=== PATIENT | female | born 1950 | race Caucasian/White ===

== ENCOUNTER 2017-04-26 10:06 | Day surgery (SDC) | payer MEDICARE, BC, SELFPAY ==
[2017-04-26] VITALS (7 sets, daily range): BP systolic 128–149; BP diastolic 64–85; PULSE 82–86; RESP 16; TEMP 35.9–36.9; O2SAT 91–96; BMI 37.0
--- NOTE | 2017-04-26 | LES_PTH ---
PATIENT: MCKENNA ALVARADO LOC: [facility] U#:[id number] AGE/SX: 66/F ROOM: RE04/26/[address]: Dr. Kaylee Roland MD : 1950 BED: DIS: 04/26/2017 SPEC #: [id number] RECD: 04/26/17 12:32 STATUS: SYLVIE MEGAN #: [id number] LEONARDO: 04/26/17 00:[address]: Kaylee Roland DEPT: SURGICAL PATHOLOGY RECD BY: Maribel Mckenzie ENTERED: 04/26/17 13:17 SP TYPE: Lesion OTHR DR: Dr. David Hager, DO Tissues: Skin of eyelid, NOS Procedures: Frozen Section (charge) Surgery Specimen Level IV Frozen (no charge) HEADER OPERATION: Wedge resection basal cell carcinoma, frozen sections upper eyelid PRE-OP DIAGNOSIS: Basal cell carcinoma upper lid with features of the infundibulocystic variant TISSUE SUBMITTED: Basal cell carcinoma left upper lid FROZEN SECTION DIAGNOSIS Skin lesion, left upper eyelid, biopsy: No evidence of carcinoma. AM:victorino 04/26/17 MICROSCOPIC DIAGNOSIS Skin lesion, left upper eyelid, biopsy: Mild fibrosis and minimal chronic inflammation. No evidence of malignancy. NOA:victorino 04/27/17 MICROSCOPIC DESCRIPTION Slides are reviewed. GROSS DESCRIPTION Received fresh for frozen section consultation labeled with the patient's name is a specimen designated lesion, left upper eyelid. The specimen consists of an irregular fragment of pink-liam soft tissue measuring 0.8 x 0.5 x 0.4 cm. The specimen is oriented and is differentially inked as follows: superior ? black, inferior ? blue, medial ? yellow, lateral ? red. The specimen is then trisected and submitted in its entirety for frozen section consultation. / AM:victorino 04/26/17 TC:5 CPT: 72930, 99815
[2017-04-26] MEDS: Erythromycin Base 1 OPTH.TUBE 1 APPLIC OPHTHALMIC (07:00)
[2017-04-26 10:51] LABS: Bedside Glucose 185 mg/dL (70-110)
[2017-04-26] MEDS: Tetracaine 0.5% Ophthalmic Bottle 1 DRP (11:59)
[2017-04-26] MEDS: Sodium/Calcium/Mag/Potassium 15 ML Bottle (12:45)
--- NOTE | 2017-04-26 13:29 | DCINST_ITS ---
[facility] Eyelid Surgery Discharge Instructions: CARE: 1. Apply Ice or Bag of Frozen Veggies to the surgery location 30 minutes of every hour for the first 48 hours while awake. 2. When you are sleeping, please apply the shield with paper tape for the first 3 nights. 3. It is best to attempt to sleep on your side that is opposite the side of surgery. 4. Do not RUB your eyelid. 5. Do not shower for 24 hours after surgery. It is OK to sponge bath but avoid water in or around the face. 6. Clean the incision daily with warm water and clean cloth. Do NOT RUB aggressively. 7. Do not lift anything heavier than 25 pounds for the first 2 weeks after surgery. 8. Resume regular diet and medications MEDICATIONS: 1. Apply prescribed eye ointment to the incision site and eye four times daily for the first two days. 2. If your eye is comfortable after 2 days, you may apply the ointment only to the incision site until your appointment with Dr. Roland in 1 week. Please CALL IF YOU DEVELOP ANY OF THE FOLLOWING PROBLEMS: 1. Extreme pain that is not relieved with Tylenol or Ibuprofen 2. Vision loss 3. Nausea and vomiting During regular office hours, please call the office at After hours, please call the office which will route to an answering service OR call Dr. Roland directly at If you have not heard from Dr. Roland in 30 minutes, please call . You will reach Dr. Amado Roland. Please notify him you are an EYE patient and need to speak with Dr. Kaylee Roland.
--- NOTE | 2017-04-26 13:29 | PCM.OP.BLANK ---
Operative Report Date of Procedure: 04/26/17 Procedure: Wedge resection left upper eyelid with frozen sections Preoperative Diagnosis: Basal Cell Carcinoma left upper eyelid Post operative Diagnosis: Same Anesthesia: mac/local EBL: <5 cc Indications for procedure: This is a 66 year old female with history of lesion of the left upper eyelid that was biopsied and sent to pathology. It returned as a basal cell carcinoma of the infundibulocystic variant, therefore the patient was brought to the operating room to complete wedge resection of the left upper eyelid with 2 mm margins and intraoperative frozen sections. Risks, benefits, and alternatives of the procedure were discussed and she agreed to proceed. Description of Procedure: The patient was brought to the operating room where a time out was preformed prior to the start of the procedure. The site of excision was marked with a marking pen, ensuring 2 mm margin adjacent to the abnormal tissue medial, lateral and superior. Anesthesia team induced light sedation. The left upper eyelid was injected with 2% lidocaine with epinephrine. Tetracaine drops were placed in the left eye. The upper half of the face was prepped and draped in the usual sterile fashion for eyelid surgery. A corneal protector was placed in the left eye. A 15 degree blade was used to incise along the previous marked excision site. Diane scissors were used to remove the excised pentagonal tissue. This was placed on a tongue depressor and marked medial, lateral, superior margins and sent for review with the pathologist. During this period hemostasis was achieved using cautery. The pathologist called to report all margins were free of residual tumor, and therefore closure of the defect began. 3 tarsal sutures were placed with 6-0 vicryl. 2 6-0 silk sutures were used to close the lid margin. Lastly 3 6-0 fast absorbing gut sutures were used to close the skin, making sure to tie the silk sutures down through the skin sutures. The corneal protector was removed. It was ensured no sutures were eroded through the posterior aspect of the eyelid. Erythromycin ointment was applied to the eye and incision site after the site was cleaned and the eye was irrigated with BSS. The patient was taken to the recovery room in stable condition.
== END 2017-04-26 14:20 | disposition home or self-care (01) ==
LOC: SDC 10:07 → AC 10:09
PROVIDERS: Family Provider Family Medicine; PCP Family Medicine; Visit Provider Ophthalmology
PROC: (CPT 67840; principal; 2017-04-26 11:35)
DX: C44.119 Basal cell carcinoma of skin of left eyelid, including canthus (principal); I10 Essential (primary) hypertension; E11.9 Type 2 diabetes mellitus without complications; K21.9 Gastro-esophageal reflux disease without esophagitis; E78.00 Pure hypercholesterolemia, unspecified; M19.90 Unspecified osteoarthritis, unspecified site; G47.30 Sleep apnea, unspecified; Z87.891 Personal history of nicotine dependence; Z79.82 Long term (current) use of aspirin; Z79.84 Long term (current) use of oral hypoglycemic drugs; Z79.899 Other long term (current) drug therapy
CPT/HCPCS: 00300; 67840; 82962; 88305; 88331; J7120; C1876; J2405

== ENCOUNTER → 2017-06-14 13:46 | Outpatient (CLI) | payer MEDICARE, BC, SELFPAY ==
--- NOTE | 2017-06-14 13:48 | RAD_ITS ---
STUDY: X-RAY - PELVIS AND LEFT HIP REASON FOR EXAM: Female, 67 years old. Pain. TECHNIQUE: Radiological exam, hip, unilateral, with pelvis when performed; 2 or 3 views. COMPARISON: CT abdomen and pelvis July 28, 2014. FINDINGS: There is a non-specific bowel gas pattern. Normal visualized soft tissue structures. Normal bilateral iliac wings, sacroiliac joints and visualized sacrum. Normal bilateral superior and inferior pubic rami. Normal pubic symphysis. Normal bilateral ischial tuberosities. Normal visualized femoral head. Normal acetabulum. Normal hip joint. Degenerative changes of the lower lumbar spine with disc space narrowing and marginal osteophytes. RAD/Hip 2-3 Views with Pelvis IMPRESSION: Normal x-ray examination of the pelvis and hip. Degenerative changes lower lumbar spine. Electronically Signed: Devyn Armas MD at 0:08 EDT , Service support ,
== END ==
PROVIDERS: Family Provider Family Medicine; PCP Family Medicine; Visit Provider Chiropractor
DX: S33.5XXA Sprain of ligaments of lumbar spine, initial encounter (principal)
CPT/HCPCS: 73502

== ENCOUNTER → 2017-06-18 10:15 | Outpatient (CLI) | payer MEDICARE, BC, SELFPAY ==
[2017-06-18 12:21] LABS: Microalbumin,Random Urine 17.3 mg/L (NO RANGE EST.); Microalbumin:Creatinine Ratio 11.2 mg/g CRE (<30 mg/g CRE)
[2017-06-18 12:27] LABS: Absolute Lymphocyte Count 2.18 X10^3/ul (0.83-4.51); Absolute Neutrophil Count 7.9 X10^3/uL (2.0-7.7); Basophil# 0.02 X10^3/uL; Basophil% 0.2 % (0-1); Eosinophil# 0.22 X10^3/uL; Hematocrit 41.5 % (37-47); Hemoglobin 13.4 g/dl (12.0-15.0); Lymphocyte # 2.18 X10^3/ul (4.0); Lymphocyte % 19.6 % (19-41); Mean Corp Hgb Conc 32.3 g/gl (32-36); Mean Corpuscular Hgb 31.9 pg (27.0-32.0); Mean Corpuscular Volume 98.8 fL (81-99); Mean Platelet Vol. 11.1 fl (6.2-12.0); Monocyte# 0.75 X10^3/uL; Monocyte% 6.7 % (0-10); Neutrophil % 70.9 % (47-70); Platelet Count 352 K/mm3 (150-450); RBC Distribution Width CV 13.4 % (11.6-14.6); RBC Distribution Width SD 47.7 fl (35.1-43.9); White Blood Count 11.1 K/mm3 (4.4-11.0)
[2017-06-18 12:32] LABS: POSITIVE COUNT NO; POSITIVE DIFFERENTIAL NO; POSITIVE MORPHOLOGY NO
[2017-06-18 12:41] LABS: Hemoglobin A1c 7.7 % (4.2-6.3)
[2017-06-18 12:48] LABS: ALB/GLOB Ratio 0.8 RATIO (0.9-2.4); AST(SGOT) 50 U/L (15-37); Alanine Aminotransfer ALT/SGPT 43 U/L (13-56); Albumin, Serum 3.7 g/dL (3.2-5.0); Alkaline Phosphatase 153 U/L (45-117); Anion Gap 7 (5-15); BUN 21 mg/dL (7-18); BUN/Creat Ratio 27.8 RATIO (10-20); Calcium,Total 9.4 mg/dL (8.5-10.1); Chloride 98 mmol/L (98-107); Cholesterol 180 mg/dL (200); Creatinine, Serum 0.76 mg/dL (0.55-1.02); EST Glomerular Filtration Rate 81 mL/min (>60); Est Glom Filt Rate - Afr Amer 98 mL/min (>60); Globulin 4.9 g/dL (2.2-4.2); Glucose 177 mg/dL (74-106); High Density Lipoprotein 52 mg/dL; Potassium 4.1 mmol/L (3.5-5.1); Protein, Total 8.6 g/dL (6.4-8.2); Sodium Level 137 mmol/L (136-145); Thyroid Stim Hormone (TSH) 1.21 uIU/mL (0.358-3.74); Triglycerides 222 mg/dL; Very Low Density Lipoprotein 44 mg/dL (5-40)
== END ==
PROVIDERS: Family Provider Family Medicine; PCP Family Medicine; Visit Provider Family Medicine
DX: I10 Essential (primary) hypertension (principal); E11.9 Type 2 diabetes mellitus without complications; E78.5 Hyperlipidemia, unspecified; D12.6 Benign neoplasm of colon, unspecified
CPT/HCPCS: 36415; 80053; 80061; 82043; 82570; 83036; 84443; 85025

== ENCOUNTER → 2017-06-26 11:20 | Outpatient (CLI) | payer MEDICARE, BC, SELFPAY ==
--- NOTE | 2017-06-26 11:24 | RAD_ITS ---
STUDY: X-RAY CHEST REASON FOR EXAM: Female, 67 years old. Shortness of breath TECHNIQUE: PA and lateral views of the chest. COMPARISON: None. FINDINGS: There is hyperinflation of the lungs consistent with chronic obstructive lung disease (COPD). Lungs are clear. There is no demonstrated pleural abnormality. There is mild cardiac enlargement. Normal mediastinum and aryan. Normal visualized pulmonary arteries. Normal visualized aortic arch and descending thoracic aorta. Calcified left suprahilar lymph nodes. Normal visualized thoracic spine. Normal visualized ribs, clavicles, and shoulders. There is no demonstrated abnormality of the visualized soft tissue structures of the upper abdomen. RAD/Chest PA and Lateral IMPRESSION: Degenerative changes, as described above. No demonstrated acute cardiopulmonary process. Electronically Signed: Logan Zapata DO at 8:35 EDT Tel , Service support ,
== END ==
PROVIDERS: Family Provider Family Medicine; PCP Family Medicine; Visit Provider Family Medicine
DX: R06.2 Wheezing (principal); R06.02 Shortness of breath
CPT/HCPCS: 71046

== ENCOUNTER → 2017-07-23 16:47 | Outpatient (CLI) | payer MEDICARE, BC, SELFPAY ==
[2017-07-23 18:51] LABS: ALB/GLOB Ratio 0.7 RATIO (0.9-2.4); AST(SGOT) 41 U/L (15-37); Alanine Aminotransfer ALT/SGPT 42 U/L (13-56); Albumin, Serum 3.4 g/dL (3.2-5.0); Alkaline Phosphatase 216 U/L (45-117); Anion Gap 11 (5-15); BUN 19 mg/dL (7-18); BUN/Creat Ratio 21.2 RATIO (10-20); Calcium,Total 9.5 mg/dL (8.5-10.1); Chloride 98 mmol/L (98-107); EST Glomerular Filtration Rate 66 mL/min (>60); Est Glom Filt Rate - Afr Amer 80 mL/min (>60); Globulin 4.8 g/dL (2.2-4.2); Glucose 229 mg/dL (74-106); Magnesium 1.8 mg/dL (1.6-2.6); Potassium 3.7 mmol/L (3.5-5.1); Protein, Total 8.2 g/dL (6.4-8.2); Sodium Level 134 mmol/L (136-145); Thyroid Stim Hormone (TSH) 1.48 uIU/mL (0.358-3.74)
== END ==
PROVIDERS: Family Provider Family Medicine; PCP Family Medicine; Visit Provider Family Medicine
DX: I10 Essential (primary) hypertension (principal); I49.8 Other specified cardiac arrhythmias
CPT/HCPCS: 36415; 80053; 83735; 84443

== ENCOUNTER → 2017-08-09 09:04 | Outpatient (CLI) | payer MEDICARE, BC, SELFPAY | PROVIDERS: Family Provider Family Medicine; PCP Family Medicine; Visit Provider Internal Medicine Cardiovascular Disease | DX: I47.1 Supraventricular tachycardia (principal) | CPT/HCPCS: 93225; 93226 ==

== ENCOUNTER → 2017-08-10 10:03 | Outpatient (CLI) | payer MEDICARE, BC, SELFPAY ==
--- NOTE | 2017-08-10 10:04 | ECHOD_ITS ---
Reason For Study: Arrhythmia Procedure This was a 2D Doppler, Color Flow transthoracic echocardiogram. Technically difficult study, patient was unable to lay on left side and remain still due to severe back and hip pain. Exam performed in department. Left Ventricle Normal LV size. Moderate concentric left ventricular hypertrophy. Left ventricular systolic function is normal. The estimated ejection fraction is 60 %. Transmitral diastolic flow velocities suggest mild (stage 1) diastolic dysfunction (reversed pattern). No regional wall motion abnormalities noted. Right Ventricle Normal RV size. Normal systolic function. Atria Normal left atrium. Normal right atrium. Mitral Valve Normal mitral valve. Tricuspid Valve Normal tricuspid valve. Aortic Valve Normal aortic valve. Pulmonic Valve The pulmonic valve is not well visualized. Great Vessels Normal aortic root. The pulmonary artery is normal size. Normal inferior vena cava. Pericardium/Pleural No pericardial effusion. MMode/2D Measurements & Calculations LVIDd: 4.7 cm IVSd: 1.5 cm Ao root diam: 3.1 cm LVIDs: 2.5 cm LVPWd: 1.3 cm RVDd: 4.2 cm FS: 46.4 % LAV(MOD-sp2): 47.4 ml Time Measurements MV dec time: 0.24 sec Doppler Measurements & Calculations MV E max miguelito: 49.4 cm/sec Lat Peak E' Miguelito: 8.8 cm/sec Med Peak E' Miguelito: 9.3 cm/sec MV A max miguelito: 65.1 cm/sec E/E' lat: 5.6 E/E' med: 5.3 MV E/A: 0.76 MV V2 max: 84.1 cm/sec MV P1/2t max miguelito: 74.4 cm/sec Ao V2 max: 164.4 cm/sec MV max P.8 mmHg MV P1/2t: 86.9 msec Ao max P.8 mmHg MV V2 mean: 48.7 cm/sec MV dec slope: 250.7 cm/sec2 Ao V2 mean: 102.8 cm/sec MV mean P.1 mmHg MVA(P1/2t): 2.5 cm2 Ao mean P.0 mmHg MV V2 VTI: 18.9 cm Ao V2 VTI: 30.7 cm LV V1 max: 95.7 cm/sec PA V2 max: 108.8 cm/sec TR max miguelito: 297.6 cm/sec LV V1 max P.7 mmHg TR max P.4 mmHg LV V1 mean P.5 mmHg LV V1 mean: 54.3 cm/sec LV V1 VTI: 18.5 cm Interpretation Summary Normal LV size. Moderate concentric left ventricular hypertrophy. Left ventricular systolic function is normal. The estimated ejection fraction is 60 %. Transmitral diastolic flow velocities suggest mild (stage 1) diastolic dysfunction (reversed pattern). Ordering Physician: Justin Archer Referring Physician: Justin Archer Performed By: Roberto Love RCS
== END ==
PROVIDERS: Family Provider Family Medicine; PCP Family Medicine; Visit Provider Internal Medicine Cardiovascular Disease
DX: I47.1 Supraventricular tachycardia (principal)
CPT/HCPCS: 93306

== ENCOUNTER → 2017-08-21 14:13 | Outpatient (CLI) | payer MEDICARE, BC, SELFPAY | PROVIDERS: Family Provider Family Medicine; PCP Family Medicine; Visit Provider Family Medicine | DX: R35.0 Frequency of micturition (principal); N30.00 Acute cystitis without hematuria | CPT/HCPCS: 87086; 87088 ==

== ENCOUNTER → 2017-09-11 15:25 | Outpatient (CLI) | payer MEDICARE, BC, SELFPAY ==
--- NOTE | 2017-09-11 15:31 | MRI_ITS ---
STUDY: MRI LUMBAR SPINE WITHOUT CONTRAST REASON FOR EXAM: Female, 67 years old. Severe back and leg pain TECHNIQUE: Standardized fat and water weighted pulse sequences were obtained in the sagittal and axial planes. COMPARISON: None There are lesions scattered throughout the lumbar spine involving all of the vertebral bodies and posterior neural elements at multiple levels demonstrating low signal on T1 and increased signal on T2 as well as STIR consistent with diffuse disseminated metastatic disease. There are also lesions seen within the T10, T11 and T12 vertebral bodies There are also metastases noted within the sacral wings bilaterally and the left iliac wing There is a suggestion of tumor within the anterior epidural space at L2 FINDINGS: T12-L1: Normal endplates. Normal disc height, hydration and morphology. Normal bilateral facet joints. Normal central canal and bilateral lateral recesses. Normal bilateral intervertebral neural foramina. Normal lumbar lordosis. There is no substantial scoliosis. Normal conus medullaris that terminates at T12-L1 L1-2: Normal endplates. Normal disc height, hydration and minimal annular bulge.. Normal bilateral facet joints. Normal central canal and bilateral lateral recesses. Normal bilateral intervertebral neural foramina. L2-3: Normal endplates. Narrowed disc space with desiccation of the disc and moderate annular bulge with small right posterolateral/foraminal disc protrusion... Normal bilateral facet joints. Normal central canal. Mild left lateral recess. Moderate right lateral recess and neuroforaminal stenosis L3-4: Normal endplates. Normal disc height, desiccation and normal morphology. Mild facet arthropathy.. Normal central canal and bilateral lateral recesses. Normal bilateral intervertebral neural foramina. L4-5: Narrowed disc space with desiccation of the disc and moderate annular bulge.. Bilateral facet arthropathy.. Mild narrowing of the central canal. Moderate bilateral recess and neuroforaminal stenosis.. L5-S1: Normal endplates. Normal disc height, desiccation and normal morphology. Facet arthropathy.. Normal central canal. Minor bilateral recess encroachment. Normal bilateral intervertebral neural foramina. Normal visualized sacral ala. Normal visualized paraspinous soft tissue structures. MRI/Spine Lumbar (Routine) IMPRESSION: Extensive bone metastasis involving T10-S1 as well as the sacral wings and left ilium. Repeat exam with contrast would be helpful for assessment of involvement of the spinal canal. There is also spinal stenosis secondary to disc disease and bony hypertrophy at L4-5 and L2-3 Electronically Signed: Rm Retana MD at 17:15 EDT , Service support ,
== END ==
PROVIDERS: Family Provider Family Medicine; PCP Family Medicine; Visit Provider Family Medicine
DX: M54.5 Low back pain (principal); G89.29 Other chronic pain
CPT/HCPCS: 72148

== ENCOUNTER → 2017-09-13 10:05 | Outpatient (CLI) | payer MEDICARE, BC, SELFPAY ==
[2017-09-13 12:59] LABS: Color, Urine Yellow (Yellow); Glucose, Dipstick Normal (Normal); Ketone-Dipstick Negative (Negative); Leukocyte Esterase-Dipstick 100 /ul (Negative); Nitrite-Dipstick Negative (Negative); Occult Blood-Urine Negative /ul (Negative); Protein-Dipstick 30 mg/dl (Negative); Specific Gravity, Urine 1.025 (1.002-1.030); Urine Bilirubin Dipstick Negative (Negative); Urine Clarity Clear (Clear); Urine Urobilinogen Normal (Normal)
[2017-09-14 14:09] LABS: PROEL- A/G Ratio 0.9 (0.7-1.7); PROEL- Albumin 3.6 g/dL (2.9-4.4); PROEL- Alpha-1 Globulin 0.3 g/dL (0.0-0.4); PROEL- Alpha-2 Globulin 1.1 g/dL (0.4-1.0); PROEL- Beta Globulin 1.3 g/dL (0.7-1.3); PROEL- Gamma Globulin 1.4 g/dL (0.4-1.8); PROEL- Globulin, Total 4.1 g/dL (2.2-3.9); PROEL- TOTAL PROTEIN 7.7 g/dL (6.0-8.5)
[2017-09-15 09:19] LABS: Beta-2-Microglobulin, S 2.3 mg/L (0.6-2.4)
[2017-09-17 16:09] LABS: PROELU- Albumin, Urine 57.8 % (.); PROELU- Alpha-1-Globulin,Ur 2.6 % (.); PROELU- Alpha-2-Globulin,Ur 7.8 % (.); PROELU- Beta Globulin, Ur 17.3 % (.); PROELU- Gamma Globulin, Ur 14.5 % (.); Total Protein, Ur 32.3 mg/dL (Not Estab.)
== END ==
PROVIDERS: Family Provider Family Medicine; PCP Family Medicine; Visit Provider Family Medicine
DX: R30.0 Dysuria (principal); R77.1 Abnormality of globulin
CPT/HCPCS: 36415; 81002; 82232; 84165; 84166; 87086; 87088

== ENCOUNTER → 2017-09-25 08:56 | Outpatient (CLI) | payer MEDICARE, BC, SELFPAY ==
[2017-09-25] VITALS (9 sets, daily range): BP systolic 143–176; BP diastolic 33–120; PULSE 67–75; RESP 15–19; TEMP 36.6; O2SAT 93–98; BMI 35.2
--- NOTE | 2017-09-25 | ASPIGT_PTH ---
PATIENT: MCKENNA ALVARADO LOC: CT U#:[id number] AGE/SX: 74/F ROOM: RE09/25/[address]: Dr. Sherice Pineda MD : 1950 BED: DIS: SPEC #: [id number] RECD: 09/25/17 13:05 STATUS: SYLVIE MEGAN #: [id number] LEONARDO: 09/25/17 00:[address]: Sherice Pineda DEPT: SURGICAL PATHOLOGY RECD BY: Rhett Pan ENTERED: 09/25/17 13:05 SP TYPE: ASP RAD OTHR DR: Dr. David Hager, DO Tissues: Back, NOS Procedures: FNA Specimen Adequacy Special Stain Group II Surgery Specimen Level IV Diff Quik Stain (control) Imprint (control) HEADER OPERATION: CT guided bone biopsy PRE-OP DIAGNOSIS: Metastatic disease, bone TISSUE SUBMITTED: Bone and soft tissue, core biopsy MICROSCOPIC DIAGNOSIS Bone and soft tissue, core biopsy: Metastatic non-small cell carcinoma. See Comment. AM:victorino 09/27/17 COMMENT The specimen is evaluated at the time of CT (crush prep) by Dr. Hamm. Immediate Evaluation = Malignant cells present. Immunohistochemical analysis ([id number]) supports a lung primary. Results for PDL-1 will be reported separately. This case was discussed with Dr. Pineda 09/28/[address] Mazariegos. MICROSCOPIC DESCRIPTION Slides are reviewed. GROSS DESCRIPTION Received is one container labeled with the patient's name and not further designated. The specimen consists of three cores of light lima soft tissue. Each core has an average length of 1 cm and a maximal diameter of <0.1 cm. The specimen is totally submitted in one cassette. / AM:victorino 09/25/17 TC:0 [facility]: [id number], [id number] ADDENDUM ADDENDUM ADDENDUM ADDENDUM ADDENDUM ADDENDUM ADDENDUM 10/10/2017 14:45 ADDENDUM 10/10/2017 14:45 ADDENDUM 10/10/2017 14:45 ADDENDUM 10/10/2017 14:45 ADDENDUM 10/10/2017 14:45 (KEYTRUDA) PD-L1 IMMUNOHISTOCHEMISTRY ANALYSIS FROM [facility] RESULTS: Tumor proportion score 30% Low expression Please see complete report in e-chart or EMR for complete details
--- NOTE | 2017-09-25 | IMM_PTH ---
PATIENT: MCKENNA ALVARADO LOC: CT U#:[id number] AGE/SX: 74/F ROOM: RE09/25/[address]: Dr. Sherice Pineda MD : 1950 BED: DIS: SPEC #: [id number] RECD: 09/27/17 10:48 STATUS: SYLVIE REQ #: [id number] LEONARDO: 09/25/17 00:[address]: Sherice Pineda DEPT: IMMUNOHISTOCHEMISTRY RECD BY: Maribel Mckenzie ENTERED: 09/27/17 10:52 SP TYPE: IMMUNO OTHR DR: Dr. David Hager DO Tissues: Sacrum, NOS Procedures: NAPSIN A (add) CK20 (add) CK7 (add) OR (add) TTF1 (add) Vimentin (add) GATA3 (add) ER (initial) PHYSICIAN & INSTITUTION [place] [address] SPECIMEN INFORMATION: Tissue Source: Bone and soft tissue Clinical Info: Metastatic disease, bone Specimen Number: [id number] CPT code: 47429, 18490 x7 METHODOLOGY: Deparaffinized sections of prefer/formalin-fixed tissue or PAP/DQ stained slides are incubated with monoclonal/polyclonal antibodies/oligonucleotide probes. Localization is made via biotin free immunoperoxidase method. Appropriate controls are performed and reacted as expected. Results on target cell population are indicated in the following table: RESULTS: ANTIBODY / CLONE RESULT ER (6F11) negative OR (1E2) negative GATA3 (L50-823) negative TTF-1 (8G7G3/1) positive Vimentin (V9) negative CK7 (OV-TL12/30) positive CK20 (KS20.8) negative Napsin A (Rabbit Polyclonal) positive These tests were developed and their performance characteristics determined by [facility]. They may not have been cleared or approved by the U.S. Food and Drug Administration. The FDA has determined that such clearance or approval is not necessary. INTERPRETATION: Bone and soft tissue, CT-guided core biopsy: Metastatic non-small cell carcinoma consistent with lung primary.
[2017-09-25 09:15] LABS: Hematocrit 35.4 % (37-47); Hemoglobin 11.4 g/dl (12.0-15.0); Mean Corp Hgb Conc 32.2 g/gl (32-36); Mean Corpuscular Hgb 31.1 pg (27.0-32.0); Mean Corpuscular Volume 96.5 fL (81-99); Mean Platelet Vol. 8.8 fl (6.2-12.0); Platelet Count 329 K/mm3 (150-450); RBC Distribution Width CV 13.9 % (11.6-14.6); RBC Distribution Width SD 48.7 fl (35.1-43.9); Red Blood Count 3.67 M/mm3 (4.2-5.4); Scan Indicated on CBC? Y/N NO; White Blood Count 18.1 K/mm3 (4.4-11.0)
--- NOTE | 2017-09-25 09:17 | CT_ITS ---
PROCEDURE: CT GUIDED biopsy of the left iliac bone. DATE: September 25, 2017. INDICATION: Female, 67 years old. Bony metastasis. PHYSICIAN: Arben Alexis M.D. RADIATION DOSAGE (If Supplied By Facility): CTDIvol = ( 26 ) mGy, DLP = ( 474.93 ) mGycm. Individualized dose reduction techniques were utilized. PROCEDURE: The risks, benefits, and alternatives to the procedure were explained to the patient. The specific risk of hemorrhage requiring further treatment or intervention was detailed and accepted. Follow-up instructions were discussed with the patient as well. Written informed consent was obtained. The patient was brought into the CT suite and placed in the right down decubitus position. . An appropriate entry site was identified. The overlying skin was prepped and draped in the usual sterile fashion. 1% lidocaine was administered subcutaneously for local anesthesia. Conscious sedation was performed. The patient received 1 mg of Versed and 25 mcg of fentanyl intravenously. Conscious sedation was started at 10:20 AM and terminated at 10:30. The patient was monitored independently by the department nurse. Under CT guidance, a total of 4 passes were performed utilizing a 18-gauge core biopsy needle. The specimens were then placed in the appropriate fluid and transported to the laboratory for analysis. Hemostasis was obtained. The patient tolerated the procedure well without immediate complications. CT/Biopsy/Inj or Needle Placement IMPRESSION: Successful CT guided biopsy of the left iliac bone abnormality, as described above. Electronically Signed: Arben Alexis MD at 12:39 EDT Tel [phone], Service support ,
[2017-09-25 09:23] LABS: Prothrombin Time (Protime)PT. 12.8 SECONDS (11.7-14.9)
[2017-10-19 14:09] LABS: Miscellaneous Lab Procedure SEE PATH
== END ==
PROVIDERS: Family Provider Family Medicine; PCP Family Medicine; Visit Provider Internal Medicine Hematology & Oncology
DX: M25.552 Pain in left hip (principal); C80.1 Malignant (primary) neoplasm, unspecified; C79.51 Secondary malignant neoplasm of bone
CPT/HCPCS: 20220; 36415; 77012; 85027; 85610; 88172; 88305; 88313; 88341; 88342; 99156; J7040; A4216

== ENCOUNTER 2017-11-18 18:55 | Emergency (ER) | payer MEDICARE, BC, SELFPAY ==
[2017-11-18 18:57] VITALS: BP 131/98; PULSE 93; RESP 20; TEMP 37.2; O2SAT 94; BMI 35.5
[2017-11-18] MEDS: 0.9% Normal Saline 1,000 ML 999 ML IV (20:14)
[2017-11-18 20:20] LABS: Absolute Neutrophil Count 6.8 X10^3/uL (2.0-7.7); Basophil# 0.01 X10^3/uL; Basophil% 0.1 % (0-1); Differential Indicated SCAN CRITERIA MET; Eosinophil# 0.07 X10^3/uL; Eosinophils% 0.9 % (0-5); Hematocrit 31.3 % (37-47); Hemoglobin 10.4 g/dl (12.0-15.0); Lymphocyte % 5.4 % (19-41); Mean Corp Hgb Conc 33.2 g/gl (32-36); Mean Corpuscular Hgb 31.5 pg (27.0-32.0); Mean Corpuscular Volume 94.8 fL (81-99); Mean Platelet Vol. 9.1 fl (6.2-12.0); Monocyte# 0.09 X10^3/uL; Monocyte% 1.2 % (0-10); Neutrophil # 6.83 X10^3/uL (2.7-7.7); Neutrophil % 92.3 % (47-70); POSITIVE COUNT NO; POSITIVE DIFFERENTIAL YES; POSITIVE MORPHOLOGY NO; Platelet Count 338 K/mm3 (150-450); RBC Distribution Width CV 15.8 % (11.6-14.6); RBC Distribution Width SD 54.8 fl (35.1-43.9); White Blood Count 7.4 K/mm3 (4.4-11.0)
[2017-11-18] MEDS: Ondansetron 4 MG/2 ML Vial IV (20:23)
[2017-11-18 20:24] VITALS: BP 130/56; PULSE 81; RESP 18; O2SAT 94
[2017-11-18 20:25] LABS: Prothrombin Time (Protime)PT. 13.3 SECONDS (11.7-14.9)
[2017-11-18 20:26] LABS: Partial Thromboplast Time 30.2 Seconds (24.1-36.2)
[2017-11-18 20:32] LABS: ALB/GLOB Ratio 0.7 RATIO (0.9-2.4); AST(SGOT) 79 U/L (15-37); Alanine Aminotransfer ALT/SGPT 55 U/L (13-56); Albumin, Serum 2.9 g/dL (3.2-5.0); Alkaline Phosphatase 158 U/L (45-117); Anion Gap 14 (5-15); BUN 22 mg/dL (7-18); BUN/Creat Ratio 22.8 RATIO (10-20); Calcium,Total 7.4 mg/dL (8.5-10.1); Chloride 95 mmol/L (98-107); Creatinine, Serum 0.96 mg/dL (0.55-1.02); EST Glomerular Filtration Rate 61 mL/min (>60); Est Glom Filt Rate - Afr Amer 74 mL/min (>60); Estimated Creatinine Clearance 51.78 ml/min; Globulin 4.4 g/dL (2.2-4.2); Glucose 151 mg/dL (74-106); Magnesium 2.1 mg/dL (1.6-2.6); Phosphorus 2.7 mg/dL (2.5-4.9); Protein, Total 7.3 g/dL (6.4-8.2); Sodium Level 133 mmol/L (136-145)
[2017-11-18 20:48] LABS: Lactic Acid 2.7 mmol/L (0.4-2.0)
--- NOTE | 2017-11-18 20:51 | ED.RN ---
notified Dr. Beth of lactic acid 2.7
[2017-11-18 20:55] LABS: Differential Comment SCANNED
[2017-11-18 20:59] LABS: Bacteria 0 SEEN /hpf (None Seen); Mucous, Urine 0 SEEN /hpf (<or=2+); Red Blood Cells-Urine 0 SEEN /hpf (0-5)
[2017-11-18 21:02] LABS: Color, Urine Yellow (Yellow); Glucose, Dipstick 50 mg/dl (Normal); Ketone-Dipstick 5 mg/dl (Negative); Leukocyte Esterase-Dipstick Negative /ul (Negative); Nitrite-Dipstick Negative (Negative); Occult Blood-Urine 25 /ul (Negative); Protein-Dipstick 100 mg/dl (Negative); Specific Gravity, Urine 1.015 (1.002-1.030); Urine Bilirubin Dipstick Negative (Negative); Urine Clarity Clear (Clear); Urine Urobilinogen Normal (Normal)
[2017-11-18 21:17] LABS: Squamous Epithelial Cells - UA 0-5 SEEN /hpf (5-10); White Blood Cells 0-5 SEEN /hpf (0-5)
--- NOTE | 2017-11-18 21:32 | ED.VISSUMM ---
- ER Visit Summary Date of Service: 11/18/17 Chief Complaint: Fever History of Present Illness: The patient is a [address] Pineda, Dr. Archer, and Dr. Hager. She has a history of lung cancer and got her first dose of chemo on November 14. Patient reports she has a fever that began today. It has been 102?. She reports she has chronic chest pain shortness of breath that is unchanged. She reports is been nausea and vomited twice. No blood or emesis. No sore throat or cough. No abdominal pain or diarrhea. No dysuria or frequency. No rash. No headache. She does complain of generalized weakness. Physical Examination: Vitals: Stable. Afebrile. General: Well-nourished and well-developed. Head: Normocephalic atraumatic. Neck: Supple, no lymphadenopathy. No JVD. Nontender. Cardiovascular: Regular rate and rhythm. No murmurs. Respiratory: No respiratory distress. Clear to auscultation bilaterally. Abdominal: Soft, nontender, nondistended, normal bowel sounds. No guarding, rebound, or peritoneal signs. Back: Nontender. Extremities: Nontender, no edema. Skin: Normal color, no rash. Neurologic: Alert and oriented ?3. Cranial nerves II through XII are intact. Normal strength and sensation. Psych: Normal affect. Test Results: CBC is remarkable for a white count of 7.4 with 92 segmented neutrophils and 5 lymphocytes. H&H is 16.4 and 31.3. Chem-7 is more for sodium 133, potassium 3.0, glucose 151, BUN of 22, and calcium of 7.4. Lactic acid is 2.7. However, she is on metformin. LFTs marked for an albumin of 2.9 globulin 4.4. Alk phos is 158 and AST is 79. Coags are normal. Urine is negative. Chest x-ray is normal. Emergency Department Course and Treatment: Patient was given a dose of Zofran IV. While awaiting the labs she is given a dose of meropenem IV. She is resting comfortably and would like to go home. Treatment Plan: I spoke with Dr. Pineda who asked that we have the patient call tomorrow to let him know how she is doing. I discussed patient being on potassium at home and she would prefer to have replacement through foods. She is given a list of foods that are high in potassium. Dr. Pineda also reports that he can give her potassium in the office if it remains low. Patient is happy with this plan. Return to the emergency department for any worsening symptoms. Disposition: To home in improved and stable condition. Impression: 1. Fever. 2. Lung cancer on chemotherapy. 3. Hypokalemia. 4. Lactic acidosis on metformin. This note was generated with [employer] dictation software. It may contain incorrect words, spelling, and punctuation that were not noted in review of the chart prior to signing ED Disposition - Plan for ED Patient: Disposition: Home or Assisted Living Chief Complaint: Fever Instructions: ED Fever Unconf Cause, ED Potassium Deficiency Referrals: Sherice Pineda MD [STAFF PHYSICIAN] - 1-2 Days if not improving Additional Instructions: Winter squash, cubed, 1 cup, cooked: 896 mg Sweet potato, medium, baked with skin: 694 mg Potato, medium, baked with skin: 610 mg White beans, canned, drained, half cup: 595 mg Yogurt, fat-free, 1 cup: 579 mg Halibut, 3 ounces, cooked: 490 mg 100% orange juice, 8 ounces: 496 mg Broccoli, 1 cup, cooked: 457 mg Cantaloupe, cubed, 1 cup: 431 mg Banana, 1 medium: 422 mg Pork tenderloin, 3 ounces, cooked: 382 mg Lentils, half cup, cooked: 366 mg Milk, 1% low fat, 8 ounces: 366 mg [place], farmed [place], 3 ounces, cooked: 326 mg Pistachios, shelled, 1 ounce, dry roasted: 295 mg Raisins, quarter cup: 250 mg Chicken breast, 3 ounces, cooked: 218 mg Tuna, light, canned, drained, 3 ounces: 201 mg
[2017-11-18 21:51] VITALS: BP 151/67; PULSE 94; RESP 19; O2SAT 93
[2017-11-19 00:11] LABS: Reflex Lactate? Y
== END 2017-11-18 21:51 | disposition home or self-care (01) ==
LOC: ED 19:37
PROVIDERS: Emergency Provider Emergency Medicine; Family Provider Family Medicine; PCP Family Medicine
DX: R50.9 Fever, unspecified (principal); E87.6 Hypokalemia; E87.2 Acidosis; C34.90 Malignant neoplasm of unspecified part of unspecified bronchus or lung; E11.9 Type 2 diabetes mellitus without complications; I10 Essential (primary) hypertension; Z79.84 Long term (current) use of oral hypoglycemic drugs; Z87.891 Personal history of nicotine dependence; Z79.891 Long term (current) use of opiate analgesic; Z79.51 Long term (current) use of inhaled steroids; Z79.899 Other long term (current) drug therapy
CPT/HCPCS: 71046; 80053; 81001; 83605; 83735; 84100; 85025; 85610; 85730; 87040; 87086; 96365; 96375; 99284; J2185; J7030; A4216; J2405

== ENCOUNTER 2017-11-28 18:32 | Inpatient (IN) | payer MEDICARE, BC, SELFPAY ==
[2017-11-28] VITALS (7 sets, daily range): BP systolic 131–160; BP diastolic 52–72; PULSE 49–99; RESP 16–20; TEMP 37.3; O2SAT 91–98; BMI 34.2; BMI 34.7
--- NOTE | 2017-11-28 19:44 | ED.VISSUMM ---
- ER Visit Summary Date of Service: 11/28/17 Chief Complaint: Fever History of Present Illness: The patient is a 67 F fever 102.4 tympanic shortly before 6 PM. Status post Percocet afterwards. History of non-small cell lung cancer with metastases followed by Dr. Pineda. Initial radiation chemo started on November 14 of 4 medications. No Neulasta. States had a fever about 10 days ago seen in the ED. Initial antibiotics however is not sent home with it. Return today. States no cough. Mild dysuria today. Chronic loose stools, however recurrent starting Sunday, 2 episodes today. No recent antibiotics. Physical Examination: General: Alert and oriented ?3, no acute distress HEENT: Normocephalic, atraumatic. Neck: supple, nontender. Cardiovascular: Regular rate and rhythm, no murmurs Respiratory: Normal breath sounds, symmetric, no distress Abdomen: Soft, nontender, nondistended Extremities: Nontender, no edema, pulses intact ?4 Neuro: no focal neurological deficits. Test Results: White blood cell count 0.4. Absolute neutrophils 0. Hemoglobin 8.7. Platelets 9. Blood and urine cultures pending. UA 25 leukocytes with red blood cells. Urine culture sent. Chest x-ray negative. Stool cultures ordered and pending. Emergency Department Course and Treatment: Patient currently afebrile in the department. Recent chemo, neutropenic femur workup initially with cultures. Labs no white blood cell count 0.4 hemoglobin 8.7, platelets 9. There is no bleeding issues. I did discuss with Dr. Conley on-call did state the chemo drugs can cause pancytopenia. Does feel patient needs to be admitted. He recommended single therapy of meropenem and 1 pack of platelets that can be non-irradiated. This was ordered. Stool cultures were ordered, none collected at this time. Vitals remained stable. She is admitted under hospitalist service. Treatment Plan: [] Disposition: Admission Impression: 1. Neutropenic fever 2. Pancytopenia 3. Thrombocytopenia This note was generated with [employer] dictation software. It may contain incorrect words, spelling, and punctuation that were not noted in review of the chart prior to signing ED Disposition - Plan for ED Patient: Disposition: Acute Care Hospital [facility] Chief Complaint: Fever Diagnosis: Neutropenic fever, Pancytopenia, Thrombocytopenia Referrals: David Hager DO [Primary Care Provider] -
[2017-11-28 20:24] LABS: ALB/GLOB Ratio 0.6 RATIO (0.9-2.4); AST(SGOT) 21 U/L (15-37); Alanine Aminotransfer ALT/SGPT 20 U/L (13-56); Albumin, Serum 2.8 g/dL (3.2-5.0); Alkaline Phosphatase 215 U/L (45-117); Anion Gap 12 (5-15); BUN 8 mg/dL (7-18); BUN/Creat Ratio 10.6 RATIO (10-20); Calcium,Total 7.7 mg/dL (8.5-10.1); Chloride 95 mmol/L (98-107); Creatinine, Serum 0.75 mg/dL (0.55-1.02); EST Glomerular Filtration Rate 81 mL/min (>60); Est Glom Filt Rate - Afr Amer 98 mL/min (>60); Globulin 4.6 g/dL (2.2-4.2); Glucose 128 mg/dL (74-106); Potassium 3.1 mmol/L (3.5-5.1); Protein, Total 7.4 g/dL (6.4-8.2); Sodium Level 134 mmol/L (136-145)
[2017-11-28 20:34] LABS: Absolute Lymphocyte Count 0.36 X10^3/ul (0.83-4.51); Eosinophil# 0.01 X10^3/uL; Eosinophils% 2.4 % (0-5); Hematocrit 25.3 % (37-47); Hemoglobin 8.7 g/dl (12.0-15.0); Lymphocyte # 0.36 X10^3/ul (4.0); Lymphocyte % 85.7 % (19-41); Mean Corp Hgb Conc 34.4 g/gl (32-36); Mean Corpuscular Hgb 31.5 pg (27.0-32.0); Mean Corpuscular Volume 91.7 fL (81-99); Mean Platelet Vol. 11.3 fl (6.2-12.0); Monocyte# 0.03 X10^3/uL; Monocyte% 7.1 % (0-10); Neutrophil # 0.01 X10^3/uL (2.7-7.7); Neutrophil % 2.4 % (47-70); Platelet Count 9 K/mm3 (150-450); RBC Distribution Width CV 14.4 % (11.6-14.6); RBC Distribution Width SD 47.7 fl (35.1-43.9); Red Blood Count 2.76 M/mm3 (4.2-5.4)
[2017-11-28 21:39] LABS: White Blood Count 0.4 K/mm3 (4.4-11.0)
--- NOTE | 2017-11-28 21:39 | ED.RN ---
lab called with critical lab results. wbc 0.42. Plt count 9. Dr. Allen made aware. no new orders at this time
[2017-11-28 21:40] LABS: POSITIVE COUNT YES; POSITIVE DIFFERENTIAL YES; POSITIVE MORPHOLOGY YES
[2017-11-28 21:57] LABS: Mucous, Urine 0 SEEN /hpf (<or=2+)
[2017-11-28 22:14] LABS: Color, Urine Amber (Yellow); Glucose, Dipstick 50 mg/dl (Normal); Ketone-Dipstick 15 mg/dl (Negative); Leukocyte Esterase-Dipstick 25 /ul (Negative); Nitrite-Dipstick Negative (Negative); Occult Blood-Urine 250 /ul (Negative); Protein-Dipstick 30 mg/dl (Negative); Urine Bilirubin Dipstick Negative (Negative); Urine Clarity Clear (Clear); Urine Urobilinogen Normal (Normal)
[2017-11-28] MEDS: oxyCODONE 5 MG Tablet PO (22:21)
[2017-11-28] MEDS: Ondansetron 4 MG/2 ML Vial IV (22:22)
[2017-11-28 22:40] LABS: Bacteria 1+ /hpf (None Seen); Red Blood Cells-Urine > 100 SEEN /hpf (0-5); Squamous Epithelial Cells - UA 0-5 SEEN /hpf (5-10); White Blood Cells 0-5 SEEN /hpf (0-5)
--- NOTE | 2017-11-28 22:48 | PCM.HP.STD ---
Problem List (1) Neutropenic fever Status: Acute (2) Pancytopenia Status: Acute (3) Thrombocytopenia Status: Acute History of Present Illness Date of Admission: 11/28/17 Chief Complaint: fever x 2 days The patient is a 67 year old F with a significant history HTN; Diabetes; and metastatic lung cancer who presents with a fever ?2 days. Her highest temperature at home was 102.3. Associated with her symptoms is chills. Further, she complains of some mild burning with urination. She has a diarrhea of about 2 weeks and she does take any Imodium. With the Imodium she has about 2 or 3 loose stools per day. She also have nausea and frequent vomiting. So far she has had only one chemotherapy and that was on November 14, 2017. Before this time she had radiation therapy. Her Last radiation therapy was in September 2017. At the Emergency department, patient was found to have neutropenia with pretty much no absolute neutrophil count. Her platelet count was 9. Emergency department reported having a conversation with Dr. Conley oncologist. Per emergency department doctor, Dr. Conley recommended meropenem and a platelet transfusion. Past Medical History Past Medical History (Chronic Problems): Chronic Problems (Last Reviewed 11/29/17 @ 03:51 by Kar Echols MD) Obesity (BMI 30-39.9) (Chronic) Hyperlipidemia (Chronic) Hypertension (Chronic) Junctional tachycardia (Chronic) Medical History: Medical History (Last Reviewed 11/29/17 @ 03:51 by Kar Echols MD) Obesity (BMI 30-39.9) (Chronic) E66.9 Hyperlipidemia (Chronic) E78.5 Hypertension (Chronic) I10 Junctional tachycardia (Chronic) I47.1 Adenomatous colon polyp D12.6 Asthma J45.909 Basal cell carcinoma C44.91 GERD (gastroesophageal reflux disease) K21.9 Kidney stones N20.0 Microalbuminuria R80.9 Obstructive sleep apnea G47.33 Osteoarthritis M19.90 Type 2 diabetes mellitus without complications E11.9 Allergies No Known Allergies Allergy (Verified 11/28/17 18:35) Home Medications: Ambulatory Orders Medication Instructions Recorded Hydrochlorothiazide [Hctz] 25 mg PO DAILY 04/19/17 Omeprazole 20 mg PO DAILY 04/19/17 Pravastatin [Pravachol] 80 mg PO QHS 04/19/17 melatonin 5 mg capsule 5 mg PO QHS 07/25/17 metformin 1,000 mg tablet 1,000 mg PO BID 08/15/17 Albuterol Aerosols [Ventolin 2.5 mg INHALATION Q6H PRN PRN 11/18/17 Aerosols] Albuterol IH (ProAir) [Proair Hfa 1 - 2 puff INHALATION Q6H PRN PRN 11/18/17 (SP)Vent Pts] Cyanocobalamin (Vitamin B-12) 1,000 mcg PO DAILY 11/18/17 [B-12] DiphenhydrAMINE [Benadryl] 25 mg PO QHS 11/18/17 Docusate Sodium [Stool Softener] 100 mg PO DAILY PRN PRN 11/18/17 Fentanyl 1 each TD X1 11/18/17 Folic Acid 1 mg PO QHS 11/18/17 Furosemide [Lasix] 1 tab PO PRN PRN 11/18/17 Gabapentin [Neurontin] 300 mg PO TID 11/18/17 Ondansetron [Zofran Odt] 4 mg PO Q8H PRN PRN 11/18/17 Oxycodone HCl/Acetaminophen 1 tablet PO Q4H PRN PRN 11/18/17 [Percocet 5/325] Sertraline HCl [Zoloft] 50 mg PO DAILY 11/18/17 Potassium Chloride [Klor-Con M10] 10 meq PO BID 11/28/17 Prochlorperazine Maleate 10 mg PO Q8H PRN 11/28/17 [Compazine] Losartan Potassium [Cozaar] 50 mg PO QDAY 11/29/17 Metoprolol Succinate [Toprol Xl] 100 mg PO DINNER 11/29/17 Surgical History: Surgical History (Last Reviewed 11/29/17 @ 03:51 by Kar Echols MD) History of bilateral knee replacement Z96.653 Hx of cholecystectomy Z90.49 Surgical History: cholecystectomy, - - Skin cancer removed on eyelid, skin cancer removed on nose, saliva gland removal because of stones Lives: Alone - Lives alone but family is with her all the time Smoking Status: Former smoker Alcohol: None - *Family History Maternal Family History: Family History (Last Reviewed 08/15/17 @ 14:44 by Justin Archer MD) Father Myocardial infarction, Onset Age: 63 Heart disease Mother Hypertension Heart disease Sister Breast cancer Review of Systems Constitutional: Reports: Chills, Fever Eyes: Denies: Blurred vision, Pain HEENT: Denies: Difficulty Hearing, Sinus Drainage Cardiovascular: Denies: Chest Pain, Palpitations Respiratory: Reports: - - Generalized body pain. Denies: Cough, Shortness of breath at rest, Sputum production Gastrointestinal: Reports: Diarrhea, Nausea, Vomiting Genitourinary: Reports: Dysuria - A little burning with urination Musculoskeletal: Reports: - - Diffuse body pain Skin: Denies: Rash, Wounds Neurological: Denies: Numbness, Tingling, Focal weakness Psychiatric: Denies: Anxiety, Depression, Homicidal Ideations, Suicidal Ideations Hematologic/ Lymphatic: Reports: Anemia VTE Information - Inpt Only VTE Present on Admission: No VTE Mechan Device Prophylaxis: SCD's VTE Pharm Prophylaxis ordered?: No Reason prophylaxis not ordered:: Medical Contraindication - Thrombocytopenia Patient Problems: Active and Suspected Problems (Last Reviewed 11/29/17 @ 03:51 by Kar Echols MD) Neutropenic fever (Acute) Pancytopenia (Acute) Thrombocytopenia (Acute) - Physical Exam General: Alert, Oriented x3, Cooperative HEENT: Atraumatic, PERRLA, EOMI, Normocephalic Neck: Supple, No JVD, Negative Carotid Bruits Lungs: Clear to auscultation, Normal air movement Cardiovascular: Regular rate, No murmurs Abdomen: Bowel Sounds Present, Soft, Non Tender Extremities: No edema, Capillary Refill Less than 3 Seconds Skin: No rashes, No breakdown Musculoskeletal: No Tenderness to Palpation of Joints or Extremities Neurological: Cranial nerves II-XII grossly intact Psych/Mental Status: Normal Affect, Appropriate Vital Signs Temp Pulse Resp BP Pulse Ox 99.1 F 96 18 138/71 H 95 11/28/17 18:33 11/28/17 22:26 11/28/17 22:26 11/28/17 22:26 11/28/17 22:26 Oxygen Delivery Method Room Air Weight: 96.162 kg Body Mass Index (BMI) 34.2 Finger Stick Blood Glucose 164 Laboratory Tests Past 24 Hrs 11/28/17 11/28/17 11/28/17 18:53 18:53 21:20 WBC 0.4 L* RBC 2.76 L Hgb 8.7 L Hct 25.3 L MCV 91.7 MCH 31.5 MCHC 34.4 RDW 14.4 RDW Differential 47.7 H Plt Count 9 L* MPV 11.3 Immature Gran % (Auto) 2.400 H Neut % (Auto) 2.4 L Lymph % (Auto) 85.7 H Bladen % (Auto) 7.1 Eos % (Auto) 2.4 Baso % (Auto) 0.0 Absolute Neuts (auto) 0.0 L Absolute Lymphs (auto) 0.36 L Total Counted Not Reportable Diff Path Review May foll Smudge Cells Sodium 134 L Potassium 3.1 L Chloride 95 L Carbon Dioxide 27.0 Anion Gap 12 BUN 8 Creatinine 0.75 Estim Creat Clear Calc 49.70 Est GFR (MDRD) Af Amer 98 Est GFR (MDRD) Non-Af 81 BUN/Creatinine Ratio 10.6 Glucose 128 H Calcium 7.7 L Total Bilirubin 1.10 H AST 21 ALT 20 Alkaline Phosphatase 215 H Total Protein 7.4 Albumin 2.8 L Globulin 4.6 H Albumin/Globulin Ratio 0.6 L Urine Color Valerie Urine Clarity Clear Urine pH 6.0 Ur Specific [place] 1.010 Urine Protein 30 H Urine Glucose (UA) 50 H Urine Ketones 15 H Urine Occult Blood 250 H Urine Nitrite Negative Urine Bilirubin Negative Urine Urobilinogen Normal Ur Leukocyte Esterase 25 H Urine RBC > 100 SEEN Urine WBC 0-5 SEEN Ur Squamous Epith Cells 0-5 SEEN Urine Bacteria 1+ Urine Mucus 0 SEEN Blood Type Antibody Screen 11/28/17 22:25 WBC RBC Hgb Hct MCV MCH MCHC RDW RDW Differential Plt Count MPV Immature Gran % (Auto) Neut % (Auto) Lymph % (Auto) Bladen % (Auto) Eos % (Auto) Baso % (Auto) Absolute Neuts (auto) Absolute Lymphs (auto) Total Counted Diff Path Review Smudge Cells Sodium Potassium Chloride Carbon Dioxide Anion Gap BUN Creatinine Estim Creat Clear Calc Est GFR (MDRD) Af Amer Est GFR (MDRD) Non-Af BUN/Creatinine Ratio Glucose Calcium Total Bilirubin AST ALT Alkaline Phosphatase Total Protein Albumin Globulin Albumin/Globulin Ratio Urine Color Urine Clarity Urine pH Ur Specific [place] Urine Protein Urine Glucose (UA) Urine Ketones Urine Occult Blood Urine Nitrite Urine Bilirubin Urine Urobilinogen Ur Leukocyte Esterase Urine RBC Urine WBC Ur Squamous Epith Cells Urine Bacteria Urine Mucus Blood Type Pending Antibody Screen Pending Assessment/Plan All Active Problems (Last Reviewed 11/29/17 @ 03:51 by Kar Echols MD) Neutropenic fever (Acute) Pancytopenia (Acute) Thrombocytopenia (Acute) Ventricular tachycardia, nonsustained (Acute) Nonsustained paroxysmal supraventricular tachycardia (Acute) Multifocal premature ventricular contractions with pairing (Acute) The patient is a 67 year old F with a significant history HTN; Diabetes; and metastatic lung cancer who presents with a fever ; some dysuria; and found to have neutropenia. Neutropenic fever Home temperature 102.3; and pretty much zero absolute neutrophil count. Meropenem started at emergency department Meropenem continued Trend CBC Stool culture ordered at the ED. Diarrhea is most likely from a chemoradiation. But because of fever C. difficile ordered. Diarrhea Test as above Hold home Imodium until stool test is negative. Pancytopenia Likely due to chemotherapy Trend CBC Oncology consult Platelet transfusion ordered from the ED. CBC after platelet transfusion. Metastatic lung cancer Home breathing treatments continued Fentanyl patch continued. Patient is on home Percocet every 4 hours as needed that she pretty much take every 4 hours. Oxycodone as needed ordered. Tylenol as needed for pain Neurontin continued Compazine for nausea Oncology consult Hypertension Blood pressure not at goal at time of admission. HCTZ, metoprolol succinate and Cozaar continued Diabetes Blood glucose within goal at time of admission Metformin continued Accu-Chek q. before meals at bedtime. If Accu-Chek stable for the next 24 hours consider discontinuing Accu-Cheks. Hyperlipidemia Pravastatin continued GERD Protonix continued DVT prophylaxis With Platelet count of 9, anticoagulation was not started. SCD ordered. Code Visit Inpatient E&M: 40808 Init Hosp L3
[2017-11-29] VITALS (14 sets, daily range): BP systolic 125–144; BP diastolic 49–72; PULSE 50–96; RESP 16–18; TEMP 36.6–37.9; O2SAT 93–98
[2017-11-29] MEDS: 0.9% NaCl Peripheral Flush Adult/Peds IV (01:33)
[2017-11-29] MEDS: Metoprolol(XL)Succ 100 MG Tablet PO ×2 (01:43→17:31)
[2017-11-29] MEDS: oxyCODONE 5 MG Tablet PO ×5 (01:44→22:48)
[2017-11-29 04:17] LABS: Differential Indicated SCAN CRITERIA MET
[2017-11-29 06:42] LABS: Hematocrit 20.6 % (37-47); Hemoglobin 7.2 g/dl (12.0-15.0); Mean Corpuscular Hgb 31.7 pg (27.0-32.0); Mean Corpuscular Volume 90.7 fL (81-99); Mean Platelet Vol. 9.7 fl (6.2-12.0); RBC Distribution Width CV 14.4 % (11.6-14.6); Red Blood Count 2.27 M/mm3 (4.2-5.4)
[2017-11-29 06:45] LABS: Bedside Glucose 115 mg/dL (70-110)
[2017-11-29 06:55] LABS: White Blood Count 0.4 K/mm3 (4.4-11.0)
[2017-11-29 06:56] LABS: POSITIVE COUNT YES; POSITIVE DIFFERENTIAL YES; POSITIVE MORPHOLOGY YES; Platelet Count 27 K/mm3 (150-450)
[2017-11-29 07:08] LABS: Differential Indicated MANUAL DIFF
[2017-11-29 07:14] LABS: Lymphocyte 80 % (19-41); Monocyte 16 % (0-10); Neutrophil-Segmented 4 % (47-70); Total Cells Counted 25 (MANUAL DIFF)
[2017-11-29 07:15] LABS: Absolute Lymphocyte Count 0.32 X10^3/ul (0.83-4.51); Lymphocyte # 0.32 X10^3/ul (4.0); Platelet Estimate MKD DEC (ADEQ); Red Cell Morphology NORM C+C NORMAL (NORM C&C)
[2017-11-29 07:16] LABS: Neutrophil # 0.02 X10^3/uL (2.7-7.7)
[2017-11-29] MEDS: Albuterol 2.5 MG/3 ML VIAL.NEB. INHALATION ×2 (07:30→12:56)
[2017-11-29] MEDS: Budesonide Respules 0.5 MG/2 ML AMPUL.NEB. INHALATION (07:31)
--- NOTE | 2017-11-29 08:22 | CPS ---
Pt states she has her own CPAP machine and her sister is bringing it in for her today.
[2017-11-29] MEDS: Sertraline 50 MG Tablet PO (09:07)
[2017-11-29] MEDS: Gabapentin 300 MG Capsule PO ×3 (09:07→17:32)
[2017-11-29] MEDS: hydroCHLOROthiazide 25 MG Tablet PO (09:07)
[2017-11-29] MEDS: Losartan Potassium 50 MG Tablet PO (09:07)
[2017-11-29] MEDS: Pantoprazole Sodium 20 MG Tablet PO (09:07)
[2017-11-29] MEDS: metFORMIN HCl 1,000 MG Tablet 1000 MG PO ×2 (09:08→17:32)
[2017-11-29] MEDS: Cyanocobalamin 500 MCG Tablet 1000 MCG PO (09:10)
[2017-11-29] MEDS: TBO-FILGRASTIM 480 MCG/0.8 ML ML SC (09:35)
--- NOTE | 2017-11-29 11:18 | CASEMGMT ---
RN CM Assessment completed. See Link. -Per pt and her sister, pt will return home on discharge and family will be available for any care needs. -They declined any other assistance needed at this time. Tee RODRIGUEZ RN ACM
[2017-11-29 14:35] LABS: Pathologist Review Reviewed
[2017-11-29 14:38] LABS: Pathologist Review Reviewed
--- NOTE | 2017-11-29 14:42 | PCM.PROGNOTE ---
<Jl Castaneda - Last Filed: 11/29/17 14:42> Patient Problems: Active and Suspected Problems (Last Reviewed 11/29/17 @ 03:51 by Kar Echols MD) Cystitis (Acute) Neutropenic fever (Acute) Pancytopenia (Acute) Thrombocytopenia (Acute) Subjective: This morning patient noted increased abdominal distention - mild, diffuse abdominal pain - mild, and she has been having diarrhea, last yesterday. No hx Cdiff. Has had chemo thru Dr. Pineda. No fever or chills. Occasional cough, chronic, not new, no SOB. - Physical Exam General: Alert, Oriented x3, Cooperative HEENT: Atraumatic, PERRLA, EOMI, Normocephalic Neck: Supple, No JVD, Negative Carotid Bruits Lungs: Clear to auscultation, Normal air movement Cardiovascular: Regular rate, No murmurs Abdomen: Bowel Sounds Present, Soft, Non Tender, Distended - mild, Tender Extremities: No edema, Capillary Refill Less than 3 Seconds Skin: No rashes, No breakdown Musculoskeletal: No Tenderness to Palpation of Joints or Extremities Neurological: Cranial nerves II-XII grossly intact Psych/Mental Status: Normal Affect, Appropriate, Alert and oriented to time, place, person, mood and affect Vital Signs Temp Pulse Resp BP Pulse Ox 98.8 F 94 16 130/63 H 93 11/29/17 13:30 11/29/17 12:59 11/29/17 12:59 11/29/17 10:00 11/29/17 10:00 Oxygen Flow Rate (L/min) 2 Oxygen Delivery Method Room Air Weight: 214 lb 15.211 oz Body Mass Index (BMI) 34.7 Intake and Output for Last 24 Hours 11/27/17 11/28/17 11/29/17 23:59 23:59 23:59 Intake Total 1649 / 1649 Output Total 1000 / 1000 Balance 649 / 649 Laboratory Tests Past 24 Hrs 11/29/17 05:17 WBC 0.4 L* RBC 2.27 L Hgb 7.2 L Hct 20.6 L MCV 90.7 MCH 31.7 MCHC 35.0 RDW 14.4 RDW Differential 48.0 H Plt Count 27 L* MPV 9.7 Neut % (Auto) Not Reportable Lymph % (Auto) LEGAL DOCUMENT SPECIALIST Real % (Auto) LEGAL DOCUMENT SPECIALIST Baso % (Auto) LEGAL DOCUMENT SPECIALIST Absolute Neuts (auto) 0.0 L Absolute Lymphs (auto) 0.32 L Total Counted 25 Neutrophils % (Manual) 4 L Lymphocytes % (Manual) 80 H* Monocytes % (Manual) 16 H Diff Path Review Reviewed Platelet Estimate MKD DEC RBC Morphology NORM C+C POC Glucose 11/29/17 06:38 POC Glucose 115 H Medical Necessity - Tobacco Use Smoking Status: Former smoker Assessment/Plan All Active Problems (Last Reviewed 11/29/17 @ 03:51 by Kar Echols MD) Cystitis (Acute) Neutropenic fever (Acute) Pancytopenia (Acute) Thrombocytopenia (Acute) Ventricular tachycardia, nonsustained (Acute) Nonsustained paroxysmal supraventricular tachycardia (Acute) Multifocal premature ventricular contractions with pairing (Acute) 1. Neutropenic fever - continue. prn tylenol. Continue meropenem. + diarrhea, distention, pain/tender. KUB with retained feces. Check c diff as she has had diarrhea. CXR negative. No urinary symptoms. Continue granix. 2. Metastatic lung cancer - known bone mets. Care per Drs. Pineda/Jarvis. Continue aerosols, home pain meds. 3. Pancytopenia probably 2/2 cancer/chemo. 4. HTN - stable. 5. DMt2 - metformin 6. HLD - statin 7. GERD - ppi DVT ppx: SCDs DC planning: pending neutrophil recovery and resolution of fevers. PTOT ordered. This patient was seen by Jl Castaneda PA-C under the supervision of Doctor Chad. <Robbie Bonilla - Last Filed: 11/29/17 17:27> Subjective: The patient has metastatic lung cancer, had first chemotherapy about 2 weeks ago. She started having diarrhea since Sunday and then mild diffuse abdominal pain. Follows Dr. Kuhn. Discussed with Dr. Conley - Physical Exam Lungs: Clear to auscultation, Normal air movement Abdomen: Distended, Tender Vital Signs Temp Pulse Resp BP Pulse Ox 98.8 F 94 16 130/63 H 93 11/29/17 13:30 11/29/17 12:59 11/29/17 12:59 11/29/17 10:00 11/29/17 10:00 Oxygen Flow Rate (L/min) 2 Oxygen Delivery Method Room Air Weight: 214 lb 15.211 oz Body Mass Index (BMI) 34.7 Intake and Output for Last 24 Hours 11/27/17 11/28/17 11/29/17 23:59 23:59 23:59 Intake Total 1649 / 1649 Output Total 1000 / 1000 Balance 649 / 649 Laboratory Tests Past 24 Hrs 11/29/17 05:17 WBC 0.4 L* RBC 2.27 L Hgb 7.2 L Hct 20.6 L MCV 90.7 MCH 31.7 MCHC 35.0 RDW 14.4 RDW Differential 48.0 H Plt Count 27 L* MPV 9.7 Neut % (Auto) Not Reportable Lymph % (Auto) LEGAL DOCUMENT SPECIALIST Real % (Auto) LEGAL DOCUMENT SPECIALIST Baso % (Auto) LEGAL DOCUMENT SPECIALIST Absolute Neuts (auto) 0.0 L Absolute Lymphs (auto) 0.32 L Total Counted 25 Neutrophils % (Manual) 4 L Lymphocytes % (Manual) 80 H* Monocytes % (Manual) 16 H Diff Path Review Reviewed Platelet Estimate MKD DEC RBC Morphology NORM C+C POC Glucose 11/29/17 06:38 POC Glucose 115 H Assessment/Plan This patient was seen in conjunction with Jl MACHADO. I have independently interviewed and examined the patient and reviewed pertinent history, examination findings, laboratory and plan of management. I have reviewed the note and agree with the documented findings with the few additional points. In brief, patient has history of metastasized lung cancer to bones and ribs admitted for neutropenic fever, source of infection unknown first chemo about 2 weeks ago. Patient has diarrhea but which has not stopped. He will be sores nonspecific bowel gas pattern. Patient is on broad-spectrum IV antibiotic. Neupogen ordered by Dr. Conley. I have discussed my assessment with Jl MACHADO and orders have been reviewed.
[2017-11-29] MEDS: Ondansetron ODT 4 MG Tablet PO (14:53)
--- NOTE | 2017-11-29 17:04 | PCM.CONS.B ---
Problem List (1) Neutropenic fever Status: Acute (2) Lung cancer Status: Chronic Qualifiers: Laterality: left Lung location: upper lobe of lung Qualified Code(s): C34.12 - Malignant neoplasm of upper lobe, left bronchus or lung (3) Bone metastases Status: Chronic - Consult Date of Consult: 11/29/17 - Reason for Consult HPI: The patient is a 67 year old female who presented with ?a 6 month history of progressive lower back pain with sciatica. Patient had a history of degenerative arthritis and lumbar stenosis. She had multiple injections to her back along with chiropractic manipulation for her back pain. Over 2 weeks prior to presentation, patient had severe back pain even at rest. Her pain was worse with movement with radiation down both legs and left hip. She had been taking care of her who since from metastatic lung cancer. Her back pain was 8/10. She had a recent MRI scan of the lumbar spine indicating multiple neoplastic lesion in the lower thoracic spine, lumbar spine, ileum with spinal stenosis secondary to this disease in bony hypertrophy at L2 to L5. ? She?has a history of benign polyps of the colon follow at the [facility]. She also has a history of skin cancer, basal cell, but no melanoma. She had annual mammogram on 04/11/17l was normal. She had a 12 pound weight loss because of anorexia and poor appetite for the last 3 months. She is an?ex-smoker, with history of COPD. She has increased cough and shortness of breath. She denied chest pain or hemoptysis. Recent chest x-ray showed?degenerative changes of the spine, no acute cardiopulmonary?process. Laboratory studies showed?an elevated alkaline phosphatase but?normal calcium, and creatinine. Her?serum and urine protein electrophoresis showed?no M proteins. ? CT biopsy of a sacral bone lesion last week. Preliminary results indicate non-small cell lung cancer, TTF-1 positive CK 7 positive ER/[place] negative. Received first cycle of carboplatin/Alimta/Keytruda 2-1/2 weeks ago. She began having diarrhea week ago Sunday with approximate to watery bowel movements a day. She had been taking Imodium and the symptom was improving. Last night she had a temperature to 102. Skin the emergency room and found to be severely pancytopenic. She was started on fluids and broad-spectrum antibiotic. She has no complaints this morning. No recent cough or sputum production. She denies chest pain. She's not short of breath at rest or with exertion. Occasional wheezing but she has a home nebulizer that she uses consistently. She's had no signs of GI bleeding including melena or hematochezia area diarrhea has been improving. No shaking chills presently. Allergies No Known Allergies Allergy (Verified 11/28/17 18:35) Current Medications Acetaminophen (Tylenol) 325 mg PO Q4H PRN PRN PRN Reason: fever/pain Albuterol Sulfate (Ventolin Aerosols) 2.5 mg INHALATION Q6H PRN PRN PRN Reason: SOB &/OR WHEEZING Albuterol Sulfate (Ventolin Aerosols) 2.5 mg INHALATION Q6HWA.RT [facility] Last Admin: 11/29/17 12:56 Dose: 2.5 mg Budesonide (Pulmicort Aerosol) 0.5 mg INHALATION Q12H.RT [facility] Last Admin: 11/29/17 07:31 Dose: 0.5 mg Cyanocobalamin (Vitamin B12) 1,000 mcg PO DAILY [facility] Last Admin: 11/29/17 09:10 Dose: 1,000 mcg Diphenhydramine HCl (Benadryl) 25 mg PO QHS [facility] Fentanyl (Duragesic Patch) 25 mcg TRANSDERM. Q72H [facility] Folic Acid (Folic Acid) 1 mg PO QHS [facility] Gabapentin (Neurontin) 300 mg PO TIDCM [facility] Last Admin: 11/29/17 12:26 Dose: 300 mg Hydrochlorothiazide (Hctz) 25 mg PO DAILY [facility] Last Admin: 11/29/17 09:07 Dose: 25 mg Sodium Chloride () 250 mls @ 15 mls/hr IV .[id number] PRN PRN Reason: SALINE FLUSH Meropenem 1 gm/ Sodium (Chloride) 120 mls @ 33 mls/hr IV Q8 [facility] Losartan Potassium (Cozaar) 50 mg PO DAILY [facility] Last Admin: 11/29/17 09:07 Dose: 50 mg Magnesium Hydroxide (Milk Of Magnesia) 30 ml PO DAILY PRN PRN PRN Reason: Constipation Melatonin (Melatonin) 5 mg PO QHS [facility] Metformin HCl (Glucophage) 1,000 mg PO BIDCM [facility] Last Admin: 11/29/17 09:08 Dose: 1,000 mg Metoprolol Succinate (Toprol Xl (Beta Rosy)) 100 mg PO DAILY@1800 [facility] Ondansetron HCl (Zofran Odt) 4 mg PO Q6H PRN PRN PRN Reason: NAUSEA Last Admin: 11/29/17 14:53 Dose: 4 mg Oxycodone HCl (Oxyir) 5 mg PO Q4H PRN PRN PRN Reason: PAIN Last Admin: 11/29/17 12:28 Dose: 5 mg Pantoprazole Sodium (Protonix) 20 mg PO DAILY [facility] Last Admin: 11/29/17 09:07 Dose: 20 mg Potassium Chloride (K-Dur) 10 meq PO BIDCM [facility] Last Admin: 11/29/17 09:08 Dose: 10 meq Pravastatin Sodium (Pravachol) 80 mg PO QHS [facility] Prochlorperazine Maleate (Compazine Tablet) 10 mg PO Q8H PRN PRN PRN Reason: NAUSEA Sertraline HCl (Zoloft) 50 mg PO DAILY [facility] Last Admin: 11/29/17 09:07 Dose: 50 mg Sodium Chloride () 5 - 30 ml IV UD PRN PRN Reason: SALINE FLUSH Last Admin: 11/29/17 01:33 Dose: 10 ml Tbo-Filgrastim (Granix) 480 mcg SC DAILY [facility] Last Admin: 11/29/17 09:35 Dose: 480 mcg Problem List (Last Reviewed 11/29/17 @ 03:51 by Kar Echols MD) Cystitis (Acute) Neutropenic fever (Acute) Pancytopenia (Acute) Thrombocytopenia (Acute) ROS: Constitutional: Denies episodes of night sweats. Neuro: Denies ESCOBAR, vertigo, dizziness and imbalance. HEENT: No recent change in voice, vision or hearing. Resp: See above. CVS: Denies exertional chest pain, PND, orthopnea. GI: Denies dysgeusia. Denies symptoms of stomatitis. Denies dysphagia and odynophagia. Denies reflux, n/v. : Denies dysuria or gross hematuria. No symptoms of bladder outlet obstruction. Endo: Denies hot flashes. Denies polyuria and polydipsia. Denies heat and cold intolerance. Derm: Denies rash. Denies jaundice and diffuse pruritis. Heme: Denies unusual bleeding and unexplained bruising. Psych: Normal mood. PHYSICAL EXAM: Vitals: Vital Signs Temp 98.8 F 11/29/17 13:30 Pulse 94 11/29/17 12:59 Resp 16 11/29/17 12:59 BP 130/63 H 11/29/17 10:00 Pulse Ox 93 11/29/17 10:00 Intake & Output 11/27/17 11/28/17 11/29/17 23:59 23:59 23:59 Intake Total 1649 / 1649 Output Total 1000 / 1000 Balance 649 / 649 Weight: 97.5 kg 97.5 kg Intake: Oral 1150 / 1150 IV fluid/meds 299 / 299 Blood Product 200 / 200 Pphr Platelet Lr Sd Unit 200 / 200 [id number] Output: Urine 1000 / 1000 Other: Number of Voids 1 No acute distress. EYES: Sclerae are anicteric bilaterally. NECK: Supple. LYMPHATIC: There is no palpable cervical, supraclavicular adenopathy. RESPIRATORY: Inspiratory breath sounds are of diminished intensity in all triana. CARDIOVASCULAR: Rhythm is regular. Normal intensity S1/S2. ABDOMEN: The abdomen is nondistended. No tenderness. Extremities: No swelling or edema. SKIN: No jaundice or rash. NEUROLOGIC: photo intern II-XII are grossly intact. DTRs normal. MUSCULOSKELETAL: No muscle wasting. ASSESSMENT/PLAN: 1) Neutropenic fever (Acute) Assessment: -HD stable. -No fever now. Plan: -continue meropenem. -Agree test stool for C. difficile if has further diarrhea. 2) Pancytopenia Rather severe for the chemotherapy she received. Plan: -Transfusional support for hemoglobin less than 7.0-7.5 g/dL. -Transfuse platelets if under 10,000. -Begin Granix Order placed. 3) Metastatic non-small cell lung cancer with extensive bone metastases. Pain under fairly good control. Plan: -Resume chemotherapy in approximately 1-2 weeks once recovers. Doses will be reduced.
[2017-11-29 18:11] LABS: Bedside Glucose 150 mg/dL (70-110)
[2017-11-29] MEDS: fentaNYL 25 MCG Patch TRANSDERM. (18:25)
[2017-11-29] MEDS: proCHLORPERazine 5 MG Tablet 10 MG PO (18:32)
[2017-11-29] MEDS: DiphenhydrAMINE 25 MG Capsule PO (20:13)
[2017-11-29] MEDS: Pravastatin 80 MG Tablet PO (20:13)
[2017-11-29] MEDS: Folic Acid 1 MG Tablet PO (20:13)
[2017-11-29] MEDS: MELATONIN 10 MG TABLET 5 MG PO (20:13)
--- NOTE | 2017-11-29 21:00 | NURSING ---
PT ASKS TO NOT BE AWOKEN OVERNIGHT. HAS NOT BEEN ABLE TO SLEEP.
[2017-11-29] MEDS: Acetaminophen 325 MG Tablet PO (22:47)
[2017-11-30] VITALS (15 sets, daily range): BP systolic 108–151; BP diastolic 46–72; PULSE 82–96; RESP 16–20; TEMP 36.6–38.4; O2SAT 93–99
[2017-11-30] MEDS: oxyCODONE 5 MG Tablet PO ×5 (03:14→22:41)
[2017-11-30] MEDS: Acetaminophen 325 MG Tablet PO (03:14)
[2017-11-30 03:51] LABS: Bedside Glucose 134 mg/dL (70-110)
[2017-11-30 04:00] LABS: Bedside Glucose 128 mg/dL (70-110)
[2017-11-30 06:49] LABS: Anion Gap 11 (5-15); BUN 6 mg/dL (7-18); BUN/Creat Ratio 8.9 RATIO (10-20); Calcium,Total 7.6 mg/dL (8.5-10.1); Chloride 95 mmol/L (98-107); Creatinine, Serum 0.68 mg/dL (0.55-1.02); EST Glomerular Filtration Rate 92 mL/min (>60); Est Glom Filt Rate - Afr Amer 111 mL/min (>60); Glucose 114 mg/dL (74-106); Potassium 3.2 mmol/L (3.5-5.1); Sodium Level 136 mmol/L (136-145)
[2017-11-30 06:54] LABS: Absolute Lymphocyte Count 0.49 X10^3/ul (0.83-4.51); Absolute Neutrophil Count 0.2 X10^3/uL (2.0-7.7); Basophil# 0.01 X10^3/uL; Basophil% 1.1 % (0-1); Eosinophil# 0.02 X10^3/uL; Eosinophils% 2.2 % (0-5); Hematocrit 20.7 % (37-47); Lymphocyte # 0.49 X10^3/ul (4.0); Lymphocyte % 54.4 % (19-41); Mean Corp Hgb Conc 33.8 g/gl (32-36); Mean Corpuscular Hgb 31.7 pg (27.0-32.0); Mean Corpuscular Volume 93.7 fL (81-99); Mean Platelet Vol. 10.6 fl (6.2-12.0); Monocyte# 0.21 X10^3/uL; Monocyte% 23.3 % (0-10); Neutrophil # 0.15 X10^3/uL (2.7-7.7); Neutrophil % 16.8 % (47-70); RBC Distribution Width SD 46.1 fl (35.1-43.9); Red Blood Count 2.21 M/mm3 (4.2-5.4)
[2017-11-30 07:00] LABS: Bedside Glucose 118 mg/dL (70-110)
[2017-11-30] MEDS: Albuterol 2.5 MG/3 ML VIAL.NEB. INHALATION ×2 (07:13→19:19)
[2017-11-30] MEDS: Budesonide Respules 0.5 MG/2 ML AMPUL.NEB. INHALATION ×2 (07:13→19:19)
[2017-11-30 07:21] LABS: Differential Indicated SCAN CRITERIA MET; POSITIVE COUNT YES; POSITIVE DIFFERENTIAL YES; POSITIVE MORPHOLOGY YES; Platelet Count 31 K/mm3 (150-450); White Blood Count 0.9 K/mm3 (4.4-11.0)
[2017-11-30] MEDS: Ondansetron ODT 4 MG Tablet PO (07:45)
[2017-11-30] MEDS: Cyanocobalamin 500 MCG Tablet 1000 MCG PO (07:46)
[2017-11-30] MEDS: Metoprolol(XL)Succ 100 MG Tablet PO (07:46)
[2017-11-30] MEDS: Gabapentin 300 MG Capsule PO ×3 (07:46→18:11)
[2017-11-30] MEDS: Losartan Potassium 50 MG Tablet PO (07:46)
[2017-11-30] MEDS: Sertraline 50 MG Tablet PO (07:47)
[2017-11-30] MEDS: Pantoprazole Sodium 20 MG Tablet PO (07:47)
[2017-11-30] MEDS: hydroCHLOROthiazide 25 MG Tablet PO (07:47)
--- NOTE | 2017-11-30 07:50 | PCM.PROGNOTE ---
Patient Problems: Active and Suspected Problems (Last Reviewed 11/29/17 @ 03:51 by Kar Echols MD) Cystitis (Acute) Neutropenic fever (Acute) Pancytopenia (Acute) Thrombocytopenia (Acute) Subjective: she says she is feeling better this morning. No nausea. Poor appetite. At a large loose BM during the night. No watery diarrhea. No further fever. Blood cultures negative thus far. - Physical Exam General: Alert, Oriented x3 Lungs: Normal air movement Cardiovascular: Regular Rhythm Abdomen: Soft, Non Tender Extremities: No edema Vital Signs Temp Pulse Resp BP Pulse Ox 97.9 F 84 16 119/51 L 93 11/30/17 07:35 11/30/17 07:35 11/30/17 07:35 11/30/17 07:35 11/30/17 07:35 Oxygen Flow Rate (L/min) 2 Oxygen Delivery Method Room Air Weight: 97.5 kg Body Mass Index (BMI) 34.7 Intake and Output for Last 24 Hours 11/28/17 11/29/17 11/30/17 23:59 23:59 23:59 Intake Total 1869 / 1869 1417 / 1417 Output Total 1450 / 1450 Balance 419 / 419 1417 / 1417 Laboratory Tests Past 24 Hrs 11/29/17 11/30/17 11/30/17 05:17 05:10 05:10 WBC 0.9 L* RBC 2.21 L Hgb 7.0 L Hct 20.7 L MCV 93.7 MCH 31.7 MCHC 33.8 RDW 14.0 RDW Differential 46.1 H Plt Count 31 L* MPV 10.6 Immature Gran % (Auto) 2.200 H Neut % (Auto) 16.8 L Lymph % (Auto) 54.4 H [place] % (Auto) 23.3 H Eos % (Auto) 2.2 Baso % (Auto) 1.1 H Absolute Neuts (auto) 0.2 L Absolute Lymphs (auto) 0.49 L Total Counted Pending Diff Path Review Reviewed Sodium 136 Potassium 3.2 L Chloride 95 L Carbon Dioxide 30.0 Anion Gap 11 BUN 6 L Creatinine 0.68 Estim Creat Clear Calc 49.70 Est GFR (MDRD) Af Amer 111 Est GFR (MDRD) Non-Af 92 BUN/Creatinine Ratio 8.9 L Glucose 114 H Calcium 7.6 L POC Glucose 11/30/17 11/29/17 11/29/17 06:57 22:43 17:27 POC Glucose 118 H 134 H 150 H 11/29/17 12:21 POC Glucose 128 H Medical Necessity - Tobacco Use Smoking Status: Former smoker Assessment/Plan All Active Problems (Last Reviewed 11/29/17 @ 03:51 by Kar Echols MD) Cystitis (Acute) Neutropenic fever (Acute) Pancytopenia (Acute) Thrombocytopenia (Acute) Ventricular tachycardia, nonsustained (Acute) Nonsustained paroxysmal supraventricular tachycardia (Acute) Multifocal premature ventricular contractions with pairing (Acute) 1) NF/Pancytopenia. Assessment: -neutrophil count improving with the use of growth factor. -No further fever. Blood cultures are negative. -Platelet count recovering. No unusual bleeding. -Hemoglobin down to 7.0. Plan: -continue broad-spectrum antibiotics one more day. -Continue Neupogen. -Transfuse 2 units red blood cells today. 2) Diarrhea. Assessment: -C. difficile pending. Clinically not consistent with C. difficile colitis however. -Self resolution of diarrhea suggest is not secondary to immunotherapy. Plan: -Observation and symptomatic management. Continue hydration. I anticipate discharge tomorrow. My office staff or arrange follow-up with Dr. Pineda for next week.
[2017-11-30] MEDS: metFORMIN HCl 1,000 MG Tablet 1000 MG PO (08:21)
[2017-11-30 09:22] LABS: Magnesium 1.1 mg/dL (1.6-2.6); Phosphorus 1.4 mg/dL (2.5-4.9)
[2017-11-30] MEDS: Magnesium Oxide 400 MG Tablet PO ×3 (11:16→18:18)
[2017-11-30] MEDS: Na Biphos/Potassium Phosphate PACKET 1 PACKET PO ×3 (11:17→22:42)
[2017-11-30 11:19] LABS: Pathologist Review Reviewed
[2017-11-30] MEDS: TBO-FILGRASTIM 480 MCG/0.8 ML ML SC (11:27)
[2017-11-30] MEDS: proCHLORPERazine 5 MG Tablet 10 MG PO (11:31)
--- NOTE | 2017-11-30 11:54 | NURSING ---
SPOKE WITH [facility] IN [facility]. STOOL WAS SENT LAST EVENING FOR CDIFF. ENTERIC PATHOGEN WAS RAN AND (-). SHE WILL CHECK AND GET TEST STARTED
--- NOTE | 2017-11-30 13:16 | PCM.PROGNOTE ---
<Jl Castaneda - Last Filed: 11/30/17 13:16> Patient Problems: Active and Suspected Problems (Last Reviewed 11/29/17 @ 03:51 by Kar Echols MD) Cystitis (Acute) Neutropenic fever (Acute) Pancytopenia (Acute) Thrombocytopenia (Acute) Subjective: No further abdominal pain, no dysuria, no bloating, no nausea, vomiting. No cough / sob. One large soft stool this AM. Last fever 100.2 yesterday AM. - Physical Exam General: Alert, Oriented x3, Cooperative HEENT: Atraumatic, PERRLA, EOMI, Normocephalic Neck: Supple, No JVD, Negative Carotid Bruits Lungs: Clear to auscultation, Normal air movement Cardiovascular: Regular rate, No murmurs Abdomen: Bowel Sounds Present, Soft, Non Tender Extremities: No edema, Capillary Refill Less than 3 Seconds Skin: No rashes, No breakdown Musculoskeletal: No Tenderness to Palpation of Joints or Extremities Neurological: Cranial nerves II-XII grossly intact Psych/Mental Status: Normal Affect, Appropriate, Alert and oriented to time, place, person, mood and affect Vital Signs Temp Pulse Resp BP Pulse Ox 99.4 F H 89 18 127/61 H 96 11/30/17 12:22 11/30/17 12:22 11/30/17 12:22 11/30/17 12:22 11/30/17 12:22 Oxygen Flow Rate (L/min) 2 Oxygen Delivery Method Room Air Weight: 214 lb 15.211 oz Body Mass Index (BMI) 34.7 Intake and Output for Last 24 Hours 11/28/17 11/29/17 11/30/17 23:59 23:59 23:59 Intake Total 1869 / 1869 1417 / 1417 Output Total 1450 / 1450 Balance 419 / 419 1417 / 1417 Microbiology Past 72 Hours 11/29/17 18:00 Enteric Bacteriology - Final Stool Laboratory Tests Past 24 Hrs 11/29/17 11/30/17 11/30/17 05:17 05:10 05:10 WBC 0.9 L* RBC 2.21 L Hgb 7.0 L Hct 20.7 L MCV 93.7 MCH 31.7 MCHC 33.8 RDW 14.0 RDW Differential 46.1 H Plt Count 31 L* MPV 10.6 Immature Gran % (Auto) 2.200 H Neut % (Auto) 16.8 L Lymph % (Auto) 54.4 H [place] % (Auto) 23.3 H Eos % (Auto) 2.2 Baso % (Auto) 1.1 H Absolute Neuts (auto) 0.2 L Absolute Lymphs (auto) 0.49 L Total Counted Not Reportable Diff Path Review Reviewed Reviewed Sodium 136 Potassium 3.2 L Chloride 95 L Carbon Dioxide 30.0 Anion Gap 11 BUN 6 L Creatinine 0.68 Estim Creat Clear Calc 49.70 Est GFR (MDRD) Af Amer 111 Est GFR (MDRD) Non-Af 92 BUN/Creatinine Ratio 8.9 L Glucose 114 H Calcium 7.6 L Phosphorus Magnesium 11/30/17 05:10 WBC RBC Hgb Hct MCV MCH MCHC RDW RDW Differential Plt Count MPV Immature Gran % (Auto) Neut % (Auto) Lymph % (Auto) [place] % (Auto) Eos % (Auto) Baso % (Auto) Absolute Neuts (auto) Absolute Lymphs (auto) Total Counted Diff Path Review Sodium Potassium Chloride Carbon Dioxide Anion Gap BUN Creatinine Estim Creat Clear Calc Est GFR (MDRD) Af Amer Est GFR (MDRD) Non-Af BUN/Creatinine Ratio Glucose Calcium Phosphorus 1.4 L Magnesium 1.1 L POC Glucose 11/30/17 11/29/17 11/29/17 06:57 22:43 17:27 POC Glucose 118 H 134 H 150 H 11/29/17 12:21 POC Glucose 128 H Medical Necessity - Tobacco Use Smoking Status: Former smoker Assessment/Plan All Active Problems (Last Reviewed 11/29/17 @ 03:51 by Kar Echols MD) Cystitis (Acute) Neutropenic fever (Acute) Pancytopenia (Acute) Thrombocytopenia (Acute) Ventricular tachycardia, nonsustained (Acute) Nonsustained paroxysmal supraventricular tachycardia (Acute) Multifocal premature ventricular contractions with pairing (Acute) 1. Neutropenic fever - continue. prn tylenol. Continue meropenem. Enteric panel neg. Cdiff pending. Blood cx pending. Fevers resolved. Urine cx with strep agalactiae, however she has no symptoms of uti. Krystal will cover regardless. 2. Metastatic lung cancer - known bone mets. Care per Drs. Pineda/Jarvis. Continue aerosols, home pain meds. 3. Pancytopenia probably 2/2 cancer/chemo - 2 units prbc. continue granix. 4. HTN - stable. 5. DMt2 - metformin 6. HLD - statin 7. GERD - ppi DVT ppx: SCDs DC planning: pending neutrophil recovery. PTOT ordered. Anticipate dc home 24-48 hrs. This patient was seen by Jl Castaneda PA-C under the supervision of Doctor Chad. <Robbie Bonilla - Last Filed: 11/30/17 18:03> Subjective: Seen and examined. Patient is still having fever, 101.1 Fahrenheit about 3 PM. Hemoglobin dropped to 7 g percent. 2 unit PRBC ordered by Dr. Conley. Leukopenia, less than 1000. Thrombocytopenia, about 30,000. - Physical Exam General: Alert, Oriented x3, Cooperative HEENT: Atraumatic, PERRLA, EOMI, Normocephalic Neck: Supple, No JVD, Negative Carotid Bruits Lungs: Clear to auscultation, Normal air movement Cardiovascular: Regular rate, No murmurs Abdomen: Bowel Sounds Present, Soft, Non Tender, Non-Distended Extremities: No edema, Capillary Refill Less than 3 Seconds Skin: No rashes, No breakdown Musculoskeletal: No Tenderness to Palpation of Joints or Extremities Neurological: Cranial nerves II-XII grossly intact Psych/Mental Status: Normal Affect, Appropriate Vital Signs Temp Pulse Resp BP Pulse Ox 101.1 F H 96 20 H 151/72 H 96 11/30/17 14:45 11/30/17 14:45 11/30/17 14:45 11/30/17 14:45 11/30/17 14:45 Oxygen Flow Rate (L/min) 2 Oxygen Delivery Method Room Air Weight: 214 lb 15.211 oz Body Mass Index (BMI) 34.7 Intake and Output for Last 24 Hours 11/28/17 11/29/17 11/30/17 23:59 23:59 23:59 Intake Total 1869 / 1869 1916 Output Total 1450 / 1450 Balance 419 / 419 1916 Microbiology Past 72 Hours 11/29/17 18:00 C. difficile DNA Amplification - Final Stool 11/29/17 18:00 Enteric Bacteriology - Final Stool Laboratory Tests Past 24 Hrs 11/30/17 11/30/17 11/30/17 05:10 05:10 05:10 WBC 0.9 L* RBC 2.21 L Hgb 7.0 L Hct 20.7 L MCV 93.7 MCH 31.7 MCHC 33.8 RDW 14.0 RDW Differential 46.1 H Plt Count 31 L* MPV 10.6 Immature Gran % (Auto) 2.200 H Neut % (Auto) 16.8 L Lymph % (Auto) 54.4 H [place] % (Auto) 23.3 H Eos % (Auto) 2.2 Baso % (Auto) 1.1 H Absolute Neuts (auto) 0.2 L Absolute Lymphs (auto) 0.49 L Total Counted Not Reportable Diff Path Review Reviewed Sodium 136 Potassium 3.2 L Chloride 95 L Carbon Dioxide 30.0 Anion Gap 11 BUN 6 L Creatinine 0.68 Estim Creat Clear Calc 49.70 Est GFR (MDRD) Af Amer 111 Est GFR (MDRD) Non-Af 92 BUN/Creatinine Ratio 8.9 L Glucose 114 H Calcium 7.6 L Phosphorus 1.4 L Magnesium 1.1 L POC Glucose 11/30/17 11/30/17 11/29/17 11:12 06:57 22:43 POC Glucose 159 H 118 H 134 H 11/29/17 11/29/17 17:27 12:21 POC Glucose 150 H 128 H Assessment/Plan This patient was seen in conjunction with Jl MACHADO. I have independently interviewed and examined the patient and reviewed pertinent history, examination findings, laboratory and plan of management. I have reviewed the note and agree with the documented findings with the few additional points. In brief, patient is admitted for neutropenic fever with pancytopenia after chemotherapy about 2 weeks ago for metastatic lung cancer. Urine culture shows 50,000-80,000 Streptococcus, group B. She denies burning micturition or increased frequency but sometimes have urgency. We will continue meropenem. I have discussed my assessment with Jl MACHADO and orders have been reviewed. Code Visit Inpatient E&M: 29791 Subs Hosp L3
[2017-11-30] MEDS: Acetaminophen 500 MG Tablet 1000 MG PO ×2 (15:07→22:41)
[2017-11-30 17:25] LABS: Bedside Glucose 159 mg/dL (70-110)
--- NOTE | 2017-11-30 21:35 | CPS ---
pt does not want to wear her home cpap unit due to several interruptions last night, nasal o2 t at 2L set up for her tonight per her request.
[2017-11-30] MEDS: MELATONIN 10 MG TABLET 5 MG PO (22:40)
[2017-11-30] MEDS: Folic Acid 1 MG Tablet PO (22:40)
[2017-11-30] MEDS: DiphenhydrAMINE 25 MG Capsule PO (22:41)
[2017-11-30] MEDS: Pravastatin 80 MG Tablet PO (22:41)
[2017-11-30 23:51] LABS: Bedside Glucose 133 mg/dL (70-110)
[2017-12-01] VITALS (10 sets, daily range): BP systolic 114–170; BP diastolic 54–96; PULSE 79–117; RESP 16–20; TEMP 36.6–39.4; O2SAT 94–98
[2017-12-01] MEDS: oxyCODONE 5 MG Tablet PO ×4 (03:14→21:17)
[2017-12-01] MEDS: Acetaminophen 500 MG Tablet 1000 MG PO ×3 (06:29→21:22)
[2017-12-01 07:06] LABS: Bedside Glucose 138 mg/dL (70-110)
[2017-12-01] MEDS: Albuterol 2.5 MG/3 ML VIAL.NEB. INHALATION ×2 (07:26→18:57)
[2017-12-01] MEDS: Budesonide Respules 0.5 MG/2 ML AMPUL.NEB. INHALATION ×2 (07:26→18:57)
[2017-12-01 07:34] LABS: Anion Gap 10 (5-15); BUN 5 mg/dL (7-18); BUN/Creat Ratio 7.6 RATIO (10-20); Calcium,Total 7.8 mg/dL (8.5-10.1); Chloride 99 mmol/L (98-107); Creatinine, Serum 0.66 mg/dL (0.55-1.02); EST Glomerular Filtration Rate 95 mL/min (>60); Est Glom Filt Rate - Afr Amer 115 mL/min (>60); Glucose 141 mg/dL (74-106); Potassium 3.7 mmol/L (3.5-5.1); Sodium Level 136 mmol/L (136-145)
[2017-12-01 07:39] LABS: Differential Indicated MANUAL DIFF; Hematocrit 28.1 % (37-47); Hemoglobin 9.7 g/dl (12.0-15.0); Mean Corp Hgb Conc 34.5 g/gl (32-36); Mean Corpuscular Hgb 31.1 pg (27.0-32.0); Mean Corpuscular Volume 90.1 fL (81-99); Mean Platelet Vol. 10.8 fl (6.2-12.0); POSITIVE COUNT YES; POSITIVE DIFFERENTIAL NO; POSITIVE MORPHOLOGY YES; RBC Distribution Width CV 15.4 % (11.6-14.6); RBC Distribution Width SD 50.2 fl (35.1-43.9); Red Blood Count 3.12 M/mm3 (4.2-5.4); White Blood Count 2.6 K/mm3 (4.4-11.0)
[2017-12-01 07:40] LABS: Platelet Count 48 K/mm3 (150-450)
[2017-12-01 07:50] LABS: Blast 4 % (0-0); Eosinophil 1 % (0-5); Lymphocyte 32 % (19-41); Metamyelocyte 11 % (0-1); Monocyte 3 % (0-10); Myelocyte 2 (0-0); Neutrophil-Band 25 % (0-5); Neutrophil-Segmented 22 % (47-70); Nucleated Red Bld Cells,Manual 1 % (0-5); Total Cells Counted 100 (MANUAL DIFF)
[2017-12-01 07:51] LABS: Platelet Estimate MKD DEC (ADEQ); Red Cell Morphology NORM C+C NORMAL (NORM C&C)
[2017-12-01 07:52] LABS: Absolute Lymphocyte Count 0.83 X10^3/ul (0.83-4.51); Absolute Neutrophil Count 1.2 X10^3/uL (2.0-7.7); Lymphocyte # 0.83 X10^3/ul (4.0)
[2017-12-01] MEDS: Gabapentin 300 MG Capsule PO ×3 (08:52→17:39)
[2017-12-01] MEDS: hydroCHLOROthiazide 25 MG Tablet PO (09:28)
[2017-12-01] MEDS: Losartan Potassium 50 MG Tablet PO (09:28)
[2017-12-01] MEDS: Pantoprazole Sodium 20 MG Tablet PO (09:28)
[2017-12-01] MEDS: TBO-FILGRASTIM 480 MCG/0.8 ML ML SC (09:28)
[2017-12-01] MEDS: Sertraline 50 MG Tablet PO (09:28)
[2017-12-01 11:51] LABS: Bedside Glucose 133 mg/dL (70-110)
--- NOTE | 2017-12-01 12:43 | PN_ITS ---
<Jl Castaneda - Last Filed: 12/01/17 12:41> Patient Problems: Active and Suspected Problems (Last Reviewed 11/29/17 @ 03:51 by Kar Echols MD) Neutropenic fever (Acute) Pancytopenia (Acute) Thrombocytopenia (Acute) Subjective: Cold this am. Some loose stools continue. No abdominal pain, distention, nausea , vomiting. No fevers or chills. - Physical Exam General: Alert, Oriented x3, Cooperative HEENT: Atraumatic, PERRLA, EOMI, Normocephalic Neck: Supple, No JVD, Negative Carotid Bruits Lungs: Clear to auscultation, Normal air movement Cardiovascular: Regular rate, No murmurs Abdomen: Bowel Sounds Present, Soft, Non Tender, Obese Extremities: No edema, Capillary Refill Less than 3 Seconds Skin: No rashes, No breakdown Musculoskeletal: No Tenderness to Palpation of Joints or Extremities Neurological: Cranial nerves II-XII grossly intact Psych/Mental Status: Normal Affect, Appropriate, Alert and oriented to time, place, person, mood and affect Vital Signs Temp Pulse Resp BP Pulse Ox 97.9 F 86 16 114/59 L 96 12/01/17 11:19 12/01/17 09:19 12/01/17 09:19 12/01/17 09:19 12/01/17 09:19 Oxygen Flow Rate (L/min) 2 Oxygen Delivery Method Room Air Weight: 214 lb 15.211 oz Body Mass Index (BMI) 34.7 Intake and Output for Last 24 Hours 11/29/17 11/30/17 12/01/17 23:59 23:59 23:59 Intake Total 1869 / 1869 2317 / 2317 753 / 753 Output Total 1450 / 1450 Balance 419 / 419 2317 / 2317 753 / 753 Microbiology Past 72 Hours 11/29/17 18:00 C. difficile DNA Amplification - Final Stool 11/29/17 18:00 Enteric Bacteriology - Final Stool Laboratory Tests Past 24 Hrs 12/01/17 12/01/17 06:25 06:25 WBC 2.6 L RBC 3.12 L Hgb 9.7 L Hct 28.1 L MCV 90.1 MCH 31.1 MCHC 34.5 RDW 15.4 H RDW Differential 50.2 H Plt Count 48 L* MPV 10.8 Neut % (Auto) Not Reportable Absolute Neuts (auto) 1.2 L Absolute Lymphs (auto) 0.83 Total Counted 100 Neutrophils % (Manual) 22 L Band Neutrophils % 25 H Lymphocytes % (Manual) 32 Monocytes % (Manual) 3 Eosinophils % (Manual) 1 Metamyelocytes % 11 H Myelocytes % 2 H Blast Cells % 4 H* Nucleated RBCs/100 WBC 1 Diff Path Review May foll Platelet Estimate MKD DEC RBC Morphology NORM C+C Sodium 136 Potassium 3.7 Chloride 99 Carbon Dioxide 27.0 Anion Gap 10 BUN 5 L Creatinine 0.66 Estim Creat Clear Calc 49.70 Est GFR (MDRD) Af Amer 115 Est GFR (MDRD) Non-Af 95 BUN/Creatinine Ratio 7.6 L Glucose 141 H Calcium 7.8 L POC Glucose 12/01/17 12/01/17 11/30/17 11:18 06:40 22:56 POC Glucose 133 H 138 H 133 H 11/30/17 11:12 POC Glucose 159 H Medical Necessity - Tobacco Use Smoking Status: Former smoker Assessment/Plan All Active Problems (Last Reviewed 11/29/17 @ 03:51 by Kar Echols MD) Cystitis (Acute) Neutropenic fever (Acute) Pancytopenia (Acute) Thrombocytopenia (Acute) Ventricular tachycardia, nonsustained (Acute) Nonsustained paroxysmal supraventricular tachycardia (Acute) Multifocal premature ventricular contractions with pairing (Acute) 1. Neutropenic fever - continue. prn tylenol. Continue meropenem. Enteric panel neg. Cdiff negative. Blood cx negative. Last fever yesteraday. Urine cx with strep agalactiae, however she has no symptoms of uti. Krystal will cover regardless. 2. Metastatic lung cancer - known bone mets. Care per Drs. Pineda/Jarvis. Continue aerosols, home pain meds. 3. Pancytopenia probably 2/2 cancer/chemo - 2 units prbc yesterday. All counts improved. continue granix. 4. HTN - stable. 5. DMt2 - metformin 6. HLD - statin 7. GERD - ppi DVT ppx: SCDs DC planning: monitor for return of fever. Possibly home tomorrow. This patient was seen by Jl Castaneda PA-C under the supervision of Doctor Chad. <Robbie Bonilla - Last Filed: 12/01/17 15:25> Subjective: Seen and examined. Agree with above note. No abdominal pain distention, nausea or vomiting. C. difficile is negative. - Physical Exam General: Alert, Oriented x3, Cooperative HEENT: Atraumatic, PERRLA, EOMI, Normocephalic Neck: Supple, No JVD, Negative Carotid Bruits Lungs: Clear to auscultation, Normal air movement Cardiovascular: Regular rate, Normal S1, Normal S2, No murmurs Abdomen: Bowel Sounds Present, Soft, Non Tender Extremities: No edema, Capillary Refill Less than 3 Seconds Skin: No rashes, No breakdown Musculoskeletal: No Tenderness to Palpation of Joints or Extremities Neurological: Cranial nerves II-XII grossly intact Psych/Mental Status: Normal Affect, Appropriate Vital Signs Temp Pulse Resp BP Pulse Ox 102.9 F H 115 H 20 H 154/96 H 97 12/01/17 14:25 12/01/17 14:25 12/01/17 14:25 12/01/17 14:25 12/01/17 14:25 Oxygen Flow Rate (L/min) 2 Oxygen Delivery Method Nasal Cannula Weight: 214 lb 15.211 oz Body Mass Index (BMI) 34.7 Intake and Output for Last 24 Hours 11/29/17 11/30/17 12/01/17 23:59 23:59 23:59 Intake Total 1869 / 1869 2317 / 2317 1117 / 1117 Output Total 1450 / 1450 Balance 419 / 419 2317 / 2317 1117 / 1117 Microbiology Past 72 Hours 11/29/17 18:00 C. difficile DNA Amplification - Final Stool 11/29/17 18:00 Enteric Bacteriology - Final Stool Laboratory Tests Past 24 Hrs 12/01/17 12/01/17 06:25 06:25 WBC 2.6 L RBC 3.12 L Hgb 9.7 L Hct 28.1 L MCV 90.1 MCH 31.1 MCHC 34.5 RDW 15.4 H RDW Differential 50.2 H Plt Count 48 L* MPV 10.8 Neut % (Auto) Not Reportable Absolute Neuts (auto) 1.2 L Absolute Lymphs (auto) 0.83 Total Counted 100 Neutrophils % (Manual) 22 L Band Neutrophils % 25 H Lymphocytes % (Manual) 32 Monocytes % (Manual) 3 Eosinophils % (Manual) 1 Metamyelocytes % 11 H Myelocytes % 2 H Blast Cells % 4 H* Nucleated RBCs/100 WBC 1 Diff Path Review May foll Platelet Estimate MKD DEC RBC Morphology NORM C+C Sodium 136 Potassium 3.7 Chloride 99 Carbon Dioxide 27.0 Anion Gap 10 BUN 5 L Creatinine 0.66 Estim Creat Clear Calc 49.70 Est GFR (MDRD) Af Amer 115 Est GFR (MDRD) Non-Af 95 BUN/Creatinine Ratio 7.6 L Glucose 141 H Calcium 7.8 L POC Glucose 12/01/17 12/01/17 11/30/17 11:18 06:40 22:56 POC Glucose 133 H 138 H 133 H 11/30/17 11:12 POC Glucose 159 H Assessment/Plan This patient was seen in conjunction with Jl MACHADO. I have independently interviewed and examined the patient and reviewed pertinent history, examination findings, laboratory and plan of management. I have reviewed the note and agree with the documented findings with the few additional points. In brief, patient is admitted for neutropenic fever with pancytopenia after chemotherapy about 2 weeks ago for metastatic lung cancer. Urine culture shows 50,000-80,000 Streptococcus, group B. She denies burning micturition or increased frequency but sometimes have urgency. Based on continued pancytopenia and spikes of fever due to neutropenic fever; continue meropenem. I have discussed my assessment with Jl MACHADO and orders have been reviewed. Code Visit Inpatient E&M: 49766 Subs Hosp L3
[2017-12-01] MEDS: Ondansetron ODT 4 MG Tablet PO (14:28)
[2017-12-01] MEDS: Metoprolol(XL)Succ 100 MG Tablet PO (17:39)
[2017-12-01 17:45] LABS: Bedside Glucose 193 mg/dL (70-110)
[2017-12-01 18:04] LABS: M R Staph aureus DNA By PCR Negative (Negative); Probe Check PASS; Specimen Processing Control PASS
--- NOTE | 2017-12-01 18:48 | PCM.RX.CS ---
Consult Pharmacy has been consulted to manage selected antiobiotic: Vancomycin Type of Consult: New start Suspected Infection: Bacteremia Prior Doses of Antibiotics Received/Current Regimen: Patient receive 1500mg @1800 on 12.01.17. Labs: Sodium 136 mmol/L (136-145) 12/01/17 06:25 Potassium 3.7 mmol/L (3.5-5.1) 12/01/17 06:25 Chloride 99 mmol/L (98-107) 12/01/17 06:25 Carbon Dioxide 27.0 mmol/L (21.0-32.0) 12/01/17 06:25 Anion Gap 10 (5-15) 12/01/17 06:25 BUN 5 mg/dL (7-18) L 12/01/17 06:25 Creatinine 0.66 mg/dL (0.55-1.02) 12/01/17 06:25 Est GFR (MDRD) Af Amer 115 mL/min (>60) 12/01/17 06:25 Est GFR (MDRD) Non-Af 95 mL/min (>60) 12/01/17 06:25 BUN/Creatinine Ratio 7.6 RATIO (10-20) L 12/01/17 06:25 Glucose 141 mg/dL (74-106) H 12/01/17 06:25 Microbiology: Microbiology 11/29/17 18:00 Stool C. difficile DNA Amplification - Final 11/29/17 18:00 Stool Enteric Bacteriology - Final Weight used for dosin.5 kg Estimated Creatinine Clearance: ~50ml/min Goal Trough: 10-15 mcg/mL Pharmacy Plan for Drug Dosing: Will begin patient on 750mg iv q12h per pharmacokinetic review. Renal function Cr 0.66 with CrCl ~50 ml/min. Vancomycin trough level ordered for 12.03.17 @0530 before 4th dose. Pharmacy Service will continue to monitor and adjust dosing as required. Follow-Up Labs: Trough Vancomycin - please draw @0530 12.03.17, 30 min before dose at 0600
[2017-12-01] MEDS: Pravastatin 80 MG Tablet PO (21:18)
[2017-12-01] MEDS: Folic Acid 1 MG Tablet PO (21:18)
[2017-12-01] MEDS: MELATONIN 10 MG TABLET 5 MG PO (21:18)
[2017-12-01] MEDS: DiphenhydrAMINE 25 MG Capsule PO (21:23)
[2017-12-02] VITALS (9 sets, daily range): BP systolic 109–139; BP diastolic 44–69; PULSE 83–117; RESP 16–20; TEMP 36.3–37.7; O2SAT 95–98
[2017-12-02] MEDS: oxyCODONE 5 MG Tablet PO ×5 (01:28→21:24)
[2017-12-02] MEDS: proCHLORPERazine 5 MG Tablet 10 MG PO (06:58)
[2017-12-02 07:10] LABS: Bedside Glucose 105 mg/dL (70-110)
[2017-12-02 07:15] LABS: Basophil# 0.28 X10^3/uL; Eosinophil# 0.02 X10^3/uL; Hematocrit 28.7 % (37-47); Hemoglobin 9.5 g/dl (12.0-15.0); Mean Corp Hgb Conc 33.1 g/gl (32-36); Mean Corpuscular Hgb 30.7 pg (27.0-32.0); Mean Corpuscular Volume 92.9 fL (81-99); Mean Platelet Vol. 10.3 fl (6.2-12.0); Monocyte# 2.37 X10^3/uL; Platelet Count 67 K/mm3 (150-450); RBC Distribution Width CV 15.5 % (11.6-14.6); RBC Distribution Width SD 52.8 fl (35.1-43.9); Red Blood Count 3.09 M/mm3 (4.2-5.4); White Blood Count 7.4 K/mm3 (4.4-11.0)
[2017-12-02 07:21] LABS: Differential Indicated SCAN CRITERIA MET; POSITIVE COUNT NO; POSITIVE DIFFERENTIAL YES; POSITIVE MORPHOLOGY YES
[2017-12-02 07:47] LABS: Blast 1 % (0-0); Eosinophil 1 % (0-5); Lymphocyte 29 % (19-41); Metamyelocyte 14 % (0-1); Monocyte 2 % (0-10); Myelocyte 2 (0-0); Neutrophil-Band 16 % (0-5); Neutrophil-Segmented 34 % (47-70); Platelet Estimate MKD DEC (ADEQ); Promyelocyte 1 (0-0); Total Cells Counted 100 (MANUAL DIFF)
[2017-12-02 07:48] LABS: Anisocytosis 1+; Red Cell Morphology N CHROM NORMAL (NORM C&C); Scan Smear per Review Criteria MANUAL DIFF
[2017-12-02 07:49] LABS: Absolute Neutrophil Count 3.7 X10^3/uL (2.0-7.7)
[2017-12-02] MEDS: Acetaminophen 500 MG Tablet 1000 MG PO ×2 (09:42→15:45)
[2017-12-02] MEDS: Gabapentin 300 MG Capsule PO ×3 (09:43→15:47)
[2017-12-02] MEDS: Sertraline 50 MG Tablet PO (09:43)
[2017-12-02] MEDS: hydroCHLOROthiazide 25 MG Tablet PO (09:43)
[2017-12-02] MEDS: Losartan Potassium 50 MG Tablet PO (09:43)
[2017-12-02] MEDS: Pantoprazole Sodium 20 MG Tablet PO (09:43)
[2017-12-02] MEDS: TBO-FILGRASTIM 480 MCG/0.8 ML ML SC (09:44)
[2017-12-02] MEDS: Cyanocobalamin 500 MCG Tablet 1000 MCG PO (09:44)
[2017-12-02 11:46] LABS: Bedside Glucose 188 mg/dL (70-110)
[2017-12-02] MEDS: Ondansetron ODT 4 MG Tablet PO (11:59)
--- NOTE | 2017-12-02 12:58 | PCM.PROGNOTE ---
<Jl Castaneda - Last Filed: 12/02/17 12:58> Patient Problems: Active and Suspected Problems (Last Reviewed 11/29/17 @ 03:51 by Kar Echols MD) Neutropenic fever (Acute) Pancytopenia (Acute) Thrombocytopenia (Acute) Subjective: Fevers continue to recur. All over pain. Occasional cough. No further diarrhea. No abdominal pain. Patient very weak and with rigors intermittently. - Physical Exam General: Alert, Oriented x3, Cooperative HEENT: Atraumatic, PERRLA, EOMI, Normocephalic Neck: Supple, No JVD, Negative Carotid Bruits Lungs: Clear to auscultation, Normal air movement Cardiovascular: Regular rate, No murmurs Abdomen: Bowel Sounds Present, Soft, Non Tender Extremities: No edema, Capillary Refill Less than 3 Seconds Skin: No rashes, No breakdown Musculoskeletal: No Tenderness to Palpation of Joints or Extremities Neurological: Cranial nerves II-XII grossly intact, - - tremor Psych/Mental Status: Normal Affect, Appropriate, Alert and oriented to time, place, person, mood and affect Vital Signs Temp Pulse Resp BP Pulse Ox 98.5 F 117 H 20 H 139/69 H 95 12/02/17 11:47 12/02/17 09:37 12/02/17 09:37 12/02/17 09:37 12/02/17 09:37 Oxygen Flow Rate (L/min) 2 Oxygen Delivery Method Nasal Cannula Weight: 214 lb 15.211 oz Body Mass Index (BMI) 34.7 Intake and Output for Last 24 Hours 11/30/17 12/01/17 12/02/17 23:59 23:59 23:59 Intake Total 2317 / 2317 1717 / 1717 1179 / 1179 Balance 2317 / 2317 1717 / 1717 1179 / 1179 Microbiology Past 72 Hours 11/29/17 18:00 C. difficile DNA Amplification - Final Stool 11/29/17 18:00 Enteric Bacteriology - Final Stool Laboratory Tests Past 24 Hrs 12/01/17 12/02/17 15:35 05:35 WBC 7.4 RBC 3.09 L Hgb 9.5 L Hct 28.7 L MCV 92.9 MCH 30.7 MCHC 33.1 RDW 15.5 H RDW Differential 52.8 H Plt Count 67 L MPV 10.3 Immature Gran % (Auto) WELDING MACHINE OPERATOR GAS Neut % (Auto) WELDING MACHINE OPERATOR GAS Lymph % (Auto) WELDING MACHINE OPERATOR GAS Menard % (Auto) WELDING MACHINE OPERATOR GAS Eos % (Auto) WELDING MACHINE OPERATOR GAS Baso % (Auto) WELDING MACHINE OPERATOR GAS Absolute Neuts (auto) 3.7 Absolute Lymphs (auto) 2.10 Total Counted 100 Neutrophils % (Manual) 34 L Band Neutrophils % 16 H Lymphocytes % (Manual) 29 Monocytes % (Manual) 2 Eosinophils % (Manual) 1 Metamyelocytes % 14 H Myelocytes % 2 H Promyelocytes % 1 H Blast Cells % 1 H* Diff Path Review May foll Platelet Estimate MKD DEC RBC Morphology N CHROM Anisocytosis 1+ MRSA (PCR) Negative POC Glucose 12/02/17 12/02/17 12/01/17 11:43 06:55 17:30 POC Glucose 188 H 105 193 H Medical Necessity - Tobacco Use Smoking Status: Former smoker Assessment/Plan All Active Problems (Last Reviewed 11/29/17 @ 03:51 by Kar Echols MD) Cystitis (Acute) Neutropenic fever (Acute) Pancytopenia (Acute) Thrombocytopenia (Acute) Ventricular tachycardia, nonsustained (Acute) Nonsustained paroxysmal supraventricular tachycardia (Acute) Multifocal premature ventricular contractions with pairing (Acute) 1. Neutropenic fever - continue. prn tylenol, Continue meropenem. Vanc added yesterday, however nasal mrsa neg. Enteric panel neg. Cdiff negative. Blood cx negative. Last fever yesteraday. Urine cx with strep agalactiae, however she has no symptoms of uti. Krystal should cover regardless. -ID consulted as her fevers continue to recur. Continue krystal/vanco until then. -cell counts have improved. 2. Metastatic lung cancer - known bone mets. Care per Drs. Pineda/Jarvis. Continue aerosols, home pain meds. 3. Pancytopenia probably 2/2 cancer/chemo - 2 units prbc yesterday. All counts improved. continue granix. 4. HTN - stable. 5. DMt2 - metformin 6. HLD - statin 7. GERD - ppi DVT ppx: SCDs DC planning: monitor for return of fever. PTOT. Very weak. Unable to walk on own. This patient was seen by Jl Castaneda PA-C under the supervision of Doctor Chad. <Robbie Bonilla - Last Filed: 12/02/17 13:57> Subjective: Patient continues to spike fever with chills and regular. Patient also feeling very weak and tired and lethargic. - Physical Exam General: Alert, Oriented x3, Cooperative HEENT: Atraumatic, PERRLA, EOMI, Normocephalic Neck: Supple, No JVD, Negative Carotid Bruits Lungs: Clear to auscultation, Normal air movement, No rhonchi, No wheeze Cardiovascular: Regular rate, Regular Rhythm, Normal S1, Normal S2, No murmurs Abdomen: Bowel Sounds Present, Soft, Non Tender Extremities: No edema, Capillary Refill Less than 3 Seconds, Edema Skin: No rashes, No breakdown Musculoskeletal: No Tenderness to Palpation of Joints or Extremities, Arthritic Changes, Muscle Wasting Neurological: Cranial nerves II-XII grossly intact Psych/Mental Status: Normal Affect, Appropriate Vital Signs Temp Pulse Resp BP Pulse Ox 98.5 F 117 H 20 H 139/69 H 95 12/02/17 11:47 12/02/17 09:37 12/02/17 09:37 12/02/17 09:37 12/02/17 09:37 Oxygen Flow Rate (L/min) 2 Oxygen Delivery Method Nasal Cannula Weight: 214 lb 15.211 oz Body Mass Index (BMI) 34.7 Intake and Output for Last 24 Hours 11/30/17 12/01/17 12/02/17 23:59 23:59 23:59 Intake Total 2317 / 2317 1717 / 1717 1179 / 1179 Balance 2317 / 2317 1717 / 1717 1179 / 1179 Microbiology Past 72 Hours 11/29/17 18:00 C. difficile DNA Amplification - Final Stool 11/29/17 18:00 Enteric Bacteriology - Final Stool Laboratory Tests Past 24 Hrs 12/01/17 12/02/17 15:35 05:35 WBC 7.4 RBC 3.09 L Hgb 9.5 L Hct 28.7 L MCV 92.9 MCH 30.7 MCHC 33.1 RDW 15.5 H RDW Differential 52.8 H Plt Count 67 L MPV 10.3 Immature Gran % (Auto) WELDING MACHINE OPERATOR GAS Neut % (Auto) WELDING MACHINE OPERATOR GAS Lymph % (Auto) WELDING MACHINE OPERATOR GAS Menard % (Auto) WELDING MACHINE OPERATOR GAS Eos % (Auto) WELDING MACHINE OPERATOR GAS Baso % (Auto) WELDING MACHINE OPERATOR GAS Absolute Neuts (auto) 3.7 Absolute Lymphs (auto) 2.10 Total Counted 100 Neutrophils % (Manual) 34 L Band Neutrophils % 16 H Lymphocytes % (Manual) 29 Monocytes % (Manual) 2 Eosinophils % (Manual) 1 Metamyelocytes % 14 H Myelocytes % 2 H Promyelocytes % 1 H Blast Cells % 1 H* Diff Path Review May foll Platelet Estimate MKD DEC RBC Morphology N CHROM Anisocytosis 1+ MRSA (PCR) Negative POC Glucose 12/02/17 12/02/17 12/01/17 11:43 06:55 17:30 POC Glucose 188 H 105 193 H Assessment/Plan This patient was seen in conjunction with Jl MACHADO. I have independently interviewed and examined the patient and reviewed pertinent history, examination findings, laboratory and plan of management. I have reviewed the note and agree with the documented findings with the few additional points. In brief, patient is admitted for neutropenic fever with pancytopenia after chemotherapy about 2 weeks ago for metastatic lung cancer. Urine culture shows 50,000-80,000 Streptococcus, group B. She denies burning micturition or increased frequency but sometimes have urgency. Based on continued pancytopenia and spikes of fever due to neutropenic fever; continue meropenem. There is no obvious source of infection except urine culture showing 50,000-80,000 testicles group G which is not in significant/pathologic range of UTI. MRSA nasal screen is negative but will continue vancomycin as it seems she is responding to vancomycin. Last T-max 101 Fahrenheit at 15:28 yesterday. Need further input from Dr. Conley. ID consult. I have discussed my assessment with Jl MACHADO and orders have been reviewed. Code Visit Inpatient E&M: 34131 Subs Hosp L3
[2017-12-02] MEDS: Albuterol 2.5 MG/3 ML VIAL.NEB. INHALATION ×2 (13:57→19:26)
[2017-12-02] MEDS: Metoprolol(XL)Succ 100 MG Tablet PO (15:47)
[2017-12-02] MEDS: fentaNYL 25 MCG Patch TRANSDERM. (16:28)
[2017-12-02 17:06] LABS: Bedside Glucose 164 mg/dL (70-110)
[2017-12-02] MEDS: Budesonide Respules 0.5 MG/2 ML AMPUL.NEB. INHALATION (19:26)
[2017-12-02] MEDS: DiphenhydrAMINE 25 MG Capsule PO (21:24)
[2017-12-02] MEDS: Folic Acid 1 MG Tablet PO (21:26)
[2017-12-02] MEDS: MELATONIN 10 MG TABLET 5 MG PO (21:27)
[2017-12-02] MEDS: Pravastatin 80 MG Tablet PO (21:27)
[2017-12-03] VITALS (15 sets, daily range): BP systolic 129–147; BP diastolic 61–78; PULSE 69–111; RESP 16–21; TEMP 36.6–37.8; O2SAT 82–98
[2017-12-03] MEDS: proCHLORPERazine 5 MG Tablet 10 MG PO ×2 (00:58→23:12)
[2017-12-03] MEDS: Acetaminophen 500 MG Tablet 1000 MG PO ×2 (00:59→15:08)
[2017-12-03] MEDS: oxyCODONE 5 MG Tablet PO ×5 (01:31→23:25)
[2017-12-03 06:20] LABS: Vancomycin, Trough Level 25.4 ug/mL (5.0-15.0)
[2017-12-03 06:31] LABS: Hematocrit 26.2 % (37-47); Hemoglobin 8.7 g/dl (12.0-15.0); Mean Corp Hgb Conc 33.2 g/gl (32-36); Mean Corpuscular Hgb 30.9 pg (27.0-32.0); Mean Corpuscular Volume 92.9 fL (81-99); Platelet Count 88 K/mm3 (150-450); RBC Distribution Width CV 15.6 % (11.6-14.6); RBC Distribution Width SD 53.3 fl (35.1-43.9); Red Blood Count 2.82 M/mm3 (4.2-5.4)
[2017-12-03 06:54] LABS: Differential Indicated MANUAL DIFF; POSITIVE COUNT NO; POSITIVE DIFFERENTIAL NO; POSITIVE MORPHOLOGY YES
[2017-12-03 07:15] LABS: Lymphocyte 17 % (19-41); Metamyelocyte 2 % (0-1); Monocyte 11 % (0-10); Myelocyte 1 (0-0); Neutrophil-Band 8 % (0-5); Neutrophil-Segmented 61 % (47-70); Platelet Estimate SLT DEC (ADEQ); Red Cell Morphology NORM C+C NORMAL (NORM C&C); Total Cells Counted 100 (MANUAL DIFF)
[2017-12-03 07:16] LABS: Absolute Lymphocyte Count 2.72 X10^3/ul (0.83-4.51); Lymphocyte # 2.72 X10^3/ul (4.0)
[2017-12-03 07:17] LABS: Neutrophil # 11.04 X10^3/uL (2.7-7.7)
[2017-12-03] MEDS: Budesonide Respules 0.5 MG/2 ML AMPUL.NEB. INHALATION ×2 (07:20→19:09)
[2017-12-03] MEDS: Albuterol 2.5 MG/3 ML VIAL.NEB. INHALATION ×3 (07:20→19:09)
[2017-12-03 07:33] LABS: Absolute Nucleated RBC Count 0.07 10^3/uL (0-5); NRBC Flagged by Analyzer 0.4 % (0-5)
[2017-12-03] MEDS: Losartan Potassium 50 MG Tablet PO (09:01)
[2017-12-03] MEDS: Gabapentin 300 MG Capsule PO ×3 (09:01→16:18)
[2017-12-03] MEDS: Cyanocobalamin 500 MCG Tablet 1000 MCG PO (09:02)
[2017-12-03] MEDS: Pantoprazole Sodium 20 MG Tablet PO (09:02)
[2017-12-03] MEDS: Sertraline 50 MG Tablet PO (09:03)
--- NOTE | 2017-12-03 09:24 | NURSING ---
Addendum entered by Miladis Lee 12/03/17 09:26: JATINDER Original Note: offered assessment, pt declined until later time. Pt resting, call light in reach. No further needs at this time.
--- NOTE | 2017-12-03 11:05 | NURSING ---
Pt declined bath at this time. Would like to rest. No further needs at this time. CC-SN JACKSON
[2017-12-03 12:11] LABS: Bedside Glucose 197 mg/dL (70-110)
[2017-12-03] MEDS: hydroCHLOROthiazide 25 MG Tablet PO (12:28)
--- NOTE | 2017-12-03 12:47 | PCM.PROGNOTE ---
Patient Problems: Active and Suspected Problems (Last Reviewed 11/29/17 @ 03:51 by Kar Echols MD) Neutropenic fever (Acute) Pancytopenia (Acute) Thrombocytopenia (Acute) Subjective: Patient had a fever of 102 yesterday with progressive shortness of breath. Although she is not coughing, her pain medication has been increased over the weekend. She complained of back pain, leg pain and rib pains from metastasis. She has no urinary symptoms dysuria or frequency. She was started on vancomycin this weekend for fever though her counts had recovered and she is no longer neutropenic. Her diarrhea is also improving. Her stool is formed today. Her stool culture and C. difficile toxins were negative. - Physical Exam General: Alert, Oriented x3, No apparent distress HEENT: Atraumatic, PERRLA, EOMI Oral: Moist Mucosa, No Gingival or Mucosal Lesions/ Ulcerations Neck: Supple Lungs: No rhonchi, No wheeze, Diminished Cardiovascular: Regular rate, Regular Rhythm, Normal S1, Normal S2, No murmurs Abdomen: Bowel Sounds Present, Soft, Non Tender, No Hepato-splenomegaly Extremities: No clubbing, No cyanosis, No edema Skin: No rashes Lymphatic: No Cervical, Supraclavicular, or Inguinal Adenopathy Neurological: Neuro grossly intact Psych/Mental Status: Normal Affect Vital Signs Temp Pulse Resp BP Pulse Ox 99.7 F H 106 H 21 H 147/61 H 96 12/03/17 12:33 12/03/17 12:33 12/03/17 12:33 12/03/17 12:33 12/03/17 12:33 Oxygen Flow Rate (L/min) 2 Oxygen Delivery Method Nasal Cannula Weight: 214 lb 15.211 oz Body Mass Index (BMI) 34.7 Intake and Output for Last 24 Hours 12/01/17 12/02/17 12/03/17 23:59 23:59 23:59 Intake Total 1717 / 1717 2732 / 2732 725 / 725 Balance 1717 / 1717 2732 / 2732 725 / 725 Microbiology Past 72 Hours 11/29/17 18:00 C. difficile DNA Amplification - Final Stool 11/29/17 18:00 Enteric Bacteriology - Final Stool Laboratory Tests Past 24 Hrs 12/03/17 12/03/17 05:36 05:36 WBC 16.0 H RBC 2.82 L Hgb 8.7 L Hct 26.2 L MCV 92.9 MCH 30.9 MCHC 33.2 RDW 15.6 H RDW Differential 53.3 H Plt Count 88 L MPV 10.0 Neut % (Auto) Not Reportable Absolute Neuts (auto) 11.0 H Absolute Lymphs (auto) 2.72 Total Counted 100 Neutrophils % (Manual) 61 Band Neutrophils % 8 H Lymphocytes % (Manual) 17 L Monocytes % (Manual) 11 H Metamyelocytes % 2 H Myelocytes % 1 H Nucleated RBC % 0.4 Diff Path Review May foll Platelet Estimate SLT DEC RBC Morphology NORM C+C Absolute Retic 0.07 Vancomycin Trough 25.4 H POC Glucose 12/03/17 12/02/17 11:50 16:29 POC Glucose 197 H 164 H Medical Necessity - Tobacco Use Smoking Status: Former smoker Assessment/Plan All Active Problems (Last Reviewed 11/29/17 @ 03:51 by Kar Echols MD) Cystitis (Acute) Neutropenic fever (Acute) Pancytopenia (Acute) Thrombocytopenia (Acute) Ventricular tachycardia, nonsustained (Acute) Nonsustained paroxysmal supraventricular tachycardia (Acute) Multifocal premature ventricular contractions with pairing (Acute) 1) [id number] -No obvious source, possible drug fever. (Possible antibiotic or G-CSF) Plan: -ID consult-pending -Consider stopping all antibiotic and re-culture if necessary. 2) dyspnea -Possible fluid overload Plan: -Chest x-ray today -Decrease fluid 3) metastatic lung cancer with extensive bone metastasis - s/p first cycle of chemotherapy with KEYTRUDA; slowly recovering blood counts -Diarrhea also improving Plan: -Cancel treatment this week -I will see the patient on Sunday in my office for follow-up. -Chemotherapy dose reduction will be needed. 4) pain management Plan: -Adjust slowly & accordingly and monitor mental status. cc: Dr. Bolivar; Dr. Bonilla; Dr. Sherice Pineda
--- NOTE | 2017-12-03 13:25 | RAD_ITS ---
STUDY: X-RAY CHEST REASON FOR EXAM: Female, 67 years old. Shortness of breath. TECHNIQUE: AP and lateral views of the chest. COMPARISON: Comparison is made with prior study dated November 28, 2017. FINDINGS: Increased markings at the left lung base suggestive of left basilar atelectasis and/or infiltrate. There is blunting of the left costophrenic angle. Normal size heart. There are calcified mediastinal lymph nodes. Normal visualized pulmonary arteries. Normal visualized aortic arch and descending thoracic aorta. There are diffuse degenerative changes of the visualized thoracic spine. Mild dextroscoliosis. Healed right rib fractures. Degenerative changes of the left shoulder joint. There is no demonstrated abnormality of the visualized soft tissue structures of the upper abdomen. RAD/Chest PA and Lateral IMPRESSION: Left basilar atelectasis and/or infiltrate with blunting of the left costophrenic angle. Electronically Signed: Arben Alexis MD at 13:41 EDT Tel [phone], Service support ,
--- NOTE | 2017-12-03 13:27 | NURSING ---
pt to x ray via w/ch and returned
[2017-12-03 13:44] LABS: Pathologist Review Reviewed
--- NOTE | 2017-12-03 13:51 | CON.PCM_ITS ---
Reason for Consult: Neutropenic fever Consulted by: Dr. Bonilla History of Present Illness: The patient is a 67 year old F [] This is a 67-year-old white female with a history of type 2 diabetes mellitus, obesity, lung carcinoma recently diagnosed this September status post radiation therapy she also received a dose of systemic chemotherapy on November 14. Patient was admitted late last week when fever and found to be neutropenic. Patient was placed on antimicrobial therapy blood cultures were obtained and so far today remain negative. Patient did receive G-CSF in her bone marrow has recovered nicely. In talking the patient she denies any cardiopulmonary distress no headaches no active GI issues. She is overall hemodynamically stable. No rashes no lex arthritic symptoms she does complain of some chronic pain issues. - Medical History Past Medical History (Chronic Problems): Chronic Problems (Last Reviewed 11/29/17 @ 03:51 by Kar Echols MD) Lung cancer (Chronic) Bone metastases (Chronic) Obesity (BMI 30-39.9) (Chronic) Hyperlipidemia (Chronic) Hypertension (Chronic) Junctional tachycardia (Chronic) Allergies/Adverse Reactions: Allergies No Known Allergies Allergy (Verified 11/28/17 18:35) Home Medications: Ambulatory Orders Medication Instructions Recorded Hydrochlorothiazide [Hctz] 25 mg PO DAILY 04/19/17 Omeprazole 20 mg PO DAILY 04/19/17 Pravastatin [Pravachol] 80 mg PO QHS 04/19/17 melatonin 5 mg capsule 5 mg PO QHS 07/25/17 metformin 1,000 mg tablet 1,000 mg PO BID 08/15/17 Albuterol Aerosols [Ventolin 2.5 mg INHALATION Q6H PRN PRN 11/18/17 Aerosols] Albuterol IH (ProAir) [Proair Hfa 1 - 2 puff INHALATION Q6H PRN PRN 11/18/17 (SP)Vent Pts] Cyanocobalamin (Vitamin B-12) 1,000 mcg PO DAILY 11/18/17 [B-12] DiphenhydrAMINE [Benadryl] 25 mg PO QHS 11/18/17 Docusate Sodium [Stool Softener] 100 mg PO DAILY PRN PRN 11/18/17 Fentanyl 1 each TD X1 11/18/17 Folic Acid 1 mg PO QHS 11/18/17 Furosemide [Lasix] 1 tab PO PRN PRN 11/18/17 Gabapentin [Neurontin] 300 mg PO TID 11/18/17 Ondansetron [Zofran Odt] 4 mg PO Q8H PRN PRN 11/18/17 Oxycodone HCl/Acetaminophen 1 tablet PO Q4H PRN PRN 11/18/17 [Percocet 5/325] Sertraline HCl [Zoloft] 50 mg PO DAILY 11/18/17 Potassium Chloride [Klor-Con M10] 10 meq PO BID 11/28/17 Prochlorperazine Maleate 10 mg PO Q8H PRN 11/28/17 [Compazine] Losartan Potassium [Cozaar] 50 mg PO QDAY 11/29/17 Metoprolol Succinate [Toprol Xl] 100 mg PO DINNER 11/29/17 Vital Signs Temp Pulse Resp BP Pulse Ox 99.7 F H 106 H 21 H 147/61 H 96 12/03/17 12:33 12/03/17 12:33 12/03/17 12:33 12/03/17 12:33 12/03/17 12:33 Oxygen Flow Rate (L/min) 2 Oxygen Delivery Method Nasal Cannula Weight: 97.5 kg Body Mass Index (BMI) 34.7 Microbiology Past 72 Hours 11/29/17 18:00 C. difficile DNA Amplification - Final Stool Laboratory Tests Past 24 Hrs 12/01/17 12/03/17 12/03/17 06:25 05:36 05:36 WBC 16.0 H RBC 2.82 L Hgb 8.7 L Hct 26.2 L MCV 92.9 MCH 30.9 MCHC 33.2 RDW 15.6 H RDW Differential 53.3 H Plt Count 88 L MPV 10.0 Neut % (Auto) Not Reportable Absolute Neuts (auto) 11.0 H Absolute Lymphs (auto) 2.72 Total Counted 100 Neutrophils % (Manual) 61 Band Neutrophils % 8 H Lymphocytes % (Manual) 17 L Monocytes % (Manual) 11 H Metamyelocytes % 2 H Myelocytes % 1 H Nucleated RBC % 0.4 Diff Path Review Reviewed May foll Platelet Estimate SLT DEC RBC Morphology NORM C+C Absolute Retic 0.07 Vancomycin Trough 25.4 H - Other Studies Radiology: [] Other Studies: [] Route of nutrition/ use of supplements: [] Nutritional Intake: [] IV Site: [] Esteban Catheter: [] Patient is alert conversive in no acute distress lungs are clear heart exam S1- S2 abdomen soft no focal tenderness no skin lesions noted rheumatological exam was unremarkable - Assessment/Plan Antibiotics: [] Assessment/Plan: [] Active and Suspected Problems (Last Reviewed 11/29/17 @ 03:51 by Kar Echols MD) Neutropenic fever (Acute) Pancytopenia (Acute) Thrombocytopenia (Acute) Neutropenic fever which has now resolved. Her bone marrow has recovered nicely with G-CSF administration. Blood cultures remain sterile. At this point we will discontinue her antimicrobial therapy and observe off antibiotics. Patient did have a chest x-ray done earlier today which I personally reviewed showed no focal infiltrates.
[2017-12-03 13:54] LABS: Pathologist Review Reviewed
[2017-12-03 14:03] LABS: Pathologist Review Reviewed
--- NOTE | 2017-12-03 14:15 | PCM.PROGNOTE ---
<Jl Castaneda - Last Filed: 12/03/17 14:15> Patient Problems: Active and Suspected Problems (Last Reviewed 11/29/17 @ 03:51 by Kar Echols MD) Neutropenic fever (Acute) Pancytopenia (Acute) Thrombocytopenia (Acute) Subjective: Overall pt very weak. Complains of all over pain. No SOB. On o2, does not use home o2. No fever or chils. Mild diffuse abdominal discomfort. Last BM this AM - soft. No dysuria. - Physical Exam General: Alert, Oriented x3, Cooperative HEENT: Atraumatic, PERRLA, EOMI, Normocephalic Neck: Supple, No JVD, Negative Carotid Bruits Lungs: Clear to auscultation, Normal air movement Cardiovascular: Regular rate, No murmurs Abdomen: Bowel Sounds Present, Soft, Non Tender Extremities: No edema, Capillary Refill Less than 3 Seconds Skin: No rashes, No breakdown Musculoskeletal: No Tenderness to Palpation of Joints or Extremities Neurological: Cranial nerves II-XII grossly intact Psych/Mental Status: Normal Affect, Appropriate, Alert and oriented to time, place, person, mood and affect Vital Signs Temp Pulse Resp BP Pulse Ox 99.7 F H 97 18 147/61 H 96 12/03/17 12:33 12/03/17 13:37 12/03/17 13:37 12/03/17 12:33 12/03/17 12:33 Oxygen Flow Rate (L/min) 2 Oxygen Delivery Method Nasal Cannula Weight: 214 lb 15.211 oz Body Mass Index (BMI) 34.7 Intake and Output for Last 24 Hours 12/01/17 12/02/17 12/03/17 23:59 23:59 23:59 Intake Total 1717 / 1717 2732 / 2732 725 / 725 Balance 1717 / 1717 2732 / 2732 725 / 725 Microbiology Past 72 Hours 11/29/17 18:00 C. difficile DNA Amplification - Final Stool Laboratory Tests Past 24 Hrs 12/01/17 12/02/17 12/03/17 06:25 05:35 05:36 WBC RBC Hgb Hct MCV MCH MCHC RDW RDW Differential Plt Count MPV Neut % (Auto) Absolute Neuts (auto) Absolute Lymphs (auto) Total Counted Neutrophils % (Manual) Band Neutrophils % Lymphocytes % (Manual) Monocytes % (Manual) Metamyelocytes % Myelocytes % Nucleated RBC % Diff Path Review Reviewed Reviewed Platelet Estimate RBC Morphology Absolute Retic Vancomycin Trough 25.4 H 12/03/17 05:36 WBC 16.0 H RBC 2.82 L Hgb 8.7 L Hct 26.2 L MCV 92.9 MCH 30.9 MCHC 33.2 RDW 15.6 H RDW Differential 53.3 H Plt Count 88 L MPV 10.0 Neut % (Auto) Not Reportable Absolute Neuts (auto) 11.0 H Absolute Lymphs (auto) 2.72 Total Counted 100 Neutrophils % (Manual) 61 Band Neutrophils % 8 H Lymphocytes % (Manual) 17 L Monocytes % (Manual) 11 H Metamyelocytes % 2 H Myelocytes % 1 H Nucleated RBC % 0.4 Diff Path Review Reviewed Platelet Estimate SLT DEC RBC Morphology NORM C+C Absolute Retic 0.07 Vancomycin Trough POC Glucose 12/03/17 12/02/17 11:50 16:29 POC Glucose 197 H 164 H Medical Necessity - Tobacco Use Smoking Status: Former smoker Assessment/Plan All Active Problems (Last Reviewed 11/29/17 @ 03:51 by Kar Echols MD) Cystitis (Acute) Neutropenic fever (Acute) Pancytopenia (Acute) Thrombocytopenia (Acute) Ventricular tachycardia, nonsustained (Acute) Nonsustained paroxysmal supraventricular tachycardia (Acute) Multifocal premature ventricular contractions with pairing (Acute) 1. Neutropenic fever - probably was 2/2 UTI, strep agelactiae, completed bindu, unasyn. Afebrile. -ID following. Observe off abx per their rec. -repeat cxr with atelectasis -cell counts have improved. 2. Metastatic lung cancer - known bone mets. Care per Drs. Pineda/Jarvis. Continue aerosols, home pain meds. 3. Pancytopenia probably 2/2 cancer/chemo - 2 units prbc yesterday. All counts improved. dc granix 4. HTN - stable. 5. DMt2 - metformin 6. HLD - statin 7. GERD - ppi DVT ppx: SCDs DC planning: PT rec is home. This patient was seen by Jl Castaneda PA-C under the supervision of Doctor Joel. <Parker Maldonado - Last Filed: 12/03/17 15:57> - Physical Exam Vital Signs Temp Pulse Resp BP Pulse Ox 100.1 F H 111 H 20 H 138/61 H 95 12/03/17 15:16 12/03/17 15:18 12/03/17 15:16 12/03/17 15:16 12/03/17 15:16 Oxygen Flow Rate (L/min) 2 Oxygen Delivery Method Nasal Cannula Weight: 214 lb 15.211 oz Body Mass Index (BMI) 34.7 Intake and Output for Last 24 Hours 12/01/17 12/02/17 12/03/17 23:59 23:59 23:59 Intake Total 1717 / 1717 2732 / 2732 725 / 725 Balance 1717 / 1717 2732 / 2732 725 / 725 Microbiology Past 72 Hours 11/29/17 18:00 C. difficile DNA Amplification - Final Stool Laboratory Tests Past 24 Hrs 12/01/17 12/02/17 12/03/17 06:25 05:35 05:36 WBC RBC Hgb Hct MCV MCH MCHC RDW RDW Differential Plt Count MPV Neut % (Auto) Absolute Neuts (auto) Absolute Lymphs (auto) Total Counted Neutrophils % (Manual) Band Neutrophils % Lymphocytes % (Manual) Monocytes % (Manual) Metamyelocytes % Myelocytes % Nucleated RBC % Diff Path Review Reviewed Reviewed Platelet Estimate RBC Morphology Absolute Retic Vancomycin Trough 25.4 H 12/03/17 05:36 WBC 16.0 H RBC 2.82 L Hgb 8.7 L Hct 26.2 L MCV 92.9 MCH 30.9 MCHC 33.2 RDW 15.6 H RDW Differential 53.3 H Plt Count 88 L MPV 10.0 Neut % (Auto) Not Reportable Absolute Neuts (auto) 11.0 H Absolute Lymphs (auto) 2.72 Total Counted 100 Neutrophils % (Manual) 61 Band Neutrophils % 8 H Lymphocytes % (Manual) 17 L Monocytes % (Manual) 11 H Metamyelocytes % 2 H Myelocytes % 1 H Nucleated RBC % 0.4 Diff Path Review Reviewed Platelet Estimate SLT DEC RBC Morphology NORM C+C Absolute Retic 0.07 Vancomycin Trough POC Glucose 12/03/17 12/02/17 11:50 16:29 POC Glucose 197 H 164 H Assessment/Plan Addendum: Dr. Maldonado I personally examined the patient and reviewed the chart. I agree with the above. Neutropenia has resolved with the granix and IC held the antibiotics for the UTI. She will f/u with oncology as an outpatient given she has had such a severe response to 1 treatment. Code Visit Inpatient E&M: 98440 Subs Hosp L2
[2017-12-03] MEDS: Metoprolol(XL)Succ 100 MG Tablet PO (16:18)
[2017-12-03] MEDS: Ondansetron ODT 4 MG Tablet PO (16:25)
[2017-12-03 18:35] LABS: Vancomycin, Trough Level 10.8 ug/mL (5.0-15.0)
[2017-12-03] MEDS: MELATONIN 10 MG TABLET 5 MG PO (23:15)
[2017-12-03] MEDS: Pravastatin 80 MG Tablet PO (23:15)
[2017-12-03] MEDS: Folic Acid 1 MG Tablet PO (23:16)
[2017-12-03] MEDS: DiphenhydrAMINE 25 MG Capsule PO (23:16)
[2017-12-04 02:26] LABS: Bedside Glucose 148 mg/dL (70-110)
[2017-12-04 04:00] VITALS: BP 111/66; PULSE 99; RESP 18; TEMP 37; O2SAT 95
[2017-12-04] MEDS: oxyCODONE 5 MG Tablet PO ×3 (04:08→12:13)
[2017-12-04 06:08] LABS: Anion Gap 11 (5-15); BUN 6 mg/dL (7-18); BUN/Creat Ratio 9.5 RATIO (10-20); Calcium,Total 7.3 mg/dL (8.5-10.1); Chloride 98 mmol/L (98-107); Creatinine, Serum 0.63 mg/dL (0.55-1.02); EST Glomerular Filtration Rate 99 mL/min (>60); Est Glom Filt Rate - Afr Amer 120 mL/min (>60); Glucose 142 mg/dL (74-106); Hematocrit 25.2 % (37-47); Hemoglobin 8.4 g/dl (12.0-15.0); Mean Corp Hgb Conc 33.3 g/gl (32-36); Mean Corpuscular Hgb 30.8 pg (27.0-32.0); Mean Corpuscular Volume 92.3 fL (81-99); Mean Platelet Vol. 10.2 fl (6.2-12.0); Platelet Count 99 K/mm3 (150-450); RBC Distribution Width CV 15.6 % (11.6-14.6); RBC Distribution Width SD 53.3 fl (35.1-43.9); Red Blood Count 2.73 M/mm3 (4.2-5.4); Sodium Level 139 mmol/L (136-145); White Blood Count 16.3 K/mm3 (4.4-11.0)
[2017-12-04 06:14] LABS: Differential Indicated MANUAL DIFF; POSITIVE COUNT NO; POSITIVE DIFFERENTIAL NO; POSITIVE MORPHOLOGY YES
[2017-12-04 06:16] LABS: Absolute Nucleated RBC Count 0.02 10^3/uL (0-5); NRBC Flagged by Analyzer 0.2 % (0-5)
[2017-12-04 06:51] VITALS: PULSE 93; RESP 16; O2SAT 94
[2017-12-04] MEDS: Budesonide Respules 0.5 MG/2 ML AMPUL.NEB. INHALATION (06:51)
[2017-12-04] MEDS: Albuterol 2.5 MG/3 ML VIAL.NEB. INHALATION ×2 (06:51→13:05)
[2017-12-04 07:10] LABS: Bedside Glucose 153 mg/dL (70-110)
[2017-12-04 07:19] LABS: Anisocytosis 1+; Hypochromasia 1+; Lymphocyte 18 % (19-41); Metamyelocyte 6 % (0-1); Microcytosis 1+; Monocyte 8 % (0-10); Myelocyte 4 (0-0); Neutrophil-Band 12 % (0-5); Neutrophil-Segmented 52 % (47-70); Total Cells Counted 100 (MANUAL DIFF)
[2017-12-04 07:20] LABS: Platelet Estimate SLT DEC (ADEQ); Platelet Morphology LARGE; Polychromasia RARE
[2017-12-04 07:22] LABS: Absolute Lymphocyte Count 2.93 X10^3/ul (0.83-4.51); Absolute Neutrophil Count 10.4 X10^3/uL (2.0-7.7)
[2017-12-04] MEDS: Gabapentin 300 MG Capsule PO (08:04)
--- NOTE | 2017-12-04 08:12 | PCM.PN.BLA ---
Progress Note Oncology progress note: Patient still has problems with pain in her back and ribs area. She has no fever but has loose stool whish is beginning to form. Mild nausea this morning. No chest pain or shortness of breath. She also complained of generalized weakness. Assessment/Plan 1) neutropenic fever-resolved with recovery of her WBC -Afebrile off antibiotics; ID consult appreciated. -d/c G-CSF Plan: -Discharge home and follow-up with me in the office on Sunday. 2) metastatic lung cancer with extensive bone metastasis - s/p first cycle of chemotherapy with KEYTRUDA; she is slowly recovering -Diarrhea also improving; stool culture and C. difficile toxins negative Plan: -Cancel treatment this week -Continue Imodium as needed for diarrhea -B.R.A.T. diet 3) pain management Plan: -Increase Duragesic 37mcg every 72 hour -Increase Neurontin 600mg TID -Continue Percocet every 4 as needed -monitor mental status & pain at home cc: Sherice Pineda
[2017-12-04 10:00] VITALS: BP 134/65; PULSE 82; RESP 18; TEMP 36.7; O2SAT 94
[2017-12-04] MEDS: Pantoprazole Sodium 20 MG Tablet PO (10:10)
[2017-12-04] MEDS: Losartan Potassium 50 MG Tablet PO (10:10)
[2017-12-04] MEDS: hydroCHLOROthiazide 25 MG Tablet PO (10:10)
[2017-12-04] MEDS: Sertraline 50 MG Tablet PO (10:10)
--- NOTE | 2017-12-04 12:10 | DCINST_ITS ---
- Discharge Diagnoses Current Active Problems: Current Active and Chronic Problems (Last Reviewed 11/29/17 @ 03:51 by Kar Echols MD) Lung cancer (Chronic) Bone metastases (Chronic) Neutropenic fever (Acute) Pancytopenia (Acute) Thrombocytopenia (Acute) You will use the following diet at home:: No restrictions Your food should be the consistency of: Regular Your liquids should be the consistency of: Regular/Thin Discharge Activity: Return to Normal Activity Allergies/Adverse Reactions: Allergies No Known Allergies Allergy (Verified 11/28/17 18:35) Medications to take at Discharge Hydrochlorothiazide [Hctz] 25 mg PO DAILY 04/19/17 Omeprazole 20 mg PO DAILY 04/19/17 Pravastatin [Pravachol] 80 mg PO QHS 04/19/17 melatonin 5 mg capsule 5 mg PO QHS 07/25/17 metformin 1,000 mg tablet 1,000 mg PO BID 08/15/17 Albuterol Aerosols [Ventolin Aerosols] 2.5 mg INHALATION Q6H PRN PRN 11/18/17 Albuterol IH (ProAir) [Proair Hfa] 1 - 2 puff INHALATION Q6H PRN PRN 11/18/17 Cyanocobalamin (Vitamin B-12) [B-12] 1,000 mcg PO DAILY 11/18/17 DiphenhydrAMINE [Benadryl] 25 mg PO QHS 11/18/17 Docusate Sodium [Stool Softener] 100 mg PO DAILY PRN PRN 11/18/17 Fentanyl 1 each TD X1 11/18/17 Folic Acid 1 mg PO QHS 11/18/17 Furosemide [Lasix] 1 tab PO PRN PRN 11/18/17 Ondansetron [Zofran Odt] 4 mg PO Q8H PRN PRN 11/18/17 Oxycodone HCl/Acetaminophen [Percocet 5-325] 1 tablet PO Q4H PRN PRN 11/18/17 Sertraline HCl [Zoloft] 50 mg PO DAILY 11/18/17 Potassium Chloride [Klor-Con M10] 10 meq PO BID 11/28/17 Prochlorperazine Maleate [Compazine] 10 mg PO Q8H PRN 11/28/17 Losartan Potassium [Cozaar] 50 mg PO QDAY 11/29/17 Metoprolol Succinate [Toprol Xl] 100 mg PO DINNER 11/29/17 Acetaminophen [Tylenol] 1,000 mg PO Q6H PRN PRN tablet 12/04/17 Gabapentin [Neurontin] 600 mg PO TIDCM #90 tab 12/04/17 The following prescriptions were given: Gabapentin [Neurontin] 600 mg PO TIDCM #90 tab Primary Care Physician: David Hager DO [Primary Care Provider] - Please follow up with your Primary Care Physician in: 1-2 weeks Test Results: Test results from this visit will be discussed in further detail at your follow- up appointment, if applicable. Please Follow Up With: Sherice Pineda MD When: As directed Proposed Discharge Date: 12/04/17
[2017-12-04] MEDS: Gabapentin 600 MG Tablet PO (12:11)
--- NOTE | 2017-12-04 12:11 | PCM.DC.SUM ---
<Jl Castaneda - Last Filed: 12/04/17 12:11> Discharge Date and Diagnosis - Problem List Patient Problems: Active and Suspected Problems (Last Reviewed 11/29/17 @ 03:51 by Kar Echols MD) Neutropenic fever (Acute) Pancytopenia (Acute) Thrombocytopenia (Acute) Date of Admission: 11/28/17 Date of Discharge: 12/04/17 - Primary Discharge Diagnosis Active and Suspected Problems (Last Reviewed 11/29/17 @ 03:51 by Kar Echols MD) Neutropenic fever (Acute) 2/2 chemo and acute UTI with strep agelactiae - resolved Lung cancer with mets to bone Pancytopenia 2/2 above HTN DMt2 HLD GERD - Secondary Discharge Diagnosis Chronic Problems (Last Reviewed 11/29/17 @ 03:51 by Kar Echols MD) Lung cancer (Chronic) Bone metastases (Chronic) Obesity (BMI 30-39.9) (Chronic) Hyperlipidemia (Chronic) Hypertension (Chronic) Junctional tachycardia (Chronic) Hospital Course and Treatment Imaging Results: RAD/Chest PA and Lateral IMPRESSION: No acute cardiopulmonary pathology RAD/Abd Decub and/or Erect(Portabl IMPRESSION: Moderate amount of fecal material is seen in the colon. RAD/Chest PA and Lateral IMPRESSION: Left basilar atelectasis and/or infiltrate with blunting of the left costophrenic angle. Consults : Edwin - oncology Phuong - ID Operations: None, total knee replacement Procedures: None Summary of Care Provided: Physical exam on day of discharge: General: Resting comfortably NAD Psych: A/Ox3 normal affect HEENT: PEARRLA AT NC Neck: Supple NT CV: RRR no m/t/r/g/h Resp: CTA Abd: [id number] Soft NT no guarding or rigidity Ext: DP2+= no edema Skin: W/D normal turgor Lymph/Heme: No active bleeding or adenopathy Neuro: CN2-12 intact Hospital course: The patient is a 67 year old F with a pmhx of lung cancer with bone mets, s/p first round chemo, pt of Edwin/Masci, also with a hx of GERD, HTN, DMt2 who presented to the ER with fever and dysuria. She was found to have a UTI and pancytopenia likely 2/2 recent chemo. She was admitted to the med surg unit and started on meropenem. Oncology was consulted. She grew strep agelactiae in her urine sensitive to unasyn. She was placed on unasyn. She continued to have intermittent fevers. ID was consulted. She completed 5 days of abx therapy and abx were discontinued. She remained very weak. PTOT was continued. Off abx fevers did not return. She was unable to be completely weaned off oxygen and will require oxygen supplementation going forward at rest and with exertion. This is likely from her underlying lung cancer. Chest x-ray ?2 did not demonstrate an acute process. She does have some atelectasis and was advised to continue incentive spirometry. She was arranged for home O2 and home PTOT given her weakness. She will need to follow up with her PCP and with her oncologist to resume chemo as directed. She was discharged home in stable condition. Neurontin was increased for discharge. This patient was seen by Jl Castaneda PA-C under the supervision of Doctor Joel. [] Discharge Diet: No Restrictions Discharge Activity: Return to Normal Activity Home Medications: Medications to take at Discharge Hydrochlorothiazide [Hctz] 25 mg PO DAILY 04/19/17 Omeprazole 20 mg PO DAILY 04/19/17 Pravastatin [Pravachol] 80 mg PO QHS 04/19/17 melatonin 5 mg capsule 5 mg PO QHS 07/25/17 metformin 1,000 mg tablet 1,000 mg PO BID 08/15/17 Albuterol Aerosols [Ventolin Aerosols] 2.5 mg INHALATION Q6H PRN PRN 11/18/17 Albuterol IH (ProAir) [Proair Hfa] 1 - 2 puff INHALATION Q6H PRN PRN 11/18/17 Cyanocobalamin (Vitamin B-12) [B-12] 1,000 mcg PO DAILY 11/18/17 DiphenhydrAMINE [Benadryl] 25 mg PO QHS 11/18/17 Docusate Sodium [Stool Softener] 100 mg PO DAILY PRN PRN 11/18/17 Fentanyl 1 each TD X1 11/18/17 Folic Acid 1 mg PO QHS 11/18/17 Furosemide [Lasix] 1 tab PO PRN PRN 11/18/17 Ondansetron [Zofran Odt] 4 mg PO Q8H PRN PRN 11/18/17 Oxycodone HCl/Acetaminophen [Percocet 5-325] 1 tablet PO Q4H PRN PRN 11/18/17 Sertraline HCl [Zoloft] 50 mg PO DAILY 11/18/17 Potassium Chloride [Klor-Con M10] 10 meq PO BID 11/28/17 Prochlorperazine Maleate [Compazine] 10 mg PO Q8H PRN 11/28/17 Losartan Potassium [Cozaar] 50 mg PO QDAY 11/29/17 Metoprolol Succinate [Toprol Xl] 100 mg PO DINNER 11/29/17 Acetaminophen [Tylenol] 1,000 mg PO Q6H PRN PRN tablet 12/04/17 Gabapentin [Neurontin] 600 mg PO TIDCM #90 tab 12/04/17 Following Prescrptions Were Given to Patient: Gabapentin [Neurontin] 600 mg PO TIDCM #90 tab Primary Care Physician: David Hager DO [Primary Care Provider] - Please follow up with your Primary Care Physician in: 1-2 weeks Please Follow Up With: Sherice Pineda MD When: As directed Disposition: Home with Home Health Minutes spent on discharge:: 35 Patient Condition:: Stable Medical Necessity - Tobacco Use Smoking Status: Former smoker Meaningful Use Info Meaningful Use Diagnoses (Choose all that apply): None applicable <Parker Maldonado - Last Filed: 12/04/17 14:38> Discharge Date and Diagnosis - Primary Discharge Diagnosis Active and Suspected Problems (Last Reviewed 11/29/17 @ 03:51 by Kar Echols MD) Neutropenic fever (Acute) Pancytopenia (Acute) Thrombocytopenia (Acute) - Secondary Discharge Diagnosis Chronic Problems (Last Reviewed 11/29/17 @ 03:51 by Kar Echols MD) Lung cancer (Chronic) Bone metastases (Chronic) Obesity (BMI 30-39.9) (Chronic) Hyperlipidemia (Chronic) Hypertension (Chronic) Junctional tachycardia (Chronic) Hospital Course and Treatment Summary of Care Provided: Addendum: Dr. Maldonado I personally examined the patient and reviewed the chart. I agree with the above. She presented with neutropenic fever and had a UTI. She was treated with Meropenem, then switched to unasyn. She was given granix which helped her WBC recover and her abx were DC's. She has been afebrile since the abx were stopped. She can go home today with close outpatient follow-up. Code Visit Inpatient E&M: [id number] Disch Hosp
[2017-12-04 12:25] LABS: Bedside Glucose 153 mg/dL (70-110)
[2017-12-04 13:05] VITALS: PULSE 98; RESP 16
--- NOTE | 2017-12-04 13:29 | PCM.PN.ID ---
Patient Problems: Active and Suspected Problems (Last Reviewed 11/29/17 @ 03:51 by Kar Echols MD) Neutropenic fever (Acute) Pancytopenia (Acute) Thrombocytopenia (Acute) Subjective: Patient overall clinically stable had an uneventful night. No fevers. No significant gastrointestinal distress Objective: Alert and oriented does not appear toxic lungs are clear heart exam S1-S2 abdomen is obese but soft - Physical Exam Vital Signs Temp Pulse Resp BP Pulse Ox 98.0 F 82 18 134/65 H 94 12/04/17 10:00 12/04/17 10:00 12/04/17 10:00 12/04/17 10:00 12/04/17 10:00 Oxygen Flow Rate (L/min) 2 Oxygen Delivery Method Nasal Cannula Weight: 97.5 kg Body Mass Index (BMI) 34.7 Intake and Output for Last 24 Hours 12/02/17 12/03/17 12/04/17 23:59 23:59 23:59 Intake Total 2732 / 2732 1280 / 1280 Output Total 500 / 500 Balance 2732 / 2732 780 / 780 Laboratory Tests Past 24 Hrs 12/01/17 12/02/17 12/03/17 06:25 05:35 05:36 WBC RBC Hgb Hct MCV MCH MCHC RDW RDW Differential Plt Count MPV Neut % (Auto) Absolute Neuts (auto) Absolute Lymphs (auto) Total Counted Neutrophils % (Manual) Band Neutrophils % Lymphocytes % (Manual) Monocytes % (Manual) Metamyelocytes % Myelocytes % Nucleated RBC % Diff Path Review Reviewed Reviewed Reviewed Platelet Estimate Plt Morphology Comment Polychromasia Hypochromasia Anisocytosis Microcytosis Absolute Retic Sodium Potassium Chloride Carbon Dioxide Anion Gap BUN Creatinine Estim Creat Clear Calc Est GFR (MDRD) Af Amer Est GFR (MDRD) Non-Af BUN/Creatinine Ratio Glucose Calcium Vancomycin Trough 12/03/17 12/04/17 12/04/17 17:22 05:10 05:10 WBC 16.3 H RBC 2.73 L Hgb 8.4 L Hct 25.2 L MCV 92.3 MCH 30.8 MCHC 33.3 RDW 15.6 H RDW Differential 53.3 H Plt Count 99 L MPV 10.2 Neut % (Auto) Not Reportable Absolute Neuts (auto) 10.4 H Absolute Lymphs (auto) 2.93 Total Counted 100 Neutrophils % (Manual) 52 Band Neutrophils % 12 H Lymphocytes % (Manual) 18 L Monocytes % (Manual) 8 Metamyelocytes % 6 H Myelocytes % 4 H Nucleated RBC % 0.2 Diff Path Review May foll Platelet Estimate SLT DEC Plt Morphology Comment LARGE Polychromasia RARE Hypochromasia 1+ Anisocytosis 1+ Microcytosis 1+ Absolute Retic 0.02 Sodium 139 Potassium 3.0 L Chloride 98 Carbon Dioxide 30.0 Anion Gap 11 BUN 6 L Creatinine 0.63 Estim Creat Clear Calc 49.70 Est GFR (MDRD) Af Amer 120 Est GFR (MDRD) Non-Af 99 BUN/Creatinine Ratio 9.5 L Glucose 142 H Calcium 7.3 L Vancomycin Trough 10.8 POC Glucose 12/04/17 12/04/17 12/03/17 12:08 06:58 22:56 POC Glucose 153 H 153 H 148 H Medical Necessity - Tobacco Use Smoking Status: Former smoker Route of nutrition/ use of supplements: [] Nutritional Intake: [] IV Site: [] Esteban Catheter: [] - Assessment/Plan Neutropenic fever. Bone marrow recovered nicely. Clinically stable off antimicrobial therapy. No further fevers. Microbiological data negative. Plan to go home later today.
[2017-12-04 13:46] VITALS: O2SAT 83; O2SAT 85; O2SAT 92
--- NOTE | 2017-12-04 14:56 | CASEMGMT ---
Addendum entered by Reena Martinez 12/04/17 14:59: Patient requiring home oxygen. GABRIELLE LEACH obtained script for home oxygen and referral sent to [facility] and arranged for portable oxygen to be delivered to hospital. Original Note: GABRIELLE LEACH received update that patient and family are requesting [facility] for shelter and therapy. GABRIELLE LEACH in to talk with patient and daughter. Patient would like [facility] for HHC. Patient may also need home oxygen setup and preferred DME is [facility]. GABRIELLE LEACH sent referral to [facility] and they are able to accept the patient. Patient also requesting script for bed hand rail. Script obtained from CARTER Castaneda. GABRIELLE LEACH will monitor for need for home oxygen.
[2017-12-04 15:15] LABS: Pathologist Review Reviewed
--- NOTE | 2017-12-06 16:11 | CASEMGMT ---
GABRIELLE LEACH Discharge Follow-up Phone Call: [place]: Pearl Strata: 4 Call Date: 12/06/17 Discharge Date: 12/04/17 Time of Call: 1610 Duration: 2 min Admitting Diagnosis: Neutropenic fever GABRIELLE LEACH completed follow-up phone call after recent hospitalization. Patient states that she is doing fine. Patient states that she received her oxygen and that [facility] had out to see her. Patient had no question's regarding discharge instructions and has her follow-up appt scheduled to Sunday.
== END 2017-12-04 16:08 | disposition home or self-care (01) | DRG 809 ==
LOC: ED 22:57 → MS3 23:10
PROVIDERS: Internal Medicine; Physician Assistant; Admitting Provider Hospitalist; Emergency Provider Emergency Medicine; Family Provider Family Medicine; PCP Family Medicine; Visit Provider Family Medicine
DX: D70.1 Agranulocytosis secondary to cancer chemotherapy (principal); C79.51 Secondary malignant neoplasm of bone; C34.12 Malignant neoplasm of upper lobe, left bronchus or lung; D70.3 Neutropenia due to infection; N30.90 Cystitis, unspecified without hematuria; T45.1X5A Adverse effect of antineoplastic and immunosuppressive drugs, initial encounter; R50.81 Fever presenting with conditions classified elsewhere; B95.1 Streptococcus, group B, as the cause of diseases classified elsewhere; D61.810 Antineoplastic chemotherapy induced pancytopenia; K21.9 Gastro-esophageal reflux disease without esophagitis; E78.5 Hyperlipidemia, unspecified; E11.9 Type 2 diabetes mellitus without complications; I10 Essential (primary) hypertension; E66.9 Obesity, unspecified; Z68.34 Body mass index [BMI] 34.0-34.9, adult; Z87.891 Personal history of nicotine dependence
CPT/HCPCS: 36415; 71046; 74019; 80048; 80053; 80202; 81001; 82962; 83735; 84100; 85025; 86644; 86850; 86900; 86920; 86965; 87040; 87077; 87086; 87088; 87186; 87493; 87506; 87641; 94640; 97162; 97166; 97530; 97535; 97802; 99285; J2185; J7040; J7050; P9016; P9035; A4216; J1447; J2405

== ENCOUNTER 2018-02-13 14:32 | Inpatient (IN) | payer MEDICARE, BC, SELFPAY ==
[2018-02-13 14:32] VITALS: BMI 37.0
[2018-02-13 14:34] VITALS: BP 150/91; PULSE 94; RESP 16; TEMP 37.2; O2SAT 99; BMI 30.9
--- NOTE | 2018-02-13 15:22 | ED.DCSUM_ITS ---
- ER Visit Summary Date of Service: 02/13/18 Chief Complaint: Nausea, vomiting, diarrhea History of Present Illness: The patient is a 67 F non-small cell lung CA with bony metastases. Patient has a history of aiv-[id number] diabetes and hypertension. She did receive chemotherapy at the end of October but is not done so after the first treatment due to her response to it. She also is receiving radiation therapy and immunotherapy. States yesterday started having nausea, vomiting, diarrhea and fever. No hematemesis. No dysuria. Physical Examination: Older female. Vital signs blood pressure 150/91. Otherwise stable and afebrile. Pulse ox 9 9% on room air no signs of hypoxia. H EENT exam dry mixed membranes. Otherwise unremarkable. Neck nontender. Lungs clear to auscultation bilaterally. Heart regular rhythm no murmur. Abdomen is soft. Nondistended normal bowel sounds no peritoneal signs. Mild left lower quadrant tenderness which she has had. She is moving all 4 extremities. Neurovascular intact. She is pale. Skin otherwise unremarkable. Calves nontender no edema. Neurologically she is awake and alert with no focal motor deficits. Test Results: CBC White count of 10. Hemoglobin 10.6 which is patient's baseline. Electrolyte is unremarkable potassium 3.1 normal gap and creatinine. Liver enzymes normal UA negative. EKG sinus rhythm rate of 78 with no acute signs of NC or ischemia and unchanged from a prior EKG from 2013. CT abdomen pelvis with IV contrast shows prior cholecystectomy. Diverticulosis. They cannot rule out a fluid collection lateral to the sigmoid colon that may or may not be an abscess. There is also osseous metastases of her known cancer to the thoracic, lumbar spine and pelvis. No signs of obstruction. Emergency Department Course and Treatment: Treated with 2 L normal saline due to her clinical dehydration. Zofran for nausea. Screening labs will be obtained. Patient was treated with a second dose of Zofran and then Phenergan. Is still having nausea and vomiting. Treatment Plan: I discussed with the patient and family I think the best plan would be to admit her overnight continue IV hydration and nausea medication see how she does. Discussed this with the hospitalist who wanted me to start IV Zosyn in case that is an abscess. She will be down evaluate the patient for admission. Disposition: Admission Impression: Acute nausea, vomiting, diarrhea and fever And intractable nausea and vomiting History of non-small cell lung CA with bony metastases Dehydration This note was generated with [employer] dictation software. It may contain incorrect words, spelling, and punctuation that were not noted in review of the chart prior to signing ED Disposition - Plan for ED Patient: Chief Complaint: Nausea/Vomiting Referrals: David Hager DO [Primary Care Provider] -
[2018-02-13 15:36] LABS: Absolute Lymphocyte Count 0.66 X10^3/ul (0.83-4.51); Absolute Neutrophil Count 8.6 X10^3/uL (2.0-7.7); Basophil# 0.01 X10^3/uL; Basophil% 0.1 % (0-1); Eosinophil# 0.01 X10^3/uL; Eosinophils% 0.1 % (0-5); Hematocrit 33.3 % (37-47); Hemoglobin 10.6 g/dl (12.0-15.0); Lymphocyte # 0.66 X10^3/ul (4.0); Lymphocyte % 6.4 % (19-41); Mean Corp Hgb Conc 31.8 g/gl (32-36); Mean Corpuscular Hgb 31.5 pg (27.0-32.0); Mean Corpuscular Volume 98.8 fL (81-99); Mean Platelet Vol. 9.7 fl (6.2-12.0); Monocyte# 0.97 X10^3/uL; Monocyte% 9.5 % (0-10); Neutrophil # 8.57 X10^3/uL (2.7-7.7); Neutrophil % 83.7 % (47-70); Platelet Count 352 K/mm3 (150-450); RBC Distribution Width CV 14.7 % (11.6-14.6); RBC Distribution Width SD 52.7 fl (35.1-43.9); Red Blood Count 3.37 M/mm3 (4.2-5.4); White Blood Count 10.2 K/mm3 (4.4-11.0)
[2018-02-13] MEDS: 0.9% Normal Saline 1,000 ML 1000 ML IV ×2 (15:38→15:39)
[2018-02-13] MEDS: Ondansetron 4 MG/2 ML Vial IV ×2 (15:39→16:28)
[2018-02-13 15:43] LABS: POSITIVE COUNT NO; POSITIVE DIFFERENTIAL NO; POSITIVE MORPHOLOGY NO
[2018-02-13 15:49] LABS: AST(SGOT) 15 U/L (15-37); Alanine Aminotransfer ALT/SGPT 12 U/L (13-56); Albumin, Serum 3.5 g/dL (3.2-5.0); Alkaline Phosphatase 154 U/L (45-117); Anion Gap 10 (5-15); BUN 6 mg/dL (7-18); BUN/Creat Ratio 5.6 RATIO (10-20); Bilirubin, Direct 0.24 mg/dL (0.00-0.30); Calcium,Total 8.3 mg/dL (8.5-10.1); Chloride 103 mmol/L (98-107); Creatinine, Serum 1.07 mg/dL (0.55-1.02); EST Glomerular Filtration Rate 54 mL/min (>60); Est Glom Filt Rate - Afr Amer 65 mL/min (>60); Estimated Creatinine Clearance 48.25 ml/min; Globulin 4.8 g/dL (2.2-4.2); Glucose 114 mg/dL (74-106); Potassium 3.1 mmol/L (3.5-5.1); Protein, Total 8.3 g/dL (6.4-8.2); Sodium Level 138 mmol/L (136-145)
--- NOTE | 2018-02-13 16:54 | EKG12_ITS ---
Test Reason : CP Blood Pressure : / mmHG Vent. Rate : 078 BPM Atrial Rate : 078 BPM P-R Int : 160 ms QRS Dur : 094 ms QT Int : 470 ms P-R-T Axes : 055 046 060 degrees QTc Int : 535 ms Normal sinus rhythm Nonspecific ST abnormality Prolonged QT Abnormal ECG Confirmed by FLORIN MARIEE, SRINI ([id number]), editorial specialist ITALO BARFIELD ([id number]) on 02/15/2018 1:22:06 PM Referred By: Karen Flores Confirmed By:SRINI CATHERINE MD
[2018-02-13 16:55] VITALS: BP 159/85; PULSE 66; RESP 16; O2SAT 99
[2018-02-13 16:57] LABS: Bacteria 0 SEEN /hpf (None Seen); Mucous, Urine 0 SEEN /hpf (<or=2+); Red Blood Cells-Urine 0 SEEN /hpf (0-5); Squamous Epithelial Cells - UA 0 SEEN /hpf (5-10)
[2018-02-13 16:59] LABS: Color, Urine Yellow (Yellow); Glucose, Dipstick Normal (Normal); Ketone-Dipstick 15 mg/dl (Negative); Leukocyte Esterase-Dipstick 25 /ul (Negative); Nitrite-Dipstick Negative (Negative); Occult Blood-Urine 50 /ul (Negative); Protein-Dipstick 30 mg/dl (Negative); Urine Bilirubin Dipstick Negative (Negative); Urine Clarity Clear (Clear); Urine Urobilinogen Normal (Normal)
[2018-02-13 17:09] LABS: White Blood Cells 0-5 SEEN /hpf (0-5)
--- NOTE | 2018-02-13 17:17 | CT_ITS ---
STUDY: CT ABDOMEN AND PELVIS WITH CONTRAST REASON FOR EXAM: Female, 67 years old. Left lower quadrant pain, nausea, vomiting, fever RADIATION DOSAGE (If Supplied By Facility): CTDIvol = ( 15.11 ) mGy, DLP = ( 1183.94 ) mGycm TECHNIQUE: Transaxial images were obtained from the dome of the diaphragm to the symphysis pubis without oral contrast. 100CC ml of Isovue 300 contrast was administered. Sagittal and coronal images were reconstructed. Individualized dose optimization techniques were used for this CT. COMPARISON: Previous study of 07/28/2014 FINDINGS: The visualized lung bases are unremarkable. The visualized portions of the heart are within normal limits. There is a 1.2 cm left hepatic lobe cyst. There are surgical clips in the gallbladder fossa consistent with a prior cholecystectomy. Normal spleen. Normal pancreas. Normal bilateral adrenal glands. There are several small right renal cysts. There is a 2 cm left renal cyst. There is a retroaortic left renal vein. Normal visualized stomach. Normal small intestine. There is diffuse colonic diverticulosis predominantly involving the sigmoid. There is a 2.0 cm fluid density structure adjacent to the distal sigmoid. The appendix is visualized and appears normal. There are calcified plaques of the abdominal aorta. Normal inferior vena cava. Normal retroperitoneum. Normal urinary bladder. Uterus appears normal. There is a small umbilical hernia containing fat. There are blastic changes involving numerous thoracic, lumbar, and sacral vertebral segments. There are multiple sclerotic lesions involving the visualized proximal femurs and bony pelvis. There are lytic changes of the left ilium. CT/Abdomen/Pelvis W IV Cont ONLY IMPRESSION: Status post cholecystectomy. Chronic diverticulosis probably involving the sigmoid. There is a 2.0 cm fluid density structure adjacent to the distal sigmoid which may represent small abscess. There is no evidence of extraluminal gas. Bilateral renal cysts and small hepatic cyst. There are multiple blastic lesions of the visualized axial and appendicular skeleton consistent with osseous metastatic disease. There are lytic changes of the left ilium. Electronically Signed: Edgardo Hernández MD at 18:44 EST , Service support ,
[2018-02-13] MEDS: proMETHazine 25 MG/ML Syringe 12.5 MG IV (17:26)
[2018-02-13 18:14] VITALS: BP 171/61; PULSE 84; RESP 16; O2SAT 95
[2018-02-13 20:05] VITALS: RESP 18; O2SAT 97
--- NOTE | 2018-02-13 20:58 | HP.PCM_ITS ---
Problem List (1) Abdominal abscess Status: Acute (2) Nausea and vomiting Status: Acute Qualifiers: Vomiting type: unspecified Vomiting Intractability: unspecified Qualified Code(s): R11.2 - Nausea with vomiting, unspecified (3) Diarrhea Status: Acute Qualifiers: Diarrhea type: unspecified type Qualified Code(s): R19.7 - Diarrhea, unspecified (4) Asthma Status: Chronic Qualifiers: Asthma severity: unspecified severity Asthma persistence: unspecified Asthma complication type: unspecified Qualified Code(s): J45.909 - Unspecified asthma, uncomplicated (5) Sleep apnea Status: Chronic Qualifiers: Sleep apnea type: unspecified type Qualified Code(s): G47.30 - Sleep apnea, unspecified (6) Diabetes mellitus, type II Status: Chronic Qualifiers: Diabetes mellitus snf insulin use: without lobsterman use Diabetes mellitus complication status: with unspecified complications Qualified Code(s): E11.8 - Type 2 diabetes mellitus with unspecified complications (7) Former tobacco use Status: Chronic (8) Lung cancer Status: Chronic Qualifiers: Laterality: left Lung location: upper lobe of lung Qualified Code(s): C34.12 - Malignant neoplasm of upper lobe, left bronchus or lung (9) Bone metastases Status: Chronic (10) Obesity (BMI 30-39.9) Status: Chronic (11) Hyperlipidemia Status: Chronic Qualifiers: Hyperlipidemia type: unspecified Qualified Code(s): E78.5 - Hyperlipidemia, unspecified (12) Hypertension Status: Chronic Qualifiers: Hypertension type: essential hypertension Qualified Code(s): I10 - Essential (primary) hypertension History of Present Illness Date of Admission: 02/13/18 Chief Complaint: N/V/D The patient is a 67 y/o F w/ PMHx: HTN, HLD, Asthma, GERD, Obesity, Diabetes mellitus type II, ALIN on CPAP q HS, Non-small cell lung cancer, TTF-1 positive CK 7 positive ER/CO negative with diffuse spinal and pelvic metastatic disease following w/ Dr. Pineda, s/p 1 round chemotherapy that was not well tolerated, currently on immunosuppressive therapy and radiation with onset nausea, emesis starting the day prior to presentation, ongoing with emesis immediately with any oral intake attempts and onset AM of day of presentation loose stools x 3, 4th in the ED, foul smelling with concurrent fever 101.3. She notes last radiation treatment was the day prior to current presentation and she denies having any of these types of symptoms following prior. She denies any marked abdominal pain including cramping; however, she on exam does not generalized mild discomfort w/ palpation. Work-up in the ED included T 98.9, heart rate 94, BP 150/91, respiratory rate 16, 99% on room air, CBC with WBC 10.2, hemoglobin 10.6, platelet 352 with left shift, CMP with potassium 3.1, BUN/creatinine 6/1.07, glucose 114, AST/ALT 15/12, alk phos 154, urinalysis unremarkable appearing, CT A/P with s/p cholecystectomy, chronic diverticulosis probably involving the sigmoid, 2.0 cm fluid density structure adjacent to the distal sigmoid which may represent small abscess, no evidence of extraluminal gas, BL renal cysts and small hepatic cyst, multiple blastic lesions of the visualized axial and appendicular skeleton consistent with osseous metastatic disease, lytic changes of the left ilium. In the ED patient administered normal saline, Phenergan, Zofran, Zosyn therapies. Past Medical History Past Medical History (Chronic Problems): Chronic Problems (Last Reviewed 11/29/17 @ 03:51 by Kar Echols MD) Lung cancer (Chronic) Bone metastases (Chronic) Asthma (Chronic) Sleep apnea (Chronic) Diabetes mellitus, type II (Chronic) Former tobacco use (Chronic) Obesity (BMI 30-39.9) (Chronic) Hyperlipidemia (Chronic) Hypertension (Chronic) Junctional tachycardia (Chronic) Medical History: Medical History (Last Reviewed 11/29/17 @ 03:51 by Kar Echols MD) Obesity (BMI 30-39.9) (Chronic) E66.9 Hyperlipidemia (Chronic) E78.5 Hypertension (Chronic) I10 Junctional tachycardia (Chronic) I47.1 Adenomatous colon polyp D12.6 Asthma J45.909 Basal cell carcinoma C44.91 GERD (gastroesophageal reflux disease) K21.9 Kidney stones N20.0 Microalbuminuria R80.9 Obstructive sleep apnea G47.33 Osteoarthritis M19.90 Type 2 diabetes mellitus without complications E11.9 Allergies ciprofloxacin [From Cipro] Allergy (Verified 02/13/18 14:57) Hives metronidazole Allergy (Verified 02/13/18 14:57) Hives Home Medications: Ambulatory Orders Medication Instructions Recorded Omeprazole 20 mg PO DAILY 04/19/17 Pravastatin [Pravachol] 80 mg PO QHS 04/19/17 melatonin 5 mg capsule 5 mg PO QHS 07/25/17 metformin 1,000 mg tablet 1,000 mg PO BID 08/15/17 Albuterol Aerosols [Ventolin 2.5 mg INHALATION Q6H PRN PRN 11/18/17 Aerosols] Albuterol IH (ProAir) [Proair Hfa] 1 - 2 puff INHALATION Q6H PRN PRN 11/18/17 Cyanocobalamin (Vitamin B-12) 1,000 mcg PO DAILY 11/18/17 [B-12] DiphenhydrAMINE [Benadryl] 25 mg PO QHS 11/18/17 Docusate Sodium [Stool Softener] 100 mg PO DAILY PRN PRN 11/18/17 Folic Acid 1 mg PO QHS 11/18/17 Furosemide [Lasix] 20 mg PO PRN PRN 11/18/17 Oxycodone HCl/Acetaminophen 1 tablet PO Q4H PRN PRN 11/18/17 [Percocet 5-325] Sertraline HCl [Zoloft] 50 mg PO DAILY 11/18/17 Potassium Chloride [Klor-Con M10] 20 meq PO BID 11/28/17 Prochlorperazine Maleate 10 mg PO Q8H PRN 11/28/17 [Compazine] Losartan Potassium [Cozaar] 50 mg PO QDAY 11/29/17 Metoprolol Succinate [Toprol Xl] 100 mg PO DINNER 11/29/17 Fentanyl 1 mcg TOPICAL Q72H 02/13/18 Fentanyl 25 mcg TRANSDERM. Q72H 02/13/18 Fluticasone/Vilanterol [Breo 1 puff INHALATION DAILY 02/13/18 Ellipta 200-25 Mcg INH] Gabapentin [Neurontin] 300 mg PO TID 02/13/18 Hydrochlorothiazide 12.5 mg PO DAILY 02/13/18 Ibuprofen [Advil] 400 mg PO TID PRN PRN 02/13/18 Iron Polysaccharide Complex 150 mg PO BID 02/13/18 [Ferrex 150] Lorazepam [Ativan] 1 mg PO X1 02/13/18 Ondansetron [Zofran] 8 mg PO BID 02/13/18 Propylene Glycol [Lubricant Eye 1 drop OP PRN PRN 02/13/18 Drop] Propylene Glycol/Peg 400 [Systane 1 drop OP PRN PRN 02/13/18 Gel Eye Drops] Surgical History: Surgical History (Last Reviewed 11/29/17 @ 03:51 by Kar Echols MD) History of bilateral knee replacement Z96.653 Hx of cholecystectomy Z90.49 Surgical History: cholecystectomy, - - Skin cancer removed on eyelid, skin cancer removed on nose, saliva gland removal because of stones Psychiatric History: Anxiety, Depression [employer]ELOP[employer]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 Lives: Alone Smoking Status: Former smoker Tobacco Use: Non-smoker Alcohol: None Drugs: None - *Family History Maternal Family History: Family History (Last Reviewed 08/15/17 @ 14:44 by Justin Archer MD) Father Myocardial infarction, Onset Age: 63 Heart disease Mother Hypertension Heart disease Sister Breast cancer History Items: Heart Disease, Hypertension Paternal Family History: Family History (Last Reviewed 08/15/17 @ 14:44 by Justin Archer MD) Father Myocardial infarction, Onset Age: 63 Heart disease Mother Hypertension Heart disease Sister Breast cancer History Items: Heart Disease, Hypertension Sibling Family History: Family History (Last Reviewed 08/15/17 @ 14:44 by Justin Archer MD) Father Myocardial infarction, Onset Age: 63 Heart disease Mother Hypertension Heart disease Sister Breast cancer History Items: Cancer Review of Systems Constitutional: Reports: Anorexia, Chills, Fever, Malaise, Weakness, Fatigue. Denies: Weight Change HEENT: Denies: Head Aches, Sinus Congestion, Sinus Drainage Cardiovascular: Denies: Chest Pain, Palpitations Respiratory: Denies: Cough, Shortness of breath at rest, Sputum production Gastrointestinal: Reports: Diarrhea, Nausea, Vomiting. Denies: Abdominal Pain Genitourinary: Denies: Dysuria Musculoskeletal: Reports: Back Pain, Joint Pain. Denies: Joint Tenderness Skin: Reports: Skin Changes. Denies: Rash, Wounds Neurological: Denies: Numbness, Tingling, Focal weakness Psychiatric: Reports: Anxiety, Depression. Denies: Homicidal Ideations, Suicidal Ideations Hematologic/ Lymphatic: Reports: Anemia. Denies: Easy Bruising, Easy Bleeding VTE Information - Inpt Only VTE Present on Admission: No VTE Mechan Device Prophylaxis: SCD's VTE Pharm Prophylaxis ordered?: Yes Patient Problems: Active and Suspected Problems (Last Reviewed 11/29/17 @ 03:51 by Kar Echols MD) Abdominal abscess (Acute) Nausea and vomiting (Acute) Diarrhea (Acute) Subjective: Seated upright in the ED bed, fatigued appearing, hold emesis bag. Objective: Physical Examination: General: awake, alert, oriented x 3 and cooperative, seated upright in the ED bed, fatigued and ill appearing. Skin: normal color, turgor, no icterus, cyanosis. HEENT: AT/NC, EOMI, PERRLA, dry MM, no carotid bruits or JVD noted. Lungs: CTA bilaterally, moderate effort, mild decrease BL bases, no rales, ronchi or wheezing. Heart: Regular rate and rhythm; no gallop, rub audible. Abdomen: soft, obese, mild generalized discomfort to palpation, suspect mildly distended, decreased BS, difficult to assess HSM secondary to habitus. Extremities: no cyanosis, clubbing, mild BL ankle edema. Neurological: patient awake, alert, oriented x 3; cognitive function intact; pupils equally reactive to light and accomodation; cranial nerves II-XII grossly normal, moving all 4 extremities, no focal deficits, strength moderately to se verely globally decreased. Psychiatric: affect appears fatigued, flat, no acute evidence of depressive or anxiety feelings. - Physical Exam Vital Signs Temp Pulse Resp BP Pulse Ox 98.9 F 84 18 171/61 H 97 02/13/18 14:34 02/13/18 18:14 02/13/18 20:05 02/13/18 18:14 02/13/18 20:05 Oxygen Delivery Method Room Air Weight: 197 lb 5.019 oz Body Mass Index (BMI) 30.9 Finger Stick Blood Glucose 164 Laboratory Tests Past 24 Hrs 02/13/18 02/13/18 02/13/18 15:10 15:10 16:50 WBC 10.2 RBC 3.37 L Hgb 10.6 L Hct 33.3 L MCV 98.8 MCH 31.5 MCHC 31.8 L RDW 14.7 H RDW Differential 52.7 H Plt Count 352 MPV 9.7 Immature Gran % (Auto) 0.200 Neut % (Auto) 83.7 H Lymph % (Auto) 6.4 L [place] % (Auto) 9.5 Eos % (Auto) 0.1 Baso % (Auto) 0.1 Absolute Neuts (auto) 8.6 H Absolute Lymphs (auto) 0.66 L Total Counted Not Reportable Sodium 138 Potassium 3.1 L Chloride 103 Carbon Dioxide 25.0 Anion Gap 10 BUN 6 L Creatinine 1.07 H Estim Creat Clear Calc 48.25 Est GFR (MDRD) Af Amer 65 Est GFR (MDRD) Non-Af 54 L BUN/Creatinine Ratio 5.6 L Glucose 114 H Calcium 8.3 L Total Bilirubin 0.90 Direct Bilirubin 0.24 AST 15 ALT 12 L Alkaline Phosphatase 154 H Total Protein 8.3 H Albumin 3.5 Globulin 4.8 H Urine Color Yellow Urine Clarity Clear Urine pH 8.0 Ur Specific [place] 1.010 Urine Protein 30 H Urine Glucose (UA) Normal Urine Ketones 15 H Urine Occult Blood 50 H Urine Nitrite Negative Urine Bilirubin Negative Urine Urobilinogen Normal Ur Leukocyte Esterase 25 H Urine RBC 0 SEEN Urine WBC 0-5 SEEN Ur Squamous Epith Cells 0 SEEN Urine Bacteria 0 SEEN Urine Mucus 0 SEEN Assessment/Plan All Active Problems (Last Reviewed 11/29/17 @ 03:51 by Kar Echols MD) Abdominal abscess (Acute) Nausea and vomiting (Acute) Diarrhea (Acute) Cystitis (Acute) Neutropenic fever (Acute) Pancytopenia (Acute) Thrombocytopenia (Acute) Ventricular tachycardia, nonsustained (Acute) Nonsustained paroxysmal supraventricular tachycardia (Acute) Multifocal premature ventricular contractions with pairing (Acute) The patient is a 67 y/o F w/ PMHx: HTN, HLD, Asthma, GERD, Obesity, Diabetes mellitus type II, ALIN on CPAP q HS, Non-small cell lung cancer, TTF-1 positive CK 7 positive ER/CO negative with diffuse spinal and pelvic metastatic disease following w/ Dr. Pineda, s/p 1 round chemotherapy that was not well tolerated, currently on immunosuppressive therapy and radiation with onset nausea, emesis starting the day prior to presentation, ongoing with emesis immediately with any oral intake attempts and onset AM of day of presentation loose stools x 3, 4th in the ED, foul smelling with concurrent fever 101.3. (1) Nausea, Emesis, Loose Stools with ? Small Abscess possible secondary to Diverticular Abscess: Unclear specific etiology, Acute Diverticulitis: ED included T 98.9, heart rate 94, BP 150/91, respiratory rate 16, 99% on room air, CBC with WBC 10.2, hemoglobin 10.6, platelet 352 with left shift, CMP with potassium 3.1, BUN/creatinine 6/1.07, glucose 114, AST/ALT 15/12, alk phos 154, urinalysis unremarkable appearing, CT A/P with s/p cholecystectomy, chronic diverticulosis probably involving the sigmoid, 2.0 cm fluid density structure adjacent to the distal sigmoid which may represent small abscess, no evidence of extraluminal gas, BL renal cysts and small hepatic cyst, multiple blastic lesions of the visualized axial and appendicular skeleton consistent with osseous metastatic disease, lytic changes of the left ilium. Will admit to [facility], maintain on IVFs, maintain NPO status with bowel rest, maintain on regimen zosyn, PRN antiemetics, PRN pain regimen, will obtain stool cx, c-diff assay additionally. Dr. Chavez consulted upon admission, requested ED review CT with him also upon admission. (2) Hypokalemia: Admission K+ 3.1, supplementation given, repeat level in AM. (3) Non-small cell lung cancer: Patient w/ noted TTF-1 positive CK 7 positive ER/CO negative with diffuse spinal and pelvic metastatic disease following w/ Dr. Pineda, s/p 1 round chemotherapy that was not well tolerated, currently on immunosuppressive therapy and radiation with last radiation day prior to current presentation per patient report. Will continue chronic fentanyl regimen, hold oral PRN percocet, PRN IV morphine in interim. Mag, Phos pending. (4) Chronic Anemia, Normocytic, Fe deficiency, Vitamin B12 deficiency: Holding home oral Fe and vitamin B12 supplementations, restart once able to tolerate, admission Hgb 10.6, stable, repeat CBC in AM. (5) Chronic asthma: ATC duonebs, PRN albuterol, HOB, IS parameters. (6) Hypertension: Unable to tolerate oral pills at this time secondary to acute presentation, will hold regimen, will schedule in the interim IV Lopressor given metoprolol usage and IV Vasotec given lisinopril chronic usage with PRN hydralazine. (7) Hyperlipidemia: Unable to tolerate oral pills at this time secondary to acute presentation, will hold regimen. (8) Anxiety and depression: We will hold patient Zoloft, may transition to IV Ativan if necessitated although current home list unclear specific regimen. (9) Diabetes mellitus type II: Hold oral home regimen, NPO status, accu checks w/ ISS. (10) Obesity: Weight loss and lifestyle changes encouraged. (11) GERD: IV PPI while n.p.o. status but if Clostridium difficile is noted to be positive will need to discontinue. (12) ALIN: CPAP nightly. (13) DVT prophylaxis: SCD, Lovenox. Code Visit Inpatient E&M: 20943 Init Hosp L3
[2018-02-13 21:36] VITALS: BMI 30.9
[2018-02-13 21:52] VITALS: BP 157/79; PULSE 75; RESP 16; TEMP 36.9; O2SAT 92
[2018-02-13] MEDS: 0.9% Normal Saline 1,000 ML 125 ML IV (22:23)
[2018-02-13 22:31] LABS: Magnesium 1.7 mg/dL (1.6-2.6)
[2018-02-13 22:45] LABS: Phosphorus 1.1 mg/dL (2.5-4.9)
--- NOTE | 2018-02-13 22:50 | NURSING ---
Reported to Primary Rn Davide hyatt called Phos 1.1
--- NOTE | 2018-02-13 23:14 | CPS ---
Pt states she does have a home pap unit and last time she was here it was too much to keep track of so she wore 2LNC at night. Offered our machine and stated she would try it. Patient then started gagging into bag like she was going to throw up. At this time CPAP on hold due to nausea.
[2018-02-14] VITALS (16 sets, daily range): BP systolic 126–160; BP diastolic 65–94; PULSE 73–90; RESP 16–18; TEMP 36.7–37; O2SAT 94–97
[2018-02-14] MEDS: Metoprolol Tartrate 5 MG/5 ML Vial IV ×4 (00:59→22:10)
[2018-02-14 01:10] LABS: Bedside Glucose 107 mg/dL (70-110)
[2018-02-14] MEDS: Enalaprilat 1.25 MG/ML Vial 0.625 MG IV ×4 (01:16→18:38)
[2018-02-14] MEDS: 0.9% NaCl Peripheral Flush Adult/Peds IV ×6 (01:16→13:59)
[2018-02-14] MEDS: Ondansetron 4 MG/2 ML Vial IV ×2 (02:20→13:58)
[2018-02-14] MEDS: proMETHazine 25 MG/ML Syringe 12.5 MG IV ×2 (04:00→22:05)
[2018-02-14] MEDS: Piperacil/Tazobactam 3.375 GM/50 ML ML IV ×3 (05:21→22:06)
--- NOTE | 2018-02-14 06:29 | PCM.HP.STD ---
Problem List (1) Nausea and vomiting Status: Acute Qualifiers: Vomiting type: unspecified Vomiting Intractability: unspecified Qualified Code(s): R11.2 - Nausea with vomiting, unspecified History of Present Illness Date of Admission: 02/14/18 The patient is a 67 year old F who has been asked to see by Dr. Karen Flores for surgical consultation regarding nausea and vomiting and abnormal CT scan with a fluid collection adjacent to the sigmoid colon. A electronic compromise surgical consult will be present in the electronic medical record. Upon my arrival to the patient's room she was generally feeling unwell. Getting a sustained history from her was somewhat challenging. She clearly was nauseated and coughing. She was complaining of back and left shoulder pain. She minimized any abdominal complaints other than some mild left lower quadrant abdominal pain with ambulation. Her general complaint was 1 of feeling generally unwell and unable to to pinpoint the concern. She does complain of feeling hot within severe chilling. The patient states that she has sinus drainage which additionally causes her problems with coughing and gagging and exacerbates her bilious emesis I have been able to obtain records from the [facility] [employer] system. She is under the care of Dr. 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 Her most recent set of treatments were per Dr. Pawel Singh for radiation treatment to her left shoulder and those are recent and current. She did have previous chemotherapy by Dr. Pineda but ongoing treatment had to be suspended because of severe neutropenic chemo effect with fever. She suggests to me that she was moving to [place] to be closer to family. She suggests that she does not have a current primary care physician locally. On her presentation her white count was 10.2. He remains the same today. A CT scan of the abdomen and pelvis was obtained upon admission. On radiologic interpretation there is felt to be normal visualized stomach normal small bowel diffuse colonic diverticulosis with no suggestion of diverticulitis. There is felt to be a 2 cm fluid density adjacent to the sigmoid colon. No further description offered. This appears to be the area of concern for which is desired further description. The other finding upon presentation was mild hypokalemia which has resolved with treatment. Current potassium level is 3.7. The following plan is from Dr. Pineda outlining his most recent visit January 25, 2018 and have also included her previous to colonoscopy reports out of [facility] including their pathology PLAN: -Delay?KEYTRUDA 200mg &?carboplatin (AUC=4) and Alimta 400mg/m2 until she is completed radiation. ( reduced dose of chemotherapy by 20% with subsequent cycles treatment x 2 ) because of hematological toxicity. also Neulasta as secondary prophylaxis for neutropenia after chemotherapy. - repeat CT scan of chest and bone scan after 2 more cycles of chemotherapy; If?she has continued response to treatment then proceed with maintenance KEYTRUDA &?Alimta after she completed her next 2 cycles of treatment. -continue?palliative radiation therapy to the left shoulder and thoracic spine next week -continue?Zometa 4 mg IV?every 6 weeks. -Continue Duragesic 37 mcg every 72 hours and Percocet as needed for pain -Continue Neurontin 600mg 3 times daily. -Repeat CBC,?BMP stat,?liver function, office visit in 3?weeks -Flu vaccine?given today Patient Info Patient Name Sex Makenna Carter ([id number]) Female 1950 Results A30 Gastrointestinal Endoscopy Patient Name: Makenna Gibbs Procedure Date: 06/11/2015 7:11 AM Date of : 1950 Admit Type: Outpatient Age: 65 Gender: Female Note Status: Finalized Attending MD: Oleg Holguin MD Procedure: ?Colonoscopy Indications: ?High risk colon cancer surveillance: Personal history ? of colonic polyps Providers: ?Oleg Holguin MD Patient Profile: ? ? ?Last Colonoscopy: [Timeframe]. Referring Physician: Medicines: ?Midazolam 4 mg IV Complications: ?No immediate complications. Requesting Provider: Procedure: ?Pre-Anesthesia Assessment: ? - Prior to the procedure, a History and Physical was ? performed, and patient medications and allergies were ? reviewed. The patient's tolerance of previous ? anesthesia was also reviewed. The risks and benefits of ? the procedure and the sedation options and risks were ? discussed with the patient. All questions were ? answered, and informed consent was obtained. Prior ? Anticoagulants: The patient has taken no previous ? anticoagulant or antiplatelet agents. ASA Grade ? Assessment: II - A patient with mild systemic disease. ? After reviewing the risks and benefits, the patient was ? deemed in satisfactory condition to undergo the ? procedure. ? After I obtained informed consent, the scope was passed ? under direct vision. Throughout the procedure, the ? patient's blood pressure, pulse, and oxygen saturations ? were monitored continuously. The Colonoscope was ? introduced through the anus and advanced to the cecum, ?identified by appendiceal orifice and ileocecal valve. ? The colonoscopy was unusually difficult due to ? significant looping. The patient tolerated the ? procedure well. The quality of the bowel preparation ? was good. [Anatomical Structures] photographed. Findings: ? ? ?The perianal and digital rectal examinations were normal. ? ? ?A 5 mm polyp was found at the hepatic flexure. The polyp was flat. The ? ? ?polyp was removed with a jumbo cold forceps. Resection and retrieval ? ? ?were complete. Estimated blood loss: none. ? ? ?A 5 mm polyp was found in the rectum. The polyp was sessile. The polyp ? ? ?was removed with a jumbo cold forceps. Resection and retrieval were ? ? ?complete. Estimated blood loss: none. ? ? ?Multiple medium-mouthed diverticula were found in the sigmoid colon. ? ? ?There was no evidence of diverticular bleeding. ? ? ?The exam was otherwise without abnormality. Impression: ? - One 5 mm polyp at the hepatic flexure. Resected and ? retrieved. ? - One 5 mm polyp in the rectum. Resected and retrieved. ? - Mild diverticulosis in the sigmoid colon. There was ? no evidence of diverticular bleeding. ? - The examination was otherwise normal. Estimated Blood Loss: Estimated blood loss: none. Recommendation: ? ? ? - Resume regular diet today. ? - Continue present medications. ? - Repeat colonoscopy in 1 year for surveillance based ? on pathology results. ? - Patient has a contact number available for ? emergencies. The signs and symptoms of potential ? delayed complications were discussed with the patient. ? Return to normal activities tomorrow. Written discharge ? instructions were provided to the patient. Attending Participation: ? ? ?I personally performed the entire procedure. Oleg Holguin MD 06/11/2015 7:59:13 AM This report has been signed electronically. Number of Addenda: 0 Note Initiated On: 06/11/2015 7:11 AM Procedure Start: 7:38:01 AM Procedure End: 7:55: COLONOSCOPY, SCREENING, HIGH RISK (Order [id number]) Patient Info Patient Name Sex Makenna Carter ([id number]) Female 1950 Results A30 Gastrointestinal Endoscopy Patient Name: Makenna Gibbs Procedure Date: 12/04/2014 11:54 AM Date of : 1950 Admit Type: Outpatient Age: 64 Gender: Female Note Status: Finalized Attending MD: Oleg Holguin MD Procedure: ?Colonoscopy Indications: ?Therapeutic procedure for colon polyps Providers: ?Oleg Holguin MD Patient Profile: ? ? ?Last Colonoscopy: [Timeframe]. Referring Physician: Medicines: ?Midazolam 4 mg IV Complications: ?No immediate complications. Requesting Provider: Procedure: ?Pre-Anesthesia Assessment: ? - Prior to the procedure, a History and Physical was ? performed, and patient medications and allergies were ? reviewed. The patient's tolerance of previous ? anesthesia was also reviewed. The risks and benefits of ? the procedure and the sedation options and risks were ? discussed with the patient. All questions were ? answered, and informed consent was obtained. Prior ? Anticoagulants: The patient has taken no previous ? anticoagulant or antiplatelet agents. ASA Grade ? Assessment: I - A normal, healthy patient. After ? reviewing the risks and benefits, the patient was ? deemed in satisfactory condition to undergo the ? procedure. ? After I obtained informed consent, the scope was passed ? under direct vision. Throughout the procedure, the ? patient's blood pressure, pulse, and oxygen saturations ? were monitored continuously. The Colonoscope was ? introduced through the anus and advanced to the cecum, ? identified by appendiceal orifice and ileocecal valve. ? The colonoscopy was unusually difficult due to ? significant looping. Successful completion of the ? procedure was aided by increasing the dose of sedation ? medication. [Anatomical Structures] photographed. The ? quality of the bowel preparation was [Prep Quality]. ? The entire colon was examined. The patient tolerated ? the procedure fairly well. The quality of the bowel ? preparation was good. Findings: ? ? ?The perianal and digital rectal examinations were normal. ? ? ?A 20 mm polyp was found in the transverse colon. The polyp was sessile. ? ? ?The polyp was removed with a hot snare. Resection and retrieval were ? ? ?complete. Estimated blood loss was minimal. ? ? ?A 40 mm polyp was found at the hepatic flexure. The polyp was sessile. ? ? ?The polyp was removed with a hot snare. Resection and retrieval were ? ? ?complete. Estimated blood loss: none. ? ? ?A 15 mm polyp was found in the proximal transverse colon. The polyp was ? ? ?sessile. The polyp was removed with a hot snare. Resection and retrieval ? ? ?were complete. Estimated blood loss: none. ? ? ?The exam was otherwise without abnormality. Impression: ? - One 20 mm polyp in the transverse colon. Resected and ? retrieved. ? - One 40 mm polyp at the hepatic flexure. Resected and ? retrieved. ? - One 15 mm polyp in the proximal transverse colon. ? Resected and retrieved. ? - The examination was otherwise normal. Estimated Blood Loss: Estimated blood loss: none. Recommendation: ? ? ? - Patient has a contact number available for ? emergencies. The signs and symptoms of potential ? delayed complications were discussed with the patient. ?Return to normal activities tomorrow. Written discharge ? instructions were provided to the patient. ? - Continue present medications. ? - Resume regular diet today. ? - Repeat colonoscopy in 6 months for surveillance. Attending Participation: ? ? ?I personally performed the entire procedure. Oleg Holguin MD 12/04/2014 12:50 PM This report has been signed electronically. Number of Addenda: 0 Note Initiated On: 12/04/2014 11:54 AM Procedure Start: 12:03:29 PM Procedure End: 12:46:34 PM SURGICAL PATHOLOGY (Order [id number]) SURGICAL PATHOLOGY Order: [id number] Status: Final result ??Visible to patient: No (Not Released) Next appt: 02/15/2018 at 12:00 PM in [facility] TRE[facility] (Radiation Treatment) Component 2yr ago Tube Coremaker Specimen originated from [facility] Specimen #: [id number] Submitting Physician: OLEG HOLGUIN ([id number]) FINAL DIAGNOSIS 1. Colon, hepatic flexure, biopsy (A) - Tubular adenoma. 2. Rectum, biopsy (B) - Hyperplastic polyp. TWB/sujatha 06/14/2015 Caio Spence M.D., Ph.D. (Electronic Signature) SPECIMEN SUBMITTED A: HEPATIC FLEXURE POLYP B: RECTAL POLYP ? CLINICAL DATA h/o polyps A-B: r/O ADENOMA GROSS DESCRIPTION A. Received in formalin are multiple pieces of lima, soft tissue aggregating to 0.6 x 0.2 x 0.1 cm. Totally submitted in one cassette. B. Received in formalin is one piece of lima, soft tissue measuring 0.3 x 0.2 x 0.2 cm. Totally submitted in one cassette. Gross examination performed at [facility], [address] [place] [address] PG 06/11/2015 12:59:40 PM Date of Report: 06/14/2015 Date of Procedure: 06/11/2015 Date of Receipt: 06/11/2015 Submitted by: OLEG HOLGUIN ([id number]) Location: [facility] Diagnostic [place] [address]. ? Resulting Agency [facility] Patient Info Patient Name Sex Makenna Carter ([id number]) Female 1950 Order: [id number] Status: Final result ??Visible to patient: No (Not Released) Next appt: 02/15/2018 at 12:00 PM in [facility] (Radiation Treatment) Component 3yr ago Tube Corem[facility] Specimen originated from [facility] Specimen #: [id number] Submitting Physician: OLEG HOLGUIN ([id number]) FINAL DIAGNOSIS 1. ?Colon, proximal transverse, polyp #1, polypectomy (A) - Multiple fragments of sessile serrated polyp, negative for cytologic dysplasia. ? 2. ?Colon, hepatic flexure, polypectomy (B) - Fragments of sessile serrated polyp. -Separate fragment of low-grade adenomatous dysplasia. -See comment. ? 3. ?Colon, transverse, polyp #2, polypectomy (C) - Multiple fragments of tubular adenoma. ? DTP/sld ?12/07/2014 COMMENT 2. ?The single fragment of low-grade adenomatous dysplasia is morphologically identical to adenomatous dysplasia seen in part C, and may likely represent a carry-over artifact. ? Gabriela Duron M.D. (Electronic Signature) SPECIMEN SUBMITTED A: PROXIMAL TRANSVERSE COLON POLYP #1 B: HEPATIC FLEXURE POLYP C: TRANSVERSE COLON POLYP #2 ? CLINICAL DATA Polyps A-C: R/O ADENOMA GROSS DESCRIPTION A. Received in formalin are two brown polypoid segments of tissue aggregating to 1.0 x 0.3 x 0.2 cm. ?No stalks are noted. ?The lines of resection are noted. ?The specimens are not sectioned and totally submitted in cassette A1. ?Also received in the same container are multiple lima soft segments of tissue aggregating to 3.2 x 0.2 x 0.1 cm. ?Totally submitted in cassette A2 A3. B. Received in formalin are multiple polypoid segments of tissue ranging in size from 1.1 x 0.6 x 0.5 to 0.5 x 0.4 x 0.3 cm. ?No stalks are noted. ?The lines of resection are noted. ?The specimens are sectioned and totally submitted in cassettes B1 -B5. ?Also received in the same container are three segments of flat mucosal covered lima tissue aggregating to 2.2 x 0.8 x 0.1 cm. ?Specimens are totally submitted in cassette B6. ?Also received in the same container are multiple lima soft segments of tissue aggregating to 9.8 x 0.2 x 0.1 cm. ?Totally submitted in cassettes B7 to B12. Gross performed at [place] [address] BDS 12/04/2014 8:33:49 PM C. Received in formalin are multiple pieces of lima, soft tissue aggregating to 3.0 x 0.2 x 0.2 cm. Totally submitted in two cassettes. Gross performed at [place] [address] ALK 12/04/2014 5:32:10 PM : 1950 (Age: 64) F Date of Report: 12/07/2014 Date of Procedure: 12/04/2014 Date of Receipt: 12/04/2014 Submitted by: OLEG HOLGUIN ([id number]) Location: [facility] Diagnostic interpretation performed at [place] [facility], [address], [place] [address]. Past Medical History Past Medical History (Chronic Problems): Chronic Problems (Last Reviewed 11/29/17 @ 03:51 by Kar Echols MD) Lung cancer (Chronic) Bone metastases (Chronic) Asthma (Chronic) Sleep apnea (Chronic) Diabetes mellitus, type II (Chronic) Former tobacco use (Chronic) Obesity (BMI 30-39.9) (Chronic) Hyperlipidemia (Chronic) Hypertension (Chronic) Junctional tachycardia (Chronic) Medical History: Medical History (Last Reviewed 11/29/17 @ 03:51 by Kar Echols MD) Obesity (BMI 30-39.9) (Chronic) E66.9 Hyperlipidemia (Chronic) E78.5 Hypertension (Chronic) I10 Junctional tachycardia (Chronic) I47.1 Adenomatous colon polyp D12.6 Asthma J45.909 Basal cell carcinoma C44.91 GERD (gastroesophageal reflux disease) K21.9 Kidney stones N20.0 Microalbuminuria R80.9 Obstructive sleep apnea G47.33 Osteoarthritis M19.90 Type 2 diabetes mellitus without complications E11.9 Allergies ciprofloxacin [From Cipro] Allergy (Verified 02/13/18 14:57) Hives metronidazole Allergy (Verified 02/13/18 14:57) Hives Home Medications: Ambulatory Orders Medication Instructions Recorded Omeprazole 20 mg PO DAILY 04/19/17 Pravastatin [Pravachol] 80 mg PO QHS 04/19/17 melatonin 5 mg capsule 5 mg PO QHS 07/25/17 metformin 1,000 mg tablet 1,000 mg PO BID 08/15/17 Albuterol Aerosols [Ventolin 2.5 mg INHALATION Q6H PRN PRN 11/18/17 Aerosols] Albuterol IH (ProAir) [Proair Hfa] 1 - 2 puff INHALATION Q6H PRN PRN 11/18/17 Cyanocobalamin (Vitamin B-12) 1,000 mcg PO DAILY 11/18/17 [B-12] DiphenhydrAMINE [Benadryl] 25 mg PO QHS 11/18/17 Docusate Sodium [Stool Softener] 100 mg PO DAILY PRN PRN 11/18/17 Folic Acid 1 mg PO QHS 11/18/17 Furosemide [Lasix] 20 mg PO PRN PRN 11/18/17 Oxycodone HCl/Acetaminophen 1 tablet PO Q4H PRN PRN 11/18/17 [Percocet 5-325] Sertraline HCl [Zoloft] 50 mg PO DAILY 11/18/17 Potassium Chloride [Klor-Con M10] 20 meq PO BID 11/28/17 Prochlorperazine Maleate 10 mg PO Q8H PRN 11/28/17 [Compazine] Losartan Potassium [Cozaar] 50 mg PO QDAY 11/29/17 Metoprolol Succinate [Toprol Xl] 100 mg PO DINNER 11/29/17 Fentanyl 1 mcg TOPICAL Q72H 02/13/18 Fentanyl 25 mcg TRANSDERM. Q72H 02/13/18 Fluticasone/Vilanterol [Breo 1 puff INHALATION DAILY 02/13/18 Ellipta 200-25 Mcg INH] Gabapentin [Neurontin] 300 mg PO TID 02/13/18 Hydrochlorothiazide 12.5 mg PO DAILY 02/13/18 Ibuprofen [Advil] 400 mg PO TID PRN PRN 02/13/18 Iron Polysaccharide Complex 150 mg PO BID 02/13/18 [Ferrex 150] Lorazepam [Ativan] 1 mg PO X1 02/13/18 Ondansetron [Zofran] 8 mg PO BID 02/13/18 Propylene Glycol [Lubricant Eye 1 drop OP PRN PRN 02/13/18 Drop] Propylene Glycol/Peg 400 [Systane 1 drop OP PRN PRN 02/13/18 Gel Eye Drops] Surgical History: Surgical History (Last Reviewed 11/29/17 @ 03:51 by Kar Echols MD) History of bilateral knee replacement Z96.653 Hx of cholecystectomy Z90.49 Surgical History: cholecystectomy, - - Skin cancer removed on eyelid, skin cancer removed on nose, saliva gland removal because of stones Psychiatric History: Anxiety, Depression 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 Lives: Alone Smoking Status: Former smoker Tobacco Use: Non-smoker Alcohol: None Drugs: None - *Family History Maternal Family History: Family History (Last Reviewed 08/15/17 @ 14:44 by Justin Archer MD) Father Myocardial infarction, Onset Age: 63 Heart disease Mother Hypertension Heart disease Sister Breast cancer History Items: Heart Disease, Hypertension Paternal Family History: Family History (Last Reviewed 08/15/17 @ 14:44 by Justin Archer MD) Father Myocardial infarction, Onset Age: 63 Heart disease Mother Hypertension Heart disease Sister Breast cancer History Items: Heart Disease, Hypertension Sibling Family History: Family History (Last Reviewed 08/15/17 @ 14:44 by Justin Archer MD) Father Myocardial infarction, Onset Age: 63 Heart disease Mother Hypertension Heart disease Sister Breast cancer History Items: Cancer Review of Systems Constitutional: Reports: Anorexia Eyes: Denies: Blurred vision HEENT: Reports: Post Nasal Drip Cardiovascular: Reports: Chest Pain, - - Left chest shoulder pain Respiratory: Reports: Cough Gastrointestinal: Reports: Abdominal Pain - Left lower quadrant, Diarrhea, Nausea, Vomiting - Bilious Genitourinary: Reports: Urgency Musculoskeletal: Reports: Joint Pain, Shoulder Pain Neurological: Reports: - - Severe back pain Endocrine: Reports: Change in Body Habitus - Weight loss on chemotherapy VTE Information - Inpt Only VTE Present on Admission: No Patient Problems: Active and Suspected Problems (Last Reviewed 11/29/17 @ 03:51 by Kar Echols MD) Abdominal abscess (Acute) Nausea and vomiting (Acute) Diarrhea (Acute) - Physical Exam General: Alert, - - Patient very nauseated with active emesis at the time of interview HEENT: Atraumatic Oral: Moist Mucosa Neck: Supple Lungs: Clear to auscultation Cardiovascular: Tachycardic Abdomen: Hypoactive Bowel Sounds, Distended, - - Minimal left lower quadrant tenderness to deep palpation Extremities: No Calf Tenderness Lymphatic: No Cervical, Supraclavicular, or Inguinal Adenopathy Psych/Mental Status: Anxious Vital Signs Temp Pulse Resp BP Pulse Ox 98.6 F 81 18 160/94 H 97 02/14/18 02:33 02/14/18 04:05 02/14/18 02:33 02/14/18 02:33 02/14/18 02:33 Oxygen Delivery Method Room Air Weight: 197 lb 5.019 oz Body Mass Index (BMI) 30.9 Finger Stick Blood Glucose 164 Intake and Output for Last 24 Hours 02/12/18 02/13/18 02/14/18 23:59 23:59 23:59 Intake Total 392 / 392 Balance 392 / 392 Laboratory Tests Past 24 Hrs 02/13/18 02/13/18 02/13/18 15:10 15:10 15:10 WBC 10.2 RBC 3.37 L Hgb 10.6 L Hct 33.3 L MCV 98.8 MCH 31.5 MCHC 31.8 L RDW 14.7 H RDW Differential 52.7 H Plt Count 352 MPV 9.7 Immature Gran % (Auto) 0.200 Neut % (Auto) 83.7 H Lymph % (Auto) 6.4 L [place] % (Auto) 9.5 Eos % (Auto) 0.1 Baso % (Auto) 0.1 Absolute Neuts (auto) 8.6 H Absolute Lymphs (auto) 0.66 L Total Counted Not Reportable Sodium 138 Potassium 3.1 L Chloride 103 Carbon Dioxide 25.0 Anion Gap 10 BUN 6 L Creatinine 1.07 H Estim Creat Clear Calc 48.25 Est GFR (MDRD) Af Amer 65 Est GFR (MDRD) Non-Af 54 L BUN/Creatinine Ratio 5.6 L Glucose 114 H Calcium 8.3 L Phosphorus Magnesium 1.7 Total Bilirubin 0.90 Direct Bilirubin 0.24 AST 15 ALT 12 L Alkaline Phosphatase 154 H Total Protein 8.3 H Albumin 3.5 Globulin 4.8 H Urine Color Urine Clarity Urine pH Ur Specific [place] Urine Protein Urine Glucose (UA) Urine Ketones Urine Occult Blood Urine Nitrite Urine Bilirubin Urine Urobilinogen Ur Leukocyte Esterase Urine RBC Urine WBC Ur Squamous Epith Cells Urine Bacteria Urine Mucus 02/13/18 02/13/18 02/14/18 15:10 16:50 06:00 WBC Pending RBC Pending Hgb Pending Hct Pending MCV Pending MCH Pending MCHC Pending RDW Pending RDW Differential Pending Plt Count Pending MPV Immature Gran % (Auto) Neut % (Auto) Pending Lymph % (Auto) [place] % (Auto) Eos % (Auto) Baso % (Auto) Absolute Neuts (auto) Pending Absolute Lymphs (auto) Total Counted Pending Sodium Potassium Chloride Carbon Dioxide Anion Gap BUN Creatinine Estim Creat Clear Calc Est GFR (MDRD) Af Amer Est GFR (MDRD) Non-Af BUN/Creatinine Ratio Glucose Calcium Phosphorus 1.1 L* Magnesium Total Bilirubin Direct Bilirubin AST ALT Alkaline Phosphatase Total Protein Albumin Globulin Urine Color Yellow Urine Clarity Clear Urine pH 8.0 Ur Specific [place] 1.010 Urine Protein 30 H Urine Glucose (UA) Normal Urine Ketones 15 H Urine Occult Blood 50 H Urine Nitrite Negative Urine Bilirubin Negative Urine Urobilinogen Normal Ur Leukocyte Esterase 25 H Urine RBC 0 SEEN Urine WBC 0-5 SEEN Ur Squamous Epith Cells 0 SEEN Urine Bacteria 0 SEEN Urine Mucus 0 SEEN 02/14/18 02/14/18 06:00 06:00 WBC RBC Hgb Hct MCV MCH MCHC RDW RDW Differential Plt Count MPV Immature Gran % (Auto) Neut % (Auto) Lymph % (Auto) [place] % (Auto) Eos % (Auto) Baso % (Auto) Absolute Neuts (auto) Absolute Lymphs (auto) Total Counted Sodium Pending Potassium Pending Chloride Pending Carbon Dioxide Pending Anion Gap Pending BUN Pending Creatinine Pending Estim Creat Clear Calc Est GFR (MDRD) Af Amer Pending Est GFR (MDRD) Non-Af Pending BUN/Creatinine Ratio Pending Glucose Pending Calcium Pending Phosphorus Pending Magnesium Pending Total Bilirubin Direct Bilirubin AST ALT Alkaline Phosphatase Total Protein Albumin Globulin Urine Color Urine Clarity Urine pH Ur Specific [place] Urine Protein Urine Glucose (UA) Urine Ketones Urine Occult Blood Urine Nitrite Urine Bilirubin Urine Urobilinogen Ur Leukocyte Esterase Urine RBC Urine WBC Ur Squamous Epith Cells Urine Bacteria Urine Mucus POC Glucose 02/14/18 00:40 POC Glucose 107 Assessment/Plan All Active Problems (Last Reviewed 11/29/17 @ 03:51 by Kar Echols MD) Abdominal abscess (Acute) Nausea and vomiting (Acute) Diarrhea (Acute) Cystitis (Acute) Neutropenic fever (Acute) Pancytopenia (Acute) Thrombocytopenia (Acute) Ventricular tachycardia, nonsustained (Acute) Nonsustained paroxysmal supraventricular tachycardia (Acute) Multifocal premature ventricular contractions with pairing (Acute) I have personally reviewed the CT scan. It appears that on imaging the jara of the stomach may be slightly thickened. There is some minimal distention of a few small bowel loops. There is extensive sigmoid diverticulosis. Fluid collection is noted adjacent to the sigmoid colon but in that region there are no additional changes that would suggest inflammatory change. Her clinical examination is not remarkable for an acute surgical abdomen. The patient is currently appropriately on pantoprazole and Ondansetron and promethazine It is of additional note that she is currently on Zosyn as well. It is not clear to me that she has an acute bacterial infection. My clinical exam of her abdomen and CT findings are underwhelming. She is complaining of fever and chilling. I do not see an abnormal temperature recorded since her admission. She generally appears unwell. I do not believe that the fluid collection represents an acute surgical problem or etiology. Imaging does not otherwise suggest acute diverticulitis. There is no additional information is area to define this as an abscess. The item is so small that it would not require drainage nor surgical treatment. Her presentation suggests possibly a viral gastroenteritis. Ongoing medical treatment would be appropriate. I do not believe that she will require surgical intervention. I have discussed this case in addition with Dr. Navin Beck who will continue through with surgical consultation over the next couple days. I appreciate the opportunity of assisting with her surgical care Douglas Chavez M.D., F.A.C.S.
[2018-02-14 06:31] LABS: Absolute Neutrophil Count 8.5 X10^3/uL (2.0-7.7); Basophil# 0.01 X10^3/uL; Basophil% 0.1 % (0-1); Eosinophil# 0.03 X10^3/uL; Eosinophils% 0.3 % (0-5); Hematocrit 31.5 % (37-47); Hemoglobin 10.1 g/dl (12.0-15.0); Lymphocyte % 7.8 % (19-41); Mean Corp Hgb Conc 32.1 g/gl (32-36); Mean Corpuscular Hgb 32.3 pg (27.0-32.0); Mean Corpuscular Volume 100.6 fL (81-99); Mean Platelet Vol. 9.5 fl (6.2-12.0); Monocyte# 0.83 X10^3/uL; Monocyte% 8.1 % (0-10); Neutrophil # 8.48 X10^3/uL (2.7-7.7); Platelet Count 312 K/mm3 (150-450); RBC Distribution Width CV 14.7 % (11.6-14.6); RBC Distribution Width SD 52.4 fl (35.1-43.9); Red Blood Count 3.13 M/mm3 (4.2-5.4); White Blood Count 10.2 K/mm3 (4.4-11.0)
[2018-02-14 06:33] LABS: POSITIVE COUNT NO; POSITIVE DIFFERENTIAL NO; POSITIVE MORPHOLOGY NO
[2018-02-14 06:36] LABS: Anion Gap 6 (5-15); BUN 5 mg/dL (7-18); BUN/Creat Ratio 5.4 RATIO (10-20); Calcium,Total 7.4 mg/dL (8.5-10.1); Chloride 110 mmol/L (98-107); Creatinine, Serum 0.93 mg/dL (0.55-1.02); EST Glomerular Filtration Rate 63 mL/min (>60); Est Glom Filt Rate - Afr Amer 77 mL/min (>60); Estimated Creatinine Clearance 55.52 ml/min; Glucose 116 mg/dL (74-106); Magnesium 2.4 mg/dL (1.6-2.6); Potassium 3.7 mmol/L (3.5-5.1); Sodium Level 142 mmol/L (136-145)
[2018-02-14 06:43] LABS: Phosphorus 3.3 mg/dL (2.5-4.9)
--- NOTE | 2018-02-14 06:51 | HP.PCM_ITS ---
Problem List (1) Nausea and vomiting Status: Acute Qualifiers: Vomiting type: unspecified Vomiting Intractability: unspecified Qualified Code(s): R11.2 - Nausea with vomiting, unspecified History of Present Illness Date of Admission: 02/14/18 The patient is a 67 year old F who has been asked to see by Dr. Karen Flores for surgical consultation regarding nausea and vomiting and abnormal CT scan with a fluid collection adjacent to the sigmoid colon. A electronic compromise surgical consult will be present in the electronic medical record. Upon my arrival to the patient's room she was generally feeling unwell. Getting a sustained history from her was somewhat challenging. She clearly was nauseated and coughing. She was complaining of back and left shoulder pain. She minimized any abdominal complaints other than some mild left lower quadrant abdominal pain with ambulation. Her general complaint was 1 of feeling generally unwell and unable to to pinpoint the concern. She does complain of feeling hot within severe chilling. The patient states that she has sinus drainage which additionally causes her problems with coughing and gagging and exacerbates her bilious emesis I have been able to obtain records from the [facility] system. She is under the care of Dr. 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 Her most recent set of treatments were per Dr. Pawel Singh for radiation treatment to her left shoulder and those are recent and current. She did have previous chemotherapy by Dr. Pineda but ongoing treatment had to be suspended because of severe neutropenic chemo effect with fever. She suggests to me that she was moving to [place] to be closer to family. She suggests that she does not have a current primary care physician locally. On her presentation her white count was 10.2. He remains the same today. A CT scan of the abdomen and pelvis was obtained upon admission. On radiologic interpretation there is felt to be normal visualized stomach normal small bowel diffuse colonic diverticulosis with no suggestion of diverticulitis. There is felt to be a 2 cm fluid density adjacent to the sigmoid colon. No further description offered. This appears to be the area of concern for which is desired further description. The other finding upon presentation was mild hypokalemia which has resolved with treatment. Current potassium level is 3.7. The following plan is from Dr. Pineda outlining his most recent visit January 25, 2018 and have also included her previous to colonoscopy reports out of main [place] including their pathology PLAN: -Delay?KEYTRUDA 200mg &?carboplatin (AUC=4) and Alimta 400mg/m2 until she is completed radiation. ( reduced dose of chemotherapy by 20% with subsequent cycles treatment x 2 ) because of hematological toxicity. also Neulasta as secondary prophylaxis for neutropenia after chemotherapy. - repeat CT scan of chest and bone scan after 2 more cycles of chemotherapy; If?she has continued response to treatment then proceed with maintenance KEYTRUDA &?Alimta after she completed her next 2 cycles of treatment. -continue?palliative radiation therapy to the left shoulder and thoracic spine next week -continue?Zometa 4 mg IV?every 6 weeks. -Continue Duragesic 37 mcg every 72 hours and Percocet as needed for pain -Continue Neurontin 600mg 3 times daily. -Repeat CBC,?BMP stat,?liver function, office visit in 3?weeks -Flu vaccine?given today Patient Info Patient Name Sex Makenna Carter ([id number]) Female 1950 Results A30 Gastrointestinal Endoscopy Patient Name: Makenna Gibbs Procedure Date: 06/11/2015 7:11 AM Date of : 1950 Admit Type: Outpatient Age: 65 Gender: Female Note Status: Finalized Attending MD: Oleg Holguin MD Procedure: ?Colonoscopy Indications: ?High risk colon cancer surveillance: Personal history ? of colonic polyps Providers: ?Oleg Holguin MD Patient Profile: ? ? ?Last Colonoscopy: [Timeframe]. Referring Physician: Medicines: ?Midazolam 4 mg IV Complications: ?No immediate complications. Requesting Provider: Procedure: ?Pre-Anesthesia Assessment: ? - Prior to the procedure, a History and Physical was ? performed, and patient medications and allergies were ? reviewed. The patient's tolerance of previous ? anesthesia was also reviewed. The risks and benefits of ? the procedure and the sedation options and risks were ? discussed with the patient. All questions were ? answered, and informed consent was obtained. Prior ? Anticoagulants: The patient has taken no previous ? anticoagulant or antiplatelet agents. ASA Grade ? Assessment: II - A patient with mild systemic disease. ? After reviewing the risks and benefits, the patient was ? deemed in satisfactory condition to undergo the ? procedure. ? After I obtained informed consent, the scope was passed ? under direct vision. Throughout the procedure, the ? patient's blood pressure, pulse, and oxygen saturations ? were monitored continuously. The Colonoscope was ? introduced through the anus and advanced to the cecum, ?identified by appendiceal orifice and ileocecal valve. ? The colonoscopy was unusually difficult due to ? significant looping. The patient tolerated the ? procedure well. The quality of the bowel preparation ? was good. [Anatomical Structures] photographed. Findings: ? ? ?The perianal and digital rectal examinations were normal. ? ? ?A 5 mm polyp was found at the hepatic flexure. The polyp was flat. The ? ? ?polyp was removed with a jumbo cold forceps. Resection and retrieval ? ? ?were complete. Estimated blood loss: none. ? ? ?A 5 mm polyp was found in the rectum. The polyp was sessile. The polyp ? ? ?was removed with a jumbo cold forceps. Resection and retrieval were ? ? ?complete. Estimated blood loss: none. ? ? ?Multiple medium-mouthed diverticula were found in the sigmoid colon. ? ? ?There was no evidence of diverticular bleeding. ? ? ?The exam was otherwise without abnormality. Impression: ? - One 5 mm polyp at the hepatic flexure. Resected and ? retrieved. ? - One 5 mm polyp in the rectum. Resected and retrieved. ? - Mild diverticulosis in the sigmoid colon. There was ? no evidence of diverticular bleeding. ? - The examination was otherwise normal. Estimated Blood Loss: Estimated blood loss: none. Recommendation: ? ? ? - Resume regular diet today. ? - Continue present medications. ? - Repeat colonoscopy in 1 year for surveillance based ? on pathology results. ? - Patient has a contact number available for ? emergencies. The signs and symptoms of potential ? delayed complications were discussed with the patient. ? Return to normal activities tomorrow. Written discharge ? instructions were provided to the patient. Attending Participation: ? ? ?I personally performed the entire procedure. Oleg Holguin MD 06/11/2015 7:59:13 AM This report has been signed electronically. Number of Addenda: 0 Note Initiated On: 06/11/2015 7:11 AM Procedure Start: 7:38:01 AM Procedure End: 7:55: COLONOSCOPY, SCREENING, HIGH RISK (Order [id number]) Patient Info Patient Name Sex Makenna Carter ([id number]) Female 1950 Results A30 Gastrointestinal Endoscopy Patient Name: Makenna Gibbs Procedure Date: 12/04/2014 11:54 AM Date of : 1950 Admit Type: Outpatient Age: 64 Gender: Female Note Status: Finalized Attending MD: Oleg Holguin MD Procedure: ?Colonoscopy Indications: ?Therapeutic procedure for colon polyps Providers: ?Oleg Holguin MD Patient Profile: ? ? ?Last Colonoscopy: [Timeframe]. Referring Physician: Medicines: ?Midazolam 4 mg IV Complications: ?No immediate complications. Requesting Provider: Procedure: ?Pre-Anesthesia Assessment: ? - Prior to the procedure, a History and Physical was ? performed, and patient medications and allergies were ? reviewed. The patient's tolerance of previous ? anesthesia was also reviewed. The risks and benefits of ? the procedure and the sedation options and risks were ? discussed with the patient. All questions were ? answered, and informed consent was obtained. Prior ? Anticoagulants: The patient has taken no previous ? anticoagulant or antiplatelet agents. ASA Grade ? Assessment: I - A normal, healthy patient. After ? reviewing the risks and benefits, the patient was ? deemed in satisfactory condition to undergo the ? procedure. ? After I obtained informed consent, the scope was passed ? under direct vision. Throughout the procedure, the ? patient's blood pressure, pulse, and oxygen saturations ? were monitored continuously. The Colonoscope was ? introduced through the anus and advanced to the cecum, ? identified by appendiceal orifice and ileocecal valve. ? The colonoscopy was unusually difficult due to ? significant looping. Successful completion of the ? procedure was aided by increasing the dose of sedation ? medication. [Anatomical Structures] photographed. The ? quality of the bowel preparation was [Prep Quality]. ? The entire colon was examined. The patient tolerated ? the procedure fairly well. The quality of the bowel ? preparation was good. Findings: ? ? ?The perianal and digital rectal examinations were normal. ? ? ?A 20 mm polyp was found in the transverse colon. The polyp was sessile. ? ? ?The polyp was removed with a hot snare. Resection and retrieval were ? ? ?complete. Estimated blood loss was minimal. ? ? ?A 40 mm polyp was found at the hepatic flexure. The polyp was sessile. ? ? ?The polyp was removed with a hot snare. Resection and retrieval were ? ? ?complete. Estimated blood loss: none. ? ? ?A 15 mm polyp was found in the proximal transverse colon. The polyp was ? ? ?sessile. The polyp was removed with a hot snare. Resection and retrieval ? ? ?were complete. Estimated blood loss: none. ? ? ?The exam was otherwise without abnormality. Impression: ? - One 20 mm polyp in the transverse colon. Resected and ? retrieved. ? - One 40 mm polyp at the hepatic flexure. Resected and ? retrieved. ? - One 15 mm polyp in the proximal transverse colon. ? Resected and retrieved. ? - The examination was otherwise normal. Estimated Blood Loss: Estimated blood loss: none. Recommendation: ? ? ? - Patient has a contact number available for ? emergencies. The signs and symptoms of potential ? delayed complications were discussed with the patient. ?Return to normal activities tomorrow. Written discharge ? instructions were provided to the patient. ? - Continue present medications. ? - Resume regular diet today. ? - Repeat colonoscopy in 6 months for surveillance. Attending Participation: ? ? ?I personally performed the entire procedure. Oleg Holguin MD 12/04/2014 12:50 PM This report has been signed electronically. Number of Addenda: 0 Note Initiated On: 12/04/2014 11:54 AM Procedure Start: 12:03:29 PM Procedure End: 12:46:34 PM SURGICAL PATHOLOGY (Order [id number]) SURGICAL PATHOLOGY Order: [id number] Status: Final result ??Visible to patient: No (Not Released) Next appt: 02/15/2018 at 12:00 PM in RADT TREAT [facility] Wstr (Radiation Treatment) Component 2yr ago Mailing Jogger Specimen originated from [facility] Specimen #: [id number] Submitting Physician: OLEG HOLGUIN ([id number]) FINAL DIAGNOSIS 1. Colon, hepatic flexure, biopsy (A) - Tubular adenoma. 2. Rectum, biopsy (B) - Hyperplastic polyp. TWB/sujatha 06/14/2015 Caio Spence M.D., Ph.D. (Electronic Signature) SPECIMEN SUBMITTED A: HEPATIC FLEXURE POLYP B: RECTAL POLYP ? CLINICAL DATA h/o polyps A-B: r/O ADENOMA GROSS DESCRIPTION A. Received in formalin are multiple pieces of lima, soft tissue aggregating to 0.6 x 0.2 x 0.1 cm. Totally submitted in one cassette. B. Received in formalin is one piece of lima, soft tissue measuring 0.3 x 0.2 x 0.2 cm. Totally submitted in one cassette. Gross examination performed at [facility], [address] [place] [address] PG 06/11/2015 12:59:40 PM Date of Report: 06/14/2015 Date of Procedure: 06/11/2015 Date of Receipt: 06/11/2015 Submitted by: OLEG HOLGUIN ([id number]) Location: [facility] [place] [address]. ? Resulting Agency [facility] Patient Info Patient Name Sex Makenna Carter ([id number]) Female 1950 Order: [id number] Status: Final result ??Visible to patient: No (Not Released) Next appt: 02/15/2018 at 12:00 PM in RADT TREAT [facility] Wstr (Radiation Treatment) Component 3yr ago Mailing Jogger Specimen originated from [facility] Specimen #: [id number] Submitting Physician: OLEG HOLGUIN ([id number]) FINAL DIAGNOSIS 1. ?Colon, proximal transverse, polyp #1, polypectomy (A) - Multiple fragments of sessile serrated polyp, negative for cytologic dysplasia. ? 2. ?Colon, hepatic flexure, polypectomy (B) - Fragments of sessile serrated polyp. -Separate fragment of low-grade adenomatous dysplasia. -See comment. ? 3. ?Colon, transverse, polyp #2, polypectomy (C) - Multiple fragments of tubular adenoma. ? DTP/sld ?12/07/2014 COMMENT 2. ?The single fragment of low-grade adenomatous dysplasia is morphologically identical to adenomatous dysplasia seen in part C, and may likely represent a carry-over artifact. ? Gabriela Duron M.D. (Electronic Signature) SPECIMEN SUBMITTED A: PROXIMAL TRANSVERSE COLON POLYP #1 B: HEPATIC FLEXURE POLYP C: TRANSVERSE COLON POLYP #2 ? CLINICAL DATA Polyps A-C: R/O ADENOMA GROSS DESCRIPTION A. Received in formalin are two brown polypoid segments of tissue aggregating to 1.0 x 0.3 x 0.2 cm. ?No stalks are noted. ?The lines of resection are noted. ?The specimens are not sectioned and totally submitted in cassette A1. ?Also received in the same container are multiple lima soft segments of tissue aggregating to 3.2 x 0.2 x 0.1 cm. ?Totally submitted in cassette A2 A3. B. Received in formalin are multiple polypoid segments of tissue ranging in size from 1.1 x 0.6 x 0.5 to 0.5 x 0.4 x 0.3 cm. ?No stalks are noted. ?The lines of resection are noted. ?The specimens are sectioned and totally submitted in cassettes B1 -B5. ?Also received in the same container are three segments of flat mucosal covered lima tissue aggregating to 2.2 x 0.8 x 0.1 cm. ?Specimens are totally submitted in cassette B6. ?Also received in the same container are multiple lima soft segments of tissue aggregating to 9.8 x 0.2 x 0.1 cm. ?Totally submitted in cassettes B7 to B12. Gross performed at [place] [address] BDS 12/04/2014 8:33:49 PM C. Received in formalin are multiple pieces of lima, soft tissue aggregating to 3.0 x 0.2 x 0.2 cm. Totally submitted in two cassettes. Gross performed at [place] [address] ALK 12/04/2014 5:32:10 PM : 1950 (Age: 64) F Date of Report: 12/07/2014 Date of Procedure: 12/04/2014 Date of Receipt: 12/04/2014 Submitted by: OLEG HOLGUIN ([id number]) Location: [facility] Diagnostic interpretation performed at [place] [address]. Past Medical History Past Medical History (Chronic Problems): Chronic Problems (Last Reviewed 11/29/17 @ 03:51 by Kar Echols MD) Lung cancer (Chronic) Bone metastases (Chronic) Asthma (Chronic) Sleep apnea (Chronic) Diabetes mellitus, type II (Chronic) Former tobacco use (Chronic) Obesity (BMI 30-39.9) (Chronic) Hyperlipidemia (Chronic) Hypertension (Chronic) Junctional tachycardia (Chronic) Medical History: Medical History (Last Reviewed 11/29/17 @ 03:51 by Kar Echols MD) Obesity (BMI 30-39.9) (Chronic) E66.9 Hyperlipidemia (Chronic) E78.5 Hypertension (Chronic) I10 Junctional tachycardia (Chronic) I47.1 Adenomatous colon polyp D12.6 Asthma J45.909 Basal cell carcinoma C44.91 GERD (gastroesophageal reflux disease) K21.9 Kidney stones N20.0 Microalbuminuria R80.9 Obstructive sleep apnea G47.33 Osteoarthritis M19.90 Type 2 diabetes mellitus without complications E11.9 Allergies ciprofloxacin [From Cipro] Allergy (Verified 02/13/18 14:57) Hives metronidazole Allergy (Verified 02/13/18 14:57) Hives Home Medications: Ambulatory Orders Medication Instructions Recorded Omeprazole 20 mg PO DAILY 04/19/17 Pravastatin [Pravachol] 80 mg PO QHS 04/19/17 melatonin 5 mg capsule 5 mg PO QHS 07/25/17 metformin 1,000 mg tablet 1,000 mg PO BID 08/15/17 Albuterol Aerosols [Ventolin 2.5 mg INHALATION Q6H PRN PRN 11/18/17 Aerosols] Albuterol IH (ProAir) [Proair Hfa] 1 - 2 puff INHALATION Q6H PRN PRN 11/18/17 Cyanocobalamin (Vitamin B-12) 1,000 mcg PO DAILY 11/18/17 [B-12] DiphenhydrAMINE [Benadryl] 25 mg PO QHS 11/18/17 Docusate Sodium [Stool Softener] 100 mg PO DAILY PRN PRN 11/18/17 Folic Acid 1 mg PO QHS 11/18/17 Furosemide [Lasix] 20 mg PO PRN PRN 11/18/17 Oxycodone HCl/Acetaminophen 1 tablet PO Q4H PRN PRN 11/18/17 [Percocet 5-325] Sertraline HCl [Zoloft] 50 mg PO DAILY 11/18/17 Potassium Chloride [Klor-Con M10] 20 meq PO BID 11/28/17 Prochlorperazine Maleate 10 mg PO Q8H PRN 11/28/17 [Compazine] Losartan Potassium [Cozaar] 50 mg PO QDAY 11/29/17 Metoprolol Succinate [Toprol Xl] 100 mg PO DINNER 11/29/17 Fentanyl 1 mcg TOPICAL Q72H 02/13/18 Fentanyl 25 mcg TRANSDERM. Q72H 02/13/18 Fluticasone/Vilanterol [Breo 1 puff INHALATION DAILY 02/13/18 Ellipta 200-25 Mcg INH] Gabapentin [Neurontin] 300 mg PO TID 02/13/18 Hydrochlorothiazide 12.5 mg PO DAILY 02/13/18 Ibuprofen [Advil] 400 mg PO TID PRN PRN 02/13/18 Iron Polysaccharide Complex 150 mg PO BID 02/13/18 [Ferrex 150] Lorazepam [Ativan] 1 mg PO X1 02/13/18 Ondansetron [Zofran] 8 mg PO BID 02/13/18 Propylene Glycol [Lubricant Eye 1 drop OP PRN PRN 02/13/18 Drop] Propylene Glycol/Peg 400 [Systane 1 drop OP PRN PRN 02/13/18 Gel Eye Drops] Surgical History: Surgical History (Last Reviewed 11/29/17 @ 03:51 by Kar Echols MD) History of bilateral knee replacement Z96.653 Hx of cholecystectomy Z90.49 Surgical History: cholecystectomy, - - Skin cancer removed on eyelid, skin cancer removed on nose, saliva gland removal because of stones Psychiatric History: Anxiety, Depression SURGICAL SERVICES ASSISTANT History: No pertinent SURGICAL SERVICES ASSISTANT history Lives: Alone Smoking Status: Former smoker Tobacco Use: Non-smoker Alcohol: None Drugs: None - *Family History Maternal Family History: Family History (Last Reviewed 08/15/17 @ 14:44 by Jusitn Archer MD) Father Myocardial infarction, Onset Age: 63 Heart disease Mother Hypertension Heart disease Sister Breast cancer History Items: Heart Disease, Hypertension Paternal Family History: Family History (Last Reviewed 08/15/17 @ 14:44 by Justin Archer MD) Father Myocardial infarction, Onset Age: 63 Heart disease Mother Hypertension Heart disease Sister Breast cancer History Items: Heart Disease, Hypertension Sibling Family History: Family History (Last Reviewed 08/15/17 @ 14:44 by Justin Archer MD) Father Myocardial infarction, Onset Age: 63 Heart disease Mother Hypertension Heart disease Sister Breast cancer History Items: Cancer Review of Systems Constitutional: Reports: Anorexia Eyes: Denies: Blurred vision HEENT: Reports: Post Nasal Drip Cardiovascular: Reports: Chest Pain, - - Left chest shoulder pain Respiratory: Reports: Cough Gastrointestinal: Reports: Abdominal Pain - Left lower quadrant, Diarrhea, Nausea, Vomiting - Bilious Genitourinary: Reports: Urgency Musculoskeletal: Reports: Joint Pain, Shoulder Pain Neurological: Reports: - - Severe back pain Endocrine: Reports: Change in Body Habitus - Weight loss on chemotherapy VTE Information - Inpt Only VTE Present on Admission: No Patient Problems: Active and Suspected Problems (Last Reviewed 11/29/17 @ 03:51 by Kar Echols MD) Abdominal abscess (Acute) Nausea and vomiting (Acute) Diarrhea (Acute) - Physical Exam General: Alert, - - Patient very nauseated with active emesis at the time of interview HEENT: Atraumatic Oral: Moist Mucosa Neck: Supple Lungs: Clear to auscultation Cardiovascular: Tachycardic Abdomen: Hypoactive Bowel Sounds, Distended, - - Minimal left lower quadrant tenderness to deep palpation Extremities: No Calf Tenderness Lymphatic: No Cervical, Supraclavicular, or Inguinal Adenopathy Psych/Mental Status: Anxious Vital Signs Temp Pulse Resp BP Pulse Ox 98.6 F 81 18 160/94 H 97 02/14/18 02:33 02/14/18 04:05 02/14/18 02:33 02/14/18 02:33 02/14/18 02:33 Oxygen Delivery Method Room Air Weight: 197 lb 5.019 oz Body Mass Index (BMI) 30.9 Finger Stick Blood Glucose 164 Intake and Output for Last 24 Hours 02/12/18 02/13/18 02/14/18 23:59 23:59 23:59 Intake Total 392 / 392 Balance 392 / 392 Laboratory Tests Past 24 Hrs 02/13/18 02/13/18 02/13/18 15:10 15:10 15:10 WBC 10.2 RBC 3.37 L Hgb 10.6 L Hct 33.3 L MCV 98.8 MCH 31.5 MCHC 31.8 L RDW 14.7 H RDW Differential 52.7 H Plt Count 352 MPV 9.7 Immature Gran % (Auto) 0.200 Neut % (Auto) 83.7 H Lymph % (Auto) 6.4 L Aiken % (Auto) 9.5 Eos % (Auto) 0.1 Baso % (Auto) 0.1 Absolute Neuts (auto) 8.6 H Absolute Lymphs (auto) 0.66 L Total Counted Not Reportable Sodium 138 Potassium 3.1 L Chloride 103 Carbon Dioxide 25.0 Anion Gap 10 BUN 6 L Creatinine 1.07 H Estim Creat Clear Calc 48.25 Est GFR (MDRD) Af Amer 65 Est GFR (MDRD) Non-Af 54 L BUN/Creatinine Ratio 5.6 L Glucose 114 H Calcium 8.3 L Phosphorus Magnesium 1.7 Total Bilirubin 0.90 Direct Bilirubin 0.24 AST 15 ALT 12 L Alkaline Phosphatase 154 H Total Protein 8.3 H Albumin 3.5 Globulin 4.8 H Urine Color Urine Clarity Urine pH Ur Specific [place] Urine Protein Urine Glucose (UA) Urine Ketones Urine Occult Blood Urine Nitrite Urine Bilirubin Urine Urobilinogen Ur Leukocyte Esterase Urine RBC Urine WBC Ur Squamous Epith Cells Urine Bacteria Urine Mucus 02/13/18 02/13/18 02/14/18 15:10 16:50 06:00 WBC Pending RBC Pending Hgb Pending Hct Pending MCV Pending MCH Pending MCHC Pending RDW Pending RDW Differential Pending Plt Count Pending MPV Immature Gran % (Auto) Neut % (Auto) Pending Lymph % (Auto) Aiken % (Auto) Eos % (Auto) Baso % (Auto) Absolute Neuts (auto) Pending Absolute Lymphs (auto) Total Counted Pending Sodium Potassium Chloride Carbon Dioxide Anion Gap BUN Creatinine Estim Creat Clear Calc Est GFR (MDRD) Af Amer Est GFR (MDRD) Non-Af BUN/Creatinine Ratio Glucose Calcium Phosphorus 1.1 L* Magnesium Total Bilirubin Direct Bilirubin AST ALT Alkaline Phosphatase Total Protein Albumin Globulin Urine Color Yellow Urine Clarity Clear Urine pH 8.0 Ur Specific [place] 1.010 Urine Protein 30 H Urine Glucose (UA) Normal Urine Ketones 15 H Urine Occult Blood 50 H Urine Nitrite Negative Urine Bilirubin Negative Urine Urobilinogen Normal Ur Leukocyte Esterase 25 H Urine RBC 0 SEEN Urine WBC 0-5 SEEN Ur Squamous Epith Cells 0 SEEN Urine Bacteria 0 SEEN Urine Mucus 0 SEEN 02/14/18 02/14/18 06:00 06:00 WBC RBC Hgb Hct MCV MCH MCHC RDW RDW Differential Plt Count MPV Immature Gran % (Auto) Neut % (Auto) Lymph % (Auto) Aiken % (Auto) Eos % (Auto) Baso % (Auto) Absolute Neuts (auto) Absolute Lymphs (auto) Total Counted Sodium Pending Potassium Pending Chloride Pending Carbon Dioxide Pending Anion Gap Pending BUN Pending Creatinine Pending Estim Creat Clear Calc Est GFR (MDRD) Af Amer Pending Est GFR (MDRD) Non-Af Pending BUN/Creatinine Ratio Pending Glucose Pending Calcium Pending Phosphorus Pending Magnesium Pending Total Bilirubin Direct Bilirubin AST ALT Alkaline Phosphatase Total Protein Albumin Globulin Urine Color Urine Clarity Urine pH Ur Specific [place] Urine Protein Urine Glucose (UA) Urine Ketones Urine Occult Blood Urine Nitrite Urine Bilirubin Urine Urobilinogen Ur Leukocyte Esterase Urine RBC Urine WBC Ur Squamous Epith Cells Urine Bacteria Urine Mucus POC Glucose 02/14/18 00:40 POC Glucose 107 Assessment/Plan All Active Problems (Last Reviewed 11/29/17 @ 03:51 by Kar Echols MD) Abdominal abscess (Acute) Nausea and vomiting (Acute) Diarrhea (Acute) Cystitis (Acute) Neutropenic fever (Acute) Pancytopenia (Acute) Thrombocytopenia (Acute) Ventricular tachycardia, nonsustained (Acute) Nonsustained paroxysmal supraventricular tachycardia (Acute) Multifocal premature ventricular contractions with pairing (Acute) I have personally reviewed the CT scan. It appears that on imaging the jara of the stomach may be slightly thickened. There is some minimal distention of a few small bowel loops. There is extensive sigmoid diverticulosis. Fluid collection is noted adjacent to the sigmoid colon but in that region there are no additional changes that would suggest inflammatory change. Her clinical examination is not remarkable for an acute surgical abdomen. The patient is currently appropriately on pantoprazole and Ondansetron and promethazine It is of additional note that she is currently on Zosyn as well. It is not clear to me that she has an acute bacterial infection. My clinical exam of her abdomen and CT findings are underwhelming. She is complaining of fever and chilling. I do not see an abnormal temperature recorded since her admission. She generally appears unwell. I do not believe that the fluid collection represents an acute surgical problem or etiology. Imaging does not otherwise suggest acute diverticulitis. There is no additional information is area to define this as an abscess. The item is so small that it would not require drainage nor surgical treatment. Her presentation suggests possibly a viral gastroenteritis. Ongoing medical treatment would be appropriate. I do not believe that she will require surgical intervention. I have discussed this case in addition with Dr. Navin Beck who will continue through with surgical consultation over the next couple days. I appreciate the opportunity of assisting with her surgical care Douglas Chavez M.D., F.A.C.S.
[2018-02-14 06:56] LABS: Bedside Glucose 126 mg/dL (70-110)
[2018-02-14] MEDS: LORazepam 2 MG/ML Syringe 0.5 MG IV (09:03)
[2018-02-14] MEDS: 0.9% Normal Saline 1,000 ML 125 ML IV (09:10)
--- NOTE | 2018-02-14 10:44 | PN_ITS ---
Patient Problems: Active and Suspected Problems (Last Reviewed 11/29/17 @ 03:51 by Kar Echols MD) Abdominal abscess (Acute) Nausea and vomiting (Acute) Diarrhea (Acute) Subjective: Patient was admitted to the hospital on 02/13 with complaints of nausea/vomiting/diarrhea and fever with shaking chills. She has a cough which is nonproductive. She denies shortness of breath. 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 She complained of left lower quadrant abdominal pain which is a chronic complaint for her. She was seen in consultation by Dr. Douglas Chavez who did not feel she had a surgical abdomen and also felt antibiotics could be discontinued because she is afebrile and there is no evidence of diverticulitis. Discussed with Dr. Beck today and apparently she has had an unremarkable colonoscopy recently. She has been afebrile since admission. White blood cell count is high normal at 10.2 with a left shift. UA had 0-5 WBCs. There were some ketones in her urine. All lab was personally reviewed. Hypophosphatemia, hypokalemia and hypomagnesemia have been corrected with supplementation. She had 1 round of chemo in October or November but did not tolerate. She has had radiation and is currently on Keytruda. She is complaining of sweats primarily today and she wants to at least drink fluids today. No diarrhea since admission but, states she has not been eating. Has not been able to produce a stool for enteric pathogen panel yet. No recent antibiotics. PHYSICAL EXAM: GENERAL: alert, oriented X 3, Cooperative, she is coughing and she is diaphoretic ORAL: moist mucosa, no mucosal lesions but, the tongue is coated and she has a bad taste in her mouth NECK: No JVD, supple, trachea midline LUNGS: CTA, symmetric chest expansion HEART: RRR, Normal S1 and S2, no rub, no gallop, no MM ABDOMEN: soft, tender in the LLQ but this is chronic, ND, BS present, no guarding with palpation EXTREMITIES: no edema, no cyanosis, no calf tenderness SKIN: No rashes, no breakdown NEUROLOGIC: no focal neurologic deficits PSYCH: appropriate, normal affect, pleasant Impressions 1. N/V/D - etiology? Gastroenteritis or SE of Keytruda? Stool studies ordered. AF since admission. She has a normal white blood cell count but a left shift. No evidence of diverticulitis. Keytruda is also known to cause fevers and cough. 2. Nonproductive cough 3. Non-small cell lung CA with metastases to the pelvis and bone-treated by Dr. Kuhn and currently on Keytruda 4. Hypokalemia/hypomagnesemia/hypophosphatemia-resolved with supplementation. Likely secondary to poor intake recently 5. Chronic anemia secondary to malignancy-on iron and B12 supplements at home. LINDEN globin is stable. 6. Hypertension/hyperlipidemia/anxiety depression/diabetes mellitus type 2/ALIN- complicate care, management and prognosis Chest x-ray today. Check a respiratory panel, urine for Legionella and streptococcal antigens, sputum culture Advance diet to clear liquids Continue Zosyn until the chest x-ray is available. advance the diet as tolerated She is supposed to get Keytruda Sunday.....will need to discuss with Dr. Kuhn whether or not to continue Keytruda id the W/U for treatable causes of fever/sweats/N/V/D is negative. - Physical Exam Vital Signs Temp Pulse Resp BP Pulse Ox 98.5 F 80 18 160/85 H 96 02/14/18 08:34 02/14/18 08:34 02/14/18 08:34 02/14/18 08:34 02/14/18 08:34 Oxygen Delivery Method Room Air Weight: 197 lb 5.019 oz Body Mass Index (BMI) 30.9 Finger Stick Blood Glucose 164 Intake and Output for Last 24 Hours 02/12/18 02/13/18 02/14/18 23:59 23:59 23:59 Intake Total 1456 / 1456 Output Total 1500 / 1500 Balance -44 / -44 Laboratory Tests Past 24 Hrs 02/13/18 02/13/18 02/13/18 15:10 15:10 15:10 WBC 10.2 RBC 3.37 L Hgb 10.6 L Hct 33.3 L MCV 98.8 MCH 31.5 MCHC 31.8 L RDW 14.7 H RDW Differential 52.7 H Plt Count 352 MPV 9.7 Immature Gran % (Auto) 0.200 Neut % (Auto) 83.7 H Lymph % (Auto) 6.4 L [place] % (Auto) 9.5 Eos % (Auto) 0.1 Baso % (Auto) 0.1 Absolute Neuts (auto) 8.6 H Absolute Lymphs (auto) 0.66 L Total Counted Not Reportable Sodium 138 Potassium 3.1 L Chloride 103 Carbon Dioxide 25.0 Anion Gap 10 BUN 6 L Creatinine 1.07 H Estim Creat Clear Calc 48.25 Est GFR (MDRD) Af Amer 65 Est GFR (MDRD) Non-Af 54 L BUN/Creatinine Ratio 5.6 L Glucose 114 H Calcium 8.3 L Phosphorus Magnesium 1.7 Total Bilirubin 0.90 Direct Bilirubin 0.24 AST 15 ALT 12 L Alkaline Phosphatase 154 H Total Protein 8.3 H Albumin 3.5 Globulin 4.8 H Urine Color Urine Clarity Urine pH Ur Specific [place] Urine Protein Urine Glucose (UA) Urine Ketones Urine Occult Blood Urine Nitrite Urine Bilirubin Urine Urobilinogen Ur Leukocyte Esterase Urine RBC Urine WBC Ur Squamous Epith Cells Urine Bacteria Urine Mucus 02/13/18 02/13/18 02/14/18 15:10 16:50 06:00 WBC 10.2 RBC 3.13 L Hgb 10.1 L Hct 31.5 L MCV 100.6 H MCH 32.3 H MCHC 32.1 RDW 14.7 H RDW Differential 52.4 H Plt Count 312 MPV 9.5 Immature Gran % (Auto) 0.700 Neut % (Auto) 83.0 H Lymph % (Auto) 7.8 L [place] % (Auto) 8.1 Eos % (Auto) 0.3 Baso % (Auto) 0.1 Absolute Neuts (auto) 8.5 H Absolute Lymphs (auto) 0.80 L Total Counted Not Reportable Sodium Potassium Chloride Carbon Dioxide Anion Gap BUN Creatinine Estim Creat Clear Calc Est GFR (MDRD) Af Amer Est GFR (MDRD) Non-Af BUN/Creatinine Ratio Glucose Calcium Phosphorus 1.1 L* Magnesium Total Bilirubin Direct Bilirubin AST ALT Alkaline Phosphatase Total Protein Albumin Globulin Urine Color Yellow Urine Clarity Clear Urine pH 8.0 Ur Specific [place] 1.010 Urine Protein 30 H Urine Glucose (UA) Normal Urine Ketones 15 H Urine Occult Blood 50 H Urine Nitrite Negative Urine Bilirubin Negative Urine Urobilinogen Normal Ur Leukocyte Esterase 25 H Urine RBC 0 SEEN Urine WBC 0-5 SEEN Ur Squamous Epith Cells 0 SEEN Urine Bacteria 0 SEEN Urine Mucus 0 SEEN 02/14/18 02/14/18 06:00 06:00 WBC RBC Hgb Hct MCV MCH MCHC RDW RDW Differential Plt Count MPV Immature Gran % (Auto) Neut % (Auto) Lymph % (Auto) [place] % (Auto) Eos % (Auto) Baso % (Auto) Absolute Neuts (auto) Absolute Lymphs (auto) Total Counted Sodium 142 Potassium 3.7 Chloride 110 H Carbon Dioxide 26.0 Anion Gap 6 BUN 5 L Creatinine 0.93 Estim Creat Clear Calc 55.52 Est GFR (MDRD) Af Amer 77 Est GFR (MDRD) Non-Af 63 BUN/Creatinine Ratio 5.4 L Glucose 116 H Calcium 7.4 L Phosphorus 3.3 Magnesium 2.4 Total Bilirubin Direct Bilirubin AST ALT Alkaline Phosphatase Total Protein Albumin Globulin Urine Color Urine Clarity Urine pH Ur Specific [place] Urine Protein Urine Glucose (UA) Urine Ketones Urine Occult Blood Urine Nitrite Urine Bilirubin Urine Urobilinogen Ur Leukocyte Esterase Urine RBC Urine WBC Ur Squamous Epith Cells Urine Bacteria Urine Mucus POC Glucose 02/14/18 02/14/18 06:41 00:40 POC Glucose 126 H 107 Medical Necessity - Tobacco Use Smoking Status: Former smoker Tobacco Use: Non-smoker Assessment/Plan All Active Problems (Last Reviewed 11/29/17 @ 03:51 by Kar Echols MD) Abdominal abscess (Acute) Nausea and vomiting (Acute) Diarrhea (Acute) Cystitis (Acute) Neutropenic fever (Acute) Pancytopenia (Acute) Thrombocytopenia (Acute) Ventricular tachycardia, nonsustained (Acute) Nonsustained paroxysmal supraventricular tachycardia (Acute) Multifocal premature ventricular contractions with pairing (Acute) Code Visit Inpatient E&M: 94442 Subs Hosp L3
--- NOTE | 2018-02-14 11:04 | RAD_ITS ---
STUDY: X-RAY CHEST REASON FOR EXAM: Female, 67 years old. Cough, nausea, vomiting and diarrhea. TECHNIQUE: PA and lateral views. COMPARISON: 12/03/2017. FINDINGS: Pulmonary hyperinflation with flattening of the hemidiaphragms. No confluent infiltrates. No suspicious pulmonary nodules. There is no demonstrated pleural abnormality. Borderline cardiomegaly. Calcified nodes in the left hilum and left AP window. Normal right hilum. Normal mediastinum. Normal visualized pulmonary arteries. Normal visualized aortic arch and descending thoracic aorta. Mild dextroscoliosis of the thoracic spine is unchanged. Old fracture of the right posterior eighth rib is unchanged. Mild degenerative osteoarthrosis of the left shoulder is unchanged. The clavicles, right shoulder and left rib cage are within normal limits. There is no demonstrated abnormality of the visualized soft tissue structures of the upper abdomen. RAD/Chest PA and Lateral IMPRESSION: 1. No acute cardiopulmonary pathology. 2. COPD. 3. Old fracture of the right posterior eighth rib. 4. Calcified nodes in the left AP window and left hilum. 5. No interval change when compared to 12/03/2017. Electronically Signed: New Sung MD at 11:31 EST , Service support ,
[2018-02-14] MEDS: Enoxaparin 40 MG/0.4 ML Syringe SC (11:23)
[2018-02-14] MEDS: 0.9% Normal Saline 1,000 ML 75 ML IV ×2 (11:23→22:05)
[2018-02-14 12:00] LABS: Bedside Glucose 129 mg/dL (70-110)
[2018-02-14] MEDS: Clotrimazole 10 MG Troche MUCOUS MEM ×3 (14:07→22:10)
[2018-02-14] MEDS: Insulin Lispro 100 UNIT/ML INSULN.PEN SC (18:32)
[2018-02-14 18:35] LABS: Bedside Glucose 159 mg/dL (70-110)
[2018-02-14] MEDS: Morphine 2 MG/ML Syringe IV (22:27)
[2018-02-15] VITALS (12 sets, daily range): BP systolic 152–180; BP diastolic 84–99; PULSE 74–93; RESP 18–20; TEMP 36.5–37.2; O2SAT 96–99
[2018-02-15 00:36] LABS: Bedside Glucose 91 mg/dL (70-110)
[2018-02-15] MEDS: Enalaprilat 1.25 MG/ML Vial 0.625 MG IV ×3 (00:36→11:31)
[2018-02-15] MEDS: Piperacil/Tazobactam 3.375 GM/50 ML ML IV ×3 (05:45→21:58)
[2018-02-15] MEDS: Clotrimazole 10 MG Troche MUCOUS MEM ×2 (05:45→11:32)
[2018-02-15] MEDS: Metoprolol Tartrate 5 MG/5 ML Vial IV ×2 (05:46→14:11)
[2018-02-15] MEDS: 0.9% NaCl Peripheral Flush Adult/Peds IV ×3 (05:56→14:10)
[2018-02-15 06:21] LABS: Bedside Glucose 116 mg/dL (70-110)
--- NOTE | 2018-02-15 08:08 | PCM.PN.SRG ---
Patient Problems: Active and Suspected Problems (Last Reviewed 11/29/17 @ 03:51 by Kar Echols MD) Abdominal abscess (Acute) Nausea and vomiting (Acute) Diarrhea (Acute) Subjective: Patient tolerated clear liquids with no nausea or vomiting. She has small bowel movement yesterday. She is complaining of pain all over her body. It is nonspecific to her abdomen. She also says that she has been having a lot of sweating and chills. - Physical Exam General: Alert, Oriented x3, Cooperative Lungs: Normal air movement Abdomen: Soft, Non Tender, Non-Distended Vital Signs Temp Pulse Resp BP Pulse Ox 98.9 F 90 20 H 161/85 H 98 02/15/18 02:18 02/15/18 05:46 02/15/18 02:18 02/15/18 05:46 02/15/18 02:30 Oxygen Delivery Method Room Air Weight: 197 lb 5.019 oz Body Mass Index (BMI) 30.9 Finger Stick Blood Glucose 164 Intake and Output for Last 24 Hours 02/13/18 02/14/18 02/15/18 23:59 23:59 23:59 Intake Total 3827 / 3827 1116 / 1116 Output Total 1800 / 1800 Balance 2026 / 2026 1116 / 1116 Microbiology Past 72 Hours 02/15/18 00:12 Streptococcus pneumoniae Antigen (M - Final Urine, Random 02/15/18 00:12 Legionella Antigen - Final Urine, Random 02/14/18 13:35 Influenza Types A,B Direct FA (VIOLET) - Final Mucosa - Nose 02/14/18 08:20 Stool Lactoferrin - Final Stool 02/14/18 08:00 Enteric Bacteriology - Final Stool 02/14/18 08:00 C. difficile DNA Amplification - Final Stool POC Glucose 02/15/18 02/15/18 02/14/18 05:42 00:23 18:28 POC Glucose 116 H 91 159 H 02/14/18 11:57 POC Glucose 129 H Medical Necessity - Tobacco Use Smoking Status: Former smoker Tobacco Use: Non-smoker Assessment/Plan All Active Problems (Last Reviewed 11/29/17 @ 03:51 by Kar Echols MD) Abdominal abscess (Acute) Nausea and vomiting (Acute) Diarrhea (Acute) Cystitis (Acute) Neutropenic fever (Acute) Pancytopenia (Acute) Thrombocytopenia (Acute) Ventricular tachycardia, nonsustained (Acute) Nonsustained paroxysmal supraventricular tachycardia (Acute) Multifocal premature ventricular contractions with pairing (Acute) 67-year-old female with nausea vomiting possible gastroenteritis 1. Patient's nausea and vomiting have resolved. She has been tolerating a clear liquid diet. I would advise not advancing past a clear liquid diet until she is feeling better. 2. Patient has viral cultures pending and I believe the primary team is ordering blood cultures. She may be having an ileus related to this but she is tolerating clear liquid diet with no nausea or vomiting. She denies any abdominal pain. Rajinder Beck MD Pager: [facility] [address] [place] [address], [address] [place] [address] Office:
[2018-02-15] MEDS: Ondansetron 4 MG/2 ML Vial IV (08:53)
[2018-02-15] MEDS: Morphine 2 MG/ML Syringe IV ×2 (08:53→21:51)
--- NOTE | 2018-02-15 10:00 | CASEMGMT ---
RN CM Face to Face with patient for initial transition planning/care coordination assessment. RN CM introduced self and role at [facility]. Patient lying in bed, alert and oriented, daughter at bedside. Patient willing to participate in assessment and is able to answer all questions appropriately. Care providers, pharmacy, and demographics verified. Patient wishes to discharge home and would like HHC with [facility], whom she has had in the past. Referral sent to [facility] and they are able to accept the patient. Patient states she has no further needs or concerns at this time. CM to follow for discharge planning needs that may arise. PCP: Madan Specialists: Edwin Singh Ofori Preferred Pharmacy: [facility] Insurance: Kelli ELKINS Prescription Benefit: Yes Living Will/HPOA: Yes, daughter Kanwal Allen HPOA LNOK: Daughters Living Arrangements: Patient lives alone in 1 story home. Family currently staying with patient 24 hours. Patient to move to daughters in [place] Transportation: Family DME/HHC: Patient has shower chair, BSC, raised toilet seat, cane, grab bars, walker, wheelchair, oxygen PRN, and nebulizer. [facility] in the past Disposition Plan: Patient to discharge home with HHC, family support, and follow-up plans in place. Reena RODRIGUEZ, RN, CM
[2018-02-15] MEDS: Enoxaparin 40 MG/0.4 ML Syringe SC (11:31)
[2018-02-15 11:46] LABS: Bedside Glucose 123 mg/dL (70-110)
[2018-02-15] MEDS: 0.9% Normal Saline 1,000 ML 75 ML IV (11:46)
--- NOTE | 2018-02-15 12:04 | PCM.PROGNOTE ---
<Magy Barrientos - Last Filed: 02/15/18 12:52> Patient Problems: Active and Suspected Problems (Last Reviewed 11/29/17 @ 03:51 by Kar Echols MD) Abdominal abscess (Acute) Nausea and vomiting (Acute) Diarrhea (Acute) Subjective: Patient seen and examined. Family at bedside. Patient on side of bed dry heaving. Requesting water, complains of dry mouth. Vomiting with any oral intake. Denies abdominal pain. Patient reports nausea is worse with any movement. Denies dizziness, lightheadedness. - Physical Exam General: Alert, Oriented x3, Cooperative, - - Appears ill, uncomfortable HEENT: Atraumatic, PERRLA, EOMI, Normocephalic Oral: Dry Mucosa Neck: Supple, No JVD, Negative Carotid Bruits Lungs: Clear to auscultation, Normal air movement Cardiovascular: Regular rate, Regular Rhythm, Normal S1, Normal S2, No murmurs Abdomen: Bowel Sounds Present, Soft, Non Tender, Non-Distended Extremities: No clubbing, No cyanosis, No edema, Capillary Refill Less than 3 Seconds Skin: No rashes, No breakdown Musculoskeletal: No Tenderness to Palpation of Joints or Extremities Neurological: Cranial nerves II-XII grossly intact, Neuro grossly intact Psych/Mental Status: Restless Vital Signs Temp Pulse Resp BP Pulse Ox 97.7 F L 93 18 152/99 H 99 02/15/18 11:29 02/15/18 11:29 02/15/18 11:29 02/15/18 11:29 02/15/18 11:29 Oxygen Delivery Method Room Air Weight: 197 lb 5.019 oz Body Mass Index (BMI) 30.9 Finger Stick Blood Glucose 164 Intake and Output for Last 24 Hours 02/13/18 02/14/18 02/15/18 23:59 23:59 23:59 Intake Total 3827 / 3827 1116 / 1116 Output Total 1800 / 1800 700 / 700 Balance 2026 416 / 416 Microbiology Past 72 Hours 02/14/18 13:35 Respiratory Panel (PCR) - Final Mucosa - Nasopharyngeal 02/15/18 00:12 Streptococcus pneumoniae Antigen (M - Final Urine, Random 02/15/18 00:12 Legionella Antigen - Final Urine, Random 02/14/18 13:35 Influenza Types A,B Direct FA (VIOLET) - Final Mucosa - Nose 02/14/18 08:20 Stool Lactoferrin - Final Stool 02/14/18 08:00 Enteric Bacteriology - Final Stool 02/14/18 08:00 C. difficile DNA Amplification - Final Stool POC Glucose 02/15/18 02/15/18 02/15/18 11:23 05:42 00:23 POC Glucose 123 H 116 H 91 02/14/18 18:28 POC Glucose 159 H Medical Necessity - Tobacco Use Smoking Status: Former smoker Tobacco Use: Non-smoker Assessment/Plan All Active Problems (Last Reviewed 11/29/17 @ 03:51 by Kar Echols MD) Abdominal abscess (Acute) Nausea and vomiting (Acute) Diarrhea (Acute) Cystitis (Acute) Neutropenic fever (Acute) Pancytopenia (Acute) Thrombocytopenia (Acute) Ventricular tachycardia, nonsustained (Acute) Nonsustained paroxysmal supraventricular tachycardia (Acute) Multifocal premature ventricular contractions with pairing (Acute) 1. Acute viral gastroenteritis versus adverse effect from Keytruda-stool studies negative. CT of abdomen and pelvis on admission shows chronic diverticulosis, possible distal sigmoid small abscess. Multiple blastic lesions of the axial and appendicular skeleton consistent with osseous metastatic disease. Surgery on consult for diverticular abscess. IV fluids. IV Protonix. As needed Phenergan for nausea. Consult Dr. Pineda given undergoing tx for non-small cell lung cancer with possible reaction to treatment. Biotene added for dry mouth. Scopolamine patch added due to uncontrolled nausea. 2. 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 Pineda. Currently on immunosuppressive therapy and radiation. Unable to tolerate chemotherapy. Continue home fentanyl regimen. Consult Dr. Pineda. 3. Nonproductive cough-chest x-ray without acute pathology. On IV Zosyn empirically. Afebrile. No leukocytosis. Discontinue IV Zosyn pending oncology input. 4. Electrolyte disturbance including hypophosphatemia, hypokalemia, hypomagnesia-resolved. 5. Type 2 diabetes mellitus-hold home oral regimen. Accu-Cheks before meals at bedtime with sliding scale insulin. 6. Chronic normocytic anemia, iron deficiency anemia-stable. 7. Chronic asthma-no acute exacerbation. PRN albuterol. 8. Hypertension-as needed hydralazine. Scheduled IV Vasotec. Resume home blood pressure regimen including HCTZ, losartan, metoprolol when able to tolerate oral intake. 9. Hyperlipidemia-continue statin when tolerating oral intake. 10. Anxiety/depression-continue sertraline, Ativan regimen when able to tolerate oral intake. 11. GERD-IV PPI. 12. ALIN-continue CPAP nightly. 13. Obesity-encouraged diet and lifestyle modifications. DVT prophylaxis-Lovenox subcu. This patient was seen by THEE Norton under the supervision of Dr. Rosario. <Matilda Rosario - Last Filed: 02/15/18 15:03> - Physical Exam Vital Signs Temp Pulse Resp BP Pulse Ox 97.7 F L 93 18 152/99 H 99 02/15/18 11:29 02/15/18 14:11 02/15/18 11:29 02/15/18 11:29 02/15/18 11:29 Oxygen Delivery Method Room Air Weight: 197 lb 5.019 oz Body Mass Index (BMI) 30.9 Finger Stick Blood Glucose 164 Intake and Output for Last 24 Hours 02/13/18 02/14/18 02/15/18 23:59 23:59 23:59 Intake Total 3827 / 3827 2626 / 2626 Output Total 1800 / 1800 1200 / 1200 Balance 2026 / 2026 1426 / 1426 Microbiology Past 72 Hours 02/14/18 13:35 Respiratory Panel (PCR) - Final Mucosa - Nasopharyngeal 02/15/18 00:12 Streptococcus pneumoniae Antigen (M - Final Urine, Random 02/15/18 00:12 Legionella Antigen - Final Urine, Random 02/14/18 13:35 Influenza Types A,B Direct FA (VIOLET) - Final Mucosa - Nose 02/14/18 08:20 Stool Lactoferrin - Final Stool 02/14/18 08:00 Enteric Bacteriology - Final Stool 02/14/18 08:00 C. difficile DNA Amplification - Final Stool POC Glucose 02/15/18 02/15/18 02/15/18 11:23 05:42 00:23 POC Glucose 123 H 116 H 91 02/14/18 18:28 POC Glucose 159 H Assessment/Plan Patient seen by Magy KINGSTON under my supervision. Patient admitted with a complaint of diarrhea. She is being managed for acute viral gastroenteritis vs Keytruda side effect. Patient seen and examined. She complains of diarrhea overnight, and also complains of nausea. She denies fever, but admits to having chills overnight. She denies cough, chest pain, abdominal pain or vomiting, but admits to dry heaves. o/e; Vital Signs Height 5 ft 7 in Weight: 197 lb 5.019 oz Weight in Pounds 197.3 lbs Pulse Ox 99 Temperature 97.7 F Pulse Rate 93 Respiratory Rate 18 Blood Pressure 152/99 Blood Pressure Position Right Lateral - Physical Exam General: Alert, Oriented x3, Cooperative, patient looks ill and uncomfortable HEENT: Atraumatic, PERRLA, EOMI, Normocephalic Oral: Dry Mucosa Neck: Supple, No JVD, Negative Carotid Bruits Lungs: Clear to auscultation, Normal air movement Cardiovascular: Regular rate, Regular Rhythm, Normal S1, Normal S2, No murmurs Abdomen: Bowel Sounds Present, Soft, Non Tender, Non-Distended Extremities: No clubbing, No cyanosis, No edema, Capillary Refill Less than 3 Seconds Skin: No rashes, No breakdown Musculoskeletal: No Tenderness to Palpation of Joints or Extremities Neurological: Cranial nerves II-XII grossly intact, Neuro grossly intact Psych/Mental Status: Restless Plan is to continue hydration with IVF. Will consult Oncology in light of cancer diagnosis to see whether this could be a side effect of Keytruda. Give IV phenergan for nausea we will add on scopolamine patch. Rest of management as per Magy Barrientos [employer]'s note. Agree with rest of note, assessment and plan by Magy Barrientos. [employer]. Code Visit Inpatient E&M: 88605 Subs Hosp L3
--- NOTE | 2018-02-15 12:20 | PN_ITS ---
<Magy Barrientos - Last Filed: 02/15/18 12:52> Patient Problems: Active and Suspected Problems (Last Reviewed 11/29/17 @ 03:51 by Kar Echols MD) Abdominal abscess (Acute) Nausea and vomiting (Acute) Diarrhea (Acute) Subjective: Patient seen and examined. Family at bedside. Patient on side of bed dry heaving. Requesting water, complains of dry mouth. Vomiting with any oral intake. Denies abdominal pain. Patient reports nausea is worse with any movement. Denies dizziness, lightheadedness. - Physical Exam General: Alert, Oriented x3, Cooperative, - - Appears ill, uncomfortable HEENT: Atraumatic, PERRLA, EOMI, Normocephalic Oral: Dry Mucosa Neck: Supple, No JVD, Negative Carotid Bruits Lungs: Clear to auscultation, Normal air movement Cardiovascular: Regular rate, Regular Rhythm, Normal S1, Normal S2, No murmurs Abdomen: Bowel Sounds Present, Soft, Non Tender, Non-Distended Extremities: No clubbing, No cyanosis, No edema, Capillary Refill Less than 3 Seconds Skin: No rashes, No breakdown Musculoskeletal: No Tenderness to Palpation of Joints or Extremities Neurological: Cranial nerves II-XII grossly intact, Neuro grossly intact Psych/Mental Status: Restless Vital Signs Temp Pulse Resp BP Pulse Ox 97.7 F L 93 18 152/99 H 99 02/15/18 11:29 02/15/18 11:29 02/15/18 11:29 02/15/18 11:29 02/15/18 11:29 Oxygen Delivery Method Room Air Weight: 197 lb 5.019 oz Body Mass Index (BMI) 30.9 Finger Stick Blood Glucose 164 Intake and Output for Last 24 Hours 02/13/18 02/14/18 02/15/18 23:59 23:59 23:59 Intake Total 3827 / 3827 1116 / 1116 Output Total 1800 / 1800 700 / 700 Balance 2026 416 / 416 Microbiology Past 72 Hours 02/14/18 13:35 Respiratory Panel (PCR) - Final Mucosa - Nasopharyngeal 02/15/18 00:12 Streptococcus pneumoniae Antigen (M - Final Urine, Random 02/15/18 00:12 Legionella Antigen - Final Urine, Random 02/14/18 13:35 Influenza Types A,B Direct FA (VIOLET) - Final Mucosa - Nose 02/14/18 08:20 Stool Lactoferrin - Final Stool 02/14/18 08:00 Enteric Bacteriology - Final Stool 02/14/18 08:00 C. difficile DNA Amplification - Final Stool POC Glucose 02/15/18 02/15/18 02/15/18 11:23 05:42 00:23 POC Glucose 123 H 116 H 91 02/14/18 18:28 POC Glucose 159 H Medical Necessity - Tobacco Use Smoking Status: Former smoker Tobacco Use: Non-smoker Assessment/Plan All Active Problems (Last Reviewed 11/29/17 @ 03:51 by Kar Echols MD) Abdominal abscess (Acute) Nausea and vomiting (Acute) Diarrhea (Acute) Cystitis (Acute) Neutropenic fever (Acute) Pancytopenia (Acute) Thrombocytopenia (Acute) Ventricular tachycardia, nonsustained (Acute) Nonsustained paroxysmal supraventricular tachycardia (Acute) Multifocal premature ventricular contractions with pairing (Acute) 1. Acute viral gastroenteritis versus adverse effect from Keytruda-stool studies negative. CT of abdomen and pelvis on admission shows chronic divertic ulosis, possible distal sigmoid small abscess. Multiple blastic lesions of the axial and appendicular skeleton consistent with osseous metastatic disease. Surgery on consult for diverticular abscess. IV fluids. IV Protonix. As needed Phenergan for nausea. Consult Dr. Pineda given undergoing tx for non-small cell lung cancer with possible reaction to treatment. Biotene added for dry mouth. Scopolamine patch added due to uncontrolled nausea. 2. 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 Pineda. Currently on immunosuppressive therapy and radiation. Unable to tolerate chemotherapy. Continue home fentanyl regimen. Consult Dr. Pineda. 3. Nonproductive cough-chest x-ray without acute pathology. On IV Zosyn empirically. Afebrile. No leukocytosis. Discontinue IV Zosyn pending oncology input. 4. Electrolyte disturbance including hypophosphatemia, hypokalemia, hypomagnesia-resolved. 5. Type 2 diabetes mellitus-hold home oral regimen. Accu-Cheks before meals at bedtime with sliding scale insulin. 6. Chronic normocytic anemia, iron deficiency anemia-stable. 7. Chronic asthma-no acute exacerbation. PRN albuterol. 8. Hypertension-as needed hydralazine. Scheduled IV Vasotec. Resume home blood pressure regimen including HCTZ, losartan, metoprolol when able to tolerate oral intake. 9. Hyperlipidemia-continue statin when tolerating oral intake. 10. Anxiety/depression-continue sertraline, Ativan regimen when able to tolerate oral intake. 11. GERD-IV PPI. 12. ALIN-continue CPAP nightly. 13. Obesity-encouraged diet and lifestyle modifications. DVT prophylaxis-Lovenox subcu. This patient was seen by THEE Norton under the supervision of Dr. Rosario. <Matilda Rosario - Last Filed: 02/15/18 15:03> - Physical Exam Vital Signs Temp Pulse Resp BP Pulse Ox 97.7 F L 93 18 152/99 H 99 02/15/18 11:29 02/15/18 14:11 02/15/18 11:29 02/15/18 11:29 02/15/18 11:29 Oxygen Delivery Method Room Air Weight: 197 lb 5.019 oz Body Mass Index (BMI) 30.9 Finger Stick Blood Glucose 164 Intake and Output for Last 24 Hours 02/13/18 02/14/18 02/15/18 23:59 23:59 23:59 Intake Total 3827 / 3827 2626 / 2626 Output Total 1800 / 1800 1200 / 1200 Balance 2026 / 2026 1426 / 1426 Microbiology Past 72 Hours 02/14/18 13:35 Respiratory Panel (PCR) - Final Mucosa - Nasopharyngeal 02/15/18 00:12 Streptococcus pneumoniae Antigen (M - Final Urine, Random 02/15/18 00:12 Legionella Antigen - Final Urine, Random 02/14/18 13:35 Influenza Types A,B Direct FA (VIOLET) - Final Mucosa - Nose 02/14/18 08:20 Stool Lactoferrin - Final Stool 02/14/18 08:00 Enteric Bacteriology - Final Stool 02/14/18 08:00 C. difficile DNA Amplification - Final Stool POC Glucose 02/15/18 02/15/18 02/15/18 11:23 05:42 00:23 POC Glucose 123 H 116 H 91 02/14/18 18:28 POC Glucose 159 H Assessment/Plan Patient seen by Magy KINGSTON under my supervision. Patient admitted with a complaint of diarrhea. She is being managed for acute viral gastroenteritis vs Keytruda side effect. Patient seen and examined. She complains of diarrhea overnight, and also complains of nausea. She denies fever, but admits to having chills overnight. She denies cough, chest pain, abdominal pain or vomiting, but admits to dry heaves. o/e; Vital Signs Height 5 ft 7 in Weight: 197 lb 5.019 oz Weight in Pounds 197.3 lbs Pulse Ox 99 Temperature 97.7 F Pulse Rate 93 Respiratory Rate 18 Blood Pressure 152/99 Blood Pressure Position Right Lateral - Physical Exam General: Alert, Oriented x3, Cooperative, patient looks ill and uncomfortable HEENT: Atraumatic, PERRLA, EOMI, Normocephalic Oral: Dry Mucosa Neck: Supple, No JVD, Negative Carotid Bruits Lungs: Clear to auscultation, Normal air movement Cardiovascular: Regular rate, Regular Rhythm, Normal S1, Normal S2, No murmurs Abdomen: Bowel Sounds Present, Soft, Non Tender, Non-Distended Extremities: No clubbing, No cyanosis, No edema, Capillary Refill Less than 3 Seconds Skin: No rashes, No breakdown Musculoskeletal: No Tenderness to Palpation of Joints or Extremities Neurological: Cranial nerves II-XII grossly intact, Neuro grossly intact Psych/Mental Status: Restless Plan is to continue hydration with IVF. Will consult Oncology in light of cancer diagnosis to see whether this could be a side effect of Keytruda. Give IV phen ergan for nausea we will add on scopolamine patch. Rest of management as per Magy Barrientos MANAGEMENT INTERN-C's note. Agree with rest of note, assessment and plan by Magy Barrientos. MANAGEMENT INTERN-C. Code Visit Inpatient E&M: 02636 Subs Hosp L3
[2018-02-15] MEDS: LORazepam 2 MG/ML Syringe 0.5 MG IV (14:11)
[2018-02-15] MEDS: Saliva Substitute 237 ML BOTTLE 15 ML MM (14:11)
[2018-02-15] MEDS: Haloperidol 1 MG Tablet PO ×2 (16:00→21:20)
[2018-02-15] MEDS: NYSTATIN 500,000 UNIT/5 ML UDC 500000 UNIT PO ×2 (16:01→21:20)
[2018-02-15] MEDS: Sucralfate 1 GM Tablet PO ×2 (17:05→21:20)
[2018-02-15 17:15] LABS: Bedside Glucose 109 mg/dL (70-110)
[2018-02-15] MEDS: Sertraline 50 MG Tablet PO (21:20)
[2018-02-16] VITALS (10 sets, daily range): BP systolic 156–184; BP diastolic 83–89; PULSE 68–91; RESP 16–18; TEMP 36.7–36.8; O2SAT 95–98
[2018-02-16] MEDS: Ondansetron 4 MG/2 ML Vial IV ×3 (00:38→21:51)
[2018-02-16 00:41] LABS: Bedside Glucose 104 mg/dL (70-110)
[2018-02-16] MEDS: Saliva Substitute 237 ML BOTTLE 15 ML MM (04:11)
[2018-02-16] MEDS: 0.9% Normal Saline 1,000 ML 75 ML IV ×2 (06:15→15:34)
[2018-02-16] MEDS: Piperacil/Tazobactam 3.375 GM/50 ML ML IV (06:16)
[2018-02-16] MEDS: Haloperidol 1 MG Tablet PO ×3 (06:17→21:40)
[2018-02-16] MEDS: Sucralfate 1 GM Tablet PO ×3 (06:18→16:09)
[2018-02-16 06:26] LABS: Bedside Glucose 119 mg/dL (70-110)
[2018-02-16] MEDS: Morphine 2 MG/ML Syringe IV ×4 (06:36→20:16)
[2018-02-16 07:37] LABS: Anion Gap 13 (5-15); BUN 2 mg/dL (7-18); BUN/Creat Ratio 2.4 RATIO (10-20); Calcium,Total 7.4 mg/dL (8.5-10.1); Chloride 105 mmol/L (98-107); Creatinine, Serum 0.84 mg/dL (0.55-1.02); EST Glomerular Filtration Rate 71 mL/min (>60); Est Glom Filt Rate - Afr Amer 86 mL/min (>60); Estimated Creatinine Clearance 61.47 ml/min; Glucose 129 mg/dL (74-106); Potassium 2.4 mmol/L (3.5-5.1); Sodium Level 140 mmol/L (136-145)
--- NOTE | 2018-02-16 07:39 | PCM.PN.SRG ---
Patient Problems: Active and Suspected Problems (Last Reviewed 11/29/17 @ 03:51 by Kar Echols MD) Abdominal abscess (Acute) Nausea and vomiting (Acute) Diarrhea (Acute) Subjective: Patient reports she is still not feeling well all over. She had a little bit of nausea but tolerated clear liquids otherwise. She is not complaining of any abdominal pain. She says she is passing flatus. - Physical Exam General: Alert, Oriented x3 Neck: No JVD Lungs: Normal air movement Cardiovascular: Regular rate, Regular Rhythm Abdomen: Soft, Non Tender, Non-Distended Vital Signs Temp Pulse Resp BP Pulse Ox 98.2 F 90 16 180/89 H 95 02/16/18 04:01 02/16/18 04:01 02/16/18 04:01 02/16/18 04:01 02/16/18 04:01 Oxygen Delivery Method Room Air Weight: 197 lb 5.019 oz Body Mass Index (BMI) 30.9 Finger Stick Blood Glucose 164 Intake and Output for Last 24 Hours 02/14/18 02/15/18 02/16/18 23:59 23:59 23:59 Intake Total 3827 / 3827 2866 / 2866 1995 Output Total 1800 / 1800 1200 / 1200 600 / 600 Balance 2026 / 2026 1666 / 1666 1396 / 1396 Microbiology Past 72 Hours 02/14/18 13:35 Respiratory Panel (PCR) - Final Mucosa - Nasopharyngeal 02/15/18 00:12 Streptococcus pneumoniae Antigen (M - Final Urine, Random 02/15/18 00:12 Legionella Antigen - Final Urine, Random 02/14/18 13:35 Influenza Types A,B Direct FA (VIOLET) - Final Mucosa - Nose 02/14/18 08:20 Stool Lactoferrin - Final Stool 02/14/18 08:00 Enteric Bacteriology - Final Stool 02/14/18 08:00 C. difficile DNA Amplification - Final Stool Laboratory Tests Past 24 Hrs 02/16/18 06:52 Sodium 140 Potassium 2.4 L* Chloride 105 Carbon Dioxide 22.0 Anion Gap 13 BUN 2 L Creatinine 0.84 Estim Creat Clear Calc 61.47 Est GFR (MDRD) Af Amer 86 Est GFR (MDRD) Non-Af 71 BUN/Creatinine Ratio 2.4 L Glucose 129 H Calcium 7.4 L POC Glucose 02/16/18 02/16/18 02/15/18 06:14 00:32 17:04 POC Glucose 119 H 104 109 02/15/18 11:23 POC Glucose 123 H Medical Necessity - Tobacco Use Smoking Status: Former smoker Tobacco Use: Non-smoker Assessment/Plan All Active Problems (Last Reviewed 11/29/17 @ 03:51 by Kar Echols MD) Abdominal abscess (Acute) Nausea and vomiting (Acute) Diarrhea (Acute) Cystitis (Acute) Neutropenic fever (Acute) Pancytopenia (Acute) Thrombocytopenia (Acute) Ventricular tachycardia, nonsustained (Acute) Nonsustained paroxysmal supraventricular tachycardia (Acute) Multifocal premature ventricular contractions with pairing (Acute) 67-year-old female with possible gastroenteritis 1. Patient is tolerating some clear liquids but still having a little bit of nausea. She can continue clear liquids but I would not advance her diet and eating more substantial until she is feeling well. She is still having overall body soreness and not feeling well. She does not describe any sharp abdominal pain or focal abdominal pain. Continue to observe. Rajinder Beck MD Pager: [facility] [address] [place] [address], [address] [place] [address] Office:
--- NOTE | 2018-02-16 08:28 | PCM.PROGNOTE ---
Patient Problems: Active and Suspected Problems (Last Reviewed 11/29/17 @ 03:51 by Kar Echols MD) Abdominal abscess (Acute) Nausea and vomiting (Acute) Diarrhea (Acute) Subjective: Patient seen and examined last night and again today. HPI: Briefly she is a 67-year-old female who was diagnosed with metastatic non-small cell lung cancer earlier this year after presenting with back pain. She received initial therapy with combination chemotherapy and immunotherapy. She developed significant pancytopenia and neutropenic fever with chemotherapy as well as significant generalized asthenia and prolonged illness. After recovery she was treated with single agent Keytruda. However she developed worsening upper back pain and has recently been receiving palliative radiation to the T3. Radiation triana from T2-T4. She was admitted with protracted nausea and vomiting as well as diarrhea on Sunday. Diarrhea has subsided and currently she is having about 3 looser bowel movements a day. She has some left upper quadrant pain. CT scan was unremarkable with the exception of possible small fluid collection near the sigmoid colon. Nausea has been the predominant issue. Patient is getting hungry. She is also craving ice water. Nausea is triggered by eating or drinking too much at once. She is only tolerating small sips of water, some ice chips and Jell-O presently. She denies reflux. No epigastric pain. She has occasional dysphasia. Also sometimes nausea is triggered by movement. Last night her antiemetic regimen was rotated Haldol 1 mg p.o. every 8 hours. Zofran on an as-needed basis, 4 mg dose every 8 hours. Carafate was started. Mycelex troches were changed to nystatin swish and swallow. She is maintained on a proton pump inhibitor. This morning she reports she is feeling a little better. She still has a lot of overall body pain but this is under fairly good control. - Physical Exam General: Alert, Oriented x3 Oral: - - No findings of thrush. Lungs: Diminished Cardiovascular: Regular Rhythm Abdomen: Soft, - - Abdomen is nondistended. There is tenderness in the left upper and left lower quadrant. No rebound. No guarding. Vital Signs Temp Pulse Resp BP Pulse Ox 98.2 F 90 16 180/89 H 95 02/16/18 04:01 02/16/18 04:01 02/16/18 04:01 02/16/18 04:01 02/16/18 06:56 Oxygen Delivery Method Room Air Weight: 89.5 kg Body Mass Index (BMI) 30.9 Finger Stick Blood Glucose 164 Intake and Output for Last 24 Hours 02/14/18 02/15/18 02/16/18 23:59 23:59 23:59 Intake Total 3827 / 3827 2866 / 2866 1995 Output Total 1800 / 1800 1200 / 1200 600 / 600 Balance 2026 1666 / 1666 1396 / 1396 Microbiology Past 72 Hours 02/14/18 13:35 Respiratory Panel (PCR) - Final Mucosa - Nasopharyngeal 02/15/18 00:12 Streptococcus pneumoniae Antigen (M - Final Urine, Random 02/15/18 00:12 Legionella Antigen - Final Urine, Random 02/14/18 13:35 Influenza Types A,B Direct FA (VIOLET) - Final Mucosa - Nose 02/14/18 08:20 Stool Lactoferrin - Final Stool 02/14/18 08:00 Enteric Bacteriology - Final Stool 02/14/18 08:00 C. difficile DNA Amplification - Final Stool Laboratory Tests Past 24 Hrs 02/16/18 06:52 Sodium 140 Potassium 2.4 L* Chloride 105 Carbon Dioxide 22.0 Anion Gap 13 BUN 2 L Creatinine 0.84 Estim Creat Clear Calc 61.47 Est GFR (MDRD) Af Amer 86 Est GFR (MDRD) Non-Af 71 BUN/Creatinine Ratio 2.4 L Glucose 129 H Calcium 7.4 L POC Glucose 02/16/18 02/16/18 02/15/18 06:14 00:32 17:04 POC Glucose 119 H 104 109 02/15/18 11:23 POC Glucose 123 H Medical Necessity - Tobacco Use Smoking Status: Former smoker Tobacco Use: Non-smoker Assessment/Plan All Active Problems (Last Reviewed 11/29/17 @ 03:51 by Kar Echols MD) Abdominal abscess (Acute) Nausea and vomiting (Acute) Diarrhea (Acute) Cystitis (Acute) Neutropenic fever (Acute) Pancytopenia (Acute) Thrombocytopenia (Acute) Ventricular tachycardia, nonsustained (Acute) Nonsustained paroxysmal supraventricular tachycardia (Acute) Multifocal premature ventricular contractions with pairing (Acute) ASSESSMENT/PLAN: 1) protracted nausea and vomiting. Assessment: -Most likely secondary to radiation esophagitis and/or peptic ulcer disease. Plan: -Continue supplemental IV fluids along with Carafate, proton pump inhibitor as well as nystatin swish and swallow. -If no improvement by Sunday, consider EGD. 2) Diarrhea. Assessment: -Potentially secondary to immunotherapy but this appears to be resolving. Plan: -Monitor. 3) Cough. Assessment: -While talking with her today, she took a sip of water and appeared to aspirate a small amount triggering a coughing paroxysm. Plan: -Discontinue antibiotic. -Swallow evaluation. 4) Metastatic non-small cell lung cancer. Assessment: -Patient observed to have progressive bone metastases in December. -Despite use of immunotherapy, she had progression to the point requiring need for palliative radiation. -Discussed hospice care with her today. She is considering this as an option. She would like to relocate to live with her daughter on the [facility]. I advised home hospice care when she does so. Plan: -Continue to address with her.
[2018-02-16] MEDS: Losartan Potassium 50 MG Tablet PO (09:03)
[2018-02-16] MEDS: Metoprolol Tartrate 100 MG Tablet PO (09:04)
[2018-02-16] MEDS: NYSTATIN 500,000 UNIT/5 ML UDC 500000 UNIT PO ×2 (09:04→16:08)
[2018-02-16] MEDS: Enoxaparin 40 MG/0.4 ML Syringe SC ×2 (09:18→09:23)
[2018-02-16] MEDS: fentaNYL 25 MCG Patch TRANSDERM. (09:18)
--- NOTE | 2018-02-16 09:56 | PCM.PROGNOTE ---
<Magy Barrientos - Last Filed: 02/16/18 10:13> Patient Problems: Active and Suspected Problems (Last Reviewed 11/29/17 @ 03:51 by Kar Echols MD) Abdominal abscess (Acute) Nausea and vomiting (Acute) Diarrhea (Acute) Subjective: Patient seen and examined. Denies further significant diarrhea. Nausea improved. Patient states she was able to tolerate some liquids and Jell-O overnight without emesis. - Physical Exam General: Alert, Oriented x3, Cooperative HEENT: Atraumatic, PERRLA, EOMI, Normocephalic Oral: Dry Mucosa Neck: Supple, No JVD, Negative Carotid Bruits Lungs: Clear to auscultation, Normal air movement Cardiovascular: Regular rate, Regular Rhythm, Normal S1, Normal S2, No murmurs Abdomen: Bowel Sounds Present, Soft, Non Tender, Non-Distended Extremities: No clubbing, No cyanosis, No edema, Capillary Refill Less than 3 Seconds Skin: No rashes, No breakdown Musculoskeletal: No Tenderness to Palpation of Joints or Extremities Neurological: Cranial nerves II-XII grossly intact, Neuro grossly intact Psych/Mental Status: Normal Affect, Appropriate Vital Signs Temp Pulse Resp BP Pulse Ox 98.0 F 87 18 170/87 H 98 02/16/18 09:11 02/16/18 09:11 02/16/18 09:11 02/16/18 09:11 02/16/18 09:11 Oxygen Delivery Method Room Air Weight: 197 lb 5.019 oz Body Mass Index (BMI) 30.9 Finger Stick Blood Glucose 164 Intake and Output for Last 24 Hours 02/14/18 02/15/18 02/16/18 23:59 23:59 23:59 Intake Total 3827 / 3827 2866 / 2866 1995 Output Total 1800 / 1800 1200 / 1200 600 / 600 Balance 2026 / 2026 1666 / 1666 1396 / 1396 Microbiology Past 72 Hours 02/14/18 13:35 Respiratory Panel (PCR) - Final Mucosa - Nasopharyngeal 02/15/18 00:12 Streptococcus pneumoniae Antigen (M - Final Urine, Random 02/15/18 00:12 Legionella Antigen - Final Urine, Random 02/14/18 13:35 Influenza Types A,B Direct FA (VIOLET) - Final Mucosa - Nose 02/14/18 08:20 Stool Lactoferrin - Final Stool 02/14/18 08:00 Enteric Bacteriology - Final Stool 02/14/18 08:00 C. difficile DNA Amplification - Final Stool Laboratory Tests Past 24 Hrs 02/16/18 06:52 Sodium 140 Potassium 2.4 L* Chloride 105 Carbon Dioxide 22.0 Anion Gap 13 BUN 2 L Creatinine 0.84 Estim Creat Clear Calc 61.47 Est GFR (MDRD) Af Amer 86 Est GFR (MDRD) Non-Af 71 BUN/Creatinine Ratio 2.4 L Glucose 129 H Calcium 7.4 L POC Glucose 02/16/18 02/16/18 02/15/18 06:14 00:32 17:04 POC Glucose 119 H 104 109 02/15/18 11:23 POC Glucose 123 H Medical Necessity - Tobacco Use Smoking Status: Former smoker Tobacco Use: Non-smoker Assessment/Plan All Active Problems (Last Reviewed 11/29/17 @ 03:51 by Kar Echols MD) Abdominal abscess (Acute) Nausea and vomiting (Acute) Diarrhea (Acute) Cystitis (Acute) Neutropenic fever (Acute) Pancytopenia (Acute) Thrombocytopenia (Acute) Ventricular tachycardia, nonsustained (Acute) Nonsustained paroxysmal supraventricular tachycardia (Acute) Multifocal premature ventricular contractions with pairing (Acute) 1. Intractable nausea, vomiting- Adverse effect from Keytruda versus radiation esophagitis, possible gastroenteritis as well-stool studies negative. CT of abdomen and pelvis on admission shows chronic diverticulosis, possible distal sigmoid small abscess. Multiple blastic lesions of the axial and appendicular skeleton consistent with osseous metastatic disease. Surgery on consult for diverticular abscess. No plans for scope at this time. Continue IV fluids, IV Protonix, Carafate. Oncology consulted. Patient follows with Dr. Pineda. Dr. Conley added Haldol for antiemetic, patient notes improvement. Continue nystatin swish and swallow. Oncology discussed hospice with patient this morning. Patient is considering and will discuss with family. Continue supportive measures. Continue clear liquid diet. 2. 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 Pineda. Currently on immunosuppressive therapy and radiation. Unable to tolerate chemotherapy. Continue home fentanyl regimen. Dr. Conley discussed hospice with patient due to bone metastasis with progression despite immunotherapy, requiring palliative radiation. She is going to consider this option. 3. Nonproductive cough-chest x-ray without acute pathology. DC IV Zosyn. Afebrile. No leukocytosis. Speech therapy consult. 4. Electrolyte disturbance including hypophosphatemia, hypokalemia, hypomagnesia-replaced per protocol. 5. Type 2 diabetes mellitus-hold home oral regimen. Accu-Cheks before meals at bedtime with sliding scale insulin. 6. Chronic normocytic anemia, iron deficiency anemia-stable. 7. Chronic asthma-no acute exacerbation. PRN albuterol. 8. Hypertension-Continue home blood pressure regimen including losartan, metoprolol. HCTZ on hold. Continue PRN hydralazine. 9. Hyperlipidemia-continue statin. 10. Anxiety/depression-continue sertraline, Ativan regimen. 11. GERD-IV PPI. 12. ALIN-continue CPAP nightly. 13. Obesity-encouraged diet and lifestyle modifications. DVT prophylaxis-Lovenox subcu. This patient was seen by THEE Norton under the supervision of Dr. Rosario. <Matilda Rosario - Last Filed: 02/16/18 12:02> - Physical Exam Vital Signs Temp Pulse Resp BP Pulse Ox 98.0 F 87 18 170/87 H 98 02/16/18 09:11 02/16/18 09:11 02/16/18 09:11 02/16/18 09:11 02/16/18 09:11 Oxygen Delivery Method Room Air Weight: 197 lb 5.019 oz Body Mass Index (BMI) 30.9 Finger Stick Blood Glucose 164 Intake and Output for Last 24 Hours 02/14/18 02/15/18 02/16/18 23:59 23:59 23:59 Intake Total 3827 / 3827 2866 / 2866 1995 Output Total 1800 / 1800 1200 / 1200 600 / 600 Balance 2026 1666 / 1666 1396 / 1396 Microbiology Past 72 Hours 02/14/18 13:35 Respiratory Panel (PCR) - Final Mucosa - Nasopharyngeal 02/15/18 00:12 Streptococcus pneumoniae Antigen (M - Final Urine, Random 02/15/18 00:12 Legionella Antigen - Final Urine, Random 02/14/18 13:35 Influenza Types A,B Direct FA (VIOLET) - Final Mucosa - Nose 02/14/18 08:20 Stool Lactoferrin - Final Stool 02/14/18 08:00 Enteric Bacteriology - Final Stool 02/14/18 08:00 C. difficile DNA Amplification - Final Stool Laboratory Tests Past 24 Hrs 02/16/18 02/16/18 06:52 06:52 Sodium 140 Potassium 2.4 L* Chloride 105 Carbon Dioxide 22.0 Anion Gap 13 BUN 2 L Creatinine 0.84 Estim Creat Clear Calc 61.47 Est GFR (MDRD) Af Amer 86 Est GFR (MDRD) Non-Af 71 BUN/Creatinine Ratio 2.4 L Glucose 129 H Calcium 7.4 L Magnesium 1.6 POC Glucose 02/16/18 02/16/18 02/15/18 06:14 00:32 17:04 POC Glucose 119 H 104 109 02/15/18 11:23 POC Glucose 123 H Assessment/Plan Patient seen by Magy Barrientos under my supervision Patient seen and examined. Vomiting and diarrhea has improved but she still feels very weak and sick. Patient looks very uncomfortable. She denied any fever or chills, cough or chest pain, shortness breath, abdominal pain, diarrhea or vomiting. Review of systems otherwise negative. Labs and vitals reviewed. o/e: Vital Signs Height 5 ft 7 in Weight: 197 lb 5.019 oz Weight in Pounds 197.3 lbs Pulse Ox 97 Temperature 98.2 F Pulse Rate 71 Respiratory Rate 18 Blood Pressure 156/83 Blood Pressure Position Semi-Fowlers General: Alert, Oriented x3, Cooperative, patient looks ill and uncomfortable HEENT: Atraumatic, PERRLA, EOMI, Normocephalic Oral: Dry Mucosa Neck: Supple, No JVD, Negative Carotid Bruits Lungs: Clear to auscultation, Normal air movement Cardiovascular: Regular rate, Regular Rhythm, Normal S1, Normal S2, No murmurs Abdomen: Bowel Sounds Present, Soft, Non Tender, Non-Distended Extremities: No clubbing, No cyanosis, No edema, Capillary Refill Less than 3 Seconds Skin: No rashes, No breakdown Musculoskeletal: No Tenderness to Palpation of Joints or Extremities Neurological: Cranial nerves II-XII grossly intact, Neuro grossly intact Psych/Mental Status: Restless, looks very uncomfortable Plan discussed with Dr Conley. Vomiting is likely due to radiation esophagitis. Diarrhea, which may have been a side effect of Keytruda, is resolving now. Patient is severely hypokalemic today, with K of 2.4. Will replace. Per discussion with Dr Conley, he will start broaching hospice and palliative care with patient. Small cell lung cancer has been progressing with bony metastasis despite treatment with immunotherapy. She does also have a very good performance status and so it is unlikely that she would tolerate further aggressive treatment.Continue IVF hydration and potassium replacement. Scopolamine was dc'd as it caused dry mouth; started on haldol which is helping with nausea. Rest of management as per Magy Barrientos [employer] OPERATOR-C's note. I have reviewed and agree with Magy Barrientos NP C's note, assessment and plan. Code Visit Inpatient E&M: 58604 Subs Hosp L3
[2018-02-16 10:29] LABS: Magnesium 1.6 mg/dL (1.6-2.6)
[2018-02-16] MEDS: 0.9% NaCl Peripheral Flush Adult/Peds IV ×2 (11:59→16:07)
[2018-02-16 12:21] LABS: Bedside Glucose 117 mg/dL (70-110)
[2018-02-16] MEDS: hydrALAZINE 20 MG/ML Vial 10 MG IV ×2 (16:10→20:22)
[2018-02-16 16:35] LABS: Bedside Glucose 145 mg/dL (70-110)
[2018-02-16] MEDS: MELATONIN 10 MG TABLET 5 MG PO (20:07)
[2018-02-16] MEDS: Sertraline 50 MG Tablet PO (21:39)
[2018-02-16] MEDS: LORazepam 2 MG/ML Syringe 0.5 MG IV (22:00)
[2018-02-17] VITALS (8 sets, daily range): BP systolic 145–184; BP diastolic 72–93; PULSE 63–97; RESP 16–18; TEMP 36.5–37.1; O2SAT 93–96
[2018-02-17 00:05] LABS: Bedside Glucose 139 mg/dL (70-110)
[2018-02-17] MEDS: 0.9% Normal Saline 1,000 ML 75 ML IV ×2 (01:40→15:30)
[2018-02-17] MEDS: Morphine 2 MG/ML Syringe IV ×4 (01:41→22:32)
[2018-02-17] MEDS: Haloperidol 1 MG Tablet PO ×3 (06:04→21:04)
[2018-02-17] MEDS: Ondansetron 4 MG/2 ML Vial IV (06:14)
[2018-02-17 06:16] LABS: Bedside Glucose 108 mg/dL (70-110)
[2018-02-17 06:46] LABS: Anion Gap 10 (5-15); BUN 2 mg/dL (7-18); BUN/Creat Ratio 2.8 RATIO (10-20); Calcium,Total 7.7 mg/dL (8.5-10.1); Chloride 108 mmol/L (98-107); Creatinine, Serum 0.72 mg/dL (0.55-1.02); EST Glomerular Filtration Rate 86 mL/min (>60); Est Glom Filt Rate - Afr Amer 104 mL/min (>60); Estimated Creatinine Clearance 51.63 ml/min; Glucose 119 mg/dL (74-106); Potassium 2.4 mmol/L (3.5-5.1); Sodium Level 144 mmol/L (136-145)
--- NOTE | 2018-02-17 07:32 | PN.SURG_ITS ---
Patient Problems: Active and Suspected Problems (Last Reviewed 11/29/17 @ 03:51 by Kar Echols MD) Abdominal abscess (Acute) Nausea and vomiting (Acute) Diarrhea (Acute) Subjective: Patient had some nausea overnight but tolerated clear liquids. She reports she is passing flatus and having no abdominal pain. Her only pain is at her rib metastasis sites. - Physical Exam General: Alert, Oriented x3, Cooperative Abdomen: Soft, Non Tender, Non-Distended Vital Signs Temp Pulse Resp BP Pulse Ox 97.7 F L 97 18 176/78 H 96 02/17/18 01:37 02/17/18 01:37 02/17/18 01:37 02/17/18 01:37 02/17/18 01:37 Oxygen Delivery Method Room Air Weight: 197 lb 5.019 oz Body Mass Index (BMI) 30.9 Finger Stick Blood Glucose 164 Intake and Output for Last 24 Hours 02/15/18 02/16/18 02/17/18 23:59 23:59 23:59 Intake Total 2866 / 2866 2512 / 2512 Output Total 1200 / 1200 1400 / 1400 Balance 1666 / 1666 1112 / 1112 Microbiology Past 72 Hours 02/14/18 13:35 Respiratory Panel (PCR) - Final Mucosa - Nasopharyngeal 02/15/18 00:12 Streptococcus pneumoniae Antigen (M - Final Urine, Random 02/15/18 00:12 Legionella Antigen - Final Urine, Random 02/14/18 13:35 Influenza Types A,B Direct FA (VIOLET) - Final Mucosa - Nose 02/14/18 08:20 Stool Lactoferrin - Final Stool 02/14/18 08:00 Enteric Bacteriology - Final Stool 02/14/18 08:00 C. difficile DNA Amplification - Final Stool Laboratory Tests Past 24 Hrs 02/16/18 02/16/18 02/17/18 06:52 06:52 05:48 Sodium 140 144 Potassium 2.4 L* 2.4 L* Chloride 105 108 H Carbon Dioxide 22.0 26.0 Anion Gap 13 10 BUN 2 L 2 L Creatinine 0.84 0.72 Estim Creat Clear Calc 61.47 51.63 Est GFR (MDRD) Af Amer 86 104 Est GFR (MDRD) Non-Af 71 86 BUN/Creatinine Ratio 2.4 L 2.8 L Glucose 129 H 119 H Calcium 7.4 L 7.7 L Magnesium 1.6 POC Glucose 02/17/18 02/17/18 02/16/18 06:03 00:00 16:25 POC Glucose 108 139 H 145 H 02/16/18 12:06 POC Glucose 117 H Medical Necessity - Tobacco Use Smoking Status: Former smoker Tobacco Use: Non-smoker Assessment/Plan All Active Problems (Last Reviewed 11/29/17 @ 03:51 by Kar Echols MD) Abdominal abscess (Acute) Nausea and vomiting (Acute) Diarrhea (Acute) Cystitis (Acute) Neutropenic fever (Acute) Pancytopenia (Acute) Thrombocytopenia (Acute) Ventricular tachycardia, nonsustained (Acute) Nonsustained paroxysmal supraventricular tachycardia (Acute) Multifocal premature ventricular contractions with pairing (Acute) 67-year-old female with nausea and vomiting 1. Patient is tolerated clear liquids. She did complain of some mild nausea but she is being treated for that. She is having no abdominal pain and is passing flatus. I will try her on some full liquids to see if this causes her nausea. She discussed hospice with Dr. Conley yesterday. Rajinder Beck MD Pager: [facility] [address] [place] [address], [address] [place] [address] Office:
--- NOTE | 2018-02-17 08:38 | PCM.PROGNOTE ---
Patient Problems: Active and Suspected Problems (Last Reviewed 11/29/17 @ 03:51 by Kar Echols MD) Abdominal abscess (Acute) Nausea and vomiting (Acute) Diarrhea (Acute) Subjective: Speech therapy evaluation appreciated. Patient following recs--HOB up 60 degrees minimum when drinking/eating, taking small sips Ensure and only 1/2 teaspoon Jello at a time. No vomiting yesterday. ~3 loose BMs. - Physical Exam General: Alert, Oriented x3 Lungs: Normal air movement Cardiovascular: Regular Rhythm Abdomen: Soft, - - Generalized tenderness Vital Signs Temp Pulse Resp BP Pulse Ox 98.7 F 63 16 184/93 H 93 02/17/18 08:07 02/17/18 08:07 02/17/18 08:07 02/17/18 08:07 02/17/18 08:07 Oxygen Delivery Method Room Air Weight: 89.5 kg Body Mass Index (BMI) 30.9 Finger Stick Blood Glucose 164 Intake and Output for Last 24 Hours 02/15/18 02/16/18 02/17/18 23:59 23:59 23:59 Intake Total 2866 / 2866 2512 / 2512 Output Total 1200 / 1200 1400 / 1400 Balance 1666 / 1666 1112 / 1112 Microbiology Past 72 Hours 02/14/18 13:35 Respiratory Panel (PCR) - Final Mucosa - Nasopharyngeal 02/15/18 00:12 Streptococcus pneumoniae Antigen (M - Final Urine, Random 02/15/18 00:12 Legionella Antigen - Final Urine, Random 02/14/18 13:35 Influenza Types A,B Direct FA (VIOLET) - Final Mucosa - Nose 02/14/18 08:20 Stool Lactoferrin - Final Stool 02/14/18 08:00 Enteric Bacteriology - Final Stool 02/14/18 08:00 C. difficile DNA Amplification - Final Stool Laboratory Tests Past 24 Hrs 02/16/18 02/17/18 06:52 05:48 Sodium 144 Potassium 2.4 L* Chloride 108 H Carbon Dioxide 26.0 Anion Gap 10 BUN 2 L Creatinine 0.72 Estim Creat Clear Calc 51.63 Est GFR (MDRD) Af Amer 104 Est GFR (MDRD) Non-Af 86 BUN/Creatinine Ratio 2.8 L Glucose 119 H Calcium 7.7 L Magnesium 1.6 POC Glucose 02/17/18 02/17/18 02/16/18 06:03 00:00 16:25 POC Glucose 108 139 H 145 H 02/16/18 12:06 POC Glucose 117 H Medical Necessity - Tobacco Use Smoking Status: Former smoker Tobacco Use: Non-smoker Assessment/Plan All Active Problems (Last Reviewed 11/29/17 @ 03:51 by Kar Echols MD) Abdominal abscess (Acute) Nausea and vomiting (Acute) Diarrhea (Acute) Cystitis (Acute) Neutropenic fever (Acute) Pancytopenia (Acute) Thrombocytopenia (Acute) Ventricular tachycardia, nonsustained (Acute) Nonsustained paroxysmal supraventricular tachycardia (Acute) Multifocal premature ventricular contractions with pairing (Acute) ASSESSMENT/PLAN: 1) Protracted nausea and vomiting. Assessment: -Most likely secondary to radiation esophagitis and/or peptic ulcer disease. -Slowly improving with current therapy, but she's still not able to get in adequate nutrition. Plan: -Continue supplemental IV fluids along with Carafate, proton pump inhibitor as well as nystatin swish and swallow. -Follow speech therapy recs. -Discussed with Dr. Beck--EGD tomorrow. 2) Diarrhea. Assessment: -Having several loose non-watery BMs a day. Plan: -Monitor. 4) Metastatic non-small cell lung cancer. Assessment: -Patient observed to have progressive bone metastases in December. -Despite use of immunotherapy, she had progression to the point requiring need for palliative radiation. -Again discussed hospice with her this am while step-daughter present for conversation. Patient is okay with home hospice care once above issues improved/resolved. Plan: -Home hospice when relocates to [place] after d/c.
[2018-02-17 09:23] LABS: Magnesium 1.5 mg/dL (1.6-2.6)
[2018-02-17] MEDS: Metoprolol Tartrate 100 MG Tablet PO (10:26)
[2018-02-17] MEDS: Losartan Potassium 50 MG Tablet PO ×2 (10:26→21:04)
[2018-02-17 11:31] LABS: Bedside Glucose 145 mg/dL (70-110)
--- NOTE | 2018-02-17 13:02 | PCM.PROGNOTE ---
<Magy Barrientos - Last Filed: 02/17/18 13:10> Patient Problems: Active and Suspected Problems (Last Reviewed 11/29/17 @ 03:51 by Kar Echols MD) Abdominal abscess (Acute) Nausea and vomiting (Acute) Diarrhea (Acute) Subjective: Patient seen and examined. Appears more comfortable. States she is tolerating liquids and Jell-O. No further emesis. She did have 3 episodes of diarrhea this morning. Overall feeling improved. - Physical Exam General: Alert, Oriented x3, Cooperative HEENT: Atraumatic, PERRLA, EOMI, Normocephalic Oral: Moist Mucosa Neck: Supple, No JVD, Negative Carotid Bruits Lungs: Clear to auscultation, Normal air movement Cardiovascular: Regular rate, Regular Rhythm, Normal S1, Normal S2, No murmurs Abdomen: Bowel Sounds Present, Soft, Non Tender, Non-Distended Extremities: No clubbing, No cyanosis, No edema, Capillary Refill Less than 3 Seconds Skin: No rashes, No breakdown Musculoskeletal: No Tenderness to Palpation of Joints or Extremities Neurological: Cranial nerves II-XII grossly intact, Neuro grossly intact Psych/Mental Status: Normal Affect, Appropriate Vital Signs Temp Pulse Resp BP Pulse Ox 98.7 F 63 16 184/93 H 93 02/17/18 08:07 02/17/18 10:26 02/17/18 08:07 02/17/18 08:07 02/17/18 08:07 Oxygen Delivery Method Room Air Weight: 197 lb 5.019 oz Body Mass Index (BMI) 30.9 Finger Stick Blood Glucose 164 Intake and Output for Last 24 Hours 02/15/18 02/16/18 02/17/18 23:59 23:59 23:59 Intake Total 2866 / 2866 2512 / 2512 Output Total 1200 / 1200 1400 / 1400 Balance 1666 / 1666 1112 / 1112 Microbiology Past 72 Hours 02/14/18 13:35 Respiratory Panel (PCR) - Final Mucosa - Nasopharyngeal 02/15/18 00:12 Streptococcus pneumoniae Antigen (M - Final Urine, Random 02/15/18 00:12 Legionella Antigen - Final Urine, Random 02/14/18 13:35 Influenza Types A,B Direct FA (VIOLET) - Final Mucosa - Nose 02/14/18 08:20 Stool Lactoferrin - Final Stool 02/14/18 08:00 Enteric Bacteriology - Final Stool 02/14/18 08:00 C. difficile DNA Amplification - Final Stool Laboratory Tests Past 24 Hrs 02/17/18 02/17/18 05:48 05:48 Sodium 144 Potassium 2.4 L* Chloride 108 H Carbon Dioxide 26.0 Anion Gap 10 BUN 2 L Creatinine 0.72 Estim Creat Clear Calc 51.63 Est GFR (MDRD) Af Amer 104 Est GFR (MDRD) Non-Af 86 BUN/Creatinine Ratio 2.8 L Glucose 119 H Calcium 7.7 L Magnesium 1.5 L POC Glucose 02/17/18 02/17/18 02/17/18 11:24 06:03 00:00 POC Glucose 145 H 108 139 H 02/16/18 16:25 POC Glucose 145 H Medical Necessity - Tobacco Use Smoking Status: Former smoker Tobacco Use: Non-smoker Assessment/Plan All Active Problems (Last Reviewed 11/29/17 @ 03:51 by Kar Echols MD) Abdominal abscess (Acute) Nausea and vomiting (Acute) Diarrhea (Acute) Cystitis (Acute) Neutropenic fever (Acute) Pancytopenia (Acute) Thrombocytopenia (Acute) Ventricular tachycardia, nonsustained (Acute) Nonsustained paroxysmal supraventricular tachycardia (Acute) Multifocal premature ventricular contractions with pairing (Acute) 1. Intractable nausea, vomiting- Adverse effect from Keytruda versus radiation esophagitis, possible gastroenteritis as well-stool studies negative. CT of abdomen and pelvis on admission shows chronic diverticulosis, possible distal sigmoid small abscess. Multiple blastic lesions of the axial and appendicular skeleton consistent with osseous metastatic disease. Surgery on consult for diverticular abscess. No further concern for abscess per surgery. Continue IV fluids, IV Protonix, Carafate. Oncology consulted. Patient follows with Dr. Pineda. Dr. Conley added Haldol for antiemetic, patient notes improvement. Continue nystatin swish and swallow. Oncology discussed hospice with patient. Patient is agreeable to home with hospice, she plans on relocating to [place] after discharge. EGD is planned for tomorrow due to slow improvement of nausea leading to poor oral intake. 2. 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 Pineda. Currently on immunosuppressive therapy and radiation. Unable to tolerate chemotherapy. Continue home fentanyl regimen. Dr. Conley discussed hospice with patient due to bone metastasis with progression despite immunotherapy, requiring palliative radiation. Plan for home with hospice at discharge. 3. Nonproductive cough-chest x-ray without acute pathology. DC IV Zosyn. Afebrile. No leukocytosis. Speech therapy consult. Recommend upright seated position with meals and small sips. 4. Electrolyte disturbance including hypophosphatemia, hypokalemia, hypomagnesia-persistent hypokalemia, replaced per protocol. 5. Type 2 diabetes mellitus-hold home oral regimen. Accu-Cheks before meals at bedtime with sliding scale insulin. 6. Chronic normocytic anemia, iron deficiency anemia-stable. 7. Chronic asthma-no acute exacerbation. PRN albuterol. 8. Hypertension-Continue home blood pressure regimen including losartan, metoprolol. HCTZ on hold. Continue PRN hydralazine. 9. Hyperlipidemia-continue statin. 10. Anxiety/depression-continue sertraline, Ativan regimen. 11. GERD-IV PPI. 12. ALIN-continue CPAP nightly. 13. Obesity-encouraged diet and lifestyle modifications. DVT prophylaxis-Lovenox subcu. This patient was seen by THEE Norton under the supervision of Dr. Rosario. <Matilda Rosario - Last Filed: 02/17/18 14:15> - Physical Exam Vital Signs Temp Pulse Resp BP Pulse Ox 98.7 F 63 16 184/93 H 93 02/17/18 08:07 02/17/18 10:26 02/17/18 08:07 02/17/18 08:07 02/17/18 08:07 Oxygen Delivery Method Room Air Weight: 197 lb 5.019 oz Body Mass Index (BMI) 30.9 Finger Stick Blood Glucose 164 Intake and Output for Last 24 Hours 02/15/18 02/16/18 02/17/18 23:59 23:59 23:59 Intake Total 2866 / 2866 2512 / 2512 Output Total 1200 / 1200 1400 / 1400 700 / 700 Balance 1666 / 1666 1112 / 1112 -700 / -700 Microbiology Past 72 Hours 02/17/18 Unknown Stool Occult Blood (VIOLET) - Final Stool 02/14/18 13:35 Respiratory Panel (PCR) - Final Mucosa - Nasopharyngeal 02/15/18 00:12 Streptococcus pneumoniae Antigen (M - Final Urine, Random 02/15/18 00:12 Legionella Antigen - Final Urine, Random 02/14/18 13:35 Influenza Types A,B Direct FA (VIOLET) - Final Mucosa - Nose 02/14/18 08:20 Stool Lactoferrin - Final Stool 02/14/18 08:00 Enteric Bacteriology - Final Stool 02/14/18 08:00 C. difficile DNA Amplification - Final Stool Laboratory Tests Past 24 Hrs 02/17/18 02/17/18 05:48 05:48 Sodium 144 Potassium 2.4 L* Chloride 108 H Carbon Dioxide 26.0 Anion Gap 10 BUN 2 L Creatinine 0.72 Estim Creat Clear Calc 51.63 Est GFR (MDRD) Af Amer 104 Est GFR (MDRD) Non-Af 86 BUN/Creatinine Ratio 2.8 L Glucose 119 H Calcium 7.7 L Magnesium 1.5 L POC Glucose 02/17/18 02/17/18 02/17/18 11:24 06:03 00:00 POC Glucose 145 H 108 139 H 02/16/18 16:25 POC Glucose 145 H Assessment/Plan Patient seen by Magy Barrientos under my supervision patient seen and examined this morning. Nausea, vomiting and diarrhea have improved significantly. However she still feels very lethargic. Hospice was discussed with patient by oncology yesterday. Patient stated that she wanted more time to think about it but she was amenable to going back to [place] with hospice after discharge. She denies any fever chills, any cough or chest pain, shortness of breath, abdominal pain still has some nausea but no vomiting. She has an EGD planned for tomorrow due to persistent nausea though is improved. o/e: Vital Signs Height 5 ft 7 in Weight: 197 lb 5.019 oz Weight in Pounds 197.3 lbs Pulse Ox 93 Temperature 98.7 F Pulse Rate 63 Respiratory Rate 16 Blood Pressure 184/93 Blood Pressure Position Supine General: Alert, Oriented x3, Cooperative, HEENT: Atraumatic, PERRLA, EOMI, Normocephalic Oral: Dry Mucosa Neck: Supple, No JVD, Negative Carotid Bruits Lungs: Clear to auscultation, Normal air movement Cardiovascular: Regular rate, Regular Rhythm, Normal S1, Normal S2, No murmurs Abdomen: Bowel Sounds Present, Soft, Non Tender, Non-Distended Extremities: No clubbing, No cyanosis, No edema, Capillary Refill Less than 3 Seconds Skin: No rashes, No breakdown Musculoskeletal: No Tenderness to Palpation of Joints or Extremities Neurological: Cranial nerves II-XII grossly intact, Neuro grossly intact Psych/Mental Status: calm Plan is to continue with IVF and haldol for nausea. Oncology on board, and have discussed hospice with her. Patient is willing to consider hospice and plans to return to [place] to be with her daughter. TO have EGD tomorrow o/a of protracted nausea and vomiting. Rest of management as per Magy Barrientos NP-C's note. Agree with above note, assessment and plan by Magy KINGSTON. Code Visit Inpatient E&M: 14698 Subs Hosp L3
[2018-02-17 15:58] LABS: Potassium 2.7 mmol/L (3.5-5.1)
[2018-02-17] MEDS: Sucralfate 1 GM Tablet PO ×2 (16:59→21:04)
[2018-02-17] MEDS: Insulin Lispro 100 UNIT/ML INSULN.PEN SC (18:08)
[2018-02-17 18:21] LABS: Bedside Glucose 171 mg/dL (70-110)
[2018-02-17] MEDS: Sertraline 50 MG Tablet PO (21:04)
[2018-02-17] MEDS: 0.9% NaCl Peripheral Flush Adult/Peds IV ×2 (22:35→23:24)
[2018-02-17] MEDS: hydrALAZINE 20 MG/ML Vial 10 MG IV (23:19)
[2018-02-17 23:50] LABS: Bedside Glucose 144 mg/dL (70-110)
[2018-02-18] VITALS (17 sets, daily range): BP systolic 160–217; BP diastolic 74–106; PULSE 74–99; RESP 14–18; TEMP 36.5–37; O2SAT 94–99; BMI 30.9
[2018-02-18] MEDS: Morphine 2 MG/ML Syringe IV ×2 (02:25→06:11)
[2018-02-18] MEDS: Ondansetron 4 MG/2 ML Vial IV (02:31)
--- NOTE | 2018-02-18 03:44 | NURSING ---
Rechecked bp after giving morphine, still elevated 170/80. Will give prn apresoline.
[2018-02-18] MEDS: hydrALAZINE 20 MG/ML Vial 10 MG IV ×3 (03:48→12:47)
[2018-02-18] MEDS: 0.9% Normal Saline 1,000 ML 75 ML IV ×3 (03:52→17:42)
--- NOTE | 2018-02-18 06:00 | EKG12_ITS ---
Test Reason : AM EKG Blood Pressure : / mmHG Vent. Rate : 103 BPM Atrial Rate : 103 BPM P-R Int : 166 ms QRS Dur : 094 ms QT Int : 398 ms P-R-T Axes : 071 078 003 degrees QTc Int : 521 ms Sinus tachycardia with occasional Premature ventricular complexes ST & T wave abnormality, consider inferior ischemia Prolonged QT Abnormal ECG When compared with ECG of 13-FEB-2018 16:54, Premature ventricular complexes are now Present T wave inversion now evident in Inferior leads Nonspecific T wave abnormality now evident in Lateral leads Confirmed by FLORIN MARIEE, SRINI ([id number]), research editor JEREMIAH URIBE ([id number] on 02/19/2018 4:10:32 PM Referred By: Karen Flores Confirmed By:SRINI CATHERINE MD
[2018-02-18 06:11] LABS: Bedside Glucose 145 mg/dL (70-110)
[2018-02-18] MEDS: Saliva Substitute 237 ML BOTTLE 15 ML MM (06:11)
[2018-02-18 06:18] LABS: Absolute Neutrophil Count 7.1 X10^3/uL (2.0-7.7); Basophil# 0.01 X10^3/uL; Basophil% 0.1 % (0-1); Eosinophil# 0.19 X10^3/uL; Eosinophils% 2.1 % (0-5); Hematocrit 30.2 % (37-47); Hemoglobin 9.7 g/dl (12.0-15.0); Mean Corp Hgb Conc 32.1 g/gl (32-36); Mean Corpuscular Hgb 31.1 pg (27.0-32.0); Mean Corpuscular Volume 96.8 fL (81-99); Monocyte# 0.85 X10^3/uL; Monocyte% 9.4 % (0-10); Neutrophil # 7.05 X10^3/uL (2.7-7.7); Neutrophil % 78.1 % (47-70); Platelet Count 307 K/mm3 (150-450); RBC Distribution Width CV 14.8 % (11.6-14.6); RBC Distribution Width SD 52.6 fl (35.1-43.9); Red Blood Count 3.12 M/mm3 (4.2-5.4)
[2018-02-18 06:38] LABS: POSITIVE COUNT NO; POSITIVE DIFFERENTIAL NO; POSITIVE MORPHOLOGY NO
[2018-02-18 06:47] LABS: Anion Gap 7 (5-15); BUN 1 mg/dL (7-18); BUN/Creat Ratio 1.6 RATIO (10-20); Chloride 107 mmol/L (98-107); Creatinine, Serum 0.61 mg/dL (0.55-1.02); EST Glomerular Filtration Rate 103 mL/min (>60); Est Glom Filt Rate - Afr Amer 124 mL/min (>60); Estimated Creatinine Clearance 51.63 ml/min; Glucose 144 mg/dL (74-106); Potassium 2.7 mmol/L (3.5-5.1); Sodium Level 141 mmol/L (136-145)
[2018-02-18] MEDS: proMETHazine 25 MG/ML Syringe 12.5 MG IV (07:05)
--- NOTE | 2018-02-18 07:10 | PN_ITS ---
Patient Problems: Active and Suspected Problems (Last Reviewed 11/29/17 @ 03:51 by Kra Echols MD) Nausea and vomiting (Acute) Diarrhea (Acute) Subjective: Patient still has dysphasia and nausea after eating. She is scheduled for upper endoscopy this morning. Patient has neuropathic/rheumatic pain in the left chest area thoracic bone metastases She has no diarrhea. Denies cough shortness of breath. - Physical Exam General: Alert, Oriented x3, No apparent distress Oral: Moist Mucosa, No Gingival or Mucosal Lesions/ Ulcerations Neck: Supple, No JVD Lungs: Clear to auscultation Cardiovascular: Regular rate, Regular Rhythm, No murmurs Abdomen: Bowel Sounds Present, Soft, Non Tender, Non-Distended Extremities: No clubbing, No cyanosis, No edema Skin: No rashes, No breakdown Lymphatic: No Cervical, Supraclavicular, or Inguinal Adenopathy Neurological: Neuro grossly intact Psych/Mental Status: Normal Affect Vital Signs Temp Pulse Resp BP Pulse Ox 98.1 F 99 16 165/75 H 96 02/18/18 06:03 02/18/18 06:03 02/18/18 06:03 02/18/18 06:03 02/18/18 06:03 Oxygen Delivery Method Room Air Weight: 197 lb 5.019 oz Body Mass Index (BMI) 30.9 Finger Stick Blood Glucose 164 Intake and Output for Last 24 Hours 02/16/18 02/17/18 02/18/18 23:59 23:59 23:59 Intake Total 2512 / 2512 3972.4 / 3972.4 777 / 777 Output Total 1400 / 1400 900 / 900 Balance 1112 / 1112 3072.4 / 3072.4 777 / 777 Microbiology Past 72 Hours 02/17/18 Unknown Stool Occult Blood (VIOLET) - Final Stool 02/14/18 13:35 Respiratory Panel (PCR) - Final Mucosa - Nasopharyngeal Laboratory Tests Past 24 Hrs 02/17/18 02/17/18 02/18/18 05:48 15:10 05:56 WBC RBC Hgb Hct MCV MCH MCHC RDW RDW Differential Plt Count MPV Immature Gran % (Auto) Neut % (Auto) Lymph % (Auto) [place] % (Auto) Eos % (Auto) Baso % (Auto) Absolute Neuts (auto) Absolute Lymphs (auto) Total Counted Sodium 141 Potassium 2.7 L* 2.7 L* Chloride 107 Carbon Dioxide 27.0 Anion Gap 7 BUN 1 L Creatinine 0.61 Estim Creat Clear Calc 51.63 Est GFR (MDRD) Af Amer 124 Est GFR (MDRD) Non-Af 103 BUN/Creatinine Ratio 1.6 L Glucose 144 H Hemoglobin A1c Calcium 8.0 L Magnesium 1.5 L 02/18/18 02/18/18 05:56 05:56 WBC 9.0 RBC 3.12 L Hgb 9.7 L Hct 30.2 L MCV 96.8 MCH 31.1 MCHC 32.1 RDW 14.8 H RDW Differential 52.6 H Plt Count 307 MPV 9.0 Immature Gran % (Auto) 0.300 Neut % (Auto) 78.1 H Lymph % (Auto) 10.0 L [place] % (Auto) 9.4 Eos % (Auto) 2.1 Baso % (Auto) 0.1 Absolute Neuts (auto) 7.1 Absolute Lymphs (auto) 0.90 Total Counted Not Reportable Sodium Potassium Chloride Carbon Dioxide Anion Gap BUN Creatinine Estim Creat Clear Calc Est GFR (MDRD) Af Amer Est GFR (MDRD) Non-Af BUN/Creatinine Ratio Glucose Hemoglobin A1c Pending Calcium Magnesium POC Glucose 02/18/18 02/17/18 02/17/18 05:56 23:32 18:06 POC Glucose 145 H 144 H 171 H 02/17/18 11:24 POC Glucose 145 H Medical Necessity - Tobacco Use Smoking Status: Former smoker Tobacco Use: Non-smoker Assessment/Plan All Active Problems (Last Reviewed 11/29/17 @ 03:51 by Kar Echols MD) Abdominal abscess (Acute) Nausea and vomiting (Acute) Diarrhea (Acute) Cystitis (Acute) Neutropenic fever (Acute) Pancytopenia (Acute) Thrombocytopenia (Acute) Ventricular tachycardia, nonsustained (Acute) Nonsustained paroxysmal supraventricular tachycardia (Acute) Multifocal premature ventricular contractions with pairing (Acute) ASSESSMENT/PLAN: 1) Protracted nausea and vomiting. Assessment: -Most likely secondary to radiation esophagitis and/or peptic ulcer disease. -Slowly improving with current therapy, but she's still not able to get in adequate nutrition. Plan: -Continue supplemental IV fluids along with proton pump inhibitor as well as nystatin swish and swallow. -Follow speech therapy recs. -Discussed with Dr. Beck--EGD today; further recommendations depending on findings (radiation esophagitis versus infection/thrush). - resume Carafate vs. start Diflucan - Continue Haldol & Zofran as needed for nauea 2) Diarrhea. Assessment: -Having several loose non-watery BMs a day. -Hypokalemia and low magnesium Plan: -Monitor & Imodium as needed -Replace potassium & magnesium 3) intractable pain secondary to bone metastasis Assessment: -We will cancel her last course of radiation therapy. Plan: -Continue Duragesic 37 mcg q 72-hour -Continue IV morphine 4 mg every 2 hours as needed -Resume Neurontin 600mg TID -Start Cymbalta 40mg once daily for depression and pain 4) Metastatic non-small cell lung cancer. Assessment: -Patient observed to have progressive bone metastases in December on Keytruda. -Not a candidate for palliative chemotherapy based on performance status and symptoms cancer. -Despite use of immunotherapy, she had progression to the point requiring need for palliative radiation. -Again discussed hospice with her this am while step-daughter present for conv ersation. Patient is okay with home hospice care once above issues improved/resolved. Plan: -Consult [facility] hosp[facility] for discharge planning -Transfer to Home hospice when relocates to [place] after d/c. Additional CC's: Rajinder Beck; Sherice Pineda; Matilda Rosario
[2018-02-18] MEDS: LORazepam 2 MG/ML Syringe 0.5 MG IV (08:05)
[2018-02-18] MEDS: 0.9% NaCl Peripheral Flush Adult/Peds IV (08:06)
[2018-02-18 08:11] LABS: Hemoglobin A1c 4.7 % (4.2-6.3)
--- NOTE | 2018-02-18 08:13 | PCM.PN.SRG ---
Patient Problems: Active and Suspected Problems (Last Reviewed 11/29/17 @ 03:51 by Kar Echols MD) Nausea and vomiting (Acute) Diarrhea (Acute) - Physical Exam Vital Signs Temp Pulse Resp BP Pulse Ox 98.1 F 92 16 187/79 H 95 02/18/18 06:03 02/18/18 07:20 02/18/18 06:03 02/18/18 07:20 02/18/18 08:05 Oxygen Delivery Method Room Air Weight: 197 lb 5.019 oz Body Mass Index (BMI) 30.9 Finger Stick Blood Glucose 164 Intake and Output for Last 24 Hours 02/16/18 02/17/18 02/18/18 23:59 23:59 23:59 Intake Total 2512 / 2512 3972.4 / 3972.4 777 / 777 Output Total 1400 / 1400 900 / 900 Balance 1112 / 1112 3072.4 / 3072.4 777 / 777 Microbiology Past 72 Hours 02/17/18 Unknown Stool Occult Blood (VIOLET) - Final Stool 02/14/18 13:35 Respiratory Panel (PCR) - Final Mucosa - Nasopharyngeal Laboratory Tests Past 24 Hrs 02/17/18 02/17/18 02/18/18 05:48 15:10 05:56 WBC RBC Hgb Hct MCV MCH MCHC RDW RDW Differential Plt Count MPV Immature Gran % (Auto) Neut % (Auto) Lymph % (Auto) [place] % (Auto) Eos % (Auto) Baso % (Auto) Absolute Neuts (auto) Absolute Lymphs (auto) Total Counted Sodium 141 Potassium 2.7 L* 2.7 L* Chloride 107 Carbon Dioxide 27.0 Anion Gap 7 BUN 1 L Creatinine 0.61 Estim Creat Clear Calc 51.63 Est GFR (MDRD) Af Amer 124 Est GFR (MDRD) Non-Af 103 BUN/Creatinine Ratio 1.6 L Glucose 144 H Hemoglobin A1c Calcium 8.0 L Magnesium 1.5 L 02/18/18 02/18/18 05:56 05:56 WBC 9.0 RBC 3.12 L Hgb 9.7 L Hct 30.2 L MCV 96.8 MCH 31.1 MCHC 32.1 RDW 14.8 H RDW Differential 52.6 H Plt Count 307 MPV 9.0 Immature Gran % (Auto) 0.300 Neut % (Auto) 78.1 H Lymph % (Auto) 10.0 L [place] % (Auto) 9.4 Eos % (Auto) 2.1 Baso % (Auto) 0.1 Absolute Neuts (auto) 7.1 Absolute Lymphs (auto) 0.90 Total Counted Not Reportable Sodium Potassium Chloride Carbon Dioxide Anion Gap BUN Creatinine Estim Creat Clear Calc Est GFR (MDRD) Af Amer Est GFR (MDRD) Non-Af BUN/Creatinine Ratio Glucose Hemoglobin A1c 4.7 Calcium Magnesium POC Glucose 02/18/18 02/17/18 02/17/18 05:56 23:32 18:06 POC Glucose 145 H 144 H 171 H 02/17/18 11:24 POC Glucose 145 H Medical Necessity - Tobacco Use Smoking Status: Former smoker Tobacco Use: Non-smoker Assessment/Plan All Active Problems (Last Reviewed 11/29/17 @ 03:51 by Kar Echols MD) Abdominal abscess (Acute) Nausea and vomiting (Acute) Diarrhea (Acute) Cystitis (Acute) Neutropenic fever (Acute) Pancytopenia (Acute) Thrombocytopenia (Acute) Ventricular tachycardia, nonsustained (Acute) Nonsustained paroxysmal supraventricular tachycardia (Acute) Multifocal premature ventricular contractions with pairing (Acute)
[2018-02-18] MEDS: 0.9% NaCl IVPB Med Flush (250 mL) 15 ML IV (08:37)
--- NOTE | 2018-02-18 08:41 | PCM.PN.SRG ---
Patient Problems: Active and Suspected Problems (Last Reviewed 11/29/17 @ 03:51 by Kar Echols MD) Nausea and vomiting (Acute) Diarrhea (Acute) Subjective: Patient reports that she feels like food is sticking in her upper esophagus. She is only complaining of left rib pain where her metastases are. She is not have any abdominal pain. She is passing flatus. She did tolerate some full liquids last night. - Physical Exam General: Alert, Oriented x3, Cooperative Lungs: Normal air movement Abdomen: Soft, Non Tender, Non-Distended Vital Signs Temp Pulse Resp BP Pulse Ox 98.0 F 96 18 160/74 H 96 02/18/18 08:10 02/18/18 08:10 02/18/18 08:10 02/18/18 08:10 02/18/18 08:10 Oxygen Delivery Method Room Air Weight: 197 lb 5.019 oz Body Mass Index (BMI) 30.9 Finger Stick Blood Glucose 164 Intake and Output for Last 24 Hours 02/16/18 02/17/18 02/18/18 23:59 23:59 23:59 Intake Total 2512 / 2512 3972.4 / 3972.4 777 / 777 Output Total 1400 / 1400 900 / 900 Balance 1112 / 1112 3072.4 / 3072.4 777 / 777 Microbiology Past 72 Hours 02/17/18 Unknown Stool Occult Blood (VIOLET) - Final Stool 02/14/18 13:35 Respiratory Panel (PCR) - Final Mucosa - Nasopharyngeal Laboratory Tests Past 24 Hrs 02/17/18 02/17/18 02/18/18 05:48 15:10 05:56 WBC RBC Hgb Hct MCV MCH MCHC RDW RDW Differential Plt Count MPV Immature Gran % (Auto) Neut % (Auto) Lymph % (Auto) [place] % (Auto) Eos % (Auto) Baso % (Auto) Absolute Neuts (auto) Absolute Lymphs (auto) Total Counted Sodium 141 Potassium 2.7 L* 2.7 L* Chloride 107 Carbon Dioxide 27.0 Anion Gap 7 BUN 1 L Creatinine 0.61 Estim Creat Clear Calc 51.63 Est GFR (MDRD) Af Amer 124 Est GFR (MDRD) Non-Af 103 BUN/Creatinine Ratio 1.6 L Glucose 144 H Hemoglobin A1c Calcium 8.0 L Magnesium 1.5 L 02/18/18 02/18/18 05:56 05:56 WBC 9.0 RBC 3.12 L Hgb 9.7 L Hct 30.2 L MCV 96.8 MCH 31.1 MCHC 32.1 RDW 14.8 H RDW Differential 52.6 H Plt Count 307 MPV 9.0 Immature Gran % (Auto) 0.300 Neut % (Auto) 78.1 H Lymph % (Auto) 10.0 L [place] % (Auto) 9.4 Eos % (Auto) 2.1 Baso % (Auto) 0.1 Absolute Neuts (auto) 7.1 Absolute Lymphs (auto) 0.90 Total Counted Not Reportable Sodium Potassium Chloride Carbon Dioxide Anion Gap BUN Creatinine Estim Creat Clear Calc Est GFR (MDRD) Af Amer Est GFR (MDRD) Non-Af BUN/Creatinine Ratio Glucose Hemoglobin A1c 4.7 Calcium Magnesium POC Glucose 02/18/18 02/17/18 02/17/18 05:56 23:32 18:06 POC Glucose 145 H 144 H 171 H 02/17/18 11:24 POC Glucose 145 H Medical Necessity - Tobacco Use Smoking Status: Former smoker Tobacco Use: Non-smoker Assessment/Plan All Active Problems (Last Reviewed 11/29/17 @ 03:51 by Kar Echols MD) Abdominal abscess (Acute) Nausea and vomiting (Acute) Diarrhea (Acute) Cystitis (Acute) Neutropenic fever (Acute) Pancytopenia (Acute) Thrombocytopenia (Acute) Ventricular tachycardia, nonsustained (Acute) Nonsustained paroxysmal supraventricular tachycardia (Acute) Multifocal premature ventricular contractions with pairing (Acute) 67-year-old female with resolved ileus and dysphagia 1. Dr. Conley contact him yesterday and he would like me to perform EGD today to differentiate between possible radiation esophagitis versus Taylor esophagitis. He started her on Diflucan and she is on Carafate. I will perform this today to see if there are any white plaques and do biopsies. 2. I explained endoscopy in detail to the patient. I explained the risks including but not limited to stroke or heart attack with anesthesia, perforation of the GI tract, bleeding, infection. I explained that any of these could necessitate further emergency surgery. The patient understands and all questions were answered sufficiently. The patient wishes to proceed with procedure. Rajinder Beck MD Pager: [facility] [address] [place] [address], [address] [place] [address] Office:
--- NOTE | 2018-02-18 10:49 | NURSING ---
pt off unit to endo
[2018-02-18 11:26] LABS: Bedside Glucose 127 mg/dL (70-110)
--- NOTE | 2018-02-18 11:41 | OP.ENDO_ITS ---
Patient Name: Makenna Gibbs Procedure Date: 02/18/2018 10:50 AM Date of : 1950 Age: 67 Procedure: Upper GI endoscopy Indications: Dysphagia Providers: Rajinder Beck MD Referring MD: Karen Flores Medicines: Monitored Anesthesia Care Patient Profile: This is a 67 year old female. Refer to note in patient chart for documentation of history and physical. Complications: No immediate complications. Estimated blood loss: Minimal. Procedure: Pre-Anesthesia Assessment: - Prior to the procedure, a History and Physical was performed, and patient medications and allergies were reviewed. The patient's tolerance of previous anesthesia was also reviewed. The risks and benefits of the procedure and the sedation options and risks were discussed with the patient. All questions were answered, and informed consent was obtained. Prior Anticoagulants: The patient has taken no previous anticoagulant or antiplatelet agents. After reviewing the risks and benefits, the patient was deemed in satisfactory condition to undergo the procedure. After obtaining informed consent, the endoscope was passed under direct vision. Throughout the procedure, the patient's blood pressure, pulse, and oxygen saturations were monitored continuously. The gastroscope was introduced through the mouth, and advanced to the second part of duodenum. The upper GI endoscopy was accomplished without difficulty. The patient tolerated the procedure well. Scope In: 11:28:35 AM Scope Out: 11:33:42 AM Total Procedure Duration Time 0 hours 5 minutes 7 seconds Findings: Diffuse, white plaques were found in the middle third of the esophagus. Biopsies were taken with a cold forceps for histology. The exam was otherwise without abnormality. Impression: - Esophageal plaques were found, suspicious for candidiasis. Biopsied. - The examination was otherwise normal. Recommendation: - Await pathology results. - [facility]. - Recommend anti-fungal agent. - Advance diet as tolerated. - Continue present medications. Procedure Code(s): --- Professional --- 86200, Esophagogastroduodenoscopy, flexible, transoral; with biopsy, single or multiple Diagnosis Code(s): --- Professional --- K22.9, Disease of esophagus, unspecified R13.10, Dysphagia, unspecified CPT copyright 2017 [employer]. All rights reserved. The codes documented in this report are preliminary and upon improvement manager review may be revised to meet current compliance requirements. Rajinder Beck MD 02/18/2018 11:41:09 AM This report has been signed electronically. Number of Addenda: 0 Note Initiated On: 02/18/2018 10:50 AM
--- NOTE | 2018-02-18 12:29 | PN_ITS ---
<Magy Barrientos - Last Filed: 02/18/18 12:30> Patient Problems: Active and Suspected Problems (Last Reviewed 11/29/17 @ 03:51 by Kar Echols MD) Nausea and vomiting (Acute) Diarrhea (Acute) Subjective: Patient seen and examined. Resting comfortably in bed. No further emesis. Family at bedside. No current complaints. Plan for EGD this afternoon. - Physical Exam General: Alert, Oriented x3, Cooperative, No apparent distress HEENT: Atraumatic, PERRLA, EOMI, Normocephalic Neck: Supple, No JVD, Negative Carotid Bruits Lungs: Clear to auscultation, Normal air movement Cardiovascular: Regular rate, Regular Rhythm, Normal S1, Normal S2, No murmurs Abdomen: Bowel Sounds Present, Soft, Non Tender, Non-Distended Extremities: No clubbing, No cyanosis, No edema, Capillary Refill Less than 3 Seconds Skin: No rashes, No breakdown Musculoskeletal: No Tenderness to Palpation of Joints or Extremities Neurological: Cranial nerves II-XII grossly intact, Neuro grossly intact Psych/Mental Status: Normal Affect, Appropriate Vital Signs Temp Pulse Resp BP Pulse Ox 98.2 F 92 14 188/84 H 94 02/18/18 11:57 02/18/18 11:57 02/18/18 11:57 02/18/18 11:57 02/18/18 11:57 Oxygen Delivery Method Room Air Weight: 197 lb 5.019 oz Body Mass Index (BMI) 30.9 Finger Stick Blood Glucose 164 Intake and Output for Last 24 Hours 02/16/18 02/17/18 02/18/18 23:59 23:59 23:59 Intake Total 2512 / 2512 3972.4 / 3972.4 777 / 777 Output Total 1400 / 1400 900 / 900 Balance 1112 / 1112 3072.4 / 3072.4 777 / 777 Microbiology Past 72 Hours 02/17/18 Unknown Stool Occult Blood (VIOLET) - Final Stool 02/14/18 13:35 Respiratory Panel (PCR) - Final Mucosa - Nasopharyngeal Laboratory Tests Past 24 Hrs 02/17/18 02/18/18 02/18/18 15:10 05:56 05:56 WBC 9.0 RBC 3.12 L Hgb 9.7 L Hct 30.2 L MCV 96.8 MCH 31.1 MCHC 32.1 RDW 14.8 H RDW Differential 52.6 H Plt Count 307 MPV 9.0 Immature Gran % (Auto) 0.300 Neut % (Auto) 78.1 H Lymph % (Auto) 10.0 L [place] % (Auto) 9.4 Eos % (Auto) 2.1 Baso % (Auto) 0.1 Absolute Neuts (auto) 7.1 Absolute Lymphs (auto) 0.90 Total Counted Not Reportable Sodium 141 Potassium 2.7 L* 2.7 L* Chloride 107 Carbon Dioxide 27.0 Anion Gap 7 BUN 1 L Creatinine 0.61 Estim Creat Clear Calc 51.63 Est GFR (MDRD) Af Amer 124 Est GFR (MDRD) Non-Af 103 BUN/Creatinine Ratio 1.6 L Glucose 144 H Hemoglobin A1c Calcium 8.0 L 02/18/18 05:56 WBC RBC Hgb Hct MCV MCH MCHC RDW RDW Differential Plt Count MPV Immature Gran % (Auto) Neut % (Auto) Lymph % (Auto) [place] % (Auto) Eos % (Auto) Baso % (Auto) Absolute Neuts (auto) Absolute Lymphs (auto) Total Counted Sodium Potassium Chloride Carbon Dioxide Anion Gap BUN Creatinine Estim Creat Clear Calc Est GFR (MDRD) Af Amer Est GFR (MDRD) Non-Af BUN/Creatinine Ratio Glucose Hemoglobin A1c 4.7 Calcium POC Glucose 02/18/18 02/18/18 02/17/18 11:18 05:56 23:32 POC Glucose 127 H 145 H 144 H 02/17/18 18:06 POC Glucose 171 H Medical Necessity - Tobacco Use Smoking Status: Former smoker Tobacco Use: Non-smoker Assessment/Plan All Active Problems (Last Reviewed 11/29/17 @ 03:51 by Kar Echols MD) Abdominal abscess (Acute) Nausea and vomiting (Acute) Diarrhea (Acute) Cystitis (Acute) Neutropenic fever (Acute) Pancytopenia (Acute) Thrombocytopenia (Acute) Ventricular tachycardia, nonsustained (Acute) Nonsustained paroxysmal supraventricular tachycardia (Acute) Multifocal premature ventricular contractions with pairing (Acute) 1. Intractable nausea, vomiting- Adverse effect from Keytruda versus radiation esophagitis, possible gastroenteritis as well-stool studies negative. CT of abdomen and pelvis on admission shows chronic diverticulosis, possible distal si gmoid small abscess. Multiple blastic lesions of the axial and appendicular skeleton consistent with osseous metastatic disease. Surgery on consult for diverticular abscess. No further concern for abscess per surgery. Continue IV fluids, IV Protonix, Carafate. Oncology consulted. Patient follows with Dr. Pineda. Dr. Conley added Haldol for antiemetic, patient notes improvement. Continue nystatin swish and swallow. Oncology discussed hospice with patient. Patient is agreeable to home with hospice, she plans on relocating to [place] after discharge. EGD is planned for tomorrow due to slow improvement of nausea leading to poor oral intake. 2. 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 Pineda. Currently on immunosuppressive therapy and radiation. Unable to tolerate chemotherapy. Continue home fentanyl regimen. Dr. Conley discussed hospice with patient due to bone metastasis with progression despite immunotherapy, requiring palliative radiation. Plan for home with hospice at discharge. 3. Nonproductive cough-chest x-ray without acute pathology. DC IV Zosyn. Afebrile. No leukocytosis. Speech therapy consult. Recommend upright seated position with meals and small sips. 4. Electrolyte disturbance including hypophosphatemia, hypokalemia, hypomagnesia-persistent hypokalemia, replaced per protocol. 5. Type 2 diabetes mellitus-hold home oral regimen. Accu-Cheks before meals at bedtime with sliding scale insulin. 6. Chronic normocytic anemia, iron deficiency anemia-stable. 7. Chronic asthma-no acute exacerbation. PRN albuterol. 8. Hypertension-Continue home blood pressure regimen including losartan, metoprolol. HCTZ on hold. Continue PRN hydralazine. 9. Hyperlipidemia-continue statin. 10. Anxiety/depression-continue sertraline, Ativan regimen. 11. GERD-IV PPI. 12. ALIN-continue CPAP nightly. 13. Obesity-encouraged diet and lifestyle modifications. DVT prophylaxis-Lovenox subcu. Discharge planning: Home with hospice in [place], home with home health in the meantime with anticipated move date to [place] 03/02/18. Discharge when electrolytes stable and able to tolerate oral intake. This patient was seen by THEE Norton under the supervision of Dr. Maldonado. <Parker Maldonado - Last Filed: 02/18/18 17:00> - Physical Exam Vital Signs Temp Pulse Resp BP Pulse Ox 98.1 F 98 18 217/106 H 95 02/18/18 12:45 02/18/18 12:49 02/18/18 12:45 02/18/18 12:47 02/18/18 12:45 Oxygen Delivery Method Room Air Weight: 197 lb 5.019 oz Body Mass Index (BMI) 30.9 Finger Stick Blood Glucose 164 Intake and Output for Last 24 Hours 02/16/18 02/17/18 02/18/18 23:59 23:59 23:59 Intake Total 2512 / 2512 3972.4 / 3972.4 1197 / 1197 Output Total 1400 / 1400 900 / 900 Balance 1112 / 1112 3072.4 / 3072.4 1197 / 1197 Microbiology Past 72 Hours 02/17/18 Unknown Stool Occult Blood (VIOLET) - Final Stool Laboratory Tests Past 24 Hrs 02/18/18 02/18/18 02/18/18 05:56 05:56 05:56 WBC 9.0 RBC 3.12 L Hgb 9.7 L Hct 30.2 L MCV 96.8 MCH 31.1 MCHC 32.1 RDW 14.8 H RDW Differential 52.6 H Plt Count 307 MPV 9.0 Immature Gran % (Auto) 0.300 Neut % (Auto) 78.1 H Lymph % (Auto) 10.0 L [place] % (Auto) 9.4 Eos % (Auto) 2.1 Baso % (Auto) 0.1 Absolute Neuts (auto) 7.1 Absolute Lymphs (auto) 0.90 Total Counted Not Reportable Sodium 141 Potassium 2.7 L* Chloride 107 Carbon Dioxide 27.0 Anion Gap 7 BUN 1 L Creatinine 0.61 Estim Creat Clear Calc 51.63 Est GFR (MDRD) Af Amer 124 Est GFR (MDRD) Non-Af 103 BUN/Creatinine Ratio 1.6 L Glucose 144 H Hemoglobin A1c 4.7 Calcium 8.0 L Phosphorus Magnesium 02/18/18 05:56 WBC RBC Hgb Hct MCV MCH MCHC RDW RDW Differential Plt Count MPV Immature Gran % (Auto) Neut % (Auto) Lymph % (Auto) [place] % (Auto) Eos % (Auto) Baso % (Auto) Absolute Neuts (auto) Absolute Lymphs (auto) Total Counted Sodium Potassium Chloride Carbon Dioxide Anion Gap BUN Creatinine Estim Creat Clear Calc Est GFR (MDRD) Af Amer Est GFR (MDRD) Non-Af BUN/Creatinine Ratio Glucose Hemoglobin A1c Calcium Phosphorus 1.6 L Magnesium 2.1 POC Glucose 02/18/18 02/18/18 02/18/18 12:47 11:18 05:56 POC Glucose 137 H 127 H 145 H 02/17/18 02/17/18 23:32 18:06 POC Glucose 144 H 171 H Code Visit Addendum: Dr. Maldonado I personally examined the patient and reviewed the chart. I agree with the above. 67-year-old female with history of non-small cell lung cancer with diffuse spinal and pelvic metastases, who follows with Dr. iPneda, presenting with intractable nausea vomiting as a possible adverse effect from Keytruda versus radiation esophagitis. She underwent an EGD for further evaluation and it was thought to be candidal in nature therefore she was started on p.o. Diflucan. Plan will be to discharge home with home care and then she is planning on moving to [place] on March 02 at which point she will enter hospice care. As for her chronic hypokalemia she also appears to be hypophosphatemic, therefore will replace her phosphorus today and will recheck in the morning and give her more potassium as indicated. Inpatient E&M: 85869 Subs Hosp L2
[2018-02-18] MEDS: Gabapentin 600 MG Tablet PO ×2 (12:48→17:43)
[2018-02-18] MEDS: Metoprolol Tartrate 100 MG Tablet PO (12:49)
[2018-02-18] MEDS: Haloperidol 1 MG Tablet PO ×2 (12:49→21:15)
[2018-02-18 13:10] LABS: Bedside Glucose 137 mg/dL (70-110)
[2018-02-18 14:09] LABS: Magnesium 2.1 mg/dL (1.6-2.6); Phosphorus 1.6 mg/dL (2.5-4.9)
--- NOTE | 2018-02-18 15:30 | ESO_PTH ---
PATIENT: MCKENNA ALVARADO LOC: MS3 U#:[id number] AGE/SX: 67/F ROOM: MD320 RE02/13/[address]: Dr. Parker Maldonado MD : [id number] BED: 1 DIS: 02/20/2018 SPEC #: [id number] RECD: 02/18/18 16:12 STATUS: SYLVIE GUZMAN #: [id number] LEONARDO: 02/18/18 15:[address]: Rajinder Beck DEPT: SURGICAL PATHOLOGY RECD BY: Mary Alice Hernandez ENTERED: 02/19/18 10:09 SP TYPE: ESOPH BX OTHR DR: MD Dr. Sherice Esquivel MD Dr. Mark Stutzman, DO Dr. Nicholas F Kotsonis, MD Dr. Robert D Cebul, MD Tissues: Esophagus, NOS Procedures: Special Stain Group I Surgery Specimen Level IV GMS Stain (control) HEADER OPERATION: EGD (MAC) PRE-OP DIAGNOSIS: Esophagitis TISSUE SUBMITTED: Biopsy mid esophagus for path and yeast MICROSCOPIC DIAGNOSIS Mid esophagus, biopsy: Fragments of fibrinopurulent exudate, consistent with ulceration. Scant fragments of squamous epithelium with atypia, favor reactive atypia. Special stain for fungi is negative for organisms; matched control is appropriate. DWAIN:victorino 02/20/18 MICROSCOPIC DESCRIPTION Slides are reviewed. GROSS DESCRIPTION Received in fixative is one container labeled with the patient's name and designated mid esophagus biopsy for path and yeast. The specimen consists of two irregular fragments of light lima soft tissue that in aggregate measure 0.4 x 0.2 x 0.1 cm. The specimen is totally submitted in one cassette. / DWAIN:victorino 02/19/18 TC:2 CPT: 01167, 44291
[2018-02-18] MEDS: Fluconazole 100 MG Tablet 200 MG PO (17:43)
[2018-02-18 19:16] LABS: Bedside Glucose 131 mg/dL (70-110)
[2018-02-18] MEDS: Losartan Potassium 50 MG Tablet PO (21:15)
[2018-02-18] MEDS: Morphine 4 MG/ML Syringe IV (21:34)
[2018-02-19] VITALS (8 sets, daily range): BP systolic 148–174; BP diastolic 71–85; PULSE 71–93; RESP 16–18; TEMP 36.4–36.8; O2SAT 94–98
[2018-02-19] MEDS: hydrALAZINE 20 MG/ML Vial 10 MG IV (00:29)
[2018-02-19 00:31] LABS: Bedside Glucose 131 mg/dL (70-110)
[2018-02-19] MEDS: Morphine 4 MG/ML Syringe IV ×2 (03:25→07:51)
[2018-02-19] MEDS: Haloperidol 1 MG Tablet PO ×3 (07:03→21:06)
[2018-02-19 07:16] LABS: Bedside Glucose 123 mg/dL (70-110)
[2018-02-19] MEDS: 0.9% Normal Saline 1,000 ML 75 ML IV (07:32)
[2018-02-19] MEDS: Gabapentin 600 MG Tablet PO ×3 (07:36→16:40)
[2018-02-19 07:47] LABS: Anion Gap 7 (5-15); BUN < 1 mg/dL (7-18); Calcium,Total 7.5 mg/dL (8.5-10.1); Chloride 108 mmol/L (98-107); Creatinine, Serum 0.54 mg/dL (0.55-1.02); EST Glomerular Filtration Rate 118 mL/min (>60); Est Glom Filt Rate - Afr Amer 143 mL/min (>60); Estimated Creatinine Clearance 51.63 ml/min; Glucose 126 mg/dL (74-106); Potassium 2.4 mmol/L (3.5-5.1); Sodium Level 143 mmol/L (136-145)
[2018-02-19 08:18] LABS: Magnesium 1.7 mg/dL (1.6-2.6); Phosphorus 2.9 mg/dL (2.5-4.9)
--- NOTE | 2018-02-19 08:32 | PCM.PN.SRG ---
Patient Problems: Active and Suspected Problems (Last Reviewed 11/29/17 @ 03:51 by Kar Echols MD) Nausea and vomiting (Acute) Diarrhea (Acute) Subjective: No issues overnight. - Physical Exam Cardiovascular: Regular rate, Regular Rhythm Abdomen: Soft, Non Tender, Non-Distended Vital Signs Temp Pulse Resp BP Pulse Ox 98.2 F 87 18 148/72 H 95 02/19/18 03:18 02/19/18 03:18 02/19/18 03:18 02/19/18 03:18 02/19/18 06:57 Oxygen Delivery Method Room Air Weight: 197 lb 5.019 oz Body Mass Index (BMI) 30.9 Finger Stick Blood Glucose 164 Intake and Output for Last 24 Hours 02/17/18 02/18/18 02/19/18 23:59 23:59 23:59 Intake Total 3972.4 / 3972.4 2138 / 2138 2420 / 2420 Output Total 900 / 900 3300 / 3300 Balance 3072.4 / 3072.4 2138 / 2138 -880 / -880 Microbiology Past 72 Hours 02/17/18 Unknown Stool Occult Blood (VIOLET) - Final Stool Laboratory Tests Past 24 Hrs 02/18/18 02/19/18 02/19/18 05:56 06:47 06:47 Sodium 143 Potassium 2.4 L* Chloride 108 H Carbon Dioxide 28.0 Anion Gap 7 BUN < 1 L Creatinine 0.54 L Estim Creat Clear Calc 51.63 Est GFR (MDRD) Af Amer 143 Est GFR (MDRD) Non-Af 118 BUN/Creatinine Ratio TNP Glucose 126 H Calcium 7.5 L Phosphorus 1.6 L 2.9 Magnesium 2.1 1.7 POC Glucose 02/19/18 02/19/18 02/18/18 07:03 00:14 17:49 POC Glucose 123 H 131 H 131 H 02/18/18 02/18/18 12:47 11:18 POC Glucose 137 H 127 H Medical Necessity - Tobacco Use Smoking Status: Former smoker Tobacco Use: Non-smoker Assessment/Plan All Active Problems (Last Reviewed 11/29/17 @ 03:51 by Kar Echols MD) Abdominal abscess (Acute) Nausea and vomiting (Acute) Diarrhea (Acute) Cystitis (Acute) Neutropenic fever (Acute) Pancytopenia (Acute) Thrombocytopenia (Acute) Ventricular tachycardia, nonsustained (Acute) Nonsustained paroxysmal supraventricular tachycardia (Acute) Multifocal premature ventricular contractions with pairing (Acute) 67-year-old female with esophagitis 1. I performed an EGD yesterday. In the mid esophagus there was circumferential white plaque on the esophagus. This was not diffuse or patchy which I would expect with Taylor esophagitis but it was easily peeled off of the mucosa which I would not expect of radiation esophagitis. I did take biopsies of the area and these are being sent for yeast culture as well as pathology. 2. Recommend continuing Diflucan and PPI until biopsies return. Diet as tolerated. Rajinder Beck MD Pager: [facility] [address] [place] [address], [address] [place] [address] Office:
--- NOTE | 2018-02-19 08:51 | PN_ITS ---
Patient Problems: Active and Suspected Problems (Last Reviewed 11/29/17 @ 03:51 by Kar Echols MD) Nausea and vomiting (Acute) Diarrhea (Acute) Subjective: Patient's pain is slowly improving. Still complaining of pain in her left chest wall area. Nausea also improved. Stool is loose but formed. Cough or shortness of breath. No fever. Feels hungry and wants to eat this morning. Potassium & phosphorus are still low. - Physical Exam General: Alert, Oriented x3 HEENT: Atraumatic, PERRLA, EOMI, Normocephalic Oral: Moist Mucosa, No Gingival or Mucosal Lesions/ Ulcerations Neck: Supple Lungs: Clear to auscultation, Normal air movement, No rhonchi, No wheeze Cardiovascular: Regular rate, Regular Rhythm, Normal S1, Normal S2 Abdomen: Bowel Sounds Present, Soft, Non Tender, Non-Distended, No Hepato- splenomegaly Extremities: No clubbing, No cyanosis, No edema Skin: No rashes, No breakdown Lymphatic: No Cervical, Supraclavicular, or Inguinal Adenopathy Neurological: Neuro grossly intact Psych/Mental Status: Normal Affect Vital Signs Temp Pulse Resp BP Pulse Ox 98.2 F 87 18 148/72 H 95 02/19/18 03:18 02/19/18 03:18 02/19/18 03:18 02/19/18 03:18 02/19/18 06:57 Oxygen Delivery Method Room Air Weight: 197 lb 5.019 oz Body Mass Index (BMI) 30.9 Finger Stick Blood Glucose 164 Intake and Output for Last 24 Hours 02/17/18 02/18/18 02/19/18 23:59 23:59 23:59 Intake Total 3972.4 / 3972.4 2138 2420 / 2420 Output Total 900 / 900 3300 / 3300 Balance 3072.4 / 3072.4 2138 -880 / -880 Microbiology Past 72 Hours 02/17/18 Unknown Stool Occult Blood (VIOLET) - Final Stool Laboratory Tests Past 24 Hrs 02/18/18 02/19/18 02/19/18 05:56 06:47 06:47 Sodium 143 Potassium 2.4 L* Chloride 108 H Carbon Dioxide 28.0 Anion Gap 7 BUN < 1 L Creatinine 0.54 L Estim Creat Clear Calc 51.63 Est GFR (MDRD) Af Amer 143 Est GFR (MDRD) Non-Af 118 BUN/Creatinine Ratio TNP Glucose 126 H Calcium 7.5 L Phosphorus 1.6 L 2.9 Magnesium 2.1 1.7 POC Glucose 02/19/18 02/19/18 02/18/18 07:03 00:14 17:49 POC Glucose 123 H 131 H 131 H 02/18/18 02/18/18 12:47 11:18 POC Glucose 137 H 127 H Medical Necessity - Tobacco Use Smoking Status: Former smoker Tobacco Use: Non-smoker Assessment/Plan All Active Problems (Last Reviewed 11/29/17 @ 03:51 by Kar Echols MD) Abdominal abscess (Acute) Nausea and vomiting (Acute) Diarrhea (Acute) Cystitis (Acute) Neutropenic fever (Acute) Pancytopenia (Acute) Thrombocytopenia (Acute) Ventricular tachycardia, nonsustained (Acute) Nonsustained paroxysmal supraventricular tachycardia (Acute) Multifocal premature ventricular contractions with pairing (Acute) ASSESSMENT/PLAN: 1) Protracted nausea and vomiting. Assessment: -Most likely secondary to radiation esophagitis and candidiasis -Slowly improving with current therapy Plan: -Continue with proton pump inhibitor - IV @ KVO - Diflucan x1 yesterday; continue nystatin swish and swallow 5 x daily - Continue Haldol & Zofran as needed for nausea 2) Diarrhea. Assessment: -Having several loose non-watery BMs a day. -Hypokalemia Plan: -Monitor & Imodium as needed -Replace potassium & phosphorus 3) intractable pain secondary to bone metastasis Assessment: -We will cancel her last course of radiation therapy. Plan: -Continue Duragesic 37 mcg q 72-hour -Continue IV morphine 4 mg every 2 hours as needed -Continue Neurontin 600mg TID & Cymbalta 40mg once daily for depression and pain -Add ibuprofen 400mg TID with food 4) Metastatic non-small cell lung cancer. Assessment: -Patient observed to have progressive bone metastases on Keytruda. -Not a candidate for palliative chemotherapy based on performance status and symptoms from metastatic lung cancer. -Despite use of immunotherapy, she had progression to the point requiring need for palliative radiation. -Patient is okay with home hospice care once above issues improved/resolved. Plan: -Consult [facility] hospice for discharge planning; possible discharge home today with hospice -Transfer to Home hospice when relocates to [place] after d/c. Additional CC's: Rajinder Beck; Sherice Pineda; Matilda Rosario
[2018-02-19] MEDS: Ondansetron 4 MG/2 ML Vial IV (08:52)
[2018-02-19] MEDS: 0.9% NaCl Peripheral Flush Adult/Peds IV (08:52)
[2018-02-19] MEDS: Enoxaparin 40 MG/0.4 ML Syringe SC (09:14)
[2018-02-19] MEDS: Losartan Potassium 50 MG Tablet PO ×2 (09:14→21:06)
[2018-02-19] MEDS: amLODIPine 10 MG Tablet PO (09:14)
[2018-02-19] MEDS: NYSTATIN 500,000 UNIT/5 ML UDC 500000 UNIT PO ×4 (09:15→21:06)
[2018-02-19] MEDS: Metoprolol Tartrate 100 MG Tablet PO (09:19)
--- NOTE | 2018-02-19 10:41 | PN_ITS ---
<Magy Barrientos - Last Filed: 02/19/18 10:45> Patient Problems: Active and Suspected Problems (Last Reviewed 11/29/17 @ 03:51 by Kar Echols MD) Nausea and vomiting (Acute) Diarrhea (Acute) Subjective: Patient seen and examined. Tolerating oral intake. Denies further diarrhea. Feeling somewhat improved. - Physical Exam General: Alert, Oriented x3, Cooperative, No apparent distress HEENT: Atraumatic, PERRLA, EOMI, Normocephalic Neck: Supple, No JVD, Negative Carotid Bruits Lungs: Clear to auscultation, Normal air movement Cardiovascular: Regular rate, Regular Rhythm, Normal S1, Normal S2, No murmurs Abdomen: Bowel Sounds Present, Soft, Non Tender, Non-Distended Extremities: No clubbing, No cyanosis, No edema, Capillary Refill Less than 3 Seconds Skin: No rashes, No breakdown Musculoskeletal: No Tenderness to Palpation of Joints or Extremities Neurological: Cranial nerves II-XII grossly intact, Neuro grossly intact Psych/Mental Status: Normal Affect, Appropriate Vital Signs Temp Pulse Resp BP Pulse Ox 98.2 F 90 16 163/71 H 94 02/19/18 09:00 02/19/18 09:19 02/19/18 09:00 02/19/18 09:00 02/19/18 09:00 Oxygen Delivery Method Room Air Weight: 197 lb 5.019 oz Body Mass Index (BMI) 30.9 Finger Stick Blood Glucose 164 Intake and Output for Last 24 Hours 02/17/18 02/18/18 02/19/18 23:59 23:59 23:59 Intake Total 3972.4 / 3972.4 2138 / 2138 2420 / 2420 Output Total 900 / 900 3300 / 3300 Balance 3072.4 / 3072.4 2138 / 213 -880 / -880 Microbiology Past 72 Hours 02/17/18 Unknown Stool Occult Blood (VIOLET) - Final Stool Laboratory Tests Past 24 Hrs 02/18/18 02/19/18 02/19/18 05:56 06:47 06:47 Sodium 143 Potassium 2.4 L* Chloride 108 H Carbon Dioxide 28.0 Anion Gap 7 BUN < 1 L Creatinine 0.54 L Estim Creat Clear Calc 51.63 Est GFR (MDRD) Af Amer 143 Est GFR (MDRD) Non-Af 118 BUN/Creatinine Ratio TNP Glucose 126 H Calcium 7.5 L Phosphorus 1.6 L 2.9 Magnesium 2.1 1.7 POC Glucose 02/19/18 02/19/18 02/18/18 07:03 00:14 17:49 POC Glucose 123 H 131 H 131 H 02/18/18 02/18/18 12:47 11:18 POC Glucose 137 H 127 H Medical Necessity - Tobacco Use Smoking Status: Former smoker Tobacco Use: Non-smoker Assessment/Plan All Active Problems (Last Reviewed 11/29/17 @ 03:51 by Kar Echols MD) Abdominal abscess (Acute) Nausea and vomiting (Acute) Diarrhea (Acute) Cystitis (Acute) Neutropenic fever (Acute) Pancytopenia (Acute) Thrombocytopenia (Acute) Ventricular tachycardia, nonsustained (Acute) Nonsustained paroxysmal supraventricular tachycardia (Acute) Multifocal premature ventricular contractions with pairing (Acute) 1. Intractable nausea, vomiting- Adverse effect from Keytruda versus radiation esophagitis, possible gastroenteritis as well-stool studies negative. CT of abdomen and pelvis on admission shows chronic diverticulosis, possible distal sigmoid small abscess. Multiple blastic lesions of the axial and appendicular skeleton consistent with osseous metastatic disease. Surgery on consult for diverticular abscess. No further concern for abscess per surgery. Continue IV fluids, IV Protonix, Carafate. Oncology consulted. Patient follows with Dr. Pineda. Dr. Conley added Haldol for antiemetic, patient notes improvement. Continue nystatin swish and swallow. Oncology discussed hospice with patient. Patient is agreeable to home with hospice, she plans on relocating to [place] after discharge. EGD completed which showed white plaque on the esophagus. Suspect Taylor esophagitis. Biopsy sent. Diflucan 200 mg x1. Continue diet as tolerated. 2. 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 Pineda. Currently on immunosuppressive therapy and radiation. Unable to tolerate chemotherapy. Continue home fentanyl regimen. Dr. Conley discussed hospice with patient due to bone metastasis with progression despite immunotherapy, requiring palliative radiation. Plan for home with hospice at discharge. 3. Nonproductive cough-chest x-ray without acute pathology. DC IV Zosyn. Afebrile. No leukocytosis. Speech therapy consult. Recommend upright seated position with meals and small sips. 4. Electrolyte disturbance including hypophosphatemia, hypokalemia, hypomagnesia-persistent hypokalemia, replaced per protocol. Phosphorus replaced. 5. Type 2 diabetes mellitus-hold home oral regimen. Accu-Cheks before meals at bedtime with sliding scale insulin. 6. Chronic normocytic anemia, iron deficiency anemia-stable. 7. Chronic asthma-no acute exacerbation. PRN albuterol. 8. Hypertension-Continue home blood pressure regimen including losartan, metoprolol. HCTZ on hold. Continue PRN hydralazine. 9. Hyperlipidemia-continue statin. 10. Anxiety/depression-continue sertraline, Ativan regimen. 11. GERD-IV PPI. 12. ALIN-continue CPAP nightly. 13. Obesity-encouraged diet and lifestyle modifications. DVT prophylaxis-Lovenox subcu. Discharge planning: Home with hospice in [place], home with home health in the meantime with anticipated move date to [place] 03/02/18. Discharge when electrolytes stable and able to tolerate oral intake. This patient was seen by THEE Norton under the supervision of Dr. Maldonado. <Parker Maldonado F - Last Filed: 02/19/18 15:33> - Physical Exam Vital Signs Temp Pulse Resp BP Pulse Ox 98.2 F 90 16 163/71 H 94 02/19/18 09:00 02/19/18 09:19 02/19/18 09:00 02/19/18 09:00 02/19/18 09:00 Oxygen Delivery Method Room Air Weight: 197 lb 5.019 oz Body Mass Index (BMI) 30.9 Finger Stick Blood Glucose 164 Intake and Output for Last 24 Hours 02/17/18 02/18/18 02/19/18 23:59 23:59 23:59 Intake Total 3972.4 / 3972.4 2138 3422 / 3422 Output Total 900 / 900 4500 / 4500 Balance 3072.4 / 3072.4 2138 -1078 / -1078 Microbiology Past 72 Hours 02/17/18 Unknown Stool Occult Blood (VIOLET) - Final Stool Laboratory Tests Past 24 Hrs 02/19/18 02/19/18 06:47 06:47 Sodium 143 Potassium 2.4 L* Chloride 108 H Carbon Dioxide 28.0 Anion Gap 7 BUN < 1 L Creatinine 0.54 L Estim Creat Clear Calc 51.63 Est GFR (MDRD) Af Amer 143 Est GFR (MDRD) Non-Af 118 BUN/Creatinine Ratio TNP Glucose 126 H Calcium 7.5 L Phosphorus 2.9 Magnesium 1.7 POC Glucose 02/19/18 02/19/18 02/19/18 11:44 07:03 00:14 POC Glucose 160 H 123 H 131 H 02/18/18 17:49 POC Glucose 131 H Code Visit Addendum: Dr. Maldonado I personally examined the patient and reviewed the chart. I agree with the above. 67-year-old female with history of non-small cell lung cancer with diffuse spinal and pelvic metastases, who follows with Dr. Pineda, presenting with intractable nausea vomiting as a possible adverse effect from Keytruda versus radiation esophagitis. She underwent an EGD for further evaluation and it was thought to be candidal in nature therefore she was started on p.o. Diflucan. Plan will be to discharge home with home care and then she is planning on moving to [place] on March 02 at which point she will enter hospice care. As for her hypokalemia will replace with 100 meq total today as well as replace the magnesium. Will likely need to be discharged on PO potassium. Inpatient E&M: 06070 Subs Hosp L2
[2018-02-19] MEDS: DULoxetine Hcl 20 MG Capsule 40 MG PO (11:32)
[2018-02-19] MEDS: fentaNYL 25 MCG Patch TRANSDERM. (11:33)
--- NOTE | 2018-02-19 11:41 | NURSING ---
Marion ANTHONY witnessed flushing the old duragesic patches in toilet (12 mcg and 25mcg).
[2018-02-19] MEDS: Insulin Lispro 100 UNIT/ML INSULN.PEN SC (11:46)
[2018-02-19 12:11] LABS: Bedside Glucose 160 mg/dL (70-110)
[2018-02-19] MEDS: Ibuprofen 400 MG Tablet PO ×2 (13:07→21:06)
[2018-02-19 17:30] LABS: Bedside Glucose 112 mg/dL (70-110)
[2018-02-19 18:07] LABS: Potassium 3.2 mmol/L (3.5-5.1)
[2018-02-19] MEDS: oxyCODONE 5 MG Tablet 10 MG PO (22:14)
[2018-02-19] MEDS: Pantoprazole Sodium 40 MG Tablet PO (22:14)
[2018-02-19 22:25] LABS: Bedside Glucose 107 mg/dL (70-110)
[2018-02-20] MEDS: oxyCODONE 5 MG Tablet 10 MG PO (03:21)
[2018-02-20 03:22] VITALS: BP 154/70; PULSE 73; RESP 16; TEMP 36.8; O2SAT 95
[2018-02-20] MEDS: Ibuprofen 400 MG Tablet PO (05:41)
[2018-02-20] MEDS: Haloperidol 1 MG Tablet PO (05:42)
[2018-02-20 05:56] LABS: Bedside Glucose 125 mg/dL (70-110)
[2018-02-20 06:34] LABS: Anion Gap 7 (5-15); BUN 1 mg/dL (7-18); BUN/Creat Ratio 1.4 RATIO (10-20); Calcium,Total 8.4 mg/dL (8.5-10.1); Chloride 104 mmol/L (98-107); Creatinine, Serum 0.71 mg/dL (0.55-1.02); EST Glomerular Filtration Rate 86 mL/min (>60); Est Glom Filt Rate - Afr Amer 104 mL/min (>60); Estimated Creatinine Clearance 51.63 ml/min; Glucose 117 mg/dL (74-106); Potassium 2.8 mmol/L (3.5-5.1); Sodium Level 141 mmol/L (136-145)
[2018-02-20 07:22] VITALS: PULSE 80
[2018-02-20] MEDS: amLODIPine 10 MG Tablet PO (07:26)
[2018-02-20] MEDS: Losartan Potassium 50 MG Tablet PO (07:26)
[2018-02-20] MEDS: Gabapentin 600 MG Tablet PO ×2 (07:26→12:10)
--- NOTE | 2018-02-20 08:12 | PN_ITS ---
Patient Problems: Active and Suspected Problems (Last Reviewed 11/29/17 @ 03:51 by Kar Echols MD) Nausea and vomiting (Acute) Diarrhea (Acute) Subjective: Patient feeling much better. Nausea and vomiting and diarrhea has resolved. Denies dysphagia or shortness of breath. She still have bone and neuropathic pain on the left chest wall when she is moving. She has no pain when she is sitting. Patient continued to have low potassium today. - Physical Exam General: Alert, Oriented x3, No apparent distress HEENT: Atraumatic, PERRLA, EOMI Oral: Moist Mucosa, No Gingival or Mucosal Lesions/ Ulcerations Neck: Supple, No JVD Lungs: Clear to auscultation, Normal air movement, No rhonchi, No wheeze Cardiovascular: Regular rate, Regular Rhythm, Normal S1, Normal S2, No murmurs Abdomen: Bowel Sounds Present, Soft, Non Tender, Non-Distended, No Hepato- splenomegaly Extremities: No clubbing, No cyanosis, No edema Skin: No rashes, No breakdown Lymphatic: No Cervical, Supraclavicular, or Inguinal Adenopathy Neurological: Neuro grossly intact Psych/Mental Status: Normal Affect Vital Signs Temp Pulse Resp BP Pulse Ox 98.2 F 80 16 154/70 H 95 02/20/18 03:22 02/20/18 07:22 02/20/18 03:22 02/20/18 03:22 02/20/18 03:22 Oxygen Delivery Method Room Air Weight: 197 lb 5.019 oz Body Mass Index (BMI) 30.9 Finger Stick Blood Glucose 164 Intake and Output for Last 24 Hours 02/18/18 02/19/18 02/20/18 23:59 23:59 23:59 Intake Total 2139 / 2139 3772 / 3772 900 / 900 Output Total 6500 / 6500 Balance 2139 / 2139 -2728 / -2728 900 / 900 Microbiology Past 72 Hours 02/17/18 Unknown Stool Occult Blood (VIOLET) - Final Stool Laboratory Tests Past 24 Hrs 02/19/18 02/19/18 02/20/18 06:47 17:26 05:54 Sodium 141 Potassium 3.2 L 2.8 L Chloride 104 Carbon Dioxide 30.0 Anion Gap 7 BUN 1 L Creatinine 0.71 Estim Creat Clear Calc 51.63 Est GFR (MDRD) Af Amer 104 Est GFR (MDRD) Non-Af 86 BUN/Creatinine Ratio 1.4 L Glucose 117 H Calcium 8.4 L Phosphorus 2.9 Magnesium 1.7 POC Glucose 02/20/18 02/19/18 02/19/18 05:49 22:23 16:46 POC Glucose 125 H 107 112 H 02/19/18 11:44 POC Glucose 160 H Medical Necessity - Tobacco Use Smoking Status: Former smoker Tobacco Use: Non-smoker Assessment/Plan All Active Problems (Last Reviewed 11/29/17 @ 03:51 by Kar Echols MD) Abdominal abscess (Acute) Nausea and vomiting (Acute) Diarrhea (Acute) Cystitis (Acute) Neutropenic fever (Acute) Pancytopenia (Acute) Thrombocytopenia (Acute) Ventricular tachycardia, nonsustained (Acute) Nonsustained paroxysmal supraventricular tachycardia (Acute) Multifocal premature ventricular contractions with pairing (Acute) ASSESSMENT/PLAN: 1) Protracted nausea and vomiting. Assessment: -Most likely secondary to radiation esophagitis and candidiasis -Slowly improving with current therapy Plan: -Continue with proton pump inhibitor - Continue nystatin swish and swallow 5 x daily-treatment of candidiasis - Continue Haldol & Zofran as needed for nausea 2) Diarrhea. Assessment: -Having several loose non-watery BMs a day. -Hypokalemia Plan: -Monitor & Imodium as needed -Replace potassium & phosphorus at home 3) intractable pain secondary to bone metastasis Assessment: -We will cancel her last course of radiation therapy. Plan: -Continue Duragesic 37 mcg q 72-hour -Continue IV morphine 4 mg every 2 hours as needed-> changed to oral MSIR 10mg po every 2 hours as needed -Continue Neurontin 600mg TID & Cymbalta 60mg once daily for depression and pain -Continue ibuprofen 400mg TID with food 4) Metastatic non-small cell lung cancer. Assessment: -Patient observed to have progressive bone metastases on Keytruda. -Not a candidate for palliative chemotherapy based on performance status and symptoms from metastatic lung cancer. -Despite use of immunotherapy, she had progression to the point requiring need for palliative radiation. -Patient is okay with home hospice care once above issues improved/resolved. Plan: -Follow-up with [facility]; possible discharge home today -Transfer to Home hospice when relocates to [place] after d/c. Additional CC's: Sherice Pineda; Matilda Rosario
--- NOTE | 2018-02-20 09:21 | DCINST_ITS ---
- Discharge Diagnoses Current Active Problems: Current Active and Chronic Problems Nausea and vomiting (Acute) Diarrhea (Acute) Asthma (Chronic) Sleep apnea (Chronic) Diabetes mellitus, type II (Chronic) Former tobacco use (Chronic) You will use the following diet at home:: No restrictions Discharge Activity: Return to Normal Activity Allergies/Adverse Reactions: Allergies ciprofloxacin [From Cipro] Allergy (Verified 02/13/18 14:57) Hives metronidazole Allergy (Verified 02/13/18 14:57) Hives Medications to take at Discharge Pravastatin [Pravachol] 80 mg PO QHS 04/19/17 melatonin 5 mg capsule 5 mg PO QHS 07/25/17 metformin 1,000 mg tablet 1,000 mg PO BID 08/15/17 Albuterol Aerosols [Ventolin Aerosols] 2.5 mg INHALATION Q6H PRN PRN 11/18/17 Albuterol IH (ProAir) [Proair Hfa] 1 - 2 puff INHALATION Q6H PRN PRN 11/18/17 Cyanocobalamin (Vitamin B-12) [B-12] 1,000 mcg PO DAILY 11/18/17 DiphenhydrAMINE [Benadryl] 25 mg PO QHS 11/18/17 Docusate Sodium [Stool Softener] 100 mg PO DAILY PRN PRN 11/18/17 Folic Acid 1 mg PO QHS 11/18/17 Furosemide [Lasix] 20 mg PO PRN PRN 11/18/17 Oxycodone HCl/Acetaminophen [Percocet 5-325] 1 tablet PO Q4H PRN PRN 11/18/17 Prochlorperazine Maleate [Compazine] 10 mg PO Q8H PRN 11/28/17 Metoprolol Succinate [Toprol Xl] 100 mg PO DINNER 11/29/17 Fluticasone/Vilanterol [Breo Ellipta 200-25 Mcg INH] 1 puff INHALATION DAILY 02/13/18 Ibuprofen [Motrin] 400 mg PO TID PRN PRN 02/13/18 Iron Polysaccharide Complex [Ferrex 150] 150 mg PO BID 02/13/18 Lorazepam [Ativan] 1 mg PO X1 02/13/18 Ondansetron [Zofran] 8 mg PO BID 02/13/18 Propylene Glycol [Lubricant Eye Drop] 1 drop OP PRN PRN 02/13/18 Propylene Glycol/Peg 400 [Systane Gel Eye Drops] 1 drop OP PRN PRN 02/13/18 Amlodipine [Norvasc] 10 mg PO DAILY #30 tablet 02/20/18 Duloxetine Hcl [Cymbalta] 60 mg PO DAILY #30 capsule 02/20/18 Gabapentin [Neurontin] 600 mg PO TIDCM tablet 02/20/18 Haloperidol [Haldol] 1 mg PO TID tablet 02/20/18 Losartan Potassium [Cozaar] 50 mg PO BID #60 tablet 02/20/18 Pantoprazole Sodium [Protonix] 40 mg PO BID #30 tablet 02/20/18 Potassium Chloride [K-Dur] 40 meq PO BID #120 tablet 02/20/18 fentaNYL patch [Duragesic Patch] 12 mcg TRANSDERM. Q3D patch 02/20/18 fentaNYL patch [Duragesic patch] 25 mcg TRANSDERM. Q72H patch 02/20/18 The following prescriptions were given: Amlodipine [Norvasc] 10 mg PO DAILY #30 tablet Duloxetine Hcl [Cymbalta] 60 mg PO DAILY #30 capsule Losartan Potassium [Cozaar] 50 mg PO BID #60 tablet Pantoprazole Sodium [Protonix] 40 mg PO BID #30 tablet Potassium Chloride [K-Dur] 40 meq PO BID #120 tablet Primary Care Physician: David Hager DO [Primary Care Provider] - Test Results: Test results from this visit will be discussed in further detail at your follow- up appointment, if applicable. Proposed Discharge Date: 02/20/18
--- NOTE | 2018-02-20 09:24 | PCM.DC.SUM ---
<Magy Barrientos - Last Filed: 02/20/18 09:35> Discharge Date and Diagnosis Date of Admission: 02/14/18 Date of Discharge: 02/20/18 - Primary Discharge Diagnosis Active and Suspected Problems (Last Reviewed 11/29/17 @ 03:51 by Kar Echols MD) 1. Intractable nausea, vomiting-adverse effects from Keytruda/radiation esophagitis/Taylor esophagitis 2. 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 Electrolyte disturbances including hypophosphatemia, hypokalemia, hypomagnesia 4. Type 2 diabetes mellitus 5. Chronic normocytic anemia, iron deficiency anemia 6. Chronic asthma 7. Hypertension 8. Hyperlipidemia 9. Anxiety/depression 10. GERD 11. ALIN 12. Hospice transition at discharge - Secondary Discharge Diagnosis Chronic Problems (Last Reviewed 11/29/17 @ 03:51 by Kar Echols MD) Lung cancer (Chronic) Bone metastases (Chronic) Asthma (Chronic) Sleep apnea (Chronic) Diabetes mellitus, type II (Chronic) Former tobacco use (Chronic) Obesity (BMI 30-39.9) (Chronic) Hyperlipidemia (Chronic) Hypertension (Chronic) Junctional tachycardia (Chronic) Hospital Course and Treatment Imaging Results: Diagnostic Data Abdomen/Pelvis CT 02/13/18 17:17 IMPRESSION: Status post cholecystectomy. Chronic diverticulosis probably involving the sigmoid. There is a 2.0 cm fluid density structure adjacent to the distal sigmoid which may represent small abscess. There is no evidence of extraluminal gas. Bilateral renal cysts and small hepatic cyst. There are multiple blastic lesions of the visualized axial and appendicular skeleton consistent with osseous metastatic disease. There are lytic changes of the left ilium. Electronically Signed: Edgardo Hernández MD at 18:44 EST , Service support , Chest X-Ray 02/14/18 11:04 IMPRESSION: 1. No acute cardiopulmonary pathology. 2. COPD. 3. Old fracture of the right posterior eighth rib. 4. Calcified nodes in the left AP window and left hilum. 5. No interval change when compared to 12/03/2017. Electronically Signed: New Sung MD at 11:31 EST , Service support , Dr. Beck- General Surgery Dr. Pineda- Oncology Operations: None Procedures: 2-D Echocardiogram Summary of Care Provided: The patient is a 67 year old F admitted 02/13/2018 due to nausea, vomiting, diarrhea. 1. Intractable nausea, vomiting-multifactorial. Adverse effect from Keytruda/radiation esophagitis/possible gastroenteritis/Taylor esophagitis-stool studies negative. CT of abdomen and pelvis on admission shows chronic diverticulosis, possible distal sigmoid small abscess. Multiple blastic lesions of the axial and appendicular skeleton consistent with osseous metastatic disease. Surgery on consult for diverticular abscess. No further concern for abscess per surgery. Oncology consulted. Patient follows with Dr. Pineda. Patient was started on Haldol for antiemetic by oncology with improvement in symptoms, recommend continuing. Patient received nystatin swish and swallow during admission. Oncology discussed hospice with patient. Patient is agreeable to home with hospice, she plans on relocating to [place] after discharge. EGD completed which showed white plaque on the esophagus. Suspect Taylor esophagitis. Biopsy sent. Diflucan 200 mg x1. Patient will be discharged home with hospice. She will be traveling to [place] March 02 and is in contact with their hospice during transition. Patient will continue PPI at discharge. 2. 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 Pineda. Currently on immunosuppressive therapy and radiation. Unable to tolerate chemotherapy. Continue home fentanyl regimen. Dr. Conley discussed hospice with patient due to bone metastasis with progression despite immunotherapy, requiring palliative radiation. Plan for home with hospice at discharge. 3. Nonproductive cough-chest x-ray without acute pathology. DC IV Zosyn. Afebrile. No leukocytosis. Speech therapy consult. Recommend upright seated position with meals and small sips. 4. Electrolyte disturbance including hypophosphatemia, hypokalemia, hypomagnesia-persistent hypokalemia, replaced per protocol. Patient will continue supplemental potassium at discharge. 5. Type 2 diabetes mellitus-continue home oral regimen. 6. Chronic normocytic anemia, iron deficiency anemia-stable. 7. Chronic asthma-no acute exacerbation. Continue as needed albuterol. 8. Hypertension-Continue home blood pressure regimen including losartan, metoprolol, amlodipine added. Discontinue HCTZ. 9. Hyperlipidemia-continue statin. 10. Anxiety/depression-continue Cymbalta, Ativan regimen. 11. GERD-continue PPI. 12. ALIN-continue CPAP nightly. 13. Obesity General: Alert, Oriented x3, Cooperative, No apparent distress HEENT: Atraumatic, PERRLA, EOMI, Normocephalic Neck: Supple, No JVD, Negative Carotid Bruits Lungs: Clear to auscultation, Normal air movement Cardiovascular: Regular rate, Regular Rhythm, Normal S1, Normal S2, No murmurs Abdomen: Bowel Sounds Present, Soft, Non Tender, Non-Distended Extremities: No clubbing, No cyanosis, No edema, Capillary Refill Less than 3 Seconds Skin: No rashes, No breakdown Musculoskeletal: No Tenderness to Palpation of Joints or Extremities Neurological: Cranial nerves II-XII grossly intact, Neuro grossly intact Psych/Mental Status: Normal Affect, Appropriate Patient seen and examined prior to discharge. Nausea, vomiting, diarrhea resolved. Home with hospice at discharge. This patient was seen by THEE Norton under the supervision of Dr. Maldonado. - Physical Exam Vital Signs Temp Pulse Resp BP Pulse Ox 98.2 F 80 16 154/70 H 95 02/20/18 03:22 02/20/18 07:22 02/20/18 03:22 02/20/18 03:22 02/20/18 03:22 Oxygen Delivery Method Room Air Weight: 197 lb 5.019 oz Body Mass Index (BMI) 30.9 Finger Stick Blood Glucose 164 Intake and Output for Last 24 Hours 02/18/18 02/19/18 02/20/18 23:59 23:59 23:59 Intake Total 2139 / 2139 3772 / 3772 900 / 900 Output Total 6500 / 6500 Balance 2139 / 2139 -2728 / -2728 900 / 900 Microbiology Past 72 Hours 02/17/18 Unknown Stool Occult Blood (VIOLET) - Final Stool Laboratory Tests Past 24 Hrs 02/19/18 02/20/18 17:26 05:54 Sodium 141 Potassium 3.2 L 2.8 L Chloride 104 Carbon Dioxide 30.0 Anion Gap 7 BUN 1 L Creatinine 0.71 Estim Creat Clear Calc 51.63 Est GFR (MDRD) Af Amer 104 Est GFR (MDRD) Non-Af 86 BUN/Creatinine Ratio 1.4 L Glucose 117 H Calcium 8.4 L POC Glucose 02/20/18 02/19/18 02/19/18 05:49 22:23 16:46 POC Glucose 125 H 107 112 H 02/19/18 11:44 POC Glucose 160 H Home Medications: Medications to take at Discharge Pravastatin [Pravachol] 80 mg PO QHS 04/19/17 melatonin 5 mg capsule 5 mg PO QHS 07/25/17 metformin 1,000 mg tablet 1,000 mg PO BID 08/15/17 Albuterol Aerosols [Ventolin Aerosols] 2.5 mg INHALATION Q6H PRN PRN 11/18/17 Albuterol IH (ProAir) [Proair Hfa] 1 - 2 puff INHALATION Q6H PRN PRN 11/18/17 Cyanocobalamin (Vitamin B-12) [B-12] 1,000 mcg PO DAILY 11/18/17 DiphenhydrAMINE [Benadryl] 25 mg PO QHS 11/18/17 Docusate Sodium [Stool Softener] 100 mg PO DAILY PRN PRN 11/18/17 Folic Acid 1 mg PO QHS 11/18/17 Furosemide [Lasix] 20 mg PO PRN PRN 11/18/17 Oxycodone HCl/Acetaminophen [Percocet 5-325] 1 tablet PO Q4H PRN PRN 11/18/17 Prochlorperazine Maleate [Compazine] 10 mg PO Q8H PRN 11/28/17 Metoprolol Succinate [Toprol Xl] 100 mg PO DINNER 11/29/17 Fluticasone/Vilanterol [Breo Ellipta 200-25 Mcg INH] 1 puff INHALATION DAILY 02/13/18 Ibuprofen [Motrin] 400 mg PO TID PRN PRN 02/13/18 Iron Polysaccharide Complex [Ferrex 150] 150 mg PO BID 02/13/18 Lorazepam [Ativan] 1 mg PO X1 02/13/18 Ondansetron [Zofran] 8 mg PO BID 02/13/18 Propylene Glycol [Lubricant Eye Drop] 1 drop OP PRN PRN 02/13/18 Propylene Glycol/Peg 400 [Systane Gel Eye Drops] 1 drop OP PRN PRN 02/13/18 Amlodipine [Norvasc] 10 mg PO DAILY #30 tablet 11/28/18 Duloxetine Hcl [Cymbalta] 60 mg PO DAILY #30 capsule 02/20/18 Gabapentin [Neurontin] 600 mg PO TIDCM tablet 02/20/18 Haloperidol [Haldol] 1 mg PO TID tablet 02/20/18 Losartan Potassium [Cozaar] 50 mg PO BID #60 tablet 02/20/18 Pantoprazole Sodium [Protonix] 40 mg PO BID #30 tablet 02/20/18 Potassium Chloride [K-Dur] 40 meq PO BID #120 tablet 02/20/18 fentaNYL patch [Duragesic Patch] 12 mcg TRANSDERM. Q3D patch 02/20/18 fentaNYL patch [Duragesic patch] 25 mcg TRANSDERM. Q72H patch 02/20/18 Following Prescrptions Were Given to Patient: Amlodipine [Norvasc] 10 mg PO DAILY #30 tablet Duloxetine Hcl [Cymbalta] 60 mg PO DAILY #30 capsule Losartan Potassium [Cozaar] 50 mg PO BID #60 tablet Pantoprazole Sodium [Protonix] 40 mg PO BID #30 tablet Potassium Chloride [K-Dur] 40 meq PO BID #120 tablet Primary Care Physician: David Hager DO [Primary Care Provider] - Disposition: Home with Hospice Minutes spent on discharge:: 35 Patient Condition:: Fair Medical Necessity - Tobacco Use Smoking Status: Former smoker Tobacco Use: Non-smoker Meaningful Use Info Meaningful Use Diagnoses (Choose all that apply): None applicable <Parker Maldonado F - Last Filed: 02/20/18 15:28> Discharge Date and Diagnosis - Secondary Discharge Diagnosis Chronic Problems (Last Reviewed 11/29/17 @ 03:51 by Kar Echols MD) Lung cancer (Chronic) Bone metastases (Chronic) Asthma (Chronic) Sleep apnea (Chronic) Diabetes mellitus, type II (Chronic) Former tobacco use (Chronic) Obesity (BMI 30-39.9) (Chronic) Hyperlipidemia (Chronic) Hypertension (Chronic) Junctional tachycardia (Chronic) Hospital Course and Treatment Summary of Care Provided: The patient is a 67 year old F [] - Physical Exam Vital Signs Temp Pulse Resp BP Pulse Ox 98.7 F 81 16 148/72 H 93 02/20/18 09:30 02/20/18 09:53 02/20/18 09:30 02/20/18 09:30 02/20/18 09:30 Oxygen Delivery Method Room Air Weight: 197 lb 5.019 oz Body Mass Index (BMI) 30.9 Finger Stick Blood Glucose 164 Intake and Output for Last 24 Hours 02/18/18 02/19/18 02/20/18 23:59 23:59 23:59 Intake Total 2139 / 9 3772 / 3772 900 / 900 Output Total 6500 / 6500 Balance 2139 / 2139 -2728 / -2728 900 / 900 Microbiology Past 72 Hours 02/17/18 Unknown Stool Occult Blood (VIOLET) - Final Stool Laboratory Tests Past 24 Hrs 02/19/18 02/20/18 17:26 05:54 Sodium 141 Potassium 3.2 L 2.8 L Chloride 104 Carbon Dioxide 30.0 Anion Gap 7 BUN 1 L Creatinine 0.71 Estim Creat Clear Calc 51.63 Est GFR (MDRD) Af Amer 104 Est GFR (MDRD) Non-Af 86 BUN/Creatinine Ratio 1.4 L Glucose 117 H Calcium 8.4 L POC Glucose 02/20/18 02/20/18 02/19/18 12:07 05:49 22:23 POC Glucose 130 H 125 H 107 02/19/18 16:46 POC Glucose 112 H Code Visit Addendum: Dr. Maldonado I personally examined the patient and reviewed the chart. I agree with the above. 67-year-old female with history of non-small cell lung cancer with diffuse spinal and pelvic metastases, who follows with Dr. Pineda, presenting with intractable nausea vomiting as a possible adverse effect from Keytruda versus radiation esophagitis. She underwent an EGD for further evaluation and it was thought to be candidal in nature therefore she was started on p.o. nystatin. Plan will be to discharge home with hospice and then she is planning on moving to [place] on March 02 at which point she will transition to hospice care there. Her potassium appears to be sitting around 2.8. Replaced on day of discharge and she will be given a prescription to take with her. Inpatient E&M: [id number] Disch Hosp
--- NOTE | 2018-02-20 09:29 | DS.PCM_ITS ---
<Magy Barrientos - Last Filed: 02/20/18 09:35> Discharge Date and Diagnosis Date of Admission: 02/14/18 Date of Discharge: 02/20/18 - Primary Discharge Diagnosis Active and Suspected Problems (Last Reviewed 11/29/17 @ 03:51 by Kar Echols MD) 1. Intractable nausea, vomiting-adverse effects from Keytruda/radiation esophagitis/Taylor esophagitis 2. 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 Electrolyte disturbances including hypophosphatemia, hypokalemia, hypomagnesia 4. Type 2 diabetes mellitus 5. Chronic normocytic anemia, iron deficiency anemia 6. Chronic asthma 7. Hypertension 8. Hyperlipidemia 9. Anxiety/depression 10. GERD 11. ALIN 12. Hospice transition at discharge - Secondary Discharge Diagnosis Chronic Problems (Last Reviewed 11/29/17 @ 03:51 by Kar Echols MD) Lung cancer (Chronic) Bone metastases (Chronic) Asthma (Chronic) Sleep apnea (Chronic) Diabetes mellitus, type II (Chronic) Former tobacco use (Chronic) Obesity (BMI 30-39.9) (Chronic) Hyperlipidemia (Chronic) Hypertension (Chronic) Junctional tachycardia (Chronic) Hospital Course and Treatment Imaging Results: Diagnostic Data Abdomen/Pelvis CT 02/13/18 17:17 IMPRESSION: Status post cholecystectomy. Chronic diverticulosis probably involving the sigmoid. There is a 2.0 cm fluid density structure adjacent to the distal sigmoid which may represent small abscess. There is no evidence of extraluminal gas. Bilateral renal cysts and small hepatic cyst. There are multiple blastic lesions of the visualized axial and appendicular skeleton consistent with osseous metastatic disease. There are lytic changes of the left ilium. Electronically Signed: Edgardo Hernández MD at 18:44 EST , Service support , Chest X-Ray 02/14/18 11:04 IMPRESSION: 1. No acute cardiopulmonary pathology. 2. COPD. 3. Old fracture of the right posterior eighth rib. 4. Calcified nodes in the left AP window and left hilum. 5. No interval change when compared to 12/03/2017. Electronically Signed: New Sung MD at 11:31 EST , Service support , Dr. Beck- General Surgery Dr. Pineda- Oncology Operations: None Procedures: 2-D Echocardiogram Summary of Care Provided: The patient is a 67 year old F admitted 02/13/2018 due to nausea, vomiting, diarrhea. 1. Intractable nausea, vomiting-multifactorial. Adverse effect from Keytruda/radiation esophagitis/possible gastroenteritis/Taylor esophagitis- stool studies negative. CT of abdomen and pelvis on admission shows chronic diverticulosis, possible distal sigmoid small abscess. Multiple blastic lesions of the axial and appendicular skeleton consistent with osseous metastatic disease. Surgery on consult for diverticular abscess. No further concern for abscess per surgery. Oncology consulted. Patient follows with Dr. Pineda. Patient was started on Haldol for antiemetic by oncology with improvement in symptoms, recommend continuing. Patient received nystatin swish and swallow during admission. Oncology discussed hospice with patient. Patient is agreeable to home with hospice, she plans on relocating to [place] after discharge. EGD completed which showed white plaque on the esophagus. Suspect Taylor esophagitis. Biopsy sent. Diflucan 200 mg x1. Patient will be discharged home with hospice. She will be traveling to [place] March 02 and is in contact with their hospice during transition. Patient will continue PPI at discharge. 2. 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 Pineda. Currently on immunosuppressive therapy and radiation. Unable to tolerate chemotherapy. Continue home fentanyl regimen. Dr. Conley discussed hospice with patient due to bone metastasis with progression despite immunotherapy, requiring palliative radiation. Plan for home with hospice at discharge. 3. Nonproductive cough-chest x-ray without acute pathology. DC IV Zosyn. Afebrile. No leukocytosis. Speech therapy consult. Recommend upright seated position with meals and small sips. 4. Electrolyte disturbance including hypophosphatemia, hypokalemia, hy pomagnesia-persistent hypokalemia, replaced per protocol. Patient will continue supplemental potassium at discharge. 5. Type 2 diabetes mellitus-continue home oral regimen. 6. Chronic normocytic anemia, iron deficiency anemia-stable. 7. Chronic asthma-no acute exacerbation. Continue as needed albuterol. 8. Hypertension-Continue home blood pressure regimen including losartan, metoprolol, amlodipine added. Discontinue HCTZ. 9. Hyperlipidemia-continue statin. 10. Anxiety/depression-continue Cymbalta, Ativan regimen. 11. GERD-continue PPI. 12. ALIN-continue CPAP nightly. 13. Obesity General: Alert, Oriented x3, Cooperative, No apparent distress HEENT: Atraumatic, PERRLA, EOMI, Normocephalic Neck: Supple, No JVD, Negative Carotid Bruits Lungs: Clear to auscultation, Normal air movement Cardiovascular: Regular rate, Regular Rhythm, Normal S1, Normal S2, No murmurs Abdomen: Bowel Sounds Present, Soft, Non Tender, Non-Distended Extremities: No clubbing, No cyanosis, No edema, Capillary Refill Less than 3 Seconds Skin: No rashes, No breakdown Musculoskeletal: No Tenderness to Palpation of Joints or Extremities Neurological: Cranial nerves II-XII grossly intact, Neuro grossly intact Psych/Mental Status: Normal Affect, Appropriate Patient seen and examined prior to discharge. Nausea, vomiting, diarrhea resolved. Home with hospice at discharge. This patient was seen by THEE Norton under the supervision of Dr. Maldonado. - Physical Exam Vital Signs Temp Pulse Resp BP Pulse Ox 98.2 F 80 16 154/70 H 95 02/20/18 03:22 02/20/18 07:22 02/20/18 03:22 02/20/18 03:22 02/20/18 03:22 Oxygen Delivery Method Room Air Weight: 197 lb 5.019 oz Body Mass Index (BMI) 30.9 Finger Stick Blood Glucose 164 Intake and Output for Last 24 Hours 02/18/18 02/19/18 02/20/18 23:59 23:59 23:59 Intake Total 2139 / 2139 3772 / 3772 900 / 900 Output Total 6500 / 6500 Balance 2139 / 2139 -2728 / -2728 900 / 900 Microbiology Past 72 Hours 02/17/18 Unknown Stool Occult Blood (VIOLET) - Final Stool Laboratory Tests Past 24 Hrs 02/19/18 02/20/18 17:26 05:54 Sodium 141 Potassium 3.2 L 2.8 L Chloride 104 Carbon Dioxide 30.0 Anion Gap 7 BUN 1 L Creatinine 0.71 Estim Creat Clear Calc 51.63 Est GFR (MDRD) Af Amer 104 Est GFR (MDRD) Non-Af 86 BUN/Creatinine Ratio 1.4 L Glucose 117 H Calcium 8.4 L POC Glucose 02/20/18 02/19/18 02/19/18 05:49 22:23 16:46 POC Glucose 125 H 107 112 H 02/19/18 11:44 POC Glucose 160 H Home Medications: Medications to take at Discharge Pravastatin [Pravachol] 80 mg PO QHS 04/19/17 melatonin 5 mg capsule 5 mg PO QHS 07/25/17 metformin 1,000 mg tablet 1,000 mg PO BID 08/15/17 Albuterol Aerosols [Ventolin Aerosols] 2.5 mg INHALATION Q6H PRN PRN 11/18/17 Albuterol IH (ProAir) [Proair Hfa] 1 - 2 puff INHALATION Q6H PRN PRN 11/18/17 Cyanocobalamin (Vitamin B-12) [B-12] 1,000 mcg PO DAILY 11/18/17 DiphenhydrAMINE [Benadryl] 25 mg PO QHS 11/18/17 Docusate Sodium [Stool Softener] 100 mg PO DAILY PRN PRN 11/18/17 Folic Acid 1 mg PO QHS 11/18/17 Furosemide [Lasix] 20 mg PO PRN PRN 11/18/17 Oxycodone HCl/Acetaminophen [Percocet 5-325] 1 tablet PO Q4H PRN PRN 11/18/17 Prochlorperazine Maleate [Compazine] 10 mg PO Q8H PRN 11/28/17 Metoprolol Succinate [Toprol Xl] 100 mg PO DINNER 11/29/17 Fluticasone/Vilanterol [Breo Ellipta 200-25 Mcg INH] 1 puff INHALATION DAILY 02/13/18 Ibuprofen [Motrin] 400 mg PO TID PRN PRN 02/13/18 Iron Polysaccharide Complex [Ferrex 150] 150 mg PO BID 02/13/18 Lorazepam [Ativan] 1 mg PO X1 02/13/18 Ondansetron [Zofran] 8 mg PO BID 02/13/18 Propylene Glycol [Lubricant Eye Drop] 1 drop OP PRN PRN 02/13/18 Propylene Glycol/Peg 400 [Systane Gel Eye Drops] 1 drop OP PRN PRN 02/13/18 Amlodipine [Norvasc] 10 mg PO DAILY #30 tablet 02/20/18 Duloxetine Hcl [Cymbalta] 60 mg PO DAILY #30 capsule 02/20/18 Gabapentin [Neurontin] 600 mg PO TIDCM tablet 02/20/18 Haloperidol [Haldol] 1 mg PO TID tablet 02/20/18 Losartan Potassium [Cozaar] 50 mg PO BID #60 tablet 02/20/18 Pantoprazole Sodium [Protonix] 40 mg PO BID #30 tablet 02/20/18 Potassium Chloride [K-Dur] 40 meq PO BID #120 tablet 02/20/18 fentaNYL patch [Duragesic Patch] 12 mcg TRANSDERM. Q3D patch 02/20/18 fentaNYL patch [Duragesic patch] 25 mcg TRANSDERM. Q72H patch 02/20/18 Following Prescrptions Were Given to Patient: Amlodipine [Norvasc] 10 mg PO DAILY #30 tablet Duloxetine Hcl [Cymbalta] 60 mg PO DAILY #30 capsule Losartan Potassium [Cozaar] 50 mg PO BID #60 tablet Pantoprazole Sodium [Protonix] 40 mg PO BID #30 tablet Potassium Chloride [K-Dur] 40 meq PO BID #120 tablet Primary Care Physician: David Hager DO [Primary Care Provider] - Disposition: Home with Hospice Minutes spent on discharge:: 35 Patient Condition:: Fair Medical Necessity - Tobacco Use Smoking Status: Former smoker Tobacco Use: Non-smoker Meaningful Use Info Meaningful Use Diagnoses (Choose all that apply): None applicable <Parker Maldonado F - Last Filed: 02/20/18 15:28> Discharge Date and Diagnosis - Secondary Discharge Diagnosis Chronic Problems (Last Reviewed 11/29/17 @ 03:51 by Kar Echols MD) Lung cancer (Chronic) Bone metastases (Chronic) Asthma (Chronic) Sleep apnea (Chronic) Diabetes mellitus, type II (Chronic) Former tobacco use (Chronic) Obesity (BMI 30-39.9) (Chronic) Hyperlipidemia (Chronic) Hypertension (Chronic) Junctional tachycardia (Chronic) Hospital Course and Treatment Summary of Care Provided: The patient is a 67 year old F [] - Physical Exam Vital Signs Temp Pulse Resp BP Pulse Ox 98.7 F 81 16 148/72 H 93 02/20/18 09:30 02/20/18 09:53 02/20/18 09:30 02/20/18 09:30 02/20/18 09:30 Oxygen Delivery Method Room Air Weight: 197 lb 5.019 oz Body Mass Index (BMI) 30.9 Finger Stick Blood Glucose 164 Intake and Output for Last 24 Hours 02/18/18 02/19/18 02/20/18 23:59 23:59 23:59 Intake Total 2139 / 9 3772 / 3772 900 / 900 Output Total 6500 / 6500 Balance 2139 / 2139 -2728 / -2728 900 / 900 Microbiology Past 72 Hours 02/17/18 Unknown Stool Occult Blood (VIOLET) - Final Stool Laboratory Tests Past 24 Hrs 02/19/18 02/20/18 17:26 05:54 Sodium 141 Potassium 3.2 L 2.8 L Chloride 104 Carbon Dioxide 30.0 Anion Gap 7 BUN 1 L Creatinine 0.71 Estim Creat Clear Calc 51.63 Est GFR (MDRD) Af Amer 104 Est GFR (MDRD) Non-Af 86 BUN/Creatinine Ratio 1.4 L Glucose 117 H Calcium 8.4 L POC Glucose 02/20/18 02/20/18 02/19/18 12:07 05:49 22:23 POC Glucose 130 H 125 H 107 02/19/18 16:46 POC Glucose 112 H Code Visit Addendum: Dr. Maldonado I personally examined the patient and reviewed the chart. I agree with the above. 67-year-old female with history of non-small cell lung cancer with diffuse spinal and pelvic metastases, who follows with Dr. Pineda, presenting with intractable nausea vomiting as a possible adverse effect from Keytruda versus radiation esophagitis. She underwent an EGD for further evaluation and it was thought to be candidal in nature therefore she was started on p.o. nystatin. Plan will be to discharge home with hospice and then she is planning on moving to [place] on March 02 at which point she will transition to hospice care there. Her potassium appears to be sitting around 2.8. Replaced on day of discharge and she will be given a prescription to take with her. Inpatient E&M: [id number] Disch Hosp
[2018-02-20 09:30] VITALS: BP 148/72; PULSE 81; RESP 16; TEMP 37.1; O2SAT 93
[2018-02-20] MEDS: DULoxetine Hcl 60 MG Capsule PO (09:44)
[2018-02-20] MEDS: Pantoprazole Sodium 40 MG Tablet PO (09:44)
[2018-02-20] MEDS: Enoxaparin 40 MG/0.4 ML Syringe SC (09:45)
[2018-02-20 09:53] VITALS: PULSE 81
[2018-02-20] MEDS: Metoprolol Tartrate 100 MG Tablet PO (09:53)
[2018-02-20] MEDS: NYSTATIN 500,000 UNIT/5 ML UDC 500000 UNIT PO (10:38)
--- NOTE | 2018-02-20 11:41 | CASEMGMT ---
Social Work Note AV received call from Lor at [facility]. AV updated Lor that pt is being discharged today. AV faxed discharge paperwork to Lor at [facility]. AV informed GABRIELLE Garrido that once pt is ready for discharge to call [facility] to give nurse to nurse report and to inform Hospice time that pt is being discharged home. Plan: Pt to discharge home with Hospice Reena Abbasi MOTOR COACH TOUR OPERATOR, MASSAGE THERAPY INSTRUCTOR
--- NOTE | 2018-02-20 13:08 | NURSING ---
Hospice notified pt is leaving now and has about a [address]
[2018-02-20 13:10] LABS: Bedside Glucose 130 mg/dL (70-110)
--- NOTE | 2018-02-20 13:18 | NURSING ---
Report called to Kenneth at hospice.
== END 2018-02-20 15:00 | disposition hospice, home (50) | DRG 392 ==
LOC: ED 15:36 → MS3 21:20
PROVIDERS: Anesthesiology; Internal Medicine; Nurse Practitioner Family; Student in an Organized Health Care Education/Training Program; Surgery; Admitting Provider Family Medicine; Emergency Provider Emergency Medicine; Family Provider Family Medicine; PCP Family Medicine; Referring Provider Family Medicine; Visit Provider Family Medicine
PROC: 0DJ08ZZ Inspection of Upper Intestinal Tract, Via Natural or Artificial Opening Endoscopic (ICD-10-PCS; CPT 43235; principal; 2018-02-18 15:25)
DX: R11.2 Nausea with vomiting, unspecified (principal); B37.81 Candidal esophagitis; C79.51 Secondary malignant neoplasm of bone; C79.89 Secondary malignant neoplasm of other specified sites; C34.90 Malignant neoplasm of unspecified part of unspecified bronchus or lung; K21.0 Gastro-esophageal reflux disease with esophagitis; E87.6 Hypokalemia; K52.9 Noninfective gastroenteritis and colitis, unspecified; E66.9 Obesity, unspecified; T45.1X5A Adverse effect of antineoplastic and immunosuppressive drugs, initial encounter; E11.9 Type 2 diabetes mellitus without complications; Y84.2 Radiological procedure and radiotherapy as the cause of abnormal reaction of the patient, or of later complication, without mention of misadventure at the time of the procedure; J45.909 Unspecified asthma, uncomplicated; I10 Essential (primary) hypertension; E78.5 Hyperlipidemia, unspecified; D50.9 Iron deficiency anemia, unspecified; G47.33 Obstructive sleep apnea (adult) (pediatric); D63.0 Anemia in neoplastic disease; E83.39 Other disorders of phosphorus metabolism; Z79.84 Long term (current) use of oral hypoglycemic drugs; Z79.899 Other long term (current) drug therapy; Z87.891 Personal history of nicotine dependence; Z68.30 Body mass index [BMI] 30.0-30.9, adult
CPT/HCPCS: 36415; 71046; 74177; 80048; 80076; 81001; 82274; 82962; 83036; 83630; 83735; 84100; 84132; 85025; 87449; 87493; 87506; 87633; 87804; 88305; 88312; 92526; 93005; 97802; 99282; J7030; J7040; J7050; Q9967; A4216; J2405